=== PATIENT | male | born 1945 | race Caucasian/White ===

== ENCOUNTER → 2019-06-26 | Outpatient (CLI) | payer BC ==
[2019-06-26 10:49] LABS: Basophils # (auto) 0.1 uL; Basophils % (auto) 0.8 % (0.0-2.0); Eosinophils # (auto) 0.1 uL; Eosinophils % (auto) 1.8 % (0.0-7.0); Hematocrit 44.9 % (41.0-53.0); Hemoglobin 15.2 g/dL (13.5-17.5); Lymphocytes # (auto) 1.7 uL; Lymphocytes % (auto) 25.5 % (10.0-50.0); Mean Corpuscular Hemoglobin 30.1 pg (28.0-32.0); Mean Corpuscular Hgb Conc. 33.8 g/dL (32.0-36.0); Mean Corpuscular Volume 89.2 fL (80.0-100.0); Monocytes # (auto) 0.3 uL; Neutrophils # (auto) 4.5 uL; Neutrophils % (auto) 66.9 % (37.0-80.0); Nucleated Red Blood Cells % 0.1 %; Platelet Count (auto) 230 10^3/uL (140-450); Red Blood Cells 5.03 10^6/uL (4.5-5.90); Red Cell Distribution Width 14.4 % (11.8-14.3); White Blood Cell 6.8 10^3/uL (4.4-10.8)
[2019-06-26 11:46] LABS: Potassium 4.2 mmol/L (3.5-5.1)
[2019-06-26 11:54] LABS: Albumin 3.8 g/dL (3.4-5.0); BUN/Creatinine Ratio 15.2; Bilirubin, Total 0.6 mg/dL (0.2-1.0); Total Protein 7.2 g/dL (6.4-8.2)
[2019-06-26 14:42] LABS: Urine Bacteria NONE SEEN /hpf (None Seen); Urine Blood Negative /uL (Negative); Urine Hyaline Cast FEW /lpf (0 - 2); Urine Mucus FEW (None Seen); Urine Specific Gravity 1.027 (1.001-1.035); Urine WBC 2 /hpf (0 - 3)
== END | disposition home or self-care (01) ==
LOC: LAB 10:19
PROVIDERS: ATTEND Nurse Practitioner
DX: Z00.00 Encounter for general adult medical examination without abnormal findings (principal); E78.5 Hyperlipidemia, unspecified
CPT/HCPCS: 36415; 80053; 80061; 81001; 84443; 85025

== ENCOUNTER 2019-07-10 18:00 | Inpatient (IN) | payer BC ==
[~2019-07-10] VITALS: Ht 177.8 cm; Wt 87.0 kg
[2019-07-10 19:05] LABS: Basophils # (auto) 0 uL; Basophils % (auto) 0.4 % (0.0-2.0); Eosinophils # (auto) 0 uL; Eosinophils % (auto) 0.3 % (0.0-7.0); Hematocrit 44.9 % (41.0-53.0); Hemoglobin 15.4 g/dL (13.5-17.5); Lymphocytes # (auto) 1.1 uL; Lymphocytes % (auto) 10.7 % (10.0-50.0); Mean Corpuscular Hemoglobin 30.5 pg (28.0-32.0); Mean Corpuscular Hgb Conc. 34.3 g/dL (32.0-36.0); Monocytes # (auto) 0.4 uL; Monocytes % (auto) 4.4 % (0.0-12.0); Neutrophils # (auto) 8.4 uL; Neutrophils % (auto) 84.2 % (37.0-80.0); Platelet Count (auto) 210 10^3/uL (140-450); Red Blood Cells 5.05 10^6/uL (4.5-5.90); Red Cell Distribution Width 14.3 % (11.8-14.3)
[2019-07-10 19:16] LABS: Albumin 3.9 g/dL (3.4-5.0); Anion Gap 10 (5-15); Blood Urea Nitrogen 25 mg/dL (7-18); Calcium 8.7 mg/dL (8.5-10.1); Carbon Dioxide 23 mmol/L (21-32); Chloride 108 mmol/L (98-107); Glucose 130 mg/dL (74-106); Potassium 3.8 mmol/L (3.5-5.1); Sodium 141 mmol/L (136-145)
[2019-07-10 19:20] LABS: INR 1.06 (0.9-1.15); Partial Thromboplastin Time 25.2 sec (23.64-32.05)
[2019-07-10 19:22] LABS: Alanine Aminotransferase 49 U/L (16-61); Alkaline Phosphatase 61 U/L (45-117); Aspartate Aminotransferase 27 U/L (15-37); BUN/Creatinine Ratio 16.2; Bilirubin, Total 0.5 mg/dL (0.2-1.0); GFR African American 57 mL/min; GFR Non-African American 47 mL/min; Total Protein 7.1 g/dL (6.4-8.2)
[2019-07-10] MEDS ORDERED: NITROGLYCERIN 0.4 MG SL TAB SL PRN (22:30)
[2019-07-10] MEDS ORDERED: FAMOTIDINE (10MG/ML) 2ML VL IV ONE (22:30)
[2019-07-10] MEDS ORDERED: MORPHINE SULF INJ 2 MG/ML SYRINGE 1ML IV PRN (22:30)
[2019-07-10] MEDS: SODIUM CHLORIDE 0.9% 1,000 ML IV SCH (23:52)
[2019-07-10 23:59] VITALS: BP 131/87
--- NOTE | 2019-07-10 23:59 | NUR ---
Telemetry admit from [facility] admitted to Telemetry unit. Patient oriented to Abby Pillai RN primary RN, unit, room, bed, and unit policies regarding patient care and visiting hours. Patient now on continuous telemetry monitoring, tele box #[id number] and telemetry reading on arrival to unit is sinus rhythm. Patient weighed by bedscale and encouraged to call if they need something. All questions and concerns addressed, patient verbalized understanding. Bed is in lowest locked position with bed rails up x2 and call light is within reach of the patient. Bed alarm is armed.
--- NOTE | 2019-07-11 02:00 | NUR ---
Medications reconciliation, family called: Called [place] on patients request, patients brother to bring in patients list of medications for the patient after educating the need for list of medications. Denver stated that he will retrieve the list from [facility] and bring the list of medications in the AM to the hospital.
[2019-07-11] MEDS ORDERED: PNEUMOCOCCAL VACC POLYS 25 MCG/0.5 ML VIAL IM ONE (02:15)
[2019-07-11 02:44] LABS: Urine Amorphous Crystal FEW /hpf (None Seen); Urine Bacteria FEW /hpf (None Seen); Urine Blood Negative /uL (Negative); Urine Hyaline Cast MOD /lpf (0 - 2); Urine Mucus FEW (None Seen); Urine Specific Gravity 1.021 (1.001-1.035); Urine WBC 2 /hpf (0 - 3)
[2019-07-11 05:00] VITALS: BP 146/73
[2019-07-11 06:14] LABS: Basophils # (auto) 0.1 uL; Basophils % (auto) 0.7 % (0.0-2.0); Eosinophils # (auto) 0.1 uL; Eosinophils % (auto) 0.8 % (0.0-7.0); Hematocrit 41.8 % (41.0-53.0); Hemoglobin 14.7 g/dL (13.5-17.5); Lymphocytes # (auto) 1.8 uL; Lymphocytes % (auto) 18.5 % (10.0-50.0); Mean Corpuscular Hemoglobin 30.5 pg (28.0-32.0); Mean Corpuscular Hgb Conc. 35.1 g/dL (32.0-36.0); Monocytes # (auto) 0.6 uL; Monocytes % (auto) 5.8 % (0.0-12.0); Neutrophils # (auto) 7.1 uL; Neutrophils % (auto) 74.2 % (37.0-80.0); Platelet Count (auto) 206 10^3/uL (140-450); Red Cell Distribution Width 14.5 % (11.8-14.3); White Blood Cell 9.5 10^3/uL (4.4-10.8)
[2019-07-11 06:35] LABS: BUN/Creatinine Ratio 21.1; Calcium 8.5 mg/dL (8.5-10.1); Potassium 3.8 mmol/L (3.5-5.1)
--- NOTE | 2019-07-11 06:54 | NUR ---
Closing note: Patient is resting in bed with breaths even and unlabored. Bed alarm armed. No s/s of distress SOB or pain noted. Bed is in lowest locked position with bed rails up x2 and call light is within reach of the patient. Will endorse care to day shift nurse.
--- NOTE | 2019-07-11 07:50 | NUR ---
Opening Shift Note Assumed care of patient, awake and alert. No S/S of distress/SOB or pain. Instructed on POC and to call for assist PRN, will continue to monitor for changes Q1hr and PRN. Call light placed within reach. Bed alarm on for safety.
[2019-07-11 08:19] VITALS: BP 129/81
[2019-07-11] MEDS: FAMOTIDINE (10MG/ML) 2ML VL IV SCH ×2 (09:42→21:51)
--- NOTE | 2019-07-11 11:20 | NUR ---
IV to left hand dislodged. Patient attempted to get out of bed without calling for assistance. IV was dislodged and patient had blood all over his hands and bed linen. Pressure dressing was applied and hygienic needs met. IV insertion IV access obtained, via clean sterile technique by inserting 20 gauge catheter at left wrist after 1 attempt(s). IV secured properly. No trauma to site. Patient tolerated well.
--- NOTE | 2019-07-11 12:45 | NUR ---
Brother at bedside. He brought list of patient's home medications. Will update medication reconciliation.
[2019-07-11 13:00] VITALS: BP 161/84
[2019-07-11] MEDS: SODIUM CHLORIDE 0.9% 1,000 ML IV SCH (13:18)
[2019-07-11] MEDS ORDERED: DONE10TA40 PO (14:33)
[2019-07-11] MEDS ORDERED: MEMA1TAB2 PO (14:33)
[2019-07-11] MEDS ORDERED: ASPI81CH4 PO (14:33)
[2019-07-11] MEDS ORDERED: LISI10TA6 PO (14:33)
[2019-07-11] MEDS ORDERED: ATOR40TA52 PO (14:33)
[2019-07-11] MEDS ORDERED: DIPH25CA6 PO (14:33)
[2019-07-11] MEDS ORDERED: ACET-1156 PO (14:33)
[2019-07-11] MEDS ORDERED: BISA-4 PO (14:33)
[2019-07-11] MEDS ORDERED: AML5T PO (14:33)
[2019-07-11] MEDS ORDERED: DOCU100T15 PO (14:33)
--- NOTE | 2019-07-11 15:37 | NUR ---
Assessment Pt is a 74 yr old alert but somewhat disoriented male. During assessment, Pt had dysarthria, including slow of speech and some slurred words and was extra emotional. Prior to admit, pt lives alone, was ambulatory, and independent with cooking, cleaning and ADLs. Pt admitted with Syncope. Pt stated that he might need some help in the home with taking his medications. SW will discuss pt's needs with his nurse. Pt receives senior care income and is working on Advanced directives. Pt stated that his friend Denver can transport him home upon d/c. Further d/c planning will be done closer to d/c. Addendum: 07/11/19 at 1609 by BJ COSTA Amended: Links added.
[2019-07-11] MEDS ORDERED: LORazepam 2MG/ML-1ML VIAL IV PRN (15:45)
--- NOTE | 2019-07-11 15:46 | NUR ---
Social Service consult regarding Advance Directives. Provided pt with information on Advance Directive and Durable Power of Station Superintendent Form. Pt verbalized understanding and accepted information. Will contact Mathematics Faculty Member for any further concerns or issues.
[2019-07-11] MEDS ORDERED: HALOPERIDOL LACTATE 5 MG/ML INJ VIAL IM PRN (16:00)
[2019-07-11 16:39] VITALS: BP 126/78
[2019-07-11 17:48] LABS: Folate (Folic Acid) 10.95 ng/mL (5.38-24)
--- NOTE | 2019-07-11 20:00 | NUR ---
Opening Shift Note Assumed care of patient, awake and alert. No S/S of distress/SOB or pain. Instructed on POC and to call for assist PRN, will continue to monitor for changes Q1hr and PRN. Sitter at bed side for fall prevention. Bed in low position and call light in reach.
[2019-07-11] MEDS: MEMANTINE HCL 5 MG TAB PO SCH (21:39)
[2019-07-11 22:00] VITALS: BP 139/79
[2019-07-11] MEDS ORDERED: ATORVASTATIN 20 MG TAB PO SCH (22:00)
[2019-07-11] MEDS ORDERED: DONEPEZIL HYDROCHLORIDE 5 MG TAB PO SCH (22:00)
[2019-07-12] MEDS: SODIUM CHLORIDE 0.9% 1,000 ML IV SCH ×2 (01:10→16:32)
[2019-07-12 05:00] VITALS: BP 146/78
--- NOTE | 2019-07-12 06:54 | NUR ---
Closing note: Patient resting comfortably. No acute distress noted. Sitter remains at bedside.
--- NOTE | 2019-07-12 08:00 | NUR ---
PT RESTING IN BED, NO DISTRESS NOTED. PT A AND O X4. PT REPORTS NO PAIN AT THIS TIME. SITTER AT BEDSIDE, PT ENCOURAGED TO USE CALL LIGHT PRN, WILL CONTINUE TO MONITOR.
[2019-07-12 08:37] VITALS: BP 143/81
[2019-07-12] MEDS ORDERED: LISINOPRIL 10 MG TAB PO SCH (10:00)
[2019-07-12] MEDS ORDERED: ASPirin 81 mg TAB PO SCH (10:00)
--- NOTE | 2019-07-12 10:20 | NUR ---
EEG COMPLETED AT BEDSIDE. SUNDAR HOFF.
[2019-07-12] MEDS: MEMANTINE HCL 5 MG TAB PO SCH (11:26)
[2019-07-12] MEDS: FAMOTIDINE (10MG/ML) 2ML VL IV SCH (11:27)
[2019-07-12 11:30] LABS: BUN/Creatinine Ratio 16.5; Calcium 8.3 mg/dL (8.5-10.1)
[2019-07-12 13:00] VITALS: BP 134/72
--- NOTE | 2019-07-12 14:22 | NUR ---
MILLWRIGHT APPRENTICE CALLED AND REPORTS SHE SPOKE WITH DR HDEZ. REPORTED MRI NEG AND PT CAN BE DISCHARGED.
--- NOTE | 2019-07-12 15:04 | NUR ---
MAMI MIMS, PT HAD ANOTHER 5 BEATS OF V TACH. ASSESSED PT. PT RESTING IN BED AND REPORTS NO DISTRESS. NOTIFIED DR CHUA OF PT 5 BEATS OF V TACH. AWARE. Addendum: 07/12/19 at 1528 by CAM LATIF RN WRONG PATIENT
[2019-07-12 15:10] VITALS: BP 134/72
[2019-07-12] MEDS ORDERED: PNEUMOCOCCAL VACC POLYS 25 MCG/0.5 ML VIAL IM ONE (16:00)
--- NOTE | 2019-07-12 16:59 | NUR ---
Discharge instructions given as ordered. Encourage to follow up with PMD and Dr Cutler as instructed. All questions and concerns addressed. Patient verbalized understanding. Medication reconciliation form completed and copy given to patient. Needed vaccine given. IV removed with catheter intact, pressure dressing applied. Telemetry unit returned to ICU. Patient taken to vehicle via wheelchair with all personal belongings, accompanied by staff and family member. No distress noted at time of departure.
--- NOTE | 2019-07-14 16:40 | NUR ---
Received no call or page for SS consult to d/c back to [facility], [place].
== END 2019-07-12 16:00 | DRG 73 ==
LOC: EDBD 18:00 → ER 18:05 → TELE 18:06 → TELE-WESTW 23:33
PROVIDERS: ADMIT Internal Medicine; ATTEND Internal Medicine
DX: G90.8 Other disorders of autonomic nervous system (principal); N17.0 Acute kidney failure with tubular necrosis; K92.0 Hematemesis; E78.5 Hyperlipidemia, unspecified; R26.9 Unspecified abnormalities of gait and mobility; K59.00 Constipation, unspecified; F03.90 Unspecified dementia, unspecified severity, without behavioral disturbance, psychotic disturbance, mood disturbance, and anxiety; I10 Essential (primary) hypertension; E86.0 Dehydration; Z86.73 Personal history of transient ischemic attack (TIA), and cerebral infarction without residual deficits; Z83.3 Family history of diabetes mellitus; Z82.49 Family history of ischemic heart disease and other diseases of the circulatory system; Z79.899 Other long term (current) drug therapy; Z23 Encounter for immunization
CPT/HCPCS: 36415; 70450; 70551; 71045; 80048; 80053; 81001; 82607; 82746; 83880; 84484; 85025; 85610; 85730; 87081; 93005; 93306; 93886; 95819; 97116; 97530; G0378; J3490

== ENCOUNTER → 2020-05-15 | Emergency (ER) | payer BC ==
[~2020-05-15] VITALS: Ht 182.9 cm; Wt 68.0 kg
[~2020-05-15] MED LIST: ACET-1156 PO; AML5T PO; ASPI81CH74 PO; ATOR40TA52 PO; BISA-4 PO; DIPH25CA6 PO; DOCU100T15 PO; DONE10TA40 PO; LISI-648 PO; MEMA1TAB5 PO; SODIUM CHLORIDE 0.9% 500 ML IV ONE
[2020-05-15 10:24] LABS: Albumin 3.8 g/dL (3.4-5.0); Anion Gap 7 (5-15); Carbon Dioxide 23 mmol/L (21-32); Chloride 100 mmol/L (98-107); Glucose 140 mg/dL (74-106); Potassium 4.2 mmol/L (3.5-5.1); Sodium 130 mmol/L (136-145)
[2020-05-15 10:31] LABS: Alanine Aminotransferase 38 U/L (16-61); Alkaline Phosphatase 107 U/L (45-117); Aspartate Aminotransferase 41 U/L (15-37); BUN/Creatinine Ratio 22.2; Bilirubin, Total 1.2 mg/dL (0.2-1.0); Blood Urea Nitrogen 28 mg/dL (7-18); GFR African American 72 mL/min; GFR Non-African American 59 mL/min; Total Protein 7.1 g/dL (6.4-8.2)
[2020-05-15 15:15] LABS: Neutrophils % (auto) 89.8 % (37.0-80.0); White Blood Cell 9.5 10^3/uL (4.4-10.8)
[2020-05-15 15:16] LABS: Basophils # (auto) 0.02 10 ^3/uL (0-0.2); Basophils % (auto) 0.2 % (0.0-2.0); Eosinophils # (auto) 0 10 ^3/uL (0-0.8); Eosinophils % (auto) 0.4 % (0.0-7.0); Hematocrit 46.8 % (41.0-53.0); Hemoglobin 15.8 g/dL (13.5-17.5); Lymphocytes # (auto) 0.43 10 ^3/uL (0.4-5.4); Lymphocytes % (auto) 4.5 % (10.0-50.0); Mean Corpuscular Hemoglobin 29.7 pg (28.0-32.0); Mean Corpuscular Hgb Conc. 33.8 g/dL (32.0-36.0); Monocytes # (auto) 0.46 10 ^3/uL (0-1.3); Monocytes % (auto) 4.8 % (0.0-12.0); Neutrophils # (auto) 8.54 10 ^3/uL (1.6-8.6); Red Blood Cells 5.32 10^6/uL (4.5-5.90); Red Cell Distribution Width 14.1 % (11.8-14.3)
[2020-05-15 15:17] LABS: Platelet Count (auto) 187 10^3/uL (140-450)
[2020-05-15 15:20] LABS: Urine Bacteria NONE SEEN /hpf (None Seen); Urine Blood Negative /uL (Negative); Urine Specific Gravity 1.031 (1.001-1.035); Urine WBC <1 /hpf (0 - 3)
[2020-05-15 17:00] VITALS: BP 122/80
== END | disposition home or self-care (01) ==
LOC: EDUNIT# 08:57 → EDBD 09:10 → ER 09:10
DX: S70.01XA Contusion of right hip, initial encounter (principal); F03.90 Unspecified dementia, unspecified severity, without behavioral disturbance, psychotic disturbance, mood disturbance, and anxiety; I10 Essential (primary) hypertension; W19.XXXA Unspecified fall, initial encounter; Y93.89 Activity, other specified; Y92.89 Other specified places as the place of occurrence of the external cause; Y99.8 Other external cause status
CPT/HCPCS: 36415; 72192; 80053; 81001; 84484; 85025; 96360; 99285; J7030

== ENCOUNTER → 2020-07-21 | Outpatient (CLI) | payer BC ==
[~2020-07-21] MED LIST changes: -SODIUM CHLORIDE 0.9% 500 ML IV ONE
[2020-07-21 10:42] LABS: Urine Bacteria NONE SEEN /hpf (None Seen); Urine Blood Negative /uL (Negative); Urine Hyaline Cast FEW /lpf (0 - 2); Urine Mucus FEW (None Seen); Urine Specific Gravity 1.026 (1.001-1.035); Urine WBC 1 /hpf (0 - 3)
== END | disposition home or self-care (01) ==
LOC: LAB 10:04
PROVIDERS: ATTEND Nurse Practitioner
DX: R82.79 Other abnormal findings on microbiological examination of urine (principal)
CPT/HCPCS: 81001; 87086

== ENCOUNTER 2021-06-02 17:25 | Emergency (ER) | payer BC ==
[~2021-06-02] VITALS: Ht 170.2 cm; Wt 74.8 kg
[~2021-06-02 17:25] MED LIST changes: -BISA-4 PO; +BISA-65 PO; +DIPH25CA29 PO; -DIPH25CA6 PO; -DONE10TA40 PO; +DONE1TAB88 PO; -LISI-648 PO; +LISI-716 PO
[2021-06-02] MEDS ORDERED: cefTRIAXone SOD 1,000 MG VL IM ONE (20:15)
[2021-06-02 20:18] VITALS: BP 115/80
== END 2021-06-02 21:05 | disposition home or self-care (01) ==
LOC: ER 17:26
DX: L03.114 Cellulitis of left upper limb (principal); L03.011 Cellulitis of right finger; I10 Essential (primary) hypertension; Z86.73 Personal history of transient ischemic attack (TIA), and cerebral infarction without residual deficits; Z79.899 Other long term (current) drug therapy
CPT/HCPCS: 96372; 99283; J0696

== ENCOUNTER 2023-06-18 18:04 | Inpatient (IN) | payer BC ==
[~2023-06-18] VITALS: Ht 185.4 cm; Wt 98.6 kg
[~2023-06-18 18:04] MED LIST changes: -ACET-1156 PO; +ACET-1881 PO; +DIPH-753 PO; -DIPH25CA29 PO; -LISI-716 PO; +LISI10TA34 PO
[2023-06-18] MEDS ORDERED: MORPHINE SULFATE 4 MG/ML SYR/VIAL IV ONE (18:45)
[2023-06-18] MEDS ORDERED: SODIUM CHLORIDE 0.9% 1,000 ML IVB ONE (18:45)
[2023-06-18] MEDS ORDERED: ONDANSETRON HCL 4 MG/2 ML VIAL IV ONE (18:45)
[2023-06-18 19:09] LABS: Basophils # (auto) 0 10 ^3/uL (0-0.2); Basophils % (auto) 0.2 % (0.0-2.0); Eosinophils # (auto) 0.1 10 ^3/uL (0-0.8); Eosinophils % (auto) 0.5 % (0.0-7.0); Hematocrit 47.7 % (41.0-53.0); Hemoglobin 15.9 g/dL (13.5-17.5); Lymphocytes # (auto) 1.2 10 ^3/uL (0.4-5.4); Lymphocytes % (auto) 9.1 % (10.0-50.0); Mean Corpuscular Hemoglobin 29.3 pg (28.0-32.0); Mean Corpuscular Hgb Conc. 33.4 g/dL (32.0-36.0); Mean Corpuscular Volume 87.9 fL (80.0-100.0); Monocytes # (auto) 0.5 10 ^3/uL (0-1.3); Monocytes % (auto) 4.2 % (0.0-12.0); Neutrophils # (auto) 11.2 10 ^3/uL (1.6-8.6); Red Blood Cells 5.43 10^6/uL (4.5-5.90); Red Cell Distribution Width 14.8 % (11.8-14.3)
[2023-06-18 19:20] VITALS: PULSE 80; RESP 19; O2SAT 98
[2023-06-18 19:29] LABS: Alanine Aminotransferase 23 U/L (7-40); Albumin 3.8 g/dL (3.2-4.8); Alkaline Phosphatase 87 U/L (46-116); Anion Gap 7 (5-15); Aspartate Aminotransferase 18 U/L (13-40); BUN/Creatinine Ratio 14.8 (10.0-20.0); Bilirubin, Total 0.5 mg/dL (0.2-1.0); Blood Urea Nitrogen 27 mg/dL (9-23); Calcium 8.9 mg/dL (8.7-10.4); Carbon Dioxide 26 mmol/L (20-30); Chloride 104 mmol/L (98-107); Glucose 177 mg/dL (74-106); Lipase 50 U/L (12-53); Magnesium 1.9 mg/dL (1.6-2.6); Potassium 4.5 mmol/L (3.5-5.1); Sodium 137 mmol/L (136-145); Total Protein 5.7 g/dL (5.7-8.2)
[2023-06-18 20:10] LABS: INR 1.1 (0.9-1.15); Partial Thromboplastin Time 27.3 SEC (24.5-34.5); Prothrombin Time 11.5 sec (9.3-11.8)
[2023-06-18] MEDS ORDERED: IOHEXOL 350 MG/ML 100ML IJ ONE (20:19)
[2023-06-18 20:35] LABS: Lactic Acid w/Reflex 2.5 mmol/L (0.4-2.0)
[2023-06-18 23:08] LABS: Urine Bacteria FEW /hpf (None Seen); Urine Blood 2+ /uL (Negative); Urine Clarity Clear (Clear); Urine Color Yellow (Yellow); Urine Hyaline Cast FEW /lpf (0 - 2); Urine Mucus FEW (None Seen); Urine Protein, UAD 1+ (Negative); Urine Urobilinogen Normal (Negative); Urine WBC 6 /hpf (0 - 3); Urine pH 5.5 (5.0-8.0)
[2023-06-18 23:36] LABS: Urine Specific Gravity > 1.050 (1.001-1.035)
[2023-06-19] MEDS ORDERED: cefTRIAXone 1GM/50ML D5W 50 ML IV ONE ×2 (00:15→11:30)
[2023-06-19] MEDS ORDERED: ONDANSETRON HCL 4 MG/2 ML VIAL IV PRN (01:00)
[2023-06-19] MEDS ORDERED: SODIUM CHLORIDE 0.9% 1,000 ML IV SCH (01:00)
[2023-06-19] MEDS ORDERED: ACETAMINOPHEN 325 MG TAB PO PRN (01:00)
[2023-06-19] MEDS: CARBIDOPA W LEVODOPA 10/100mg TABLET PO SCH ×3 (06:00→21:15)
[2023-06-19] MEDS: MEMANTINE HCL 5 MG TAB PO SCH (10:04)
[2023-06-19 10:18] VITALS: PULSE 76; RESP 19; O2SAT 98
[2023-06-19 10:19] VITALS: BP 141/78; PULSE 76; RESP 19; TEMP 97.8; O2SAT 98
[2023-06-19 10:27] VITALS: BP 141/78; PULSE 76; RESP 19; TEMP 97.5; O2SAT 98
[2023-06-19] MEDS ORDERED: LACTATED RINGER'S 1,000 ML IV ONE (11:30)
[2023-06-19] MEDS ORDERED: LOPERAMIDE HCL 2 MG CAP/TAB PO PRN (11:30)
[2023-06-19 13:00] VITALS: BP 115/82; PULSE 67; RESP 19; TEMP 97.3; O2SAT 97
[2023-06-19 17:23] VITALS: BP 147/74; PULSE 74; RESP 19; TEMP 98.3; O2SAT 96
[2023-06-19] MEDS: ATORVASTATIN 20 MG TAB PO SCH (21:14)
[2023-06-19] MEDS: DONEPEZIL HYDROCHLORIDE 5 MG TAB PO SCH (21:15)
[2023-06-19 22:00] VITALS: BP 141/78; PULSE 68; RESP 17; TEMP 97.4; O2SAT 98
[2023-06-20] MEDS: metroNIDAZOLE 500MG/100ML 100 ML IV SCH ×3 (04:59→21:41)
[2023-06-20 05:00] VITALS: BP 164/80; PULSE 77; RESP 20; TEMP 97.6; O2SAT 94
[2023-06-20] MEDS: CARBIDOPA W LEVODOPA 10/100mg TABLET PO SCH ×3 (05:00→21:42)
[2023-06-20] MEDS ORDERED: hydrALAZINE HCL 20 MG/ML VL IV ONE (05:15)
[2023-06-20 09:00] VITALS: BP 150/86; PULSE 80; RESP 22; TEMP 98.3; O2SAT 96
[2023-06-20] MEDS: MEMANTINE HCL 5 MG TAB PO SCH (09:27)
[2023-06-20] MEDS: cefTRIAXone 1GM/50ML D5W 50 ML IV SCH (09:49)
[2023-06-20 09:58] LABS: Basophils # (auto) 0.1 10 ^3/uL (0-0.2); Basophils % (auto) 0.6 % (0.0-2.0); Eosinophils # (auto) 0.3 10 ^3/uL (0-0.8); Hematocrit 42.6 % (41.0-53.0); Hemoglobin 14.3 g/dL (13.5-17.5); Lymphocytes # (auto) 1.5 10 ^3/uL (0.4-5.4); Lymphocytes % (auto) 15.8 % (10.0-50.0); Mean Corpuscular Hemoglobin 29.7 pg (28.0-32.0); Mean Corpuscular Hgb Conc. 33.6 g/dL (32.0-36.0); Mean Corpuscular Volume 88.3 fL (80.0-100.0); Monocytes # (auto) 0.5 10 ^3/uL (0-1.3); Monocytes % (auto) 5.2 % (0.0-12.0); Neutrophils # (auto) 7.2 10 ^3/uL (1.6-8.6); Neutrophils % (auto) 75.4 % (37.0-80.0); Nucleated Red Blood Cells % 0.3 %; Red Blood Cells 4.82 10^6/uL (4.5-5.90); Red Cell Distribution Width 14.7 % (11.8-14.3); White Blood Cell 9.5 10^3/uL (4.4-10.8)
[2023-06-20 10:34] LABS: Alkaline Phosphatase 83 U/L (46-116); Anion Gap 6 (5-15); Aspartate Aminotransferase 15 U/L (13-40); Calcium 8.9 mg/dL (8.5-10.1); Carbon Dioxide 26 mmol/L (20-30); Chloride 106 mmol/L (98-107); Glucose 109 mg/dL (74-106); Potassium 4.2 mmol/L (3.5-5.1); Sodium 138 mmol/L (136-145)
[2023-06-20 10:35] LABS: Bilirubin, Total 0.9 mg/dL (0.2-1.0); Total Protein 6.3 g/dL (5.7-8.2)
[2023-06-20] MEDS ORDERED: PANTOPRAZOLE 40 MG/10 ML VIAL INJ IV ONE (11:00)
[2023-06-20 11:10] LABS: BUN/Creatinine Ratio 6.8 (10.0-20.0); Blood Urea Nitrogen < 5 mg/dL (9-23)
[2023-06-20 11:11] LABS: Alanine Aminotransferase < 9 U/L (7-40)
[2023-06-20 13:00] VITALS: BP 149/93; PULSE 72; RESP 18; TEMP 98.1; O2SAT 98
[2023-06-20 13:25] LABS: Urine Bacteria FEW /hpf (None Seen); Urine Blood 3+ /uL (Negative); Urine Clarity Clear (Clear); Urine Color Yellow (Yellow); Urine Mucus FEW (None Seen); Urine Protein, UAD 1+ (Negative); Urine Specific Gravity 1.017 (1.001-1.035); Urine Urobilinogen Normal (Negative); Urine WBC 9 /hpf (0 - 3)
[2023-06-20 16:44] VITALS: BP 129/72; PULSE 70; RESP 20; TEMP 98.7; O2SAT 99
[2023-06-20 21:30] VITALS: BP 137/87; PULSE 83; RESP 18; TEMP 98.3; O2SAT 97
[2023-06-20] MEDS: DONEPEZIL HYDROCHLORIDE 5 MG TAB PO SCH (21:41)
[2023-06-20] MEDS: ATORVASTATIN 20 MG TAB PO SCH (21:41)
[2023-06-21] MEDS: metroNIDAZOLE 500MG/100ML 100 ML IV SCH ×3 (06:00→21:18)
[2023-06-21] MEDS: CARBIDOPA W LEVODOPA 10/100mg TABLET PO SCH ×3 (06:00→21:18)
[2023-06-21 09:00] VITALS: BP 123/71; PULSE 76; RESP 12; TEMP 97; O2SAT 96
[2023-06-21] MEDS: cefTRIAXone 1GM/50ML D5W 50 ML IV SCH (09:00)
[2023-06-21] MEDS: PANTOPRAZOLE 40 MG/10 ML VIAL INJ IV SCH (10:00)
[2023-06-21] MEDS: MEMANTINE HCL 5 MG TAB PO SCH (10:00)
[2023-06-21 13:00] VITALS: BP 108/68; PULSE 80; RESP 16; TEMP 97.8; O2SAT 96
[2023-06-21 16:31] VITALS: BP 128/74; PULSE 79; RESP 16; TEMP 98.1; O2SAT 97
[2023-06-21] MEDS ORDERED: GOLYTELY 4L KIT PO ONE (20:00)
[2023-06-21] MEDS: ATORVASTATIN 20 MG TAB PO SCH (21:17)
[2023-06-21] MEDS: DONEPEZIL HYDROCHLORIDE 5 MG TAB PO SCH (21:18)
[2023-06-21 22:00] VITALS: BP 111/78; PULSE 88; RESP 18; TEMP 98.3; O2SAT 97
[2023-06-21] MEDS ORDERED: POLYETHYLENE GLYCOL 17 GM PWDR PO ONE (22:00)
[2023-06-22 05:00] VITALS: BP 112/78; PULSE 78; RESP 19; TEMP 97.5; O2SAT 96
[2023-06-22] MEDS: metroNIDAZOLE 500MG/100ML 100 ML IV SCH ×3 (05:09→21:26)
[2023-06-22] MEDS: CARBIDOPA W LEVODOPA 10/100mg TABLET PO SCH ×3 (05:10→21:27)
[2023-06-22] MEDS ORDERED: POLYETHYLENE GLYCOL 17 GM PWDR PO ONE (06:00)
[2023-06-22 09:00] VITALS: BP 110/74; PULSE 74; RESP 18; TEMP 97.7; O2SAT 96
[2023-06-22] MEDS: MEMANTINE HCL 5 MG TAB PO SCH (10:00)
[2023-06-22] MEDS: cefTRIAXone 1GM/50ML D5W 50 ML IV SCH (11:02)
[2023-06-22] MEDS: PANTOPRAZOLE 40 MG/10 ML VIAL INJ IV SCH (11:03)
[2023-06-22 13:00] VITALS: BP 139/85; PULSE 69; RESP 18; TEMP 98.1; O2SAT 96
[2023-06-22] MEDS ORDERED: fentaNYL CITRATE 100 MCG/2 ML VL ONE (13:57)
[2023-06-22] MEDS ORDERED: PROPOFOL 10 MG/ML 20 ML IV ONE (13:58)
[2023-06-22] MEDS ORDERED: PHENYLEPHRINE HCL 10 MG/ML VL ONE (14:36)
[2023-06-22 14:40] VITALS: PULSE 65; RESP 16; O2SAT 93
[2023-06-22] MEDS ORDERED: ONDANSETRON HCL 4 MG/2 ML VIAL IV PRN (15:00)
[2023-06-22 17:00] VITALS: BP 127/81; PULSE 77; RESP 18; TEMP 98.2; O2SAT 95
[2023-06-22] MEDS: ATORVASTATIN 20 MG TAB PO SCH (21:27)
[2023-06-22] MEDS: DONEPEZIL HYDROCHLORIDE 5 MG TAB PO SCH (21:27)
[2023-06-23] MEDS: metroNIDAZOLE 500MG/100ML 100 ML IV SCH ×3 (05:24→22:10)
[2023-06-23] MEDS: CARBIDOPA W LEVODOPA 10/100mg TABLET PO SCH ×3 (05:24→22:13)
[2023-06-23 06:05] VITALS: BP 122/74; PULSE 68; RESP 18; TEMP 98.4; O2SAT 92
[2023-06-23 08:00] VITALS: PULSE 71; RESP 20
[2023-06-23 09:00] VITALS: BP 136/80; PULSE 71; RESP 20; O2SAT 92
[2023-06-23] MEDS: cefTRIAXone 1GM/50ML D5W 50 ML IV SCH (09:38)
[2023-06-23] MEDS: PANTOPRAZOLE 40 MG/10 ML VIAL INJ IV SCH (09:39)
[2023-06-23] MEDS: MEMANTINE HCL 5 MG TAB PO SCH (09:39)
[2023-06-23 13:00] VITALS: BP 129/87; PULSE 68; RESP 20; O2SAT 92
[2023-06-23 19:33] VITALS: PULSE 75; RESP 18
[2023-06-23 22:00] VITALS: BP 134/89; PULSE 70; RESP 19; TEMP 98.6; O2SAT 95
[2023-06-23] MEDS: ATORVASTATIN 20 MG TAB PO SCH (22:12)
[2023-06-23] MEDS: DONEPEZIL HYDROCHLORIDE 5 MG TAB PO SCH (22:13)
[2023-06-23] MEDS: diphenhdrAMINE HCL 50 MG/1 ML VL IV PRN (23:47)
[2023-06-24 05:00] VITALS: BP 124/80; PULSE 77; RESP 19; TEMP 98.1; O2SAT 94
[2023-06-24] MEDS: metroNIDAZOLE 500MG/100ML 100 ML IV SCH ×2 (06:45→15:20)
[2023-06-24] MEDS: CARBIDOPA W LEVODOPA 10/100mg TABLET PO SCH ×2 (06:46→15:20)
[2023-06-24 08:00] VITALS: PULSE 97; RESP 18; O2SAT 100
[2023-06-24 09:00] VITALS: BP 131/63; PULSE 86; RESP 16; TEMP 98.6; O2SAT 95
[2023-06-24] MEDS: MEMANTINE HCL 5 MG TAB PO SCH (09:26)
[2023-06-24] MEDS: cefTRIAXone 1GM/50ML D5W 50 ML IV SCH (09:26)
[2023-06-24] MEDS: PANTOPRAZOLE 40 MG/10 ML VIAL INJ IV SCH (09:26)
[2023-06-24] MEDS: diphenhdrAMINE HCL 50 MG/1 ML VL IV PRN (10:08)
[2023-06-24] MEDS ORDERED: DIPH25CA51 PO (12:01)
[2023-06-24] MEDS ORDERED: MET500T PO (12:01)
[2023-06-24] MEDS ORDERED: PANT40T PO (12:01)
[2023-06-24] MEDS ORDERED: LEVO500T91 PO (12:01)
[2023-06-24 13:08] VITALS: BP 130/78; PULSE 103; RESP 18; TEMP 97.9; O2SAT 95
[2023-06-24 13:27] LABS: COVID19 ANTIGEN SOFIA FIA NEGATIVE (NEGATIVE)
[2023-06-24 14:21] VITALS: BP 130/78; PULSE 103; TEMP 97.9; O2SAT 95
== END 2023-06-24 15:19 | disposition home or self-care (01) | DRG 872 ==
LOC: EDBD 18:04 → ER 18:04 → EDUNIT# 18:04 → OVERFLOW 06-19 01:02 → WEST WING 06-19 09:53
PROVIDERS: ADMIT Nurse Practitioner; ATTEND Family Medicine
PROC: 0DB58ZX Excision of Esophagus, Via Natural or Artificial Opening Endoscopic, Diagnostic (ICD-10-PCS; 2023-06-22)
PROC: 0DBP8ZX Excision of Rectum, Via Natural or Artificial Opening Endoscopic, Diagnostic (ICD-10-PCS; 2023-06-22)
PROC: 0DB98ZX Excision of Duodenum, Via Natural or Artificial Opening Endoscopic, Diagnostic (ICD-10-PCS; principal; 2023-06-22 14:14)
PROC: 0DB68ZX Excision of Stomach, Via Natural or Artificial Opening Endoscopic, Diagnostic (ICD-10-PCS; 2023-06-22 14:14)
DX: A41.9 Sepsis, unspecified organism (principal); N39.0 Urinary tract infection, site not specified; N17.9 Acute kidney failure, unspecified; R18.8 Other ascites; K22.10 Ulcer of esophagus without bleeding; I95.9 Hypotension, unspecified; K52.9 Noninfective gastroenteritis and colitis, unspecified; G20.A1 Parkinson's disease without dyskinesia, without mention of fluctuations; F02.80 Dementia in other diseases classified elsewhere, unspecified severity, without behavioral disturbance, psychotic disturbance, mood disturbance, and anxiety; I10 Essential (primary) hypertension; K21.9 Gastro-esophageal reflux disease without esophagitis; K25.9 Gastric ulcer, unspecified as acute or chronic, without hemorrhage or perforation; K44.9 Diaphragmatic hernia without obstruction or gangrene; Z20.822 Contact with and (suspected) exposure to COVID-19; R13.12 Dysphagia, oropharyngeal phase; K26.9 Duodenal ulcer, unspecified as acute or chronic, without hemorrhage or perforation; K62.1 Rectal polyp; K29.90 Gastroduodenitis, unspecified, without bleeding; K57.30 Diverticulosis of large intestine without perforation or abscess without bleeding; E86.0 Dehydration; Z86.73 Personal history of transient ischemic attack (TIA), and cerebral infarction without residual deficits; Z87.19 Personal history of other diseases of the digestive system; Z82.49 Family history of ischemic heart disease and other diseases of the circulatory system; Z80.0 Family history of malignant neoplasm of digestive organs
CPT/HCPCS: 36415; 71045; 74018; 74177; 80053; 81001; 83605; 83690; 83735; 84484; 84702; 85025; 85048; 85610; 85730; 87040; 87045; 87081; 87086; 87426; 87427; 87493; 92610; 93005; 96361; 96374; 96375; C9113; G0378; J0696; J2405; J2704; J3490

== ENCOUNTER 2023-07-09 14:09 | Inpatient (IN) | payer BC ==
[~2023-07-09] VITALS: Ht 170.2 cm; Wt 79.1 kg
[~2023-07-09 14:09] MED LIST changes: +DIPH25CA51 PO; +LEVO500T91 PO; +MET500T PO; +PANT40T PO
[2023-07-09] MEDS ORDERED: SODIUM CHLORIDE 0.9% 1,000 ML IV ONE (14:30)
[2023-07-09 15:11] LABS: Basophils # (auto) 0 10 ^3/uL (0-0.2); Basophils % (auto) 0.3 % (0.0-2.0); Eosinophils # (auto) 0 10 ^3/uL (0-0.8); Hematocrit 48.1 % (41.0-53.0); Hemoglobin 15.8 g/dL (13.5-17.5); Lymphocytes # (auto) 0.3 10 ^3/uL (0.4-5.4); Lymphocytes % (auto) 1.8 % (10.0-50.0); Mean Corpuscular Hemoglobin 29.1 pg (28.0-32.0); Mean Corpuscular Hgb Conc. 32.9 g/dL (32.0-36.0); Mean Corpuscular Volume 88.4 fL (80.0-100.0); Monocytes # (auto) 0.4 10 ^3/uL (0-1.3); Monocytes % (auto) 2.4 % (0.0-12.0); Neutrophils # (auto) 16.7 10 ^3/uL (1.6-8.6); Neutrophils % (auto) 95.5 % (37.0-80.0); Red Blood Cells 5.44 10^6/uL (4.5-5.90); Red Cell Distribution Width 15.7 % (11.8-14.3); White Blood Cell 17.5 10^3/uL (4.4-10.8)
[2023-07-09 15:29] LABS: Alanine Aminotransferase 23 U/L (7-40); Albumin 4.3 g/dL (3.2-4.8); Alkaline Phosphatase 106 U/L (46-116); Anion Gap 10 (5-15); Aspartate Aminotransferase 28 U/L (13-40); BUN/Creatinine Ratio 13.8 (10.0-20.0); Bilirubin, Total 0.9 mg/dL (0.2-1.0); Blood Urea Nitrogen 15 mg/dL (9-23); Calcium 8.8 mg/dL (8.7-10.4); Carbon Dioxide 23 mmol/L (20-30); Chloride 106 mmol/L (98-107); Glucose 170 mg/dL (74-106); Potassium 4.7 mmol/L (3.5-5.1); Sodium 139 mmol/L (136-145); Total Protein 6.5 g/dL (5.7-8.2)
[2023-07-09] MEDS ORDERED: cefTRIAXone 1GM/50ML D5W 50 ML IV ONE (17:15)
[2023-07-09] MEDS ORDERED: AZITHROMYCIN 500MG/ 250ML 250 ML IV ONE (17:15)
[2023-07-09] MEDS ORDERED: ONDANSETRON HCL 4 MG/2 ML VIAL IV PRN (21:30)
[2023-07-09] MEDS ORDERED: ACETAMINOPHEN 325 MG TAB PO PRN (21:30)
[2023-07-10] MEDS: DONEPEZIL HYDROCHLORIDE 5 MG TAB PO SCH ×2 (03:06→22:06)
[2023-07-10] MEDS: MEMANTINE HCL 5 MG TAB PO SCH ×3 (03:07→22:06)
[2023-07-10] MEDS: ATORVASTATIN 20 MG TAB PO SCH ×2 (03:07→22:05)
[2023-07-10 05:26] LABS: Basophils # (auto) 0 10 ^3/uL (0-0.2); Basophils % (auto) 0.1 % (0.0-2.0); Eosinophils # (auto) 0 10 ^3/uL (0-0.8); Hematocrit 42.1 % (41.0-53.0); Hemoglobin 14.1 g/dL (13.5-17.5); Lymphocytes # (auto) 0.6 10 ^3/uL (0.4-5.4); Lymphocytes % (auto) 4.2 % (10.0-50.0); Mean Corpuscular Hemoglobin 29.5 pg (28.0-32.0); Mean Corpuscular Hgb Conc. 33.6 g/dL (32.0-36.0); Monocytes # (auto) 0.5 10 ^3/uL (0-1.3); Monocytes % (auto) 3.6 % (0.0-12.0); Neutrophils # (auto) 13.4 10 ^3/uL (1.6-8.6); Neutrophils % (auto) 92.1 % (37.0-80.0); Red Blood Cells 4.79 10^6/uL (4.5-5.90); Red Cell Distribution Width 15.6 % (11.8-14.3); White Blood Cell 14.6 10^3/uL (4.4-10.8)
[2023-07-10 05:32] LABS: Anion Gap 9 (5-15); Carbon Dioxide 21 mmol/L (20-30); Chloride 109 mmol/L (98-107); Potassium 3.7 mmol/L (3.5-5.1); Sodium 139 mmol/L (136-145)
[2023-07-10 05:33] LABS: Calcium 8.6 mg/dL (8.7-10.4)
[2023-07-10 05:38] LABS: BUN/Creatinine Ratio 12.3 (10.0-20.0); Blood Urea Nitrogen 15 mg/dL (9-23); Glucose 132 mg/dL (74-106)
[2023-07-10 07:31] LABS: Urine Bacteria NONE SEEN /hpf (None Seen); Urine Blood TRACE /uL (Negative); Urine Clarity Clear (Clear); Urine Color Yellow (Yellow); Urine Protein, UAD TRACE (Negative); Urine Specific Gravity 1.024 (1.001-1.035); Urine Urobilinogen Normal (Negative); Urine WBC 1 /hpf (0 - 3)
[2023-07-10] MEDS ORDERED: cefTRIAXone 1GM/50ML D5W 50 ML IV SCH (09:00)
[2023-07-10] MEDS: amLODIPine BESYLATE 5 MG TAB PO SCH (12:38)
[2023-07-10] MEDS: LISINOPRIL 10 MG TAB PO SCH (12:39)
[2023-07-10] MEDS: SERTRALINE HCL 50 MG TAB PO SCH (12:40)
[2023-07-10] MEDS: ENOXAPARIN SOD 40 MG/0.4 ML SYRINGE SC SCH (12:40)
[2023-07-10] MEDS ORDERED: metroNIDAZOLE 500MG/100ML 100 ML IV SCH (14:00)
[2023-07-10] MEDS: SODIUM CHLORIDE 0.9% 1,000 ML IV SCH (17:36)
[2023-07-10] MEDS: cefTRIAXone 1GM/50ML D5W 50 ML IV SCH (18:34)
[2023-07-10] MEDS: metroNIDAZOLE 500MG/100ML 100 ML IV SCH (20:07)
[2023-07-10 22:31] VITALS: PULSE 72; RESP 20; O2SAT 95
[2023-07-10 23:42] VITALS: PULSE 80; RESP 17; O2SAT 94
[2023-07-11] VITALS (7 sets, daily range): BP systolic 106–116; BP diastolic 66–72; PULSE 70–76; RESP 14–91; TEMP 97.6–98.7; O2SAT 90–94
[2023-07-11] MEDS: metroNIDAZOLE 500MG/100ML 100 ML IV SCH ×3 (03:15→20:04)
[2023-07-11] MEDS: SODIUM CHLORIDE 0.9% 1,000 ML IV SCH (03:20)
[2023-07-11 06:36] LABS: Basophils # (auto) 0 10 ^3/uL (0-0.2); Basophils % (auto) 0.4 % (0.0-2.0); Eosinophils # (auto) 0.2 10 ^3/uL (0-0.8); Hematocrit 40.1 % (41.0-53.0); Hemoglobin 13.4 g/dL (13.5-17.5); Lymphocytes # (auto) 0.9 10 ^3/uL (0.4-5.4); Mean Corpuscular Hemoglobin 29.8 pg (28.0-32.0); Mean Corpuscular Hgb Conc. 33.4 g/dL (32.0-36.0); Mean Corpuscular Volume 89.2 fL (80.0-100.0); Monocytes # (auto) 0.5 10 ^3/uL (0-1.3); Monocytes % (auto) 5.6 % (0.0-12.0); Neutrophils # (auto) 6.9 10 ^3/uL (1.6-8.6); Red Blood Cells 4.49 10^6/uL (4.5-5.90); Red Cell Distribution Width 15.7 % (11.8-14.3); White Blood Cell 8.5 10^3/uL (4.4-10.8)
[2023-07-11 06:40] LABS: Calcium 8.5 mg/dL (8.7-10.4); Chloride 110 mmol/L (98-107); Potassium 3.4 mmol/L (3.5-5.1); Sodium 142 mmol/L (136-145)
[2023-07-11 06:41] LABS: Anion Gap 8 (5-15); Carbon Dioxide 24 mmol/L (20-30)
[2023-07-11 06:46] LABS: BUN/Creatinine Ratio 14.3 (10.0-20.0); Blood Urea Nitrogen 15 mg/dL (9-23); Glucose 104 mg/dL (74-106)
[2023-07-11] MEDS: LISINOPRIL 10 MG TAB PO SCH (09:30)
[2023-07-11] MEDS: MEMANTINE HCL 5 MG TAB PO SCH ×2 (09:30→21:35)
[2023-07-11] MEDS: amLODIPine BESYLATE 5 MG TAB PO SCH (09:30)
[2023-07-11] MEDS: ENOXAPARIN SOD 40 MG/0.4 ML SYRINGE SC SCH (09:31)
[2023-07-11] MEDS: SERTRALINE HCL 50 MG TAB PO SCH (09:31)
[2023-07-11] MEDS: cefTRIAXone 1GM/50ML D5W 50 ML IV SCH (11:41)
[2023-07-11] MEDS ORDERED: SOD CHL 0.9%/ KCL 40MEQ 1,000 ML IV ONE (13:15)
[2023-07-11] MEDS: DONEPEZIL HYDROCHLORIDE 5 MG TAB PO SCH (21:34)
[2023-07-11] MEDS: ATORVASTATIN 20 MG TAB PO SCH (21:35)
[2023-07-12] VITALS (8 sets, daily range): BP systolic 104–142; BP diastolic 62–75; PULSE 66–82; RESP 14–20; TEMP 97.4–98.7; O2SAT 92–95
[2023-07-12] MEDS: metroNIDAZOLE 500MG/100ML 100 ML IV SCH ×3 (02:08→18:32)
[2023-07-12 06:53] LABS: Chloride 113 mmol/L (98-107); Potassium 3.7 mmol/L (3.5-5.1); Sodium 142 mmol/L (136-145)
[2023-07-12 06:55] LABS: Calcium 8.1 mg/dL (8.7-10.4)
[2023-07-12 07:00] LABS: BUN/Creatinine Ratio 11.9 (10.0-20.0); Blood Urea Nitrogen 10 mg/dL (9-23); Glucose 95 mg/dL (74-106)
[2023-07-12 07:04] LABS: Basophils # (auto) 0 10 ^3/uL (0-0.2); Basophils % (auto) 0.3 % (0.0-2.0); Eosinophils # (auto) 0.1 10 ^3/uL (0-0.8); Eosinophils % (auto) 2.5 % (0.0-7.0); Hematocrit 41.5 % (41.0-53.0); Hemoglobin 13.8 g/dL (13.5-17.5); Lymphocytes # (auto) 1.1 10 ^3/uL (0.4-5.4); Lymphocytes % (auto) 20.1 % (10.0-50.0); Mean Corpuscular Hemoglobin 29.6 pg (28.0-32.0); Mean Corpuscular Hgb Conc. 33.4 g/dL (32.0-36.0); Mean Corpuscular Volume 88.7 fL (80.0-100.0); Monocytes # (auto) 0.2 10 ^3/uL (0-1.3); Monocytes % (auto) 3.8 % (0.0-12.0); Neutrophils # (auto) 4.1 10 ^3/uL (1.6-8.6); Neutrophils % (auto) 73.3 % (37.0-80.0); Nucleated Red Blood Cells % 0.2 %; Red Blood Cells 4.67 10^6/uL (4.5-5.90); Red Cell Distribution Width 15.6 % (11.8-14.3); White Blood Cell 5.7 10^3/uL (4.4-10.8)
[2023-07-12 07:39] LABS: Anion Gap 8 (5-15); Carbon Dioxide 21 mmol/L (20-30)
[2023-07-12] MEDS: ENOXAPARIN SOD 40 MG/0.4 ML SYRINGE SC SCH (09:31)
[2023-07-12] MEDS: MEMANTINE HCL 5 MG TAB PO SCH ×2 (09:32→21:50)
[2023-07-12] MEDS: LISINOPRIL 10 MG TAB PO SCH (09:32)
[2023-07-12] MEDS: SERTRALINE HCL 50 MG TAB PO SCH (09:33)
[2023-07-12] MEDS: cefTRIAXone 1GM/50ML D5W 50 ML IV SCH (09:33)
[2023-07-12] MEDS: amLODIPine BESYLATE 5 MG TAB PO SCH (09:33)
[2023-07-12] MEDS: DONEPEZIL HYDROCHLORIDE 5 MG TAB PO SCH (21:50)
[2023-07-12] MEDS: ATORVASTATIN 20 MG TAB PO SCH (21:50)
[2023-07-13] VITALS (7 sets, daily range): BP systolic 135–153; BP diastolic 69–93; PULSE 69–83; RESP 14–20; TEMP 97.5–99.1; O2SAT 92–97
[2023-07-13] MEDS: metroNIDAZOLE 500MG/100ML 100 ML IV SCH ×3 (03:00→18:32)
[2023-07-13 05:08] LABS: Basophils # (auto) 0 10 ^3/uL (0-0.2); Basophils % (auto) 0.4 % (0.0-2.0); Eosinophils # (auto) 0.2 10 ^3/uL (0-0.8); Eosinophils % (auto) 4.3 % (0.0-7.0); Hematocrit 37.9 % (41.0-53.0); Hemoglobin 12.7 g/dL (13.5-17.5); Lymphocytes # (auto) 1.2 10 ^3/uL (0.4-5.4); Lymphocytes % (auto) 21.6 % (10.0-50.0); Mean Corpuscular Hemoglobin 29.1 pg (28.0-32.0); Mean Corpuscular Hgb Conc. 33.7 g/dL (32.0-36.0); Mean Corpuscular Volume 86.5 fL (80.0-100.0); Monocytes # (auto) 0.3 10 ^3/uL (0-1.3); Monocytes % (auto) 5.8 % (0.0-12.0); Neutrophils # (auto) 3.8 10 ^3/uL (1.6-8.6); Neutrophils % (auto) 67.9 % (37.0-80.0); Nucleated Red Blood Cells % 0.1 %; Red Blood Cells 4.38 10^6/uL (4.5-5.90); White Blood Cell 5.7 10^3/uL (4.4-10.8)
[2023-07-13 05:38] LABS: Anion Gap 8 (5-15); Carbon Dioxide 24 mmol/L (20-30); Chloride 110 mmol/L (98-107); Potassium 3.2 mmol/L (3.5-5.1); Sodium 142 mmol/L (136-145)
[2023-07-13 05:39] LABS: Calcium 8.3 mg/dL (8.7-10.4)
[2023-07-13 05:44] LABS: BUN/Creatinine Ratio 10.3 (10.0-20.0); Blood Urea Nitrogen 8 mg/dL (9-23); Glucose 92 mg/dL (74-106)
[2023-07-13] MEDS: cefTRIAXone 1GM/50ML D5W 50 ML IV SCH (08:41)
[2023-07-13] MEDS ORDERED: SOD CHL 0.9%/ KCL 40MEQ 1,000 ML IV ONE (08:45)
[2023-07-13] MEDS: LISINOPRIL 10 MG TAB PO SCH (09:21)
[2023-07-13] MEDS: ENOXAPARIN SOD 40 MG/0.4 ML SYRINGE SC SCH (09:21)
[2023-07-13] MEDS: MEMANTINE HCL 5 MG TAB PO SCH ×2 (09:21→21:59)
[2023-07-13] MEDS: amLODIPine BESYLATE 5 MG TAB PO SCH (09:22)
[2023-07-13] MEDS: SERTRALINE HCL 50 MG TAB PO SCH (09:26)
[2023-07-13] MEDS ORDERED: CHOLESTYRAMINE 4 GM POWDER GT SCH (11:00)
[2023-07-13] MEDS: CHOLESTYRAMINE 4 GM POWDER PO SCH (11:55)
[2023-07-13] MEDS: Ensure HIGH Protein Chocolate 8oz Bottle PO SCH ×2 (12:30→17:49)
[2023-07-13] MEDS: ATORVASTATIN 20 MG TAB PO SCH (21:59)
[2023-07-13] MEDS: DONEPEZIL HYDROCHLORIDE 5 MG TAB PO SCH (21:59)
[2023-07-14] MEDS: metroNIDAZOLE 500MG/100ML 100 ML IV SCH ×2 (02:59→14:46)
[2023-07-14 04:50] VITALS: BP 136/82; PULSE 69; RESP 16; TEMP 97.6; O2SAT 96
[2023-07-14 08:00] VITALS: BP 153/81; PULSE 75; PULSE 89; RESP 18; RESP 20; TEMP 97.4; O2SAT 95
[2023-07-14] MEDS: Ensure HIGH Protein Chocolate 8oz Bottle PO SCH ×2 (08:00→12:00)
[2023-07-14 08:30] VITALS: BP 153/81; PULSE 75; RESP 20; TEMP 97.4; O2SAT 95
[2023-07-14] MEDS: amLODIPine BESYLATE 5 MG TAB PO SCH (10:00)
[2023-07-14] MEDS: cefTRIAXone 1GM/50ML D5W 50 ML IV SCH (11:32)
[2023-07-14] MEDS: LISINOPRIL 10 MG TAB PO SCH (11:33)
[2023-07-14] MEDS: SERTRALINE HCL 50 MG TAB PO SCH (11:33)
[2023-07-14] MEDS: ENOXAPARIN SOD 40 MG/0.4 ML SYRINGE SC SCH (11:33)
[2023-07-14] MEDS: MEMANTINE HCL 5 MG TAB PO SCH (11:34)
[2023-07-14 12:42] VITALS: BP 151/91; PULSE 89; RESP 18; TEMP 98.3; O2SAT 95
[2023-07-14] MEDS: CHOLESTYRAMINE 4 GM POWDER PO SCH (14:46)
[2023-07-14] MEDS ORDERED: PANC3600 OR (16:58)
[2023-07-14] MEDS ORDERED: CEPH250C PO (16:58)
[2023-07-14 17:00] VITALS: BP 147/69; PULSE 83; RESP 18; TEMP 98.1; O2SAT 98
[2023-07-14 17:25] VITALS: BP 153/81; TEMP 36.8
== END 2023-07-14 20:08 | disposition home or self-care (01) | DRG 871 ==
LOC: ER 14:09 → EDBD 14:09 → EDUNIT# 14:09 → OVERFLOW 21:29 → WEST WING 07-10 22:13 → EAST 07-14 15:29
PROVIDERS: ADMIT Nurse Practitioner; ATTEND Nurse Practitioner Acute Care
PROC: 05HB33Z Insertion of Infusion Device into Right Basilic Vein, Percutaneous Approach (ICD-10-PCS; principal; 2023-07-10)
PROC: B54MZZA Ultrasonography of Right Upper Extremity Veins, Guidance (ICD-10-PCS; 2023-07-10)
DX: A41.9 Sepsis, unspecified organism (principal); G93.41 Metabolic encephalopathy; N39.0 Urinary tract infection, site not specified; F03.90 Unspecified dementia, unspecified severity, without behavioral disturbance, psychotic disturbance, mood disturbance, and anxiety; I10 Essential (primary) hypertension; R29.6 Repeated falls; E78.00 Pure hypercholesterolemia, unspecified; K52.9 Noninfective gastroenteritis and colitis, unspecified; Z86.73 Personal history of transient ischemic attack (TIA), and cerebral infarction without residual deficits; Z83.3 Family history of diabetes mellitus; Z82.49 Family history of ischemic heart disease and other diseases of the circulatory system
CPT/HCPCS: 36415; 70450; 71045; 74176; 80048; 80053; 81001; 83735; 83880; 84484; 85025; 87040; 87045; 87081; 87086; 87427; 87493; 92610; 93005; 97110; 97116; 97163; 97530; G0378; J0696; J2405; J3490

== ENCOUNTER 2024-05-04 06:11 | Inpatient (IN) | payer BC ==
[~2024-05-04] VITALS: Ht 180.3 cm; Wt 73.5 kg
[~2024-05-04 06:11] MED LIST changes: +CARB10TA21 PO; +CEPH250C PO; +PANC3600 OR; +PANT40TA2 PO; +TRAZ-227 PO
[2024-05-04] MEDS: SODIUM CHLORIDE 0.9% 1,000 ML IV ONE (06:46)
[2024-05-04 06:52] VITALS: PULSE 77; RESP 18; O2SAT 97
[2024-05-04 07:50] VITALS: PULSE 84; RESP 14; O2SAT 93
[2024-05-04 08:10] LABS: Basophils # (auto) 0 10 ^3/uL (0-0.2); Basophils % (auto) 0.1 % (0.0-2.0); Eosinophils # (auto) 0 10 ^3/uL (0-0.8); Eosinophils % (auto) 0.2 % (0.0-7.0); Hematocrit 43.8 % (41.0-53.0); Hemoglobin 14.8 g/dL (13.5-17.5); Lymphocytes # (auto) 0.6 10 ^3/uL (0.4-5.4); Lymphocytes % (auto) 5.5 % (10.0-50.0); Mean Corpuscular Hemoglobin 29.7 pg (28.0-32.0); Mean Corpuscular Hgb Conc. 33.8 g/dL (32.0-36.0); Monocytes # (auto) 0.3 10 ^3/uL (0-1.3); Monocytes % (auto) 3.1 % (0.0-12.0); Neutrophils # (auto) 9.9 10 ^3/uL (1.6-8.6); Neutrophils % (auto) 91.1 % (37.0-80.0); Nucleated Red Blood Cells % 0.1 %; Platelet Count (auto) 178 10^3/uL (140-450); Red Blood Cells 4.98 10^6/uL (4.5-5.90); White Blood Cell 10.9 10^3/uL (4.4-10.8)
[2024-05-04 08:21] LABS: Chloride 107 mmol/L (98-107); Potassium 3.8 mmol/L (3.5-5.1); Sodium 138 mmol/L (136-145)
[2024-05-04 08:22] LABS: Anion Gap 6 (5-15); Calcium 9.5 mg/dL (8.7-10.4); Carbon Dioxide 25 mmol/L (20-30)
[2024-05-04 08:27] LABS: BUN/Creatinine Ratio 15.8 (10.0-20.0); Blood Urea Nitrogen 15 mg/dL (9-23); Glucose 124 mg/dL (74-106)
[2024-05-04] MEDS ORDERED: DOCUSATE SOD 100 MG CAP PO PRN (13:45)
[2024-05-04] MEDS ORDERED: ONDANSETRON HCL 4 MG/2 ML VIAL IV PRN (13:45)
[2024-05-04] MEDS ORDERED: ACETAMINOPHEN 325 MG TAB PO PRN (13:45)
[2024-05-04] MEDS ORDERED: HYDROcodone-ACET 5/325MG TAB PO PRN (13:45)
[2024-05-04] MEDS: SODIUM CHLOR 0.9% PF (SALINE LOCK) 10ML VIAL/SYR IV SCH (14:00)
[2024-05-04 14:51] LABS: Erythrocyte Sedimentation Rate 2 mm/hr (0-20)
[2024-05-04] MEDS: cefTRIAXone 1GM/50ML D5W 50 ML IV SCH (14:55)
[2024-05-04] MEDS: metroNIDAZOLE 500MG/100ML 100 ML IV SCH (14:55)
[2024-05-04] MEDS: LACTATED RINGER'S 1,000 ML IV ONE (15:01)
[2024-05-04 19:45] VITALS: PULSE 78; RESP 12; O2SAT 95
[2024-05-05 06:37] LABS: Alanine Aminotransferase 24 U/L (7-40); Alkaline Phosphatase 83 U/L (46-116); Anion Gap 10 (5-15); BUN/Creatinine Ratio 10.6 (10.0-20.0); Blood Urea Nitrogen 9 mg/dL (9-23); Calcium 8.8 mg/dL (8.7-10.4); Carbon Dioxide 22 mmol/L (20-30); Chloride 106 mmol/L (98-107); Potassium 3.8 mmol/L (3.5-5.1); Sodium 138 mmol/L (136-145)
[2024-05-05 06:39] LABS: Albumin 4.1 g/dL (3.2-4.8); Aspartate Aminotransferase 28 U/L (13-40); Bilirubin, Total 0.9 mg/dL (0.2-1.0); Total Protein 6.3 g/dL (5.7-8.2)
[2024-05-05 06:42] LABS: Glucose 109 mg/dL (74-106)
[2024-05-05 07:41] VITALS: PULSE 68; RESP 18; O2SAT 96
[2024-05-05 07:46] LABS: Basophils # (auto) 0 10 ^3/uL (0-0.2); Basophils % (auto) 0.5 % (0.0-2.0); Eosinophils # (auto) 0.1 10 ^3/uL (0-0.8); Eosinophils % (auto) 1.6 % (0.0-7.0); Hematocrit 43.8 % (41.0-53.0); Hemoglobin 14.8 g/dL (13.5-17.5); Lymphocytes # (auto) 1.2 10 ^3/uL (0.4-5.4); Lymphocytes % (auto) 13.4 % (10.0-50.0); Mean Corpuscular Hemoglobin 29.6 pg (28.0-32.0); Mean Corpuscular Hgb Conc. 33.7 g/dL (32.0-36.0); Mean Corpuscular Volume 87.8 fL (80.0-100.0); Monocytes # (auto) 0.4 10 ^3/uL (0-1.3); Monocytes % (auto) 4.6 % (0.0-12.0); Neutrophils # (auto) 7.1 10 ^3/uL (1.6-8.6); Neutrophils % (auto) 79.9 % (37.0-80.0); Platelet Count (auto) 178 10^3/uL (140-450); Red Blood Cells 4.99 10^6/uL (4.5-5.90); Red Cell Distribution Width 14.9 % (11.8-14.3); White Blood Cell 8.9 10^3/uL (4.4-10.8)
[2024-05-05] MEDS: PANTOPRAZOLE 40 MG/10 ML VIAL INJ IV SCH (10:16)
[2024-05-05] MEDS: ENOXAPARIN SOD 40 MG/0.4 ML SYRINGE SC SCH (10:16)
[2024-05-05 12:19] LABS: INR 1.09 (0.9-1.15); Partial Thromboplastin Time 32.5 SEC (24.5-34.5); Prothrombin Time 11.5 sec (9.3-11.8)
[2024-05-05 13:41] LABS: Urine Bacteria None Seen /hpf (None Seen)
[2024-05-05] MEDS: hydrALAZINE HCL 20 MG/ML VL IV PRN (13:41)
[2024-05-05 14:10] LABS: Amphetamine Screen, Urine Neg (NEGATIVE); Barbiturate Scree,Urine Neg (NEGATIVE); Benzodiazephine Screen, Urine Neg (NEGATIVE); Cocaine Screen, Urine Neg (NEGATIVE)
[2024-05-05 14:11] LABS: Cannabinoid Screen, Urine Neg (NEGATIVE); Opiate Scree,Urine Neg (NEGATIVE); Phencyclidine Screen, Urine Neg (NEGATIVE)
[2024-05-05 15:44] LABS: Urine Blood 3+ /uL (Negative); Urine Clarity Clear (Clear); Urine Color Colorless (Yellow); Urine Protein, UAD Negative (Negative); Urine Specific Gravity 1.012 (1.001-1.035); Urine Urobilinogen Normal (Negative); Urine WBC 1 /hpf (0 - 3)
[2024-05-05 22:56] LABS: COVID19 ANTIGEN SOFIA FIA NEGATIVE (NEGATIVE)
[2024-05-06 05:24] LABS: Basophils # (auto) 0 10 ^3/uL (0-0.2); Basophils % (auto) 0.1 % (0.0-2.0); Eosinophils # (auto) 0.1 10 ^3/uL (0-0.8); Hematocrit 44.8 % (41.0-53.0); Hemoglobin 15.4 g/dL (13.5-17.5); Lymphocytes # (auto) 1.3 10 ^3/uL (0.4-5.4); Lymphocytes % (auto) 13.8 % (10.0-50.0); Mean Corpuscular Hemoglobin 30.3 pg (28.0-32.0); Mean Corpuscular Hgb Conc. 34.3 g/dL (32.0-36.0); Mean Corpuscular Volume 88.2 fL (80.0-100.0); Monocytes # (auto) 0.5 10 ^3/uL (0-1.3); Monocytes % (auto) 5.1 % (0.0-12.0); Neutrophils # (auto) 7.4 10 ^3/uL (1.6-8.6); Platelet Count (auto) 194 10^3/uL (140-450); Red Blood Cells 5.08 10^6/uL (4.5-5.90); Red Cell Distribution Width 14.5 % (11.8-14.3); White Blood Cell 9.2 10^3/uL (4.4-10.8)
[2024-05-06 06:00] LABS: Alanine Aminotransferase 17 U/L (7-40); Albumin 4.1 g/dL (3.2-4.8); Alkaline Phosphatase 86 U/L (46-116); Anion Gap 9 (5-15); Aspartate Aminotransferase 23 U/L (13-40); BUN/Creatinine Ratio 14.6 (10.0-20.0); Blood Urea Nitrogen 13 mg/dL (9-23); Calcium 9.5 mg/dL (8.7-10.4); Carbon Dioxide 23 mmol/L (20-30); Chloride 106 mmol/L (98-107); Glucose 121 mg/dL (74-106); Potassium 3.5 mmol/L (3.5-5.1); Sodium 138 mmol/L (136-145); Total Protein 6.6 g/dL (5.7-8.2)
[2024-05-06 08:30] VITALS: PULSE 87; RESP 17; O2SAT 93
[2024-05-06] MEDS ORDERED: SERT-206 PO (13:46)
[2024-05-06 17:39] VITALS: BP 112/72; PULSE 83; RESP 18; TEMP 98.2; O2SAT 94
[2024-05-06 18:07] VITALS: BP 135/87; PULSE 86; RESP 16; TEMP 98.2; O2SAT 93
[2024-05-06 21:00] VITALS: BP 136/80; PULSE 84; RESP 17; TEMP 97.7; O2SAT 97
[2024-05-07 01:00] VITALS: BP 128/76; PULSE 80; RESP 18; TEMP 97.7; O2SAT 96
[2024-05-07 05:00] VITALS: BP 144/89; PULSE 91; RESP 18; TEMP 98; O2SAT 96
[2024-05-07 06:26] LABS: Basophils # (auto) 0.1 10 ^3/uL (0-0.2); Basophils % (auto) 1.2 % (0.0-2.0); Eosinophils # (auto) 0.2 10 ^3/uL (0-0.8); Eosinophils % (auto) 2.4 % (0.0-7.0); Hematocrit 45.2 % (41.0-53.0); Hemoglobin 15.2 g/dL (13.5-17.5); Lymphocytes # (auto) 1.6 10 ^3/uL (0.4-5.4); Lymphocytes % (auto) 17.1 % (10.0-50.0); Mean Corpuscular Hemoglobin 29.7 pg (28.0-32.0); Mean Corpuscular Hgb Conc. 33.7 g/dL (32.0-36.0); Monocytes # (auto) 0.5 10 ^3/uL (0-1.3); Monocytes % (auto) 5.4 % (0.0-12.0); Neutrophils # (auto) 6.9 10 ^3/uL (1.6-8.6); Neutrophils % (auto) 73.9 % (37.0-80.0); Nucleated Red Blood Cells % 0.2 %; Platelet Count (auto) 203 10^3/uL (140-450); Red Blood Cells 5.14 10^6/uL (4.5-5.90); Red Cell Distribution Width 14.8 % (11.8-14.3); White Blood Cell 9.3 10^3/uL (4.4-10.8)
[2024-05-07 06:28] LABS: Alanine Aminotransferase 17 U/L (7-40); Albumin 3.9 g/dL (3.2-4.8); Alkaline Phosphatase 78 U/L (46-116); Anion Gap 8 (5-15); Aspartate Aminotransferase 21 U/L (13-40); BUN/Creatinine Ratio 20.9 (10.0-20.0); Blood Urea Nitrogen 19 mg/dL (9-23); Calcium 9.3 mg/dL (8.7-10.4); Carbon Dioxide 23 mmol/L (20-30); Chloride 109 mmol/L (98-107); Glucose 118 mg/dL (74-106); Potassium 3.6 mmol/L (3.5-5.1); Sodium 140 mmol/L (136-145)
[2024-05-07 06:29] LABS: Bilirubin, Total 0.8 mg/dL (0.2-1.0); Total Protein 6.3 g/dL (5.7-8.2)
[2024-05-07 08:44] VITALS: BP 139/87; PULSE 82; RESP 17; TEMP 98.2; O2SAT 91
[2024-05-07 12:36] VITALS: BP 135/86; PULSE 86; RESP 16; TEMP 98.2; O2SAT 93
[2024-05-07 16:23] VITALS: BP 135/86; PULSE 86; RESP 16; TEMP 98.2; O2SAT 93
[2024-05-07 17:09] VITALS: BP 142/84; PULSE 76; RESP 18; TEMP 98.3; O2SAT 92
== END 2024-05-07 17:30 | disposition home or self-care (01) | DRG 391 ==
LOC: EDBD 06:11 → ER 06:11 → EDUNIT# 06:11 → OVERFLOW 13:43 → CENTRAL 05-06 16:42
PROVIDERS: ADMIT Internal Medicine; ATTEND Internal Medicine
DX: K57.30 Diverticulosis of large intestine without perforation or abscess without bleeding (principal); G93.41 Metabolic encephalopathy; F03.90 Unspecified dementia, unspecified severity, without behavioral disturbance, psychotic disturbance, mood disturbance, and anxiety; I10 Essential (primary) hypertension; E78.5 Hyperlipidemia, unspecified; Z82.49 Family history of ischemic heart disease and other diseases of the circulatory system; Z83.3 Family history of diabetes mellitus; Z86.73 Personal history of transient ischemic attack (TIA), and cerebral infarction without residual deficits
CPT/HCPCS: 36415; 71045; 74176; 80048; 80053; 80307; 81001; 84484; 85025; 85610; 85652; 85730; 86141; 87426; 93005; G0378; J2470; J3490

== ENCOUNTER 2024-07-11 11:24 | Inpatient (IN) | payer BC ==
[~2024-07-11] VITALS: Ht 170.2 cm; Wt 88.3 kg
[~2024-07-11 11:24] MED LIST changes: -ACET-1881 PO; -BISA-65 PO; -CEPH250C PO; -DIPH-753 PO; -DOCU100T15 PO; -LEVO500T91 PO; -MET500T PO; +SERT-206 PO
--- NOTE | 2024-07-11 11:47 | ED.PDOC ---
HPI (NEURO) HPI Comments This is a 79-year-old male who presents to the ED via EMS for chief complaint of fall injury. He is from nursing facility with past medical history relevant for dementia, previous CVA. EMS was called after pt had mechanical fall from his chair. Patient denies loss of consciousness but states he is having left upper quadrant rib pain with increased pain during inspiration. Patient currently denies any abdominal pain, nausea, vomiting, dizziness, lightheadedness, midsternal chest pain, shortness of breath. Chief Complaint: Fall Injury Time Seen by MD: 11:31 Primary Care Provider: UNKNOWN Mode of Arrival: EMS Severity: Mild Timing: Hours Duration: Since onset Weakness Location: Generalized Past Medical History PAST MEDICAL HISTORY: CVA, Dementia, High Lipids, HTN Surgical History: Denies all surgeries Family History Family History: Family hx of DM, Family hx of HTN Social History Smoker: Non-Smoker Alcohol: Denies ETOH Use Drugs: Denies Drug Use Lives In: Home Constitutional: denies: chills, diaphoresis, fatigue, fever, malaise, sweats, weakness, others EENTM: denies: blurred vision, double vision, ear bleeding, ear discharge, ear drainage, ear pain, ear ringing, eye pain, eye redness, hearing loss, mouth pain, mouth swelling, nasal discharge, nose bleeding, nose congestion, nose pain, photophobia, tearing, throat pain, throat swelling, voice changes, others Respiratory: denies: cough, hemoptysis, orthopnea, SOB at rest, shortness of breath, SOB with excertion, stridor, wheezing, others Cardiovascular: reports: chest pain, lightheadedness, syncope; denies: dizzy spells, diaphoresis, Dyspnea on exertion, edema, irregular heart beat, left arm pain, palpitations, PND, others Gastrointestinal: denies: abdomen distended, abdominal pain, blood streaked bowels, constipated, diarrhea, dysphagia, difficulty swallowing, hematemesis, melena, nausea, poor appetite, poor fluid intake, rectal bleeding, rectal pain, vomiting, others Genitourinary: denies: burning, dysuria, flank pain, frequency, hematuria, incontinence, penile discharge, penile sore, pain, testicle pain, testicle swelling, urgency, others Neurological: reports: dizziness, fainting, weakness; denies: headache, left sided numbness, left sided weakness, numbness, paresthesia, pre-existing deficit, right sided numbness, right sided weakness, seizure, speech problems, tingling, tremors, others Musculoskeletal: denies: back pain, gout, joint pain, joint swelling, muscle pain, muscle stiffness, neck pain, others Integumetry: denies: bruises, change in color, change in hair/nails, dryness, laceration, lesions, lumps, rash, wounds, others Allergic/Immunocompromised: denies: Difficulty Healing, Frequent Infections, Hives, Itching, others Hematologic/Lymphatic: denies: anemia, blood clots, easy bleeding, easy bruising, swollen glands, others Endocrine: denies: excessive hunger, excessive sweating, excessive thirst, excessive urination, flushing, intolerance to cold, intolerance to heat, unexplained weight gain, unexplained weight loss, others Psychiatric: denies: anxiety, bipolar disorder, depression, hopeless, panic disorder, schizophrenia, sleepless, suicidal, others Physical Exam General Appearance: Mild Distress, Normal HEENT: Normal ENT Inspection, Pharynx Normal, TMs Normal Neck: Full Range of Motion, Non-Tender, Normal, Normal Inspection Respiratory: Lungs Clear, No Accessory Muscle Use, No Respiratory Distress, Normal Breath Sounds Cardiovascular: No Edema, No JVD, No Murmur, No Gallop, Normal Peripheral Pul ses, Regular Rate/Rhythm Breast Exam: Deferred Gastrointestinal: No Organomegaly, Non Tender, No Pulsatile Mass, Normal Bowel Sounds, Soft Genitalia: Deferred Pelvic: Deferred Rectal: Deferred Extremities: No calf tenderness, Normal capillary refill, Normal inspection, Normal range of motion, Non-tender, No pedal edema Neurologic: Abnormal Gait, Disoriented, Motor Weakness Cerebellar Function: NOT DONE Reflexes: NOT DONE Skin: Dry, Normal Color, Warm Lymphatic: No Adenopathy Was a procedure done? Was a procedure done?: No Differential Diagnosis (SZ) Seizure: Closed Head Injury, CVA/TIA, Syncope, Encephalopathy General Weakness: Dehydration, Electrolyte imbalance, Vertigo: central, V ertigo: peripheral X-Ray, Labs, Meds, VS Vital Signs Date Time Temp Pulse Resp B/P (MAP) Pulse Ox O2 Delivery O2 Flow Rate FiO2 07/11/24 13:22 83 17 92 Room Air* 0 21 07/11/24 13:00 78 18 147/80 (102) 92 07/11/24 12:00 81 18 129/75 (93) 92 07/11/24 11:49 98.8 85 18 122/81 (95) 92 98.8 07/11/24 11:28 97.5 87 16 124/84 (97) 96 Lab Test 07/11/24 11:40 Range/Units White Blood Count 6.5 4.4-10.8 10^3/uL Red Blood Count 4.99 4.5-5.90 10^6/uL Hemoglobin 14.9 13.5-17.5 g/dL Hematocrit 44.0 41.0-53.0 % Mean Corpuscular Volume 88.1 80.0-100.0 fL Mean Corpuscular Hemoglobin 29.7 28.0-32.0 pg Mean Corpuscular Hemoglobin Concent 33.7 32.0-36.0 g/dL Red Cell Distribution Width 14.9 H 11.8-14.3 % Platelet Count 200 140-450 10^3/uL Mean Platelet Volume 8.7 6.9-10.8 fL Neutrophils (%) (Auto) 71.4 37.0-80.0 % Lymphocytes (%) (Auto) 21.3 10.0-50.0 % Monocytes (%) (Auto) 5.4 0.0-12.0 % Eosinophils (%) (Auto) 1.6 0.0-7.0 % Basophils (%) (Auto) 0.3 0.0-2.0 % Neutrophils # (Auto) 4.6 1.6-8.6 10 ^3/uL Lymphocytes # (Auto) 1.4 0.4-5.4 10 ^3/uL Monocytes # (Auto) 0.3 0-1.3 10 ^3/uL Eosinophils # (Auto) 0.1 0-0.8 10 ^3/uL Basophils # (Auto) 0 0-0.2 10 ^3/uL Nucleated Red Blood Cells 0.1 % Sodium Level 140 136-145 mmol/L Potassium Level 3.8 3.5-5.1 mmol/L Chloride Level 107 98-107 mmol/L Carbon Dioxide Level 24 20-31 mmol/L Anion Gap 9 5-15 Blood Urea Nitrogen 23 9-23 mg/dL Creatinine 1.32 H 0.700-1.30 mg/dL Glomerular Filtration Rate Calc 55 >90 mL/min BUN/Creatinine Ratio 17.4 10.0-20.0 Serum Glucose 120 H 74-106 mg/dL Calcium Level 9.9 8.7-10.4 mg/dL On my initial examination, patient appeared in mild distress due to left upper rib pain, he has fluctuations in mentation , has history of dementia, on examination of the thorax no bruises were noted, however he did have lacerations and bruises in upper extremities and lower extremities. He denied any significant pain and was able to move these extremities. We will order a CBC, BMP, UA, chest x-ray, head CT. We will continue to reassess. CBC was unremarkable, BMP demonstrated JILL, UA still pending, chest x-ray demonstrated low lung volumes, head CT was unremarkable. We started the patient on IV fluids, he will be admitted due to JILL, metabolic encephalopathy possibly due to UTI. Images Reviewed?: Images reviewed and evaluated by me Time of 1ST Reevaluation: 11:36 Reevaluation 1ST: Unchanged Time of 2ND Reevaluation: 14:00 Reevaluation 2ND: Unchanged Patient Education/Counseling: Diagnosis, Treatment Family Education/Counseling: No Family Present Departure 1 Departure Time of Disposition: 14:19 Impression: Primary Impression: JILL (acute kidney injury) Additional Impressions: Hypovolemia UTI (urinary tract infection) Metabolic encephalopathy Disposition: ADMITTED INPATIENT Condition: Guarded Critical Care Note Critical Care Time?: No Stability Stability form required: No Heart Score Heart Score: Heart Score Response (Comments) Value History Slightly Suspicious 0 EKG N/A 0 Age >65 2 Risk Factors 1 or 2 risk factors 1 Troponin N/A 0 Total 3 ONEAL LUA RESIDENT Jul 11, 2024 11:47
--- NOTE | 2024-07-11 12:15 | DVH ---
CHEST RADIOGRAPH Indication:left hemithorax pain, s/p fall Technique: Single frontal view of the chest was obtained COMPARISON: XY CHEST PORTABLE on DOS: 05/04/24, XY CHEST PORTABLE on DOS: 07/09/23, XY CHEST PORTABLE on DOS: 06/18/23 FINDINGS: Lines and Tubes: None Lungs: Low lung volumes. Pleura: No effusion. No pneumothorax. Cardiomediastinal contours: Unremarkable Bones: Unremarkable IMPRESSION: Low lung volumes.
--- NOTE | 2024-07-11 12:23 | DVH ---
EXAM: CT HEAD WITHOUT CONTRAST HISTORY: s/p fall, ams COMPARISON: HEAD WITHOUT CONTRAST on DOS: 07/10/19 TECHNIQUE: Axial images were obtained and reformatted in coronal and sagittal planes. All CT scans at this medical facility are performed using dose modulation techniques as appropriate t o a performed exam including the following: Automated exposure control was utilized; adjustment of th e MA and/or KV according to patient size; and use of iterative reconstruction technique. CT Dose: CTDI volume is 65.03 mGy. Dose-length product is 1281.22 mGy*cm FINDINGS: There is no evidence of acute intracranial hemorrhage, mass, mass effect midline shift. There is no h ydrocephalus or extra-axial fluid collection. There is age concordant generalized parenchymal atrophy . There are hypodense changes in the supratentorial white matter compatible with chronic microvascula r ischemic changes. The meyer-white matter differentiation appears maintained. The visualized paranasal sinuses and mastoid air cells are clear. The calvarium is intact. IMPRESSION: 1. No acute intracranial process. HS:Y
[2024-07-11 12:27] LABS: Chloride 107 mmol/L (98-107); Potassium 3.8 mmol/L (3.5-5.1); Sodium 140 mmol/L (136-145)
[2024-07-11 12:28] LABS: Anion Gap 9 (5-15); Calcium 9.9 mg/dL (8.7-10.4); Carbon Dioxide 24 mmol/L (20-31)
[2024-07-11 12:30] LABS: Basophils # (auto) 0 10 ^3/uL (0-0.2); Basophils % (auto) 0.3 % (0.0-2.0); Eosinophils # (auto) 0.1 10 ^3/uL (0-0.8); Eosinophils % (auto) 1.6 % (0.0-7.0); Hemoglobin 14.9 g/dL (13.5-17.5); Lymphocytes # (auto) 1.4 10 ^3/uL (0.4-5.4); Lymphocytes % (auto) 21.3 % (10.0-50.0); Mean Corpuscular Hemoglobin 29.7 pg (28.0-32.0); Mean Corpuscular Hgb Conc. 33.7 g/dL (32.0-36.0); Mean Corpuscular Volume 88.1 fL (80.0-100.0); Monocytes # (auto) 0.3 10 ^3/uL (0-1.3); Monocytes % (auto) 5.4 % (0.0-12.0); Neutrophils # (auto) 4.6 10 ^3/uL (1.6-8.6); Neutrophils % (auto) 71.4 % (37.0-80.0); Nucleated Red Blood Cells % 0.1 %; Platelet Count (auto) 200 10^3/uL (140-450); Red Blood Cells 4.99 10^6/uL (4.5-5.90); Red Cell Distribution Width 14.9 % (11.8-14.3); White Blood Cell 6.5 10^3/uL (4.4-10.8)
[2024-07-11 12:33] LABS: BUN/Creatinine Ratio 17.4 (10.0-20.0); Blood Urea Nitrogen 23 mg/dL (9-23); Glucose 120 mg/dL (74-106)
[2024-07-11 13:22] VITALS: PULSE 83; RESP 17; O2SAT 92
--- NOTE | 2024-07-11 14:44 | DVH ---
CHEST RADIOGRAPH Indication:left rib pain s/p fall Technique: Single frontal view of the chest with 5 views of the left ribs Comparison: Chest radiograph 07/11/2024 FINDINGS: Lines and Tubes: None Lungs: No focal consolidation. Bronchovascular crowding due to low lung volumes. Pleura: No effusion. No pneumothorax. Cardiomediastinal contours: Mild cardiomegaly. Bones: Acute mildly displaced fractures of left posterior ribs 7 and 8 with acute minimally displaced fractures of left posterior ribs 4-6. Questionable acute fracture of left posterior lateral rib 9. IMPRESSION: Bronchovascular crowding due to low lung volumes. Acute mildly displaced fractures of left posterior ribs 7 and 8 with acute minimally displaced fractu res of left posterior ribs 4-6. Questionable acute fracture of left posterior lateral rib 9.
[2024-07-11] MEDS: SODIUM CHLORIDE 0.9% 1,000 ML IV ONE (14:50)
[2024-07-11] MEDS: MORPHINE SULFATE INJ 2 MG/ml SYRG IV ONE ×2 (17:01)
[2024-07-11 17:10] LABS: Urine Bacteria None Seen /hpf (None Seen)
[2024-07-11 18:00] LABS: Urine Blood Negative /uL (Negative); Urine Clarity Clear (Clear); Urine Color Yellow (Yellow); Urine Mucus FEW (None Seen); Urine Protein, UAD TRACE (Negative); Urine Specific Gravity 1.025 (1.001-1.035); Urine Urobilinogen Normal (Negative); Urine WBC 1 /hpf (0 - 3); Urine pH 5.5 (5.0-9.0)
[2024-07-11] MEDS ORDERED: ONDANSETRON HCL 4 MG/2 ML VIAL IV PRN (18:00)
[2024-07-11] MEDS ORDERED: MORPHINE SULFATE INJ 2 MG/ml SYRG IV PRN (18:00)
--- NOTE | 2024-07-11 18:43 | DVHHP2 ---
History of Present Illness Reason for Visit: Status post fall History of Present Illness 79-year-old male who presented to the ED via EMS with chief complaint of fall injury. Patient is coming from nursing home facility with past history of dementia, CVA. Patient fell from his chair in facility. Facility staff state patient did not lose consciousness but patient was having left upper quadrant rib pain with increased pain during inspiration. Patient is oriented x1 only, possibly sundowning. His baseline is oriented times 1-2. On rib x-ray multiple rib fractures. Patient denies chest pain, headache, dizziness, diaphoresis, shortness of breath, abdominal pain, no nausea, vomiting, fever, or chills endorsed by the patient. Patient was admitted for further evaluation medical management. Past Medical History CVA, Dementia, High Lipids, HTN Past Surgical History Unable to obtain Family History Reviewed noncontributory to the management of this case Smoke: No ALCOHOL: none Drugs: None Lives: [facility] Review of Systems Constitutional: No: Fever, Chills, Sweats, Weakness, Malaise, Other Eyes: No: Pain, Vision change, Conjunctivae inflammation, Eyelid inflammation, Other, Redness ENT: No: Ear pain, Ear discharge, Nose pain, Nose discharge, Nose congestion, Mouth pain, Mouth swelling, Throat pain, Throat swelling, Other Respiratory: Other (Difficulty taking deep breaths due to rib pain); No: Cough, Dry, Shortness of breath, SOB with excertion, Wheezing, Hemoptysis, Pleuritic Pain, Sputum, Wheezing Cardiovascular: No: Chest Pain, Palpitations, Orthopnea, Paroxysmal Noc. Dyspnea, Edema, Lt Headedness, Other Gastrointestinal: No: Nausea, Vomiting, Abdominal Pain, Diarrhea, Constipation, Melena, Hematochezia, Other Genitourinary: No Dysuria, No Frequency, No Incontinence, No Hematuria, No Retention, No Other Musculoskeletal: other (Pain to left ribs); No: neck pain, shoulder pain, arm pain, back pain, hand pain, leg pain, foot pain Skin: No: Rash, Lesions, Jaundice, Bruising, Other Neurological: No: Weakness, Numbness, Incoordination, Change in speech, Confusion, Seizures, Other Allergies: Coded Allergies: NO KNOWN ALLERGIES (Unverified , 07/09/23) Medications Current Medications Medications Dose Ordered Sig/Nilesh Route Start Time Stop Time Status Last Admin Dose Admin Acetaminophen/ Hydrocodone Bitart 1 tab Q4HP PRN PO 07/11/24 18:00 UNV Ondansetron HCl 4 mg Q4HP PRN IV 07/11/24 18:00 UNV Morphine Sulfate 2 mg Q4HPRN PRN IV 07/11/24 18:00 UNV Amlodipine Besylate 5 mg BID PO 07/11/24 22:00 UNV Pantoprazole Sodium 40 mg DAILY PO 07/12/24 10:00 UNV Sertraline HCl 100 mg DAILY PO 07/12/24 10:00 UNV Trazodone HCl 25 mg HSPRN PO 07/11/24 22:00 UNV Aspirin 81 mg DAILY PO 07/12/24 10:00 UNV Atorvastatin Calcium 40 mg HS PO 07/11/24 22:00 UNV Carbidopa/Levodopa 1 tab TID PO 07/11/24 22:00 UNV Donepezil HCl 10 mg HS PO 07/11/24 22:00 UNV Lisinopril 10 mg DAILY PO 07/12/24 10:00 UNV Memantine 10 mg Q12HR PO 07/11/24 22:00 UNV Exam Vital Signs Vital Signs Date Time Temp Pulse Resp B/P (MAP) Pulse Ox O2 Delivery O2 Flow Rate FiO2 07/11/24 18:00 83 18 127/94 (105) 99 07/11/24 13:22 Room Air* 0 21 07/11/24 11:49 98.8 98.8 General Appearance: Alert, Cooperative, No acute distress HEENT: Atraumatic, PERRLA, EOMI, Mucous membr. moist/pink Respiratory: Clear to auscultation, Normal air movement Cardiovascular: Regular rate, Normal S1, Normal S2, No murmurs Abdominal: Normal bowel sounds, Soft, No tenderness, No hepatospenomegaly, No masses Extremities: No clubbing, No cyanosis, No edema, Normal pulses, No tenderness/swelling Skin: No rashes, No breakdown, No significant lesion Neuro: Normal gait, Normal speech, Strength at 5/5 X4 ext, Normal tone, Sensation intact, Cranial nerves 3-12 NL, Reflexes 2+ Psych/Mental Status: Mental status NL, Mood NL, Other (Patient's mental status baseline oriented x1) Labs/Xrays Labs, imaging and ED notes reviewed Labs Test 07/11/24 17:00 07/11/24 11:40 Range/Units Urine Color Yellow Yellow Urine Clarity Clear Clear Urine pH 5.5 5.0-9.0 Urine Specific [place] 1.025 1.001-1.035 Urine Protein Trace H Negative Urine Ketones Negative Negative Urine Blood Negative Negative /uL Urine Nitrite Negative Negative Urine Bilirubin Negative Negative Urine Urobilinogen Normal Negative mg/dL Urine Leukocyte Esterase Negative Negative /uL Urine RBC 2 0 - 3 /hpf Urine WBC 1 0 - 3 /hpf Urine Squamous Epithelial Cells None seen <5 /hpf Urine Bacteria None seen None Seen /hpf Urine Mucus Few None Seen Urine Glucose Normal Normal mg/dL White Blood Count 6.5 4.4-10.8 10^3/uL Red Blood Count 4.99 4.5-5.90 10^6/uL Hemoglobin 14.9 13.5-17.5 g/dL Hematocrit 44.0 41.0-53.0 % Mean Corpuscular Volume 88.1 80.0-100.0 fL Mean Corpuscular Hemoglobin 29.7 28.0-32.0 pg Mean Corpuscular Hemoglobin Concent 33.7 32.0-36.0 g/dL Red Cell Distribution Width 14.9 H 11.8-14.3 % Platelet Count 200 140-450 10^3/uL Mean Platelet Volume 8.7 6.9-10.8 fL Neutrophils (%) (Auto) 71.4 37.0-80.0 % Lymphocytes (%) (Auto) 21.3 10.0-50.0 % Monocytes (%) (Auto) 5.4 0.0-12.0 % Eosinophils (%) (Auto) 1.6 0.0-7.0 % Basophils (%) (Auto) 0.3 0.0-2.0 % Neutrophils # (Auto) 4.6 1.6-8.6 10 ^3/uL Lymphocytes # (Auto) 1.4 0.4-5.4 10 ^3/uL Monocytes # (Auto) 0.3 0-1.3 10 ^3/uL Eosinophils # (Auto) 0.1 0-0.8 10 ^3/uL Basophils # (Auto) 0 0-0.2 10 ^3/uL Nucleated Red Blood Cells 0.1 % Sodium Level 140 136-145 mmol/L Potassium Level 3.8 3.5-5.1 mmol/L Chloride Level 107 98-107 mmol/L Carbon Dioxide Level 24 20-31 mmol/L Anion Gap 9 5-15 Blood Urea Nitrogen 23 9-23 mg/dL Creatinine 1.32 H 0.700-1.30 mg/dL Glomerular Filtration Rate Calc 55 >90 mL/min BUN/Creatinine Ratio 17.4 10.0-20.0 Serum Glucose 120 H 74-106 mg/dL Calcium Level 9.9 8.7-10.4 mg/dL Assessment/Plan Assessment/Plan Status post mechanical fall, with rib fractures Admit to medical/surgical Pain medications p.r.n. pain Zofran p.r.n. nausea UA pending Multiple rib fractures on rib x-ray History dementia Continue home medications Frequent reorientation History hypertension Continue home meds Chronic hyperlipidemia Continue home meds FEN/PPX GI and VTE prophylaxis not indicated Cardiac diet Advanced care plan discussed at the bedside with the patient for at least 30 minutes, patient is a DNR, patient also came with paperwork from nursing home facility Plan discussed with: Patient My Orders Orders - RAMY BLEDSOE Procedure Category Date Status Time Admit ADMIT 07/11/24 Transmitted 17:59 Vital Signs [facility] 07/11/24 In Process 17:59 Review Orders With [facility] 07/11/24 In Process Adm. 17:59 Bedside Commode [facility] 07/11/24 In Process 17:59 Regular Diet DIET 07/11/24 Transmitted Dinner Notify Of Changes [facility] 07/11/24 In Process From Base 17:59 Advance Directive [facility] 07/11/24 In Process 17:59 Basic Metabolic Panel LAB 07/12/24 Verified 04:00 Complete Blood Count LAB 07/12/24 Verified 04:00 Patient Condition ORDERS 07/11/24 Transmitted 17:59 Allergies [facility] 07/11/24 In Process 17:59 Hydrocodone-Acet PHA 07/11/24 Logged 5/325mg Tab ([place] 18:00 Ondansetron Hcl PHA 07/11/24 Logged (Zofran) 18:00 Morphine Sulfate PHA 07/11/24 Logged Injection 18:00 Amlodipine Tablet PHA 07/11/24 Logged (Norvasc Tablet) 22:00 Pantoprazole Tablet PHA 07/12/24 Logged (Protonix Tablet) 10:00 Sertraline Hcl PHA 07/12/24 Logged (Zoloft) 10:00 Trazodone Hcl PHA 07/11/24 Logged (Desyrel) 22:00 Aspirin Enteric PHA 07/12/24 Logged Coated Tablet 10:00 Atorvastatin (Lipitor) PHA 07/11/24 Logged 22:00 Carbidopa W Levodopa PHA 07/11/24 Logged 10/100mg (Sinemet 1 22:00 Donepezil Tablet PHA 07/11/24 Logged (Aricept Tablet) 22:00 Lisinopril Tablet PHA 07/12/24 Logged (Zestril Tablet) 10:00 Memantine Tablet PHA 07/11/24 Logged (Namenda Tablet) 22:00 Code Status CODE 07/11/24 Transmitted 18:34 Date of Service: Jul 11, 2024 Billing Provider: RAMY BLEDSOE Common Visit Codes: [id number]-[id number] INP/OBS CARE (HIGH) Secondary Visit Codes: [id number] CARE PLAN 30 MINUTES RAMY BLEDSOE Jul 11, 2024 18:43
[2024-07-11 20:02] VITALS: BP 111/55; PULSE 69; PULSE 79; RESP 18; RESP 21; TEMP 98.3; O2SAT 95; O2SAT 98
[2024-07-11 21:00] VITALS: BP 142/75; PULSE 69; RESP 21; TEMP 98; O2SAT 95
[2024-07-11] MEDS: traZODone HCL 50 MG TAB PO SCH (22:20)
[2024-07-11] MEDS: amLODIPine BESYLATE 5 MG TAB PO SCH (22:22)
[2024-07-11] MEDS: MEMANTINE HCL 5 MG TAB PO SCH (22:23)
[2024-07-11] MEDS: ATORVASTATIN 20 MG TAB PO SCH (22:23)
[2024-07-11] MEDS: DONEPEZIL HYDROCHLORIDE 5 MG TAB PO SCH (22:24)
[2024-07-12] MEDS: CARBIDOPA W LEVODOPA 10/100mg TABLET PO SCH (00:43)
[2024-07-12 01:02] VITALS: BP 165/78; PULSE 72; RESP 20; TEMP 98.2; O2SAT 95
[2024-07-12 05:00] VITALS: BP 159/83; PULSE 60; RESP 20; TEMP 98; O2SAT 94
[2024-07-12 06:00] LABS: Basophils # (auto) 0 10 ^3/uL (0-0.2); Basophils % (auto) 0.3 % (0.0-2.0); Eosinophils # (auto) 0.1 10 ^3/uL (0-0.8); Eosinophils % (auto) 2.4 % (0.0-7.0); Hematocrit 40.5 % (41.0-53.0); Hemoglobin 13.8 g/dL (13.5-17.5); Lymphocytes # (auto) 1.4 10 ^3/uL (0.4-5.4); Lymphocytes % (auto) 21.9 % (10.0-50.0); Mean Corpuscular Hemoglobin 30.2 pg (28.0-32.0); Mean Corpuscular Hgb Conc. 34.2 g/dL (32.0-36.0); Mean Corpuscular Volume 88.3 fL (80.0-100.0); Monocytes # (auto) 0.3 10 ^3/uL (0-1.3); Neutrophils # (auto) 4.4 10 ^3/uL (1.6-8.6); Neutrophils % (auto) 71.4 % (37.0-80.0); Nucleated Red Blood Cells % 0.1 %; Platelet Count (auto) 166 10^3/uL (140-450); Red Blood Cells 4.58 10^6/uL (4.5-5.90); Red Cell Distribution Width 15.1 % (11.8-14.3); White Blood Cell 6.2 10^3/uL (4.4-10.8)
[2024-07-12 06:15] LABS: Chloride 109 mmol/L (98-107); Potassium 3.6 mmol/L (3.5-5.1); Sodium 142 mmol/L (136-145)
[2024-07-12 06:16] LABS: Anion Gap 10 (5-15); Calcium 9.2 mg/dL (8.7-10.4); Carbon Dioxide 23 mmol/L (20-31)
[2024-07-12 06:21] LABS: BUN/Creatinine Ratio 16.1 (10.0-20.0); Blood Urea Nitrogen 14 mg/dL (9-23); Glucose 102 mg/dL (74-106)
[2024-07-12 09:00] VITALS: BP 139/95; PULSE 67; RESP 17; TEMP 97.8; O2SAT 96
[2024-07-12] MEDS: SERTRALINE HCL 50 MG TAB PO SCH (10:00)
[2024-07-12] MEDS: ASPirin-EC 81 mg tab PO SCH (10:26)
[2024-07-12] MEDS: PANTOPRAZOLE 40 MG TAB PO SCH (10:32)
[2024-07-12] MEDS: LISINOPRIL 5 MG TAB PO SCH (10:33)
[2024-07-12 13:00] VITALS: BP 152/83; PULSE 72; RESP 17; TEMP 98.4; O2SAT 94
--- NOTE | 2024-07-12 16:11 | DVHPN2 ---
Subjective Patient pleasantly confused from his dementia. Sitter at bedside. Patient's chart is reviewed and took over his care from today for hospitalist request. Patient came here post sniff mechanical fall with a drip fractures. Changes from previous H/P or p: No Changes Eyes: No Pain, No Vision change, No Conjunctivae inflammation, No Eyelid inflammation, No Other, No Redness ENT: No Ear pain, No Ear discharge, No Nose pain, No Nose discharge, No Nose congestion, No Mouth pain, No Mouth swelling, No Throat pain, No Throat swelling, No Other Cardiovascular: No Chest Pain, No Palpitations, No Orthopnea, No Paroxysmal Noc. Dyspnea, No Edema, No Lt Headedness, No Other Respiratory: No Cough, No Dry, No Shortness of breath, No SOB with excertion, No Wheezing, No Hemoptysis, No Pleuritic Pain, No Sputum; Other (Difficulty taking deep breaths due to rib pain) Gastrointestinal: No Nausea, No Vomiting, No Abdominal Pain, No Diarrhea, No Constipation, No Melena, No Hematochezia, No Other Genitourinary: No Dysuria, No Frequency, No Incontinence, No Hematuria, No Retention, No Other Musculoskeletal: other (Pain to left ribs); No neck pain, No shoulder pain, No arm pain, No back pain, No hand pain, No leg pain, No foot pain Skin: No Rash, No Lesions, No Jaundice, No Bruising, No Other Objective Vitals Vital Signs Date Time Temp Pulse Resp B/P (MAP) Pulse Ox O2 Delivery O2 Flow Rate FiO2 07/12/24 13:00 98.4 72 17 152/83 (106) 94 98.4 07/12/24 08:00 Room Air* 0 21 Intake/Output Intake and Output 07/12/24 07:00 Intake Total 700 ml Output Total 110 ml Balance 590 ml Intake Oral 300 ml IV Total 400 ml Output Urine Total 110 ml Exam Pleasantly confused but not agitated comfortable in bed. Sitter at bedside. HEENT neck supple no JVD. Heart regular rate and rhythm. Lungs without rales wheezes poor inspiratory effort. Abdomen soft positive bowel sounds. Extremities no edema. Medications Current Medications Medications Dose Ordered Sig/Nilesh Route Start Time Stop Time Status Last Admin Dose Admin Acetaminophen/ Hydrocodone Bitart 1 tab Q4HP PRN PO 07/11/24 18:00 Ondansetron HCl 4 mg Q4HP PRN IV 07/11/24 18:00 Morphine Sulfate 2 mg Q4HPRN PRN IV 07/11/24 18:00 Amlodipine Besylate 5 mg BID PO 07/11/24 22:00 07/12/24 10:32 5 MG Pantoprazole Sodium 40 mg DAILY PO 07/12/24 10:00 07/12/24 10:32 40 MG Sertraline HCl 100 mg DAILY PO 07/12/24 10:00 07/12/24 10:00 100 MG Trazodone HCl 25 mg HSPRN PO 07/11/24 22:00 07/11/24 22:20 25 MG Aspirin 81 mg DAILY PO 07/12/24 10:00 07/12/24 10:26 81 MG Atorvastatin Calcium 40 mg HS PO 07/11/24 22:00 07/11/24 22:23 40 MG Carbidopa/Levodopa 1 tab TID PO 07/11/24 22:00 07/12/24 14:51 1 TAB Donepezil HCl 10 mg HS PO 07/11/24 22:00 07/11/24 22:24 10 MG Lisinopril 10 mg DAILY PO 07/12/24 10:00 07/12/24 10:33 10 MG Memantine 10 mg Q12HR PO 07/11/24 22:00 07/12/24 10:26 10 MG Laboratory Results Laboratory Tests 07/12/24 05:02 Chemistry Test 07/12/24 05:02 Calcium Level 9.2 mg/dL (8.7-10.4) Urinalysis Test 07/11/24 17:00 Urine Color Yellow (Yellow) Urine Clarity Clear (Clear) Urine pH 5.5 (5.0-9.0) Urine Specific [place] 1.025 (1.001-1.035) Urine Protein Trace (Negative) H Urine Ketones Negative (Negative) Urine Blood Negative /uL (Negative) Urine Nitrite Negative (Negative) Urine Bilirubin Negative (Negative) Urine Urobilinogen Normal mg/dL (Negative) Urine Leukocyte Esterase Negative /uL (Negative) Urine RBC 2 /hpf (0 - 3) Urine WBC 1 /hpf (0 - 3) Urine Squamous Epithelial Cells None seen /hpf (<5) Urine Bacteria None seen /hpf (None Seen) Urine Mucus Few (None Seen) Urine Glucose Normal mg/dL (Normal) Microbiology Microbiology Date/Time Source Procedure Growth Status 07/12/24 00:40 Nose MRSA Screen - Final Complete Labs and/or images reviewed: Labs reviewed by me Assessment/Plan Assessment/Plan Status post mechanical fall, with rib fractures Head CT is normal. Urinalysis no infection. CBC BMP is normal. Continue his dementia medications and other home meds. Given patient is taking poor inspirations from pain I will add scheduled ibuprofen 3 times a day and continue proton pump inhibitor. Also give him IV Solu-Medrol for acute inflammation and rib pain. Otherwise physical therapy evaluation. Continue rest of supportive care and treatment. Further clinical management per clinical course. Discussed with the nurse at bedside regarding care plan. Plan discussed with: Other Problem List: (1) Dementia (2) History of CVA (cerebrovascular accident) (3) [facility] Date of Service: Jul 12, 2024 Billing Provider: DOMONIQUE KHALIL MD Common Visit Codes: [id number] INP/OBS CARE(MOD) DOMONIQUE KHALIL MD Jul 12, 2024 16:10
[2024-07-12 16:57] VITALS: BP 148/97; PULSE 75; RESP 19; TEMP 98.3; O2SAT 94
[2024-07-12] MEDS: IBUPROFEN 600 MG TAB PO SCH (20:27)
[2024-07-12] MEDS: methylPREDNISolone SOD SUCC 40 MG/ML VL IV SCH (20:51)
[2024-07-12 21:00] VITALS: BP 143/86; PULSE 73; RESP 18; TEMP 98.4; O2SAT 94
[2024-07-13 01:00] VITALS: BP 140/87; PULSE 68; RESP 16; TEMP 98.6; O2SAT 95
[2024-07-13 05:00] VITALS: BP 139/77; PULSE 67; RESP 16; TEMP 98.8; O2SAT 94
[2024-07-13 08:00] VITALS: PULSE 77; RESP 18; O2SAT 96
[2024-07-13 09:00] VITALS: BP 149/90; PULSE 77; RESP 18; TEMP 98.5; O2SAT 96
[2024-07-13] MEDS: OLANZapine 5 MG TAB PO SCH (10:00)
[2024-07-13 13:00] VITALS: BP 118/68; PULSE 72; RESP 16; TEMP 98.4; O2SAT 98
--- NOTE | 2024-07-13 15:57 | DVHPN2 ---
Subjective Patient pleasantly confused from his dementia. Sitter at bedside. Per nurse patient is pocketing his medications/pills and some food. Changes from previous H/P or p: No Changes Eyes: No Pain, No Vision change, No Conjunctivae inflammation, No Eyelid inflammation, No Other, No Redness ENT: No Ear pain, No Ear discharge, No Nose pain, No Nose discharge, No Nose congestion, No Mouth pain, No Mouth swelling, No Throat pain, No Throat swelling, No Other Cardiovascular: No Chest Pain, No Palpitations, No Orthopnea, No Paroxysmal Noc. Dyspnea, No Edema, No Lt Headedness, No Other Respiratory: No Cough, No Dry, No Shortness of breath, No SOB with excertion, No Wheezing, No Hemoptysis, No Pleuritic Pain, No Sputum; Other (Difficulty taking deep breaths due to rib pain) Gastrointestinal: No Nausea, No Vomiting, No Abdominal Pain, No Diarrhea, No Constipation, No Melena, No Hematochezia, No Other Genitourinary: No Dysuria, No Frequency, No Incontinence, No Hematuria, No Retention, No Other Musculoskeletal: other (Pain to left ribs); No neck pain, No shoulder pain, No arm pain, No back pain, No hand pain, No leg pain, No foot pain Skin: No Rash, No Lesions, No Jaundice, No Bruising, No Other Objective Vitals Vital Signs Date Time Temp Pulse Resp B/P (MAP) Pulse Ox O2 Delivery O2 Flow Rate FiO2 07/13/24 13:00 98.4 72 16 118/68 (85) 98 98.4 07/12/24 20:00 Room Air* 0 21 Intake/Output Intake and Output 07/13/24 07:00 Intake Total 1004 ml Output Total 1630 ml Balance -626 ml Intake Oral 1004 ml Output Urine Total 1630 ml Exam Pleasantly confused but not agitated comfortable in bed. Sitter at bedside. HEENT neck supple no JVD. Heart regular rate and rhythm. Lungs without rales wheezes poor inspiratory effort. Abdomen soft positive bowel sounds. Extremities no edema. Medications Current Medications Medications Dose Ordered Sig/Nilesh Route Start Time Stop Time Status Last Admin Dose Admin Acetaminophen/ Hydrocodone Bitart 1 tab Q4HP PRN PO 07/11/24 18:00 Ondansetron HCl 4 mg Q4HP PRN IV 07/11/24 18:00 Morphine Sulfate 2 mg Q4HPRN PRN IV 07/11/24 18:00 Amlodipine Besylate 5 mg BID PO 07/11/24 22:00 07/12/24 20:29 5 MG Pantoprazole Sodium 40 mg DAILY PO 07/12/24 10:00 07/12/24 10:32 40 MG Sertraline HCl 100 mg DAILY PO 07/12/24 10:00 07/12/24 10:00 100 MG Trazodone HCl 25 mg HSPRN PO 07/11/24 22:00 07/12/24 20:27 25 MG Aspirin 81 mg DAILY PO 07/12/24 10:00 07/12/24 10:26 81 MG Atorvastatin Calcium 40 mg HS PO 07/11/24 22:00 07/12/24 20:34 40 MG Carbidopa/Levodopa 1 tab TID PO 07/11/24 22:00 07/13/24 05:08 1 TAB Donepezil HCl 10 mg HS PO 07/11/24 22:00 07/12/24 20:28 10 MG Lisinopril 10 mg DAILY PO 07/12/24 10:00 07/12/24 10:33 10 MG Memantine 10 mg Q12HR PO 07/11/24 22:00 07/12/24 20:28 10 MG Methylprednisolone Sodium Succinate 40 mg Q8HR IV 07/12/24 22:00 07/13/24 14:45 40 MG Olanzapine 5 mg DAILY PO 07/13/24 10:00 Famotidine 20 mg Q12HR IV 07/13/24 22:00 UNV Laboratory Results Laboratory Tests 07/12/24 05:02 Urinalysis Test 07/11/24 17:00 Urine Color Yellow (Yellow) Urine Clarity Clear (Clear) Urine pH 5.5 (5.0-9.0) Urine Specific [place] 1.025 (1.001-1.035) Urine Protein Trace (Negative) H Urine Ketones Negative (Negative) Urine Blood Negative /uL (Negative) Urine Nitrite Negative (Negative) Urine Bilirubin Negative (Negative) Urine Urobilinogen Normal mg/dL (Negative) Urine Leukocyte Esterase Negative /uL (Negative) Urine RBC 2 /hpf (0 - 3) Urine WBC 1 /hpf (0 - 3) Urine Squamous Epithelial Cells None seen /hpf (<5) Urine Bacteria None seen /hpf (None Seen) Urine Mucus Few (None Seen) Urine Glucose Normal mg/dL (Normal) Microbiology Microbiology Date/Time Source Procedure Growth Status 07/12/24 00:40 Nose MRSA Screen - Final Complete Labs and/or images reviewed: Labs reviewed by me Assessment/Plan Assessment/Plan Status post mechanical fall, with rib fractures Continue present management as he is on. Given his significant dementia he may not qualify to go to a snf facility for aggressive physical therapy. Patient apparently lives at [facility] therefore we will try to arrange home health and home physical therapy and safety eval when he goes back to [facility]. Otherwise continue with physical therapy evaluation. Continue rest of supportive care and treatment. Further clinical management per clinical course. Discussed with the nurse at bedside regarding care plan. Plan discussed with: Other My Orders Orders - DOMONIQUE KHALIL MD Procedure Category Date Status Time Methylprednisolone PHA 07/12/24 In Process Sod Succ (Solu Medrol 22:00 Olanzapine Tablet PHA 07/13/24 In Process (Zyprexa Tablet) 10:00 Pt Request For Service PT 07/12/24 Logged 16:06 Incentive Spirometry ORDERS 07/12/24 Transmitted Q 1hr 16:06 * Swallow Request ST 07/13/24 Transmitted 12:08 * Front Office Director CONS 07/13/24 Transmitted Consult Famotidine Injection PHA 07/13/24 Logged (Pepcid Injection) 22:00 Problem List: (1) Dementia (2) History of CVA (cerebrovascular accident) (3) Fall at custodial Date of Service: Jul 13, 2024 Billing Provider: DOMONIQUE KHALIL MD Common Visit Codes: [id number] INP/OBS CARE(MOD) DOMONIQUE KHALIL MD Jul 13, 2024 15:56
[2024-07-13 21:00] VITALS: BP 145/93; PULSE 95; RESP 18; TEMP 98; O2SAT 92
[2024-07-13] MEDS: FAMOTIDINE (10MG/ML) 2ML VL IV SCH (21:21)
[2024-07-14] VITALS (7 sets, daily range): BP systolic 133–153; BP diastolic 71–90; PULSE 61–95; RESP 16–20; TEMP 97.9–98.3; O2SAT 93–98
[2024-07-14] MEDS: HYDROcodone-ACET 5/325MG TAB PO PRN (09:44)
--- NOTE | 2024-07-14 17:57 | DVHPN2 ---
Progress Note - Dictate Date Seen: Jul 14, 2024 vital signs Vital Sign Date Time Temp Pulse Resp B/P (MAP) Pulse Ox O2 Delivery O2 Flow Rate FiO2 07/14/24 17:00 98.0 68 16 153/85 (107) 98 98.0 07/14/24 08:00 Room Air* 0 21 Total Intake and Output 07/13/24 07/13/24 07/14/24 15:00 23:00 07:00 Intake Total 160 ml 150 ml Output Total 350 ml 400 ml Balance -190 ml -250 ml medications Current Medications Medications Dose Ordered Sig/Nilesh Route Start Time Stop Time Status Last Admin Dose Admin Acetaminophen/ Hydrocodone Bitart 1 tab Q4HP PRN PO 07/11/24 18:00 07/14/24 09:44 1 TAB Ondansetron HCl 4 mg Q4HP PRN IV 07/11/24 18:00 Morphine Sulfate 2 mg Q4HPRN PRN IV 07/11/24 18:00 Amlodipine Besylate 5 mg BID PO 07/11/24 22:00 07/14/24 09:26 5 MG Pantoprazole Sodium 40 mg DAILY PO 07/12/24 10:00 07/14/24 09:22 40 MG Sertraline HCl 100 mg DAILY PO 07/12/24 10:00 07/14/24 09:22 100 MG Trazodone HCl 25 mg HSPRN PO 07/11/24 22:00 07/13/24 21:22 25 MG Aspirin 81 mg DAILY PO 07/12/24 10:00 07/14/24 09:23 81 MG Atorvastatin Calcium 40 mg HS PO 07/11/24 22:00 07/13/24 21:22 40 MG Carbidopa/Levodopa 1 tab TID PO 07/11/24 22:00 07/14/24 14:35 1 TAB Donepezil HCl 10 mg HS PO 07/11/24 22:00 07/13/24 21:22 10 MG Lisinopril 10 mg DAILY PO 07/12/24 10:00 07/14/24 09:27 10 MG Memantine 10 mg Q12HR PO 07/11/24 22:00 07/14/24 09:23 10 MG Olanzapine 5 mg DAILY PO 07/13/24 10:00 07/14/24 09:22 5 MG Famotidine 20 mg DAILY PO 07/15/24 10:00 Prednisone 40 mg DAILY PO 07/15/24 10:00 07/18/24 09:59 laboratory and microbiology Laboratory Tests 07/12/24 05:02 Test 07/12/24 05:02 Range/Units Serum Glucose 102 74-106 mg/dL DOMONIQUE KHALIL MD Jul 14, 2024 17:57
[2024-07-15 03:45] VITALS: BP 106/63; PULSE 52; RESP 16; TEMP 97.9; O2SAT 92
[2024-07-15] MEDS: predniSONE 20 MG TAB PO SCH (09:07)
[2024-07-15] MEDS: FAMOTIDINE 20 MG TAB PO SCH (09:07)
--- NOTE | 2024-07-15 10:23 | DVHDS2 ---
Discharge Summary Date of Admission Jul 11, 2024 at 17:59 Date of Discharge: Jul 15, 2024 Labs/Diagnostic Data: Laboratory Results Test 07/12/24 05:02 07/11/24 17:00 White Blood Count 6.2 10^3/uL (4.4-10.8) Red Blood Count 4.58 10^6/uL (4.5-5.90) Hemoglobin 13.8 g/dL (13.5-17.5) Hematocrit 40.5 % (41.0-53.0) Mean Corpuscular Volume 88.3 fL (80.0-100.0) Mean Corpuscular Hemoglobin 30.2 pg (28.0-32.0) Mean Corpuscular Hemoglobin Concent 34.2 g/dL (32.0-36.0) Red Cell Distribution Width 15.1 % (11.8-14.3) Platelet Count 166 10^3/uL (140-450) Mean Platelet Volume 8.5 fL (6.9-10.8) Neutrophils (%) (Auto) 71.4 % (37.0-80.0) Lymphocytes (%) (Auto) 21.9 % (10.0-50.0) Monocytes (%) (Auto) 4.0 % (0.0-12.0) Eosinophils (%) (Auto) 2.4 % (0.0-7.0) Basophils (%) (Auto) 0.3 % (0.0-2.0) Neutrophils # (Auto) 4.4 10 ^3/uL (1.6-8.6) Lymphocytes # (Auto) 1.4 10 ^3/uL (0.4-5.4) Monocytes # (Auto) 0.3 10 ^3/uL (0-1.3) Eosinophils # (Auto) 0.1 10 ^3/uL (0-0.8) Basophils # (Auto) 0 10 ^3/uL (0-0.2) Nucleated Red Blood Cells 0.1 % Sodium Level 142 mmol/L (136-145) Potassium Level 3.6 mmol/L (3.5-5.1) Chloride Level 109 mmol/L (98-107) Carbon Dioxide Level 23 mmol/L (20-31) Anion Gap 10 (5-15) Blood Urea Nitrogen 14 mg/dL (9-23) Creatinine 0.87 mg/dL (0.700-1.30) Glomerular Filtration Rate Calc 88 mL/min (>90) BUN/Creatinine Ratio 16.1 (10.0-20.0) Serum Glucose 102 mg/dL (74-106) Calcium Level 9.2 mg/dL (8.7-10.4) Urine Color Yellow (Yellow) Urine Clarity Clear (Clear) Urine pH 5.5 (5.0-9.0) Urine Specific [place] 1.025 (1.001-1.035) Urine Protein Trace (Negative) Urine Ketones Negative (Negative) Urine Blood Negative /uL (Negative) Urine Nitrite Negative (Negative) Urine Bilirubin Negative (Negative) Urine Urobilinogen Normal mg/dL (Negative) Urine Leukocyte Esterase Negative /uL (Negative) Urine RBC 2 /hpf (0 - 3) Urine WBC 1 /hpf (0 - 3) Urine Squamous Epithelial Cells None seen /hpf (<5) Urine Bacteria None seen /hpf (None Seen) Urine Mucus Few (None Seen) Urine Glucose Normal mg/dL (Normal) Other Laboratory Tests 07/12/24 05:02 Final Diagnosis/Problems List dementia, gen.weakness Discharge Disposition: Home Discharge Instruct/Medications Diet: Consistent carbohydrate, Cardiac 2g Na,low cholest Diet comment: pureed diet Activity: No Restrictions, As Tolerated Activity comment: with assistance Follow Up/Referral: Primary doctor next week follow up dementia Medications: as per discharge med list Discharge Statement: "Patient was advised to return to the ER or call 911 if any headaches, dizziness, shortness of breath, chest pain, abdominal pain, bleeding, fevers, or worsening of medical condition. Patient was counseled about treatment plan, medications, possible side effects, patientverbalized understanding. All questions were answered to the best of my ability. This discharge took greater then 30 minutes in planning, reviewing documentation, counseling the patient, and discussing with other team members." ASSESSMENT ASSESSMENT Assessment dementia, gen.weakness DOMONIQUE KHALIL MD Jul 15, 2024 10:23
[2024-07-15 21:00] VITALS: BP 126/81; PULSE 83; RESP 20; TEMP 98.3; O2SAT 95
== END 2024-07-15 23:30 | disposition home health service (06) | DRG 183 ==
LOC: EDBD 11:24 → ER 11:24 → OVERFLOW 17:59 → CENTRAL 19:04 → WEST WING 07-13 19:00
PROVIDERS: ADMIT Hospitalist; ATTEND Hospitalist
DX: S22.42XA Multiple fractures of ribs, left side, initial encounter for closed fracture (principal); G93.41 Metabolic encephalopathy; N17.9 Acute kidney failure, unspecified; N39.0 Urinary tract infection, site not specified; Z66 Do not resuscitate; E86.1 Hypovolemia; I10 Essential (primary) hypertension; F03.90 Unspecified dementia, unspecified severity, without behavioral disturbance, psychotic disturbance, mood disturbance, and anxiety; E78.5 Hyperlipidemia, unspecified; Z86.73 Personal history of transient ischemic attack (TIA), and cerebral infarction without residual deficits; Z83.3 Family history of diabetes mellitus; Z79.899 Other long term (current) drug therapy; Z82.49 Family history of ischemic heart disease and other diseases of the circulatory system; W07.XXXA Fall from chair, initial encounter; Y93.89 Activity, other specified; Y92.128 Other place in nursing home as the place of occurrence of the external cause; Y99.8 Other external cause status
CPT/HCPCS: 36415; 70450; 71045; 71101; 80048; 81001; 85025; 87081; 92610; 97110; 97116; 97163; 97530; G0378; J3490

== ENCOUNTER 2024-12-27 06:13 | Inpatient (IN) | payer BC ==
[~2024-12-27] VITALS: Ht 180.3 cm; Wt 80.9 kg
[~2024-12-27 06:13] MED LIST changes: -DIPH25CA51 PO; -PANC3600 OR; -PANT40TA2 PO
[2024-12-27] MEDS: SODIUM CHLORIDE 0.9% 1,000 ML IV ONE (06:30)
[2024-12-27 06:31] VITALS: PULSE 95; RESP 20; O2SAT 94
--- NOTE | 2024-12-27 06:48 | ED.PDOC ---
Leah. trauma (HPI) HPI Comments 79 y/o M, BIBA, with PMHx of dementia, CVA, HLD, and HTN presents to the ED for CC of s/p fall. EMS reports, patient is coming from [facility] where he was found by a nurse, to be face down in restroom defecated and urinated following a fall. Upon arrival to ED, patient has visible abrasion to his right voodoo with right eye swelling. Patient currently takes Aspirin; no other medications are reported. Nursing facility denies LOC or open head wounds. No other associated symptoms, modifiers, recent injuries or sick contacts present at this time. Chief Complaint: Fall Injury Time Seen by MD: 06:35 Primary Care Provider: UNKNOWN Reviewed notes: Nurses Notes, Landscape Drafter Notes, Medications, Allergies Allergies: Coded Allergies: NO KNOWN ALLERGIES (Unverified , 07/09/23) Home Meds Active Scripts Pantoprazole Sodium Sesquihydr (Pantoprazole Sodium) 40 Mg Tab, 40 MG PO DAILY, #30 TAB Prov:NAUN RODRIGUEZ MD 06/24/23 Reported Medications Trazodone Hcl (Trazodone Hcl) 50 Mg Tab, 0.5 TAB PO HSPRN for 30 Days, #15 05/06/24 Carbidopa-Levodopa (Carbidopa/Levodopa Odt 10-100 mg) 1 Tab Tab, 1 TAB PO TID for 30 Days, #90 05/06/24 Sertraline Hcl (Sertraline Hcl) 50 Mg Tab, 100 MG PO DAILY for 30 Days, #30 05/06/24 Atorvastatin Calcium (ATORVASTATIN CALCIUM) 40 Mg Tab, 1 TAB PO QPM for 30 Days 07/11/19 Memantine Hydrochloride (Memantine HCl) 10 Mg Tab, 1 TAB PO BID for 30 Days, #30 07/11/19 Lisinopril (Lisinopril) 10 Mg Tab, 1 TAB PO DAILY for 30 Days, #30 07/11/19 Donepezil Hydrochloride (DONEPEZIL HCL) 10 Mg Tab, 1 TAB PO DAILY for 30 Days, #30 07/11/19 Aspirin (Aspirin 81 Low Dose) 81 Mg Chw, 162 MG PO, TAB.CHEW 07/11/19 Amlodipine Besylate (NORVASC TABLET) 5 Mg Tb, 1 TAB PO BID for 30 Days, #60 07/11/19 Information Source: Emergency Med Personnel Mode of Arrival: EMS Severity: Moderate Timing: Minutes Duration: Since onset Prehospital treatment: None Location: Head Location of laceration: None Mechanism: Fall Associated signs and symtoms: None Past Medical History PAST MEDICAL HISTORY: CVA, Dementia, High Lipids, HTN Surgical History: Denies all surgeries Family History Family History: Family hx of DM, Family hx of HTN Social History Smoker: Non-Smoker Alcohol: Denies ETOH Use Drugs: Denies Drug Use Lives In: [facility] Unable to Obtain due to: Dementia Physical Exam General Appearance: Moderate Distress HEENT: Normal ENT Inspection, Pharynx Normal, TMs Normal Neck: Full Range of Motion, Non-Tender, Normal, Normal Inspection Respiratory: Chest Non-Tender, Lungs Clear, No Accessory Muscle Use, No Respiratory Distress, Normal Breath Sounds Cardiovascular: No Edema, No JVD, No Murmur, No Gallop, Normal Peripheral Pulses, Regular Rate/Rhythm Breast Exam: Deferred Gastrointestinal: No Organomegaly, Non Tender, No Pulsatile Mass, Normal Bowel Sounds, Soft Genitalia: Deferred Pelvic: Deferred Rectal: Deferred Extremities: No calf tenderness, No pedal edema Musculoskeletal : Apperance: Normal Neurologic: Disoriented, No Motor Deficits, No Sensory Deficits Cerebellar Function: NOT DONE Reflexes: NOT DONE Skin: Wounds (Right-sided forehead) Peripheral Pulses: 3+ Radial (R), 3+ Radial (L) Lymphatic: No Adenopathy Was a procedure done? Was a procedure done?: No EKG EKG : Pulse Rate (adult): 95 [place]: Normal Cardiac Rhythm: NSR Block: RBBB Hypertrophy: None ST: Normal Differential Diagnosis Multiple Trauma: Fractures, Abrasions, Contusion, Hematoma X-Ray, Labs, Meds, VS Vital Signs Date Time Temp Pulse Resp B/P (MAP) Pulse Ox O2 Delivery O2 Flow Rate FiO2 12/27/24 06:49 95 12/27/24 06:36 98.1 96 19 97/71 (80) 96 98.1 12/27/24 06:31 95 20 94 Room Air* 0 21 12/27/24 06:25 95 12/27/24 06:23 97.9 76 18 130/80 (97) 98 97.9 Lab Test 12/27/24 06:59 12/27/24 06:45 Range/Units White Blood Count Pending Red Blood Count Pending Hemoglobin Pending Hematocrit Pending Mean Corpuscular Volume Pending Mean Corpuscular Hemoglobin Pending Mean Corpuscular Hemoglobin Concent Pending Red Cell Distribution Width Pending Platelet Count Pending Mean Platelet Volume Pending Neutrophils (%) (Auto) Pending Lymphocytes (%) (Auto) Pending Monocytes (%) (Auto) Pending Basophils (%) (Auto) Pending Neutrophils # (Auto) Pending Lymphocytes # (Auto) Pending Monocytes # (Auto) Pending Sodium Level Pending Potassium Level Pending Chloride Level Pending Carbon Dioxide Level Pending Anion Gap Pending Blood Urea Nitrogen Pending Creatinine Pending Glomerular Filtration Rate Calc Pending BUN/Creatinine Ratio Pending Serum Glucose Pending Calcium Level Pending Troponin I High Sensitivity Pending POC Glucose 145 H 70-106 mg/dl [place] [id number] Ph: [phone] DIAGNOSTIC IMAGING Diagnostic Imaging Report : [id number] Signed PATIENT: JUDE MACIEL ACCT: [id number] UNIT: [id number] : 1945 LOC: ER ROOM / BED: / AGE / SEX: 79 / M ADM STATUS: REG ER SERVICE 4 ORDERING PHYSICIAN: JASMYNE ALFARO MD PROCEDURE(s): CXRP - CHEST PORTABLE REASON: sob ORDER NUMBER(s): [id number], ACCESSION NUMBER(s): [id number] CHEST RADIOGRAPH Indication: sob Technique: Single frontal view of the chest was obtained COMPARISON: XY CHEST PORTABLE on DOS: 07/11/24, XY CHEST PORTABLE on DOS: 05/04/24 , XY CHEST PORTABLE on DOS: 07/09/23, XY CHEST PORTABLE on DOS: 06/18/23, CHEST PORTABLE on DOS: 07/10/19 FINDINGS: Lines and Tubes: None Lungs: Clear Pleura: No effusion. No pneumothorax. Cardiomediastinal contours: Unremarkable Bones: Unchanged left rib fractures IMPRESSION: No acute disease. ATED BY: JEFF QUEVEDO MD DICTATED DATE/TIME: 12/27/24704 SIGNED BY: JEFF QUEVEDO MD SIGNED DATE/TIME: 12/27/24704 CC: [facility] [id number] [place] [address] Ph: [phone] DIAGNOSTIC IMAGING Diagnostic Imaging Report : [id number] Signed PATIENT: JUDE MACIEL ACCT: [id number] UNIT: [id number] : 1945 LOC: ER ROOM / BED: / AGE / SEX: 79 / M ADM STATUS: REG ER SERVICE 4 ORDERING PHYSICIAN: JASMYNE ALFARO MD PROCEDURE(s): HWOCT - HEAD WITHOUT CONTRAST REASON: fall ORDER NUMBER(s): [id number], ACCESSION NUMBER(s): [id number] CT HEAD WITHOUT CONTRAST Indication: fall EXAM DATE: 12/27/2024 06:31 AM COMPARISON: 07/09/2023 TECHNIQUE: CT of the head without intravenous contrast. RADIATION DOSE: CTDIvol: 48.92 mGy, DLP: 958.54 mGy*cm FINDINGS: There is no intracranial hemorrhage. There is no extra-axial fluid, mass, mass effect or midline shift. The ventricles are midline and normal in size. Basilar cisterns are patent. There are moderate to advanced periventricular and subcortical white matter chronic microvascular ischemic changes. Old bilateral basal ganglia lacunar infarcts. Moderate global cerebral volume loss. The paranasal sinuses and mastoids are well-pneumatized. Right orbital /right facial region preseptal edema. IMPRESSION: 1. No intracranial hemorrhage or mass effect. 2. Moderate to advanced chronic microvascular ischemic changes. 3. Right orbital preseptal / right facial region edema/hematoma. ATED BY: BUSTER LENZ MD DICTATED DATE/TIME: 12/27/24707 SIGNED BY: BUSTER LENZ MD SIGNED DATE/TIME: 12/27/24707 CC: Patient is slightly disoriented. Possibly from dementia. Blood pressure fluctuating. Saturation within normal limits. Establish intravenous access. Was given fluids. Reviewed his history. Waiting for family. Continue to monitor. EKG shows right bundle-branch block. Time of 1ST Reevaluation: 07:05 Reevaluation 1ST: Unchanged Patient Education/Counseling: Diagnosis, Treatment Family Education/Counseling: No Family Present Departure 1 Departure Time of Disposition: 06:55 Impression: Primary Impression: Metabolic encephalopathy Disposition: 09 ADMITTED INPATIENT Admit to: Med Surg Condition: Guarded Critical Care Note Critical Care Time?: No Stability Stability form required: No Heart Score Heart Score: Heart Score Response (Comments) Value History Slightly Suspicious 0 EKG Normal 0 Age >65 2 Risk Factors >3 or Hx ASHD 2 Troponin Normal limit 0 Total 4 I personally scribed for JASMYNE ALFARO MD ([email or web address]) on 12/27/24 at 06:48. Electronically submitted by Shahida Avila ([employer]). I personally scribed for JASMYNE ALFARO MD ([email or web address]) on 12/27/24 at 06:49. Electronically submitted by Shahida Avila ([employer]). I personally scribed for JASMYNE ALFARO MD ([email or web address]) on 12/27/24 at 07:28. Electronically submitted by Shahida Avila ([employer]). I personally scribed for JASMYNE ALFARO MD ([email or web address]) on 12/27/24 at 07:29. Electronically submitted by Shahida Avila ([employer]). JASMYNE ALFARO MD Dec 27, 2024 06:48
--- NOTE | 2024-12-27 06:50 | ECG ---
[facility] Test Date: 2024-12-27 Test Time: 06:25:37 Pat Name: JUDE MACIEL Department: ER Room: Gender: M Escrow Agent: LORRAINE : 1945 Requested By: JASMYNE ALFARO Order Number: [id number] MD: Measurements Intervals [place] Rate: 95 P: 50 UT: 164 QRS: 57 QRSD: 153 T: 6 QT: 408 QTc: 513 Interpretive Statements Sinus rhythm Right bundle branch block Baseline wander in lead(s) V1 Please click the below link to view image of tracing.
--- NOTE | 2024-12-27 07:08 | DVH ---
CHEST RADIOGRAPH Indication: sob Technique: Single frontal view of the chest was obtained COMPARISON: XY CHEST PORTABLE on DOS: 07/11/24, XY CHEST PORTABLE on DOS: 05/04/24, XY CHEST PORTABLE o n DOS: 07/09/23, XY CHEST PORTABLE on DOS: 06/18/23, CHEST PORTABLE on DOS: 07/10/19 FINDINGS: Lines and Tubes: None Lungs: Clear Pleura: No effusion. No pneumothorax. Cardiomediastinal contours: Unremarkable Bones: Unchanged left rib fractures IMPRESSION: No acute disease.
--- NOTE | 2024-12-27 07:11 | DVH ---
CT HEAD WITHOUT CONTRAST Indication: fall EXAM DATE: 12/27/2024 06:31 AM COMPARISON: 07/09/2023 TECHNIQUE: CT of the head without intravenous contrast. RADIATION DOSE: CTDIvol: 48.92 mGy, DLP: 958.54 mGy*cm FINDINGS: There is no intracranial hemorrhage. There is no extra-axial fluid, mass, mass effect or midline shif t. The ventricles are midline and normal in size. Basilar cisterns are patent. There are moderate to advanced periventricular and subcortical white matter chronic microvascular ischemic changes. Old bi lateral basal ganglia lacunar infarcts. Moderate global cerebral volume loss. The paranasal sinuses and mastoids are well-pneumatized. Right orbital /right facial region preseptal edema. IMPRESSION: 1. No intracranial hemorrhage or mass effect. 2. Moderate to advanced chronic microvascular ischemic changes. 3. Right orbital preseptal / right facial region edema/hematoma.
[2024-12-27 07:30] VITALS: PULSE 94; RESP 16; O2SAT 94
[2024-12-27 07:30] LABS: Chloride 104 mmol/L (98-107); Potassium 4.5 mmol/L (3.5-5.1); Sodium 140 mmol/L (136-145)
[2024-12-27 07:31] LABS: Anion Gap 14 (5-15); Carbon Dioxide 22 mmol/L (20-31)
[2024-12-27 07:32] LABS: Calcium 9.8 mg/dL (8.7-10.4)
[2024-12-27 07:34] LABS: Basophils # (auto) 0 10 ^3/uL (0-0.2); Basophils % (auto) 0.2 % (0.0-2.0); Eosinophils # (auto) 0 10 ^3/uL (0-0.8); Eosinophils % (auto) 0.1 % (0.0-7.0); Hemoglobin 16.8 g/dL (13.5-17.5); Lymphocytes # (auto) 0.9 10 ^3/uL (0.4-5.4); Mean Corpuscular Hemoglobin 30.1 pg (28.0-32.0); Mean Corpuscular Hgb Conc. 34.2 g/dL (32.0-36.0); Mean Corpuscular Volume 88.1 fL (80.0-100.0); Monocytes # (auto) 0.4 10 ^3/uL (0-1.3); Monocytes % (auto) 3.7 % (0.0-12.0); Neutrophils # (auto) 8.6 10 ^3/uL (1.6-8.6); Nucleated Red Blood Cells % 0.1 %; Platelet Count (auto) 203 10^3/uL (140-450); Red Blood Cells 5.57 10^6/uL (4.5-5.90); Red Cell Distribution Width 14.6 % (11.8-14.3); White Blood Cell 9.9 10^3/uL (4.4-10.8)
[2024-12-27 07:37] LABS: BUN/Creatinine Ratio 14.5 (10.0-20.0)
[2024-12-27 07:40] LABS: Blood Urea Nitrogen 25 mg/dL (9-23); Glucose 150 mg/dL (74-106)
[2024-12-27] MEDS ORDERED: DEXTROSE (50%) 50ML SYRG IV PRN (14:00)
[2024-12-27] MEDS ORDERED: ACETAMINOPHEN 325 MG TAB PO PRN (14:00)
[2024-12-27] MEDS ORDERED: ONDANSETRON HCL 4 MG/2 ML VIAL IV PRN (14:00)
[2024-12-27] MEDS: SODIUM CHLORIDE 0.9% 1,000 ML IV SCH (14:00)
--- NOTE | 2024-12-27 14:14 | DVHHP2 ---
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 Patient's brother Denver at bedside and reports that this year alone in 2024 has more than 12+ falls. Per reports patient was found down prone on the ground at [facility]. Patient states that he does not recall how he fell or how he got onto the floor. Patient denies any chest pain, shortness of breath, fever, chills, lightheadedness, weakness, dizziness, recent sick contacts, recent travels, abdominal pain, nausea, vomiting, or diarrhea. Upon examination patient also has a left hand bruise/discoloration. Denver the brother at bedside states that he has been getting frequent left hand infections. Patient also uses a front wheel walker to ambulate. Cardiovascular: HTN, hyperipidemia BRAID CUTTER: Other (CVA with no deficits and dementia) Past Medical History Frequent falls Past Surgical History: Other (EGD and colonoscopy) Family History: Hypertension, Other (Mom with hypertension) Smoke: No ALCOHOL: none Drugs: None Lives: [facility] Domestic Violence: Neg Review of Systems Skin: Bruising, Other (Right forehead abrasion) Allergies: Coded Allergies: NO KNOWN ALLERGIES (Unverified , 07/09/23) Medications Current Medications Medications Dose Ordered Sig/Nilesh Route Start Time Stop Time Status Last Admin Dose Admin Diagnostic Test (Pha) 1 strip ACHS 12/27/24 17:00 UNV Insulin Human Regular ACHS SC 12/27/24 17:00 UNV Dextrose 50 ml UD PRN IV 12/27/24 14:00 UNV Sodium Chloride 1,000 ml @ 100 mls/hr Q10H IV 12/27/24 14:00 UNV Clindamycin Phosphate 50 ml @ 50 mls/hr Q8HR IV 12/27/24 14:00 UNV Ondansetron HCl 4 mg Q4HP PRN IV 12/27/24 14:00 UNV Enoxaparin Sodium 30 mg DAILY SC 12/28/24 10:00 UNV Acetaminophen 650 mg Q6HP PRN PO 12/27/24 14:00 UNV Exam Vital Signs Vital Signs Date Time Temp Pulse Resp B/P (MAP) Pulse Ox O2 Delivery O2 Flow Rate FiO2 12/27/24 12:00 77 16 142/78 (99) 94 12/27/24 07:30 Room Air* 0 21 12/27/24 07:30 97.1 97.1 General Appearance: Alert, Oriented X3, Cooperative, No acute distress HEENT: PERRLA, EOMI, Mucous membr. moist/pink Respiratory: Clear to auscultation, Normal air movement Cardiovascular: Normal S1, Normal S2, No murmurs Abdominal: Normal bowel sounds, Soft, No tenderness, No hepatospenomegaly, No masses Extremities: No clubbing, No cyanosis Neuro: Normal speech, Strength at 5/5 X4 ext, Normal tone, Sensation intact Psych/Mental Status: Mental status NL, Mood NL Labs/Xrays Labs Test 12/27/24 06:59 12/27/24 06:45 Range/Units White Blood Count 9.9 4.4-10.8 10^3/uL Red Blood Count 5.57 4.5-5.90 10^6/uL Hemoglobin 16.8 13.5-17.5 g/dL Hematocrit 49.0 41.0-53.0 % Mean Corpuscular Volume 88.1 80.0-100.0 fL Mean Corpuscular Hemoglobin 30.1 28.0-32.0 pg Mean Corpuscular Hemoglobin Concent 34.2 32.0-36.0 g/dL Red Cell Distribution Width 14.6 H 11.8-14.3 % Platelet Count 203 140-450 10^3/uL Mean Platelet Volume 8.4 6.9-10.8 fL Neutrophils (%) (Auto) 87.0 H 37.0-80.0 % Lymphocytes (%) (Auto) 9.0 L 10.0-50.0 % Monocytes (%) (Auto) 3.7 0.0-12.0 % Eosinophils (%) (Auto) 0.1 0.0-7.0 % Basophils (%) (Auto) 0.2 0.0-2.0 % Neutrophils # (Auto) 8.6 1.6-8.6 10 ^3/uL Lymphocytes # (Auto) 0.9 0.4-5.4 10 ^3/uL Monocytes # (Auto) 0.4 0-1.3 10 ^3/uL Eosinophils # (Auto) 0 0-0.8 10 ^3/uL Basophils # (Auto) 0 0-0.2 10 ^3/uL Nucleated Red Blood Cells 0.1 % Sodium Level 140 136-145 mmol/L Potassium Level 4.5 3.5-5.1 mmol/L Chloride Level 104 98-107 mmol/L Carbon Dioxide Level 22 20-31 mmol/L Anion Gap 14 5-15 Blood Urea Nitrogen 25 H 9-23 mg/dL Creatinine 1.72 H 0.700-1.30 mg/dL Glomerular Filtration Rate Calc 40 >90 mL/min BUN/Creatinine Ratio 14.5 10.0-20.0 Serum Glucose 150 H 74-106 mg/dL Calcium Level 9.8 8.7-10.4 mg/dL Troponin I High Sensitivity 3 L </=54 ng/L POC Glucose 145 H 70-106 mg/dl CT HEAD WITHOUT CONTRAST Indication: fall EXAM DATE: 12/27/2024 06:31 AM COMPARISON: 07/09/2023 TECHNIQUE: CT of the head without intravenous contrast. RADIATION DOSE: CTDIvol: 48.92 mGy, DLP: 958.54 mGy*cm FINDINGS: There is no intracranial hemorrhage. There is no extra-axial fluid, mass, mass effect or midline shift. The ventricles are midline and normal in size. Basilar cisterns are patent. There are moderate to advanced periventricular and subcortical white matter chronic microvascular ischemic changes. Old bilateral basal ganglia lacunar infarcts. Moderate global cerebral volume loss. The paranasal sinuses and mastoids are well-pneumatized. Right orbital /right facial region preseptal edema. IMPRESSION: 1. No intracranial hemorrhage or mass effect. 2. Moderate to advanced chronic microvascular ischemic changes. 3. Right orbital preseptal / right facial region edema/hematoma. CHEST RADIOGRAPH Indication: sob Technique: Single frontal view of the chest was obtained COMPARISON: XY CHEST PORTABLE on DOS: 07/11/24, XY CHEST PORTABLE on DOS: 05/04/24, XY CHEST PORTABLE on DOS: 07/09/23, XY CHEST PORTABLE on DOS: 06/18/23, CHEST PORTABLE on DOS: 07/10/19 FINDINGS: Lines and Tubes: None Lungs: Clear Pleura: No effusion. No pneumothorax. Cardiomediastinal contours: Unremarkable Bones: Unchanged left rib fractures IMPRESSION: No acute disease. Assessment/Plan Assessment/Plan Assessment Right forehead abrasion status post mechanical fall Right orbital swelling JILL Hyperglycemia Rule out DVT ? Left hand cellulitis History of left rib fractures History of hypertension History of hyperlipidemia History of CVA with no deficits History of dementia History of frequent falls History of EGD History of colonoscopy Plan Admit to [facility] EKG NS 1 L given ED UA Chest x-ray noted Hemoglobin A1c ISS and Accu-Cheks CT head noted Troponin negative Bilateral lower extremity ultrasound venous IV fluids IV antibiotics-clindamycin Wound culture with Gram stain Wound consult Antiemetics Pain management Fall precautions Diet Home medications reconciled DVT prophylaxis-Lovenox PUD prophylaxis-Protonix, continue home medication Discussed plan of care with patient, patient's brother, and nurse Plan discussed with: Patient, Other (Brother) My Orders Orders - SARA BELLE [employer] OPERATOR Procedure Category Date Status Time Bilat Lower Dvt US 12/27/24 Logged 13:58 Hemoglobin A1c LAB 12/27/24 Transmitted 13:58 Glucose Blood PHA 12/27/24 Logged (Accu-Chek Comfort 17:00 Insulin R (Human) PHA 12/27/24 Logged (Insulin R) 17:00 Dextrose 50% Syringe PHA 12/27/24 Logged 14:00 Sodium Chloride 0.9% PHA 12/27/24 Logged 14:00 Clindamycin 600mg Iv PHA 12/27/24 Logged (Cleocin Iv) 14:00 * Wound Consult CONS 12/27/24 Transmitted Wound Culture W/ Gs MATHEUS 12/27/24 Transmitted 13:58 Admit ADMIT 12/27/24 Transmitted 13:58 Allergies MAHI 12/27/24 In Process 13:58 Code Status CODE 12/27/24 Transmitted 13:58 Ondansetron Hcl PHA 12/27/24 Logged (Zofran) 14:00 Complete Blood Count LAB 12/28/24 Verified 04:00 Comprehensive LAB 12/28/24 Verified Metabolic Panel 04:00 Cardiac DIET 12/27/24 Transmitted Diet-2gna,Lofat,Lochol Dinner Enoxaparin Sodium PHA 12/28/24 Logged (Lovenox) 10:00 Acetaminophen Tablet PHA 12/27/24 Logged (Tylenol Tablet) 14:00 Amlodipine Tablet PHA 12/27/24 Verified (Norvasc Tablet) 22:00 Pantoprazole Tablet PHA 12/28/24 Verified (Protonix Tablet) 10:00 Sertraline Hcl PHA 12/28/24 Verified (Zoloft) 10:00 (Nf) Atorvastatin PHA 12/27/24 Verified Calcium 18:00 (NF) PHA 12/27/24 Verified Carbidopa-Levodopa 22:00 (Nf) Donepezil PHA 12/28/24 Verified Hydrochloride 10:00 (Nf) Lisinopril PHA 12/28/24 Verified 10:00 (Nf) Memantine PHA 12/27/24 Verified Hydrochloride 22:00 Aspirin Tablet PHA 12/28/24 Verified 10:00 Date of Service: Dec 27, 2024 Billing Provider: SARA BELLE Common Visit Codes: 69789-PCSRPKM INP/OBS CARE (HIGH) SARA BELLE Dec 27, 2024 14:14
--- NOTE | 2024-12-27 15:01 | DVH ---
Bilateral lower extremity venous duplex Clinical History: ro dvt Comparison: None Technique: Duplex Doppler evaluation of the deep venous systems of both lower extremities from the common femora l veins to the popliteal veins including color Doppler and spectral/pulsed waveform analysis was perf ormed. Findings: RIGHT SIDE: The common femoral vein demonstrates appropriate compressibility and waveform variability. There is compressibility/patency of the great saphenous vein at the proximal thigh. The femoral vein demonstrates appropriate compressibility and waveform variability. The deep femoral vein demonstrates appropriate compressibility and waveform variability. The popliteal vein demonstrates appropriate compressibility and waveform variability. There is normal compressibility at the tibioperoneal trunk. LEFT SIDE: The common femoral vein demonstrates appropriate compressibility and waveform variability. There is compressibility/patency of the great saphenous vein at the proximal thigh. The femoral vein demonstrates appropriate compressibility and waveform variability. The deep femoral vein demonstrates appropriate compressibility and waveform variability. The popliteal vein demonstrates appropriate compressibility and waveform variability. There is normal compressibility at the tibioperoneal trunk. Impression: 1. No right or left femoropopliteal venous thrombosis.
[2024-12-27] MEDS: CLINDAMYCIN 600MG IV 50 ML IV SCH (15:05)
[2024-12-27] MEDS: amLODIPine BESYLATE 5 MG TAB PO SCH (15:06)
[2024-12-27] MEDS: ASPirin 81 mg TAB PO SCH (15:06)
[2024-12-27] MEDS: CARBIDOPA W LEVODOPA 10/100mg TABLET PO SCH (15:20)
[2024-12-27] MEDS: MEMANTINE HCL 5 MG TAB PO SCH (15:24)
[2024-12-27] MEDS: InsuLIN REG 1unit/0.01ml Soln (100units/ml) SC SCH (17:00)
[2024-12-27] MEDS: ACCU-CHEK COMFORT CURVE STRIP VI SCH (17:19)
[2024-12-27 18:12] LABS: Urine Bacteria None Seen /hpf (None Seen)
[2024-12-27 18:27] LABS: Urine Blood Negative /uL (Negative); Urine Clarity Clear (Clear); Urine Color Yellow (Yellow); Urine Hyaline Cast FEW /lpf (0 - 2); Urine Mucus FEW (None Seen); Urine Protein, UAD TRACE (Negative); Urine Specific Gravity 1.026 (1.001-1.035); Urine Squamous Epithelial Cell FEW /hpf (<5); Urine Urobilinogen Normal (Negative); Urine WBC 2 /HPF (0-3)
[2024-12-27 19:33] VITALS: PULSE 75; RESP 18; O2SAT 95
[2024-12-27] MEDS: ATORVASTATIN 20 MG TAB PO SCH (22:15)
[2024-12-27] MEDS: DONEPEZIL HYDROCHLORIDE 5 MG TAB PO SCH (22:15)
[2024-12-28 06:03] LABS: Basophils # (auto) 0 10 ^3/uL (0-0.2); Basophils % (auto) 0.5 % (0.0-2.0); Eosinophils # (auto) 0.1 10 ^3/uL (0-0.8); Eosinophils % (auto) 1.3 % (0.0-7.0); Lymphocytes # (auto) 2.1 10 ^3/uL (0.4-5.4); Lymphocytes % (auto) 21.6 % (10.0-50.0); Mean Corpuscular Hemoglobin 30.2 pg (28.0-32.0); Mean Corpuscular Hgb Conc. 34.2 g/dL (32.0-36.0); Mean Corpuscular Volume 88.3 fL (80.0-100.0); Monocytes # (auto) 0.5 10 ^3/uL (0-1.3); Monocytes % (auto) 5.1 % (0.0-12.0); Neutrophils # (auto) 6.8 10 ^3/uL (1.6-8.6); Neutrophils % (auto) 71.5 % (37.0-80.0); Platelet Count (auto) 172 10^3/uL (140-450); Red Blood Cells 4.98 10^6/uL (4.5-5.90); Red Cell Distribution Width 14.6 % (11.8-14.3); White Blood Cell 9.5 10^3/uL (4.4-10.8)
[2024-12-28 06:23] LABS: Alanine Aminotransferase 18 U/L (7-40); Alkaline Phosphatase 86 U/L (46-116); Anion Gap 11 (5-15); Aspartate Aminotransferase 33 U/L (13-40); BUN/Creatinine Ratio 18.9 (10.0-20.0); Blood Urea Nitrogen 17 mg/dL (9-23); Calcium 9.4 mg/dL (8.7-10.4); Carbon Dioxide 21 mmol/L (20-31); Chloride 106 mmol/L (98-107); Glucose 101 mg/dL (74-106); Potassium 3.7 mmol/L (3.5-5.1); Sodium 138 mmol/L (136-145); Total Protein 6.6 g/dL (5.7-8.2)
[2024-12-28 06:24] LABS: Albumin 4.5 g/dL (3.2-4.8); Bilirubin, Total 1.1 mg/dL (0.2-1.0)
[2024-12-28 07:40] VITALS: PULSE 65; RESP 20; O2SAT 93
[2024-12-28] MEDS: LISINOPRIL 5 MG TAB PO SCH (10:26)
[2024-12-28] MEDS: PANTOPRAZOLE 40 MG TAB PO SCH (10:27)
[2024-12-28] MEDS: ENOXAPARIN SOD 30 MG/0.3 ML SYRINGE SC SCH (10:27)
[2024-12-28] MEDS: SERTRALINE HCL 50 MG TAB PO SCH (15:18)
[2024-12-28 16:00] VITALS: TEMP 98.1
--- NOTE | 2024-12-28 17:10 | DVHDSRES ---
Discharge Summary Date of Admission Resident Creating Document: CITLALI THOMPSON Dec 27, 2024 at 13:58 Date of Discharge: Dec 28, 2024 Labs/Diagnostic Data: Laboratory Results Test 12/28/24 13:03 12/28/24 05:41 12/27/24 18:00 12/27/24 06:59 POC Glucose 105 mg/dl (70-106) White Blood Count 9.5 10^3/uL (4.4-10.8) Red Blood Count 4.98 10^6/uL (4.5-5.90) Hemoglobin 15.0 g/dL (13.5-17.5) Hematocrit 44.0 % (41.0-53.0) Mean Corpuscular Volume 88.3 fL (80.0-100.0) Mean Corpuscular Hemoglobin 30.2 pg (28.0-32.0) Mean Corpuscular Hemoglobin Concent 34.2 g/dL (32.0-36.0) Red Cell Distribution Width 14.6 % (11.8-14.3) Platelet Count 172 10^3/uL (140-450) Mean Platelet Volume 8.0 fL (6.9-10.8) Neutrophils (%) (Auto) 71.5 % (37.0-80.0) Lymphocytes (%) (Auto) 21.6 % (10.0-50.0) Monocytes (%) (Auto) 5.1 % (0.0-12.0) Eosinophils (%) (Auto) 1.3 % (0.0-7.0) Basophils (%) (Auto) 0.5 % (0.0-2.0) Neutrophils # (Auto) 6.8 10 ^3/uL (1.6-8.6) Lymphocytes # (Auto) 2.1 10 ^3/uL (0.4-5.4) Monocytes # (Auto) 0.5 10 ^3/uL (0-1.3) Eosinophils # (Auto) 0.1 10 ^3/uL (0-0.8) Basophils # (Auto) 0 10 ^3/uL (0-0.2) Nucleated Red Blood Cells 0.0 % Sodium Level 138 mmol/L (136-145) Potassium Level 3.7 mmol/L (3.5-5.1) Chloride Level 106 mmol/L (98-107) Carbon Dioxide Level 21 mmol/L (20-31) Anion Gap 11 (5-15) Blood Urea Nitrogen 17 mg/dL (9-23) Creatinine 0.90 mg/dL (0.700-1.30) Glomerular Filtration Rate Calc 87 mL/min (>90) BUN/Creatinine Ratio 18.9 (10.0-20.0) Serum Glucose 101 mg/dL (74-106) Calcium Level 9.4 mg/dL (8.7-10.4) Total Bilirubin 1.1 mg/dL (0.2-1.0) Aspartate Amino Transferase (AST) 33 U/L (13-40) Alanine Aminotransferase (ALT) 18 U/L (7-40) Alkaline Phosphatase 86 U/L (46-116) Total Protein 6.6 g/dL (5.7-8.2) Albumin 4.5 g/dL (3.2-4.8) Urine Color Yellow (Yellow) Urine Clarity Clear (Clear) Urine pH 5.0 (5.0-9.0) Urine Specific [place] 1.026 (1.001-1.035) Urine Protein Trace (Negative) Urine Ketones Trace (Negative) Urine Blood Negative /uL (Negative) Urine Nitrite Negative (Negative) Urine Bilirubin Negative (Negative) Urine Urobilinogen Normal mg/dL (Negative) Urine Leukocyte Esterase Negative /uL (Negative) Urine RBC 3 /hpf (0 - 3) Urine Microscopic WBC 2 /HPF (0-3) Urine Squamous Epithelial Cells Few /hpf (<5) Urine Bacteria None seen /hpf (None Seen) Urine Hyaline Casts Few /lpf (0 - 2) Urine Mucus Few (None Seen) Urine Glucose Normal mg/dL (Normal) Hemoglobin A1c 5.3 % A1C (<5.7) Troponin I High Sensitivity 3 ng/L (</=54) Other Laboratory Tests 12/28/24 05:41 Brief Hx & Hospital Course: Mohamud Arriaza is a 71-year-old male with past medical history of hypertension, hyperlipidemia, CVA with no deficits, dementia, frequent falls, left rib fractures, EGD, and colonoscopy presents to the ED from a SNF status post mechanical fall. Patient's brother Denver at bedside and reports that this year alone in 2024 has more than 12+ falls. Per reports patient was found down prone on the ground at [facility]. Patient states that he does not recall how he fell or how he got onto the floor. Patient denies any chest pain, shortness of breath, fever, chills, lightheadedness, weakness, dizziness, recent sick contacts, recent travels, abdominal pain, nausea, vomiting, or diarrhea. Upon examination patient also has a left hand bruise/discoloration. Denver the brother at bedside states that he has been getting frequent left hand infections. Patient also uses a front wheel walker to ambulate Assessment Acute mechanical fall, rule out acute intracranial hemorrhage or fracture Bruise on the right frontal area status post mechanical fall Right forehead abrasion status post mechanical fall Right orbital swelling JILL Hyperglycemia History of left rib fractures History of hypertension History of hyperlipidemia History of CVA with no deficits History of dementia History of frequent falls History of EGD History of colonoscopy Discharge plan Resume home medications Please follow up with the MD at [facility] Fall precaution as per facility protocol Condition at Discharge: Stable Discharge Disposition: Detention Facility Discharge Instruct/Medications Follow Up/Referral: Follow up with the MD at [facility] Medications: Resume home medications Discharge Statement: "Patient was advised to return to the ER or call 911 if any headaches, dizziness, shortness of breath, chest pain, abdominal pain, bleeding, fevers, or worsening of medical condition. Patient was counseled about treatment plan, medications, possible side effects, patientverbalized understanding. All questions were answered to the best of my ability. This discharge took greater then 30 minutes in planning, reviewing documentation, counseling the patient, and discussing with other team members." ASSESSMENT ASSESSMENT Assessment CITLALI THOMPSON RESIDENT Dec 28, 2024 17:10
[2024-12-28 17:41] VITALS: BP 161/76; PULSE 85; RESP 24; O2SAT 93
[2024-12-29] MEDS ORDERED: ENOXAPARIN SOD 40 MG/0.4 ML SYRINGE SC SCH (10:00)
== END 2024-12-28 18:40 | disposition home or self-care (01) | DRG 85 ==
LOC: EDBD 06:13 → ER 06:13 → OVERFLOW 13:58
DX: S06.300A Unspecified focal traumatic brain injury without loss of consciousness, initial encounter (principal); G93.41 Metabolic encephalopathy; N17.9 Acute kidney failure, unspecified; R73.9 Hyperglycemia, unspecified; I10 Essential (primary) hypertension; S60.222A Contusion of left hand, initial encounter; F03.90 Unspecified dementia, unspecified severity, without behavioral disturbance, psychotic disturbance, mood disturbance, and anxiety; W18.39XA Other fall on same level, initial encounter; E78.5 Hyperlipidemia, unspecified; Z91.81 History of falling; Z86.73 Personal history of transient ischemic attack (TIA), and cerebral infarction without residual deficits; Z82.49 Family history of ischemic heart disease and other diseases of the circulatory system; Z83.3 Family history of diabetes mellitus; Y93.89 Activity, other specified; Y92.89 Other specified places as the place of occurrence of the external cause; Y99.8 Other external cause status
CPT/HCPCS: 36415; 70450; 71045; 80048; 80053; 81001; 82962; 83036; 84484; 85025; 87205; 93005; 93970; 96360; G0378; J3490

== ENCOUNTER 2025-02-20 20:50 | Inpatient (IN) | payer BC ==
[~2025-02-20] VITALS: Ht 170.2 cm; Wt 80.6 kg
--- NOTE | 2025-02-20 21:19 | ED.PDOC ---
Leah. trauma (HPI) HPI Comments 79 y/o M, BIBA, with PMHx of HTN, HLD, CVA, and dementia presents to the ED for CC of s/p fall injury. EMS reports, patient is coming from [facility] where he suffered a slip and fall at 1950 Today (02/20/25) while attempting to use the restroom. EMS relays, following trauma patient complains of current 7/10 left hip pain that radiates down his leg and into his left ankle. EMS endorses, patient is currently taking Aspirin no other Rx reported. Patient denies head injury, cervical injury, lacerations, headache, nausea, or vomiting. No other symptoms or modifying factors present at this time. Chief Complaint: Fall Injury Time Seen by MD: 21:12 Primary Care Provider: UNKNOWN Reviewed notes: Nurses Notes, Home Theatre Technician Notes, Medications, Allergies Allergies: Coded Allergies: NO KNOWN ALLERGIES (Unverified , 07/09/23) Home Meds Active Scripts Pantoprazole Sodium Sesquihydr (Pantoprazole Sodium) 40 Mg Tab, 40 MG PO DAILY, #30 TAB Prov:NAUN RODRIGUEZ MD 06/24/23 Reported Medications Trazodone Hcl (Trazodone Hcl) 50 Mg Tab, 0.5 TAB PO HSPRN for 30 Days, #15 05/06/24 Carbidopa-Levodopa (Carbidopa/Levodopa Odt 10-100 mg) 1 Tab Tab, 1 TAB PO TID for 30 Days, #90 05/06/24 Sertraline Hcl (Sertraline Hcl) 50 Mg Tab, 100 MG PO DAILY for 30 Days, #30 05/06/24 Atorvastatin Calcium (ATORVASTATIN CALCIUM) 40 Mg Tab, 1 TAB PO QPM for 30 Days 07/11/19 Memantine Hydrochloride (Memantine HCl) 10 Mg Tab, 1 TAB PO BID for 30 Days, #30 07/11/19 Lisinopril (Lisinopril) 10 Mg Tab, 1 TAB PO DAILY for 30 Days, #30 07/11/19 Donepezil Hydrochloride (DONEPEZIL HCL) 10 Mg Tab, 1 TAB PO DAILY for 30 Days, #30 07/11/19 Aspirin (Aspirin 81 Low Dose) 81 Mg Chw, 162 MG PO, TAB.CHEW 07/11/19 Amlodipine Besylate (NORVASC TABLET) 5 Mg Tb, 1 TAB PO BID for 30 Days, #60 07/11/19 Information Source: Patient, Emergency Med Personnel Mode of Arrival: EMS Severity: Moderate Timing: Minutes Duration: Since onset Prehospital treatment: None Location: (L) Ankle, (L) Hip, (L) Leg Location of laceration: None Mechanism: Fall Associated signs and symtoms: None Past Medical History PAST MEDICAL HISTORY: CVA, Dementia, High Lipids, HTN Surgical History: Denies all surgeries Family History Family History: Family hx of DM, Family hx of HTN Social History Smoker: Non-Smoker Alcohol: Denies ETOH Use Drugs: Denies Drug Use Lives In: Care Home Constitutional: denies: chills, diaphoresis, fatigue, fever, malaise, sweats, weakness, others EENTM: denies: blurred vision, double vision, ear bleeding, ear discharge, ear drainage, ear pain, ear ringing, eye pain, eye redness, hearing loss, mouth pain, mouth swelling, nasal discharge, nose bleeding, nose congestion, nose pain, photophobia, tearing, throat pain, throat swelling, voice changes, others Respiratory: denies: cough, hemoptysis, orthopnea, SOB at rest, shortness of breath, SOB with excertion, stridor, wheezing, others Cardiovascular: denies: chest pain, dizzy spells, diaphoresis, Dyspnea on exertion, edema, irregular heart beat, left arm pain, lightheadedness, palpitations, PND, syncope, others Gastrointestinal: denies: abdomen distended, abdominal pain, blood streaked bowels, constipated, diarrhea, dysphagia, difficulty swallowing, hematemesis, melena, nausea, poor appetite, poor fluid intake, rectal bleeding, rectal pain, vomiting, others Genitourinary: denies: burning, dysuria, flank pain, frequency, hematuria, incontinence, penile discharge, penile sore, pain, testicle pain, testicle swelling, urgency, others Neurological: denies: dizziness, fainting, headache, left sided numbness, left sided weakness, numbness, paresthesia, pre-existing deficit, right sided numbness, right sided weakness, seizure, speech problems, tingling, tremors, weakness, others Musculoskeletal: reports: others (left hip pain, left leg pain); denies: back pain, gout, joint pain, joint swelling, muscle pain, muscle stiffness, neck pain Integumetry: denies: bruises, change in color, change in hair/nails, dryness, laceration, lesions, lumps, rash, wounds, others Allergic/Immunocompromised: denies: Difficulty Healing, Frequent Infections, Hives, Itching, others Hematologic/Lymphatic: denies: anemia, blood clots, easy bleeding, easy bruising, swollen glands, others Endocrine: denies: excessive hunger, excessive sweating, excessive thirst, excessive urination, flushing, intolerance to cold, intolerance to heat, unexplained weight gain, unexplained weight loss, others Psychiatric: denies: anxiety, bipolar disorder, depression, hopeless, panic disorder, schizophrenia, sleepless, suicidal, others All Other Systems: Reviewed and Negative Physical Exam General Appearance: Mild Distress (Patient has a moderate distress due to pain concerns, but displays advanced dementia. Slow in response with tangential thinking.), Normal HEENT: Normal ENT Inspection, Pharynx Normal, TMs Normal Neck: Full Range of Motion, Non-Tender, Normal, Normal Inspection Respiratory: Chest Non-Tender, Lungs Clear, No Accessory Muscle Use, No Respiratory Distress, Normal Breath Sounds Cardiovascular: No Edema, No JVD, No Murmur, No Gallop, Normal Peripheral Pulses, Regular Rate/Rhythm Breast Exam: Deferred Gastrointestinal: No Organomegaly, Non Tender, No Pulsatile Mass, Normal Bowel Sounds, Soft Genitalia: Deferred Pelvic: Deferred Rectal: Deferred Extremities: Other (Diffuse left hip tenderness to palpation extending towards the left femur. Mild edema with possible developing ecchymosis. Significant reduced range of motion.) Neurologic: Alert, No Sensory Deficits Cerebellar Function: NOT DONE Reflexes: NOT DONE Skin: Dry, Normal Color, Warm Lymphatic: No Adenopathy Was a procedure done? Was a procedure done?: No Differential Diagnosis Multiple Trauma: Fractures, Contusion, Hematoma X-Ray, Labs, Meds, VS Vital Signs Date Time Temp Pulse Resp B/P (MAP) Pulse Ox O2 Delivery O2 Flow Rate FiO2 02/20/25 22:46 80 20 149/75 02/20/25 22:23 72 18 96 Room Air* 0 21 02/20/25 22:23 98.1 72 20 140/82 (101) 98 98.1 02/20/25 20:58 98.8 94 17 132/76 (94) 95 98.8 Lab Test 02/20/25 21:18 Range/Units White Blood Count 16.1 H 4.4-10.8 10^3/uL Red Blood Count 4.68 4.5-5.90 10^6/uL Hemoglobin 14.1 13.5-17.5 g/dL Hematocrit 40.9 L 41.0-53.0 % Mean Corpuscular Volume 87.3 80.0-100.0 fL Mean Corpuscular Hemoglobin 30.0 28.0-32.0 pg Mean Corpuscular Hemoglobin Concent 34.4 32.0-36.0 g/dL Red Cell Distribution Width 14.8 H 11.8-14.3 % Platelet Count 190 140-450 10^3/uL Mean Platelet Volume 7.9 6.9-10.8 fL Neutrophils (%) (Auto) 81.8 H 37.0-80.0 % Lymphocytes (%) (Auto) 12.6 10.0-50.0 % Monocytes (%) (Auto) 3.4 0.0-12.0 % Eosinophils (%) (Auto) 1.8 0.0-7.0 % Basophils (%) (Auto) 0.4 0.0-2.0 % Neutrophils # (Auto) 13.2 H 1.6-8.6 10 ^3/uL Lymphocytes # (Auto) 2.0 0.4-5.4 10 ^3/uL Monocytes # (Auto) 0.5 0-1.3 10 ^3/uL Eosinophils # (Auto) 0.3 0-0.8 10 ^3/uL Basophils # (Auto) 0.1 0-0.2 10 ^3/uL Nucleated Red Blood Cells 0.1 % Sodium Level 142 136-145 mmol/L Potassium Level 4.0 3.5-5.1 mmol/L Chloride Level 106 98-107 mmol/L Carbon Dioxide Level 28 20-31 mmol/L Anion Gap 8 5-15 Blood Urea Nitrogen 16 9-23 mg/dL Creatinine 1.02 0.700-1.30 mg/dL Glomerular Filtration Rate Calc 75 >90 mL/min BUN/Creatinine Ratio 15.7 10.0-20.0 Serum Glucose 120 H 74-106 mg/dL Lactic Acid Level 1.5 0.4-2.0 mmol/L Calcium Level 9.6 8.7-10.4 mg/dL Current Medications Medications (Trade) Dose Ordered Sig/Nilesh Route Start Time Stop Time Status Last Admin Hydromorphone HCl (Dilaudid Injection) 0.5 mg ONCE ONCE IM 02/20/25 21:15 02/20/25 21:16 DC 02/20/25 22:46 X-Ray, Labs, Meds, VS Comment All studies performed the ED were evaluated by me personally. Urine was pending at time of this note. Serum laboratories revealed a non source leukocytosis. Hip CT revealed a trochanter fracture of the left proximal femur. Patient will be admitted for pain control, possible orthopedic evaluation as well as evaluation of urine results when returned. Time of 1ST Reevaluation: 22:50 Reevaluation 1ST: Improved Consultation: PCP, Other (Orthopedist) Patient Education/Counseling: Diagnosis, Treatment Family Education/Counseling: Diagnosis, Treatment, No Family Present Departure 1 Departure Time of Disposition: 22:51 Impression: Primary Impression: Femoral fracture Additional Impression: Leukocytosis Disposition: ADMITTED INPATIENT Condition: Fair Discharged With: Self Critical Care Note Critical Care Time?: No Stability Stability form required: No Heart Score Heart Score: Heart Score Response (Comments) Value History N/A 0 EKG N/A 0 Age N/A 0 Risk Factors N/A 0 Troponin N/A 0 Total 0 I personally scribed for PETRA HERNANDEZ PAC ([email or web address]) on 02/20/25 at 21:19. Electronically submitted by Shahida Avila ([email or web address]). PETRA HERNANDEZ PAC Feb 20, 2025 21:19
[2025-02-20 21:27] LABS: Basophils # (auto) 0.1 10 ^3/uL (0-0.2); Basophils % (auto) 0.4 % (0.0-2.0); Eosinophils # (auto) 0.3 10 ^3/uL (0-0.8); Eosinophils % (auto) 1.8 % (0.0-7.0); Hematocrit 40.9 % (41.0-53.0); Hemoglobin 14.1 g/dL (13.5-17.5); Lymphocytes % (auto) 12.6 % (10.0-50.0); Mean Corpuscular Hgb Conc. 34.4 g/dL (32.0-36.0); Mean Corpuscular Volume 87.3 fL (80.0-100.0); Monocytes # (auto) 0.5 10 ^3/uL (0-1.3); Monocytes % (auto) 3.4 % (0.0-12.0); Neutrophils # (auto) 13.2 10 ^3/uL (1.6-8.6); Neutrophils % (auto) 81.8 % (37.0-80.0); Nucleated Red Blood Cells % 0.1 %; Platelet Count (auto) 190 10^3/uL (140-450); Red Blood Cells 4.68 10^6/uL (4.5-5.90); Red Cell Distribution Width 14.8 % (11.8-14.3); White Blood Cell 16.1 10^3/uL (4.4-10.8)
[2025-02-20 21:45] LABS: Chloride 106 mmol/L (98-107); Sodium 142 mmol/L (136-145)
[2025-02-20 21:46] LABS: Anion Gap 8 (5-15); Carbon Dioxide 28 mmol/L (20-31)
[2025-02-20 21:47] LABS: Calcium 9.6 mg/dL (8.7-10.4)
[2025-02-20 21:52] LABS: BUN/Creatinine Ratio 15.7 (10.0-20.0); Blood Urea Nitrogen 16 mg/dL (9-23); Glucose 120 mg/dL (74-106)
[2025-02-20 22:23] VITALS: PULSE 72; RESP 18; O2SAT 96
--- NOTE | 2025-02-20 22:26 | DVH ---
INDICATION: Trauma/fall COMPARISON: None TECHNIQUE: CT of the right was performed without contrast. Volume transverse images were obtained and reconstructed in multiple planes using bone and soft tissue algorithms. CONTRAST: None Radiation Dose Information: CT Dose: CTDI volume is 19.69 mGy. Dose-length product is 538.82 mGy*cm FINDINGS: The alignment is normal. The joint spaces are normal. Minimally displaced intertrochanteric fracture proximal left femur. Minimally displaced fractures of the greater and lesser trochanter. 11.2 x 7 cm soft tissue mass posterior to the femur less likely a soft tissue hematoma. IMPRESSION: 1. Mildly displaced intertrochanteric fracture proximal left femur. There is also a fracture 2. Displaced of the lesser trochanter and minimally displaced fracture through the greater trochanter . 3. Soft tissue hematoma appears to be posterior and inferior to the proximal femur measuring 11.2 by [address] scans at this medical facility are performed using dose modulation techniques as appropriate t o a performed exam including the following: Automated exposure control was utilized; adjustment of th e MA and/or KV according to patient size; and use of iterative reconstruction technique.
[2025-02-20] MEDS: HYDROmorphone HCL 2 MG/ML VL/or syr IM ONE (22:46)
--- NOTE | 2025-02-20 23:20 | DVH ---
EXAM: CT CT L FEMUR WO CONTRAST HISTORY: Trauma/fall COMPARISON: CT CT L HIP WITH OUT CONTRAST on DOS: 02/20/25 TECHNIQUE: Noncontrast axial CT images of the left femur were performed. Sagittal and coronal reforma tted images were obtained. This CT exam was performed using one or more of the following dose reducti on techniques: Automated exposure control, adjustment of the mA and/or kV according to patient size, or use of iterative reconstruction technique. Radiation Dose Information: CT Dose: CTDI volume is 12.41+ 0.14 mGy. Dose-length product is 691.41 mG y*cm. FINDINGS: There is bony demineralization. There is a comminuted and displaced intertrochanteric left femur frac ture. There is coxa vera angulation of the proximal left femur. Mild osteoarthritis of the left hip a nd the left knee. There is calcified atherosclerosis in the left lower extremity femoral arteries. T here is soft tissue edema adjacent to the proximal left femur fracture. There is mild prostatomegaly. There is moderate sigmoid diverticulosis partially imaged. The Muscle bundles about the left femur a re intact. IMPRESSION: 1. Comminuted and mildly displaced intertrochanteric left femur fracture. Coxa vera angulation of th e proximal left femur. 2. Bony demineralization. 3. Mild soft tissue swelling about the proximal left femur related to the fracture. 4. Mild prostatomegaly. 5. Moderate sigmoid diverticulosis, partially imaged.
[2025-02-20] MEDS: cefTRIAXone 1GM/50ML D5W 50 ML IV ONE (23:32)
--- NOTE | 2025-02-20 23:59 | DVHHP2 ---
History of Present Illness Reason for Visit: Left femur fracture History of Present Illness The patient is a 79-year-old male with past medical history of CVA, dementia, hyperlipidemia, and hypertension who presented to [facility] ED for evaluation of fall injury. As reported, patient was patient is residing at [facility] where she slipped and fall while attempting to use the bathroom with sustained hip injury. Patient complaining of left hip pain rating 7/10 numeric scale, radiate down to his left leg, left ankle, unable to bear weight on left leg, getting worse that prompted this visit. Patient was seen and evaluated in the ED, laboratory data shows WBC 16.1, platelets 190, sodium 142, potassium 4.0, BUN 16, creatinine 1.02, GFR 75, glucose 120, calcium 9.6, blood pressure 106/72, heart rate 77, temperature 98.1 F, O2 saturation 98% on room air. Left hip CT revealing comminuted and mildly displaced intratrochanteric left femur fracture, coxa vera angulation of the proximal left femur, mild soft tissue swelling about the proximal left femur related to the fracture. Patient was given Dilaudid 0.5 mg IV x1 please see medication orders section in the computer. On my assessment, patient denied chest pain, no headache, no dizziness, no diaphoresis, no shortness of breath, no nausea, no vomiting, no fever, no chills. Patient was admitted for further evaluation and medical management. Past Medical History CVA, Depression, Dementia, High Lipids, HTN Past Surgical History Denies all surgeries Family History Reviewed, noncontributory to the management of this case. Past Social History The patient lives at home, denies smoking, alcohol or illicit drugs abuse. Review of Systems Constitutional: Yes: Weakness; No: Fever, Chills, Sweats, Malaise, Other Eyes: No: Pain, Vision change, Conjunctivae inflammation, Eyelid inflammation, Other, Redness ENT: No: Ear pain, Ear discharge, Nose pain, Nose discharge, Nose congestion, Mouth pain, Mouth swelling, Throat pain, Throat swelling, Other Respiratory: No: Cough, Dry, Shortness of breath, SOB with excertion, Wheezing, Hemoptysis, Pleuritic Pain, Sputum, Wheezing, Other Cardiovascular: No: Chest Pain, Palpitations, Orthopnea, Paroxysmal Noc. Dyspnea, Edema, Lt Headedness, Other Gastrointestinal: No: Nausea, Vomiting, Abdominal Pain, Diarrhea, Constipation, Melena, Hematochezia, Other Genitourinary: No Dysuria, No Frequency, No Incontinence, No Hematuria, No Retention, No Other Musculoskeletal: other (Left hip pain), leg pain (Left); No: neck pain, shoulder pain, arm pain, back pain, hand pain, foot pain Skin: No: Rash, Lesions, Jaundice, Bruising, Other Neurological: No: Weakness, Numbness, Incoordination, Change in speech, Confusion, Seizures, Other Allergies: Coded Allergies: NO KNOWN ALLERGIES (Unverified , 07/09/23) Exam Vital Signs Vital Signs Date Time Temp Pulse Resp B/P (MAP) Pulse Ox O2 Delivery O2 Flow Rate FiO2 02/20/25 23:16 77 18 106/72 02/20/25 22:23 96 Room Air* 0 21 02/20/25 22:23 98.1 98.1 General Appearance: Alert, Oriented X3, Cooperative, No acute distress HEENT: Atraumatic, PERRLA, EOMI, Mucous membr. moist/pink Respiratory: Normal air movement Cardiovascular: Regular rate, Normal S1, Normal S2, No murmurs Abdominal: Normal bowel sounds, Soft, No tenderness, No hepatospenomegaly, No masses Extremities: No clubbing, No cyanosis, No edema, Normal pulses, Other (Left hip tenderness) Skin: No rashes, No breakdown, No significant lesion Neuro: Normal speech, Normal tone, Sensation intact, Cranial nerves 3-12 NL, Reflexes 2+, Other (Generalized weakness) Psych/Mental Status: Mental status NL, Mood NL Labs/Xrays Labs Test 02/20/25 21:18 Range/Units White Blood Count 16.1 H 4.4-10.8 10^3/uL Red Blood Count 4.68 4.5-5.90 10^6/uL Hemoglobin 14.1 13.5-17.5 g/dL Hematocrit 40.9 L 41.0-53.0 % Mean Corpuscular Volume 87.3 80.0-100.0 fL Mean Corpuscular Hemoglobin 30.0 28.0-32.0 pg Mean Corpuscular Hemoglobin Concent 34.4 32.0-36.0 g/dL Red Cell Distribution Width 14.8 H 11.8-14.3 % Platelet Count 190 140-450 10^3/uL Mean Platelet Volume 7.9 6.9-10.8 fL Neutrophils (%) (Auto) 81.8 H 37.0-80.0 % Lymphocytes (%) (Auto) 12.6 10.0-50.0 % Monocytes (%) (Auto) 3.4 0.0-12.0 % Eosinophils (%) (Auto) 1.8 0.0-7.0 % Basophils (%) (Auto) 0.4 0.0-2.0 % Neutrophils # (Auto) 13.2 H 1.6-8.6 10 ^3/uL Lymphocytes # (Auto) 2.0 0.4-5.4 10 ^3/uL Monocytes # (Auto) 0.5 0-1.3 10 ^3/uL Eosinophils # (Auto) 0.3 0-0.8 10 ^3/uL Basophils # (Auto) 0.1 0-0.2 10 ^3/uL Nucleated Red Blood Cells 0.1 % Sodium Level 142 136-145 mmol/L Potassium Level 4.0 3.5-5.1 mmol/L Chloride Level 106 98-107 mmol/L Carbon Dioxide Level 28 20-31 mmol/L Anion Gap 8 5-15 Blood Urea Nitrogen 16 9-23 mg/dL Creatinine 1.02 0.700-1.30 mg/dL Glomerular Filtration Rate Calc 75 >90 mL/min BUN/Creatinine Ratio 15.7 10.0-20.0 Serum Glucose 120 H 74-106 mg/dL Lactic Acid Level 1.5 0.4-2.0 mmol/L Calcium Level 9.6 8.7-10.4 mg/dL PATIENT: JUDE MACIEL ACCT: [id number] UNIT: [id number] : 1945 LOC: ER ROOM / BED: / AGE / SEX: 79 / M ADM STATUS: REG ER SERVICE 07 ORDERING PHYSICIAN: PETRA HERNANDEZ PAC PROCEDURE(s): [facility] - CT L HIP WITH OUT CONTRAST REASON: Trauma/fall ORDER NUMBER(s): [id number], ACCESSION NUMBER(s): [id number] INDICATION: Trauma/fall COMPARISON: None TECHNIQUE: CT of the right was performed without contrast. Volume transverse images were obtained and reconstructed in multiple planes using bone and soft tissue algorithms. CONTRAST: None Radiation Dose Information: CT Dose: CTDI volume is 19.69 mGy. Dose-length product is 538.82 mGy*cm FINDINGS: The alignment is normal. The joint spaces are normal. Minimally displaced intertrochanteric fracture proximal left femur. Minimally displaced fractures of the greater and lesser trochanter. 11.2 x 7 cm soft tissue mass posterior to the femur less likely a soft tissue hematoma. IMPRESSION: 1. Mildly displaced intertrochanteric fracture proximal left femur. There is also a fracture 2. Displaced of the lesser trochanter and minimally displaced fracture through the greater trochanter. 3. Soft tissue hematoma appears to be posterior and inferior to the proximal femur measuring 11.2 by 7 cm. ORDERING PHYSICIAN: PETRA HERNANDEZ PAC PROCEDURE(s): [facility] - CT L FEMUR WO CONTRAST REASON: Trauma/fall ORDER NUMBER(s): [id number], ACCESSION NUMBER(s): [id number] EXAM: CT CT L FEMUR WO CONTRAST HISTORY: Trauma/fall COMPARISON: CT CT L HIP WITH OUT CONTRAST on DOS: 02/20/25 TECHNIQUE: Noncontrast axial CT images of the left femur were performed. Sagittal and coronal reformatted images were obtained. This CT exam was performed using one or more of the following dose reduction techniques: Automat ed exposure control, adjustment of the mA and/or kV according to patient size, or use of iterative reconstruction technique. Radiation Dose Information: CT Dose: CTDI volume is 12.41+ 0.14 mGy. Dose-length product is 691.41 mGy*cm. FINDINGS: There is bony demineralization. There is a comminuted and displaced intertrochanteric left femur fracture. There is coxa vera angulation of the proximal left femur. Mild osteoarthritis of the left hip and the left knee. There is calcified atherosclerosis in the left lower extremity femoral arteries. There is soft tissue edema adjacent to the proximal left femur fracture. There is mild prostatomegaly. There is moderate sigmoid diverticulosis partially imaged. The Muscle bundles about the left femur are intact. IMPRESSION: 1. Comminuted and mildly displaced intertrochanteric left femur fracture. Coxa vera angulation of the proximal left femur. 2. Bony demineralization. 3. Mild soft tissue swelling about the proximal left femur related to the fracture. 4. Mild prostatomegaly. 5. Moderate sigmoid diverticulosis, partially imaged. Assessment/Plan Assessment/Plan Fall with injury Closed left femoral fracture Leukocytosis, unspecified Generalized weakness Plan 1. Admit to telemetry unit 2. Breathing treatment 3. Pain control management 4. IV antibiotic management 5. Management of fluids and electrolytes 6. Consultation for orthopedic/hospitalist 7. Diagnostic test left hip CT 8. DVT prophylaxis-on Lovenox 9. Repeat labs CBC, CMP in a.m. 10. Home medication reviewed and reconciled 11. Continue with current medical management 12. Treatment plan discussed with patient and RN. Patient verbalized understanding. Plan discussed with: Patient, Other (RN) Problem List: (1) Fall with injury (2) Closed left femoral fracture (3) Leukocytosis, unspecified (4) Generalized weakness Date of Service: Feb 20, 2025 Billing Provider: BARRON MCDANIEL DNP Common Visit Codes: [id number] INP/OBS CARE (HIGH) BARRON MCDANIEL DNP Feb 20, 2025 23:59
[2025-02-21] MEDS ORDERED: NITROGLYCERIN 0.4 MG SL TAB SL PRN
[2025-02-21] MEDS ORDERED: MORPHINE SULFATE INJ 2 MG/ml SYRG IV PRN
[2025-02-21] MEDS ORDERED: ONDANSETRON HCL 4 MG/2 ML VIAL IV PRN (00:15)
[2025-02-21] MEDS ORDERED: DOCUSATE SOD 100 MG CAP PO PRN (00:15)
[2025-02-21] MEDS ORDERED: ACETAMINOPHEN 325 MG TAB PO PRN (00:15)
[2025-02-21] MEDS: HYDROcodone-ACET 5/325MG TAB PO PRN (03:53)
[2025-02-21 04:26] LABS: Urine Bacteria None Seen /hpf (None Seen)
[2025-02-21 04:36] LABS: Urine Blood 2+ /uL (Negative); Urine Clarity Clear (Clear); Urine Color Colorless (Yellow); Urine Protein, UAD Negative (Negative); Urine Specific Gravity 1.007 (1.001-1.035); Urine Squamous Epithelial Cell None Seen /hpf (<5); Urine Urobilinogen Normal (Negative); Urine WBC 3 /HPF (0-3); Urine pH 5.5 (5.0-9.0)
[2025-02-21] MEDS: SODIUM CHLOR 0.9% PF (SALINE LOCK) 10ML VIAL/SYR IV SCH (05:36)
[2025-02-21 08:00] VITALS: PULSE 88; RESP 14; O2SAT 93
[2025-02-21] MEDS: cefTRIAXone 1GM/50ML D5W 50 ML IV SCH (09:04)
[2025-02-21] MEDS: SERTRALINE HCL 50 MG TAB PO SCH (10:34)
[2025-02-21] MEDS: MEMANTINE HCL 5 MG TAB PO SCH (10:35)
[2025-02-21] MEDS: ENOXAPARIN SOD 40 MG/0.4 ML SYRINGE SC SCH (10:36)
[2025-02-21] MEDS: LISINOPRIL 5 MG TAB PO SCH (10:38)
[2025-02-21 11:27] VITALS: O2SAT 98
[2025-02-21 11:30] VITALS: BP 128/84; PULSE 86; RESP 18; TEMP 98.5; O2SAT 98
--- NOTE | 2025-02-21 13:55 | DVHINCON2 ---
LUIS ANGEL JOHN 02/21/25 1355: Date of service: Feb 21, 2025 Reason for Consultation Left hip fracture History of Present Illness Mr. Arriaza is a 79-year-old male who was brought to the hospital after a slip and fall accident when he was trying to use the bathroom at [place] in nursing facility any slipped and fell landing on his left leg and has been experiencing severe left hip pain in the inability to bear weight on that side since the fall. Patient denied any head trauma, loss of consciousness, chest pain, shortness of breath, nausea, vomiting, fever, or chills. Patient was otherwise feeling well denying any other complaints or concerns during my evaluation. Past Medical History CVA, Depression, Dementia, High Lipids, HTN Past Surgical History Denies Family History: FH: smoking G8 MOTHER, Onset:Unknown Hypertension G8 MOTHER, Onset:Unknown Family History Noncontributory Social History Patient denies smoking, EtOH, or illicit substance abuse Allergies: Coded Allergies: NO KNOWN ALLERGIES (Unverified , 07/09/23) Home Meds Active Scripts Pantoprazole Sodium Sesquihydr (Pantoprazole Sodium) 40 Mg Tab, 40 MG PO DAILY, #30 TAB Prov:NAUN RODRIGUEZ MD 06/24/23 Reported Medications Trazodone Hcl (Trazodone Hcl) 50 Mg Tab, 0.5 TAB PO HSPRN for 30 Days, #15 05/06/24 Carbidopa-Levodopa (Carbidopa/Levodopa Odt 10-100 mg) 1 Tab Tab, 1 TAB PO TID for 30 Days, #90 05/06/24 Sertraline Hcl (Sertraline Hcl) 50 Mg Tab, 100 MG PO DAILY for 30 Days, #30 05/06/24 Atorvastatin Calcium (ATORVASTATIN CALCIUM) 40 Mg Tab, 1 TAB PO QPM for 30 Days 07/11/19 Memantine Hydrochloride (Memantine HCl) 10 Mg Tab, 1 TAB PO BID for 30 Days, #30 07/11/19 Lisinopril (Lisinopril) 10 Mg Tab, 1 TAB PO DAILY for 30 Days, #30 07/11/19 Donepezil Hydrochloride (DONEPEZIL HCL) 10 Mg Tab, 1 TAB PO DAILY for 30 Days, #30 07/11/19 Aspirin (Aspirin 81 Low Dose) 81 Mg Chw, 162 MG PO, TAB.CHEW 07/11/19 Amlodipine Besylate (NORVASC TABLET) 5 Mg Tb, 1 TAB PO BID for 30 Days, #60 07/11/19 Current Medications Current Medications Medications (Trade) Dose Ordered Sig/Nilesh Route PRN Reason Start Time Stop Time Status Last Admin Nitroglycerin (Ntrostat Sublingual) 0.4 mg Q5MINP PRN SL FOR CHEST PAIN 02/21/25 00:00 Morphine Sulfate 2 mg Q30M PRN IV FOR CHEST PAIN 02/21/25 00:00 Atorvastatin Calcium (Lipitor) 40 mg HS PO 02/21/25 22:00 Donepezil HCl (Aricept Tablet) 10 mg HS PO 02/21/25 22:00 Memantine (Namenda Tablet) 10 mg Q12HR PO 02/21/25 10:00 02/21/25 10:35 Sertraline HCl (Zoloft) 50 mg DAILY PO 02/21/25 10:00 02/21/25 10:34 Lisinopril (Zestril Tablet) 5 mg DAILY PO 02/21/25 10:00 02/21/25 10:38 Hydralazine HCl (Apresoline Injection) 10 mg Q6HP PRN IV SBP>150 02/21/25 00:00 Ceftriaxone Sodium 50 ml @ 100 mls/hr DAILY@09 IV 02/21/25 09:00 02/21/25 09:04 Sodium Chloride (Saline Lock Ns) 10 ml Q8HR IV 02/21/25 06:00 02/21/25 05:36 Acetaminophen/ Hydrocodone Bitart ([place] 5/325MG Tab) 1 tab Q4HP PRN PO MODERATE PAIN (4-6 PAIN SCALE) 02/21/25 00:15 02/21/25 03:53 Ondansetron HCl (Zofran) 4 mg Q4HP PRN IV NAUSEA / VOMITING 02/21/25 00:15 Docusate Sodium (Colace Capsule) 100 mg BIDPRN PRN PO FOR CONSTIPATION 02/21/25 00:15 Enoxaparin Sodium (Lovenox) 40 mg DAILY SC 02/21/25 10:00 02/21/25 10:36 Acetaminophen (Tylenol Tablet) 650 mg Q6HP PRN PO PAIN SCALE 1-3 OR TEMP>100.4 02/21/25 00:15 Morphine Sulfate 2 mg Q4HPRN PRN IV SEVERE PAIN (7-10 PAIN SCALE) 02/21/25 00:15 Review of Systems 10 point review of systems negative except as per HPI Vital Signs Vital Signs Date Time Temp Pulse Resp B/P (MAP) Pulse Ox O2 Delivery O2 Flow Rate FiO2 02/21/25 11:30 98.5 86 18 128/84 (99) 98 98.5 02/21/25 08:00 Nasal Cannula* 2 28 Physical Exam General appearance: A&O x4 in no acute distress HEENT: Normal ENT inspection, pharynx normal, TMs normal Neck: Full range of motion, nontender, normal inspection Respiratory: Chest nontender, without accessory muscle use, no respiratory distress Cardiovascular: No edema, no JVD, normal peripheral pulses Gastrointestinal: Soft, nontender, no organomegaly. Musculoskeletal: Left hip range of motion grossly limited with pain on slight movement, no calf tenderness, normal capillary refill, no pedal edema, neurovascularly intact. Skin: Dry, normal color, warm Lymphatic: No adenopathy Labs/Diagnostic Data Labs Test 02/21/25 04:00 02/20/25 21:18 Range/Units Urine Color Colorless Yellow Urine Clarity Clear Clear Urine pH 5.5 5.0-9.0 Urine Specific [place] 1.007 1.001-1.035 Urine Protein Negative Negative Urine Ketones Negative Negative Urine Blood 2+ H Negative /uL Urine Nitrite Negative Negative Urine Bilirubin Negative Negative Urine Urobilinogen Normal Negative mg/dL Urine Leukocyte Esterase Negative Negative /uL Urine RBC 14 0 - 3 /hpf Urine Microscopic WBC 3 0-3 /HPF Urine Squamous Epithelial Cells None seen <5 /hpf Urine Bacteria None seen None Seen /hpf Urine Glucose Normal Normal mg/dL White Blood Count 16.1 H 4.4-10.8 10^3/uL Red Blood Count 4.68 4.5-5.90 10^6/uL Hemoglobin 14.1 13.5-17.5 g/dL Hematocrit 40.9 L 41.0-53.0 % Mean Corpuscular Volume 87.3 80.0-100.0 fL Mean Corpuscular Hemoglobin 30.0 28.0-32.0 pg Mean Corpuscular Hemoglobin Concent 34.4 32.0-36.0 g/dL Red Cell Distribution Width 14.8 H 11.8-14.3 % Platelet Count 190 140-450 10^3/uL Mean Platelet Volume 7.9 6.9-10.8 fL Neutrophils (%) (Auto) 81.8 H 37.0-80.0 % Lymphocytes (%) (Auto) 12.6 10.0-50.0 % Monocytes (%) (Auto) 3.4 0.0-12.0 % Eosinophils (%) (Auto) 1.8 0.0-7.0 % Basophils (%) (Auto) 0.4 0.0-2.0 % Neutrophils # (Auto) 13.2 H 1.6-8.6 10 ^3/uL Lymphocytes # (Auto) 2.0 0.4-5.4 10 ^3/uL Monocytes # (Auto) 0.5 0-1.3 10 ^3/uL Eosinophils # (Auto) 0.3 0-0.8 10 ^3/uL Basophils # (Auto) 0.1 0-0.2 10 ^3/uL Nucleated Red Blood Cells 0.1 % Sodium Level 142 136-145 mmol/L Potassium Level 4.0 3.5-5.1 mmol/L Chloride Level 106 98-107 mmol/L Carbon Dioxide Level 28 20-31 mmol/L Anion Gap 8 5-15 Blood Urea Nitrogen 16 9-23 mg/dL Creatinine 1.02 0.700-1.30 mg/dL Glomerular Filtration Rate Calc 75 >90 mL/min BUN/Creatinine Ratio 15.7 10.0-20.0 Serum Glucose 120 H 74-106 mg/dL Lactic Acid Level 1.5 0.4-2.0 mmol/L Calcium Level 9.6 8.7-10.4 mg/dL Left hip CT scan reviewed and demonstrated: 1. Mildly displaced intertrochanteric fracture proximal left femur. There is also a fracture 2. Displaced of the lesser trochanter and minimally displaced fracture through the greater trochanter. 3. Soft tissue hematoma appears to be posterior and inferior to the proximal femur measuring 11.2 by 7 cm. Assessment Left intertrochanteric fracture Plan/Recommendation I had a lengthy discussion with the patient regarding nonoperative versus operative management and after discussing his case with Dr. Monique we have recommended an open versus closed IM nail fixation of his left intertrochanteric hip fracture. I discussed all of the risks and complications involved with surgery including but not limited to bleeding, infection, nerve injury, chronic pain, nonunion, malunion, need for further surgery, blood clots, DVT, PE, cardiac and pulmonary complications, and even . He understood and agreed to proceed with the surgery. We will plan to undergo surgery Sunday morning with Dr. Monique if patient is cleared from a cardiology standpoint and if schedule allows and patient remains medically stable. Thank you for allowing us to participate in the care of your patient. Plan discussed with: Patient MERNA MONIQUE MD 02/21/25 1536: Date of service: Feb 21, 2025 Family History: FH: smoking G8 MOTHER, Onset:Unknown Hypertension G8 MOTHER, Onset:Unknown Allergies: Coded Allergies: NO KNOWN ALLERGIES (Unverified , 07/09/23) Home Meds Active Scripts Pantoprazole Sodium Sesquihydr (Pantoprazole Sodium) 40 Mg Tab, 40 MG PO DAILY, #30 TAB Prov:NAUN RODRIGUEZ MD 06/24/23 Reported Medications Trazodone Hcl (Trazodone Hcl) 50 Mg Tab, 0.5 TAB PO HSPRN for 30 Days, #15 05/06/24 Carbidopa-Levodopa (Carbidopa/Levodopa Odt 10-100 mg) 1 Tab Tab, 1 TAB PO TID for 30 Days, #90 05/06/24 Sertraline Hcl (Sertraline Hcl) 50 Mg Tab, 100 MG PO DAILY for 30 Days, #30 05/06/24 Atorvastatin Calcium (ATORVASTATIN CALCIUM) 40 Mg Tab, 1 TAB PO QPM for 30 Days 07/11/19 Memantine Hydrochloride (Memantine HCl) 10 Mg Tab, 1 TAB PO BID for 30 Days, #30 07/11/19 Lisinopril (Lisinopril) 10 Mg Tab, 1 TAB PO DAILY for 30 Days, #30 07/11/19 Donepezil Hydrochloride (DONEPEZIL HCL) 10 Mg Tab, 1 TAB PO DAILY for 30 Days, #30 07/11/19 Aspirin (Aspirin 81 Low Dose) 81 Mg Chw, 162 MG PO, TAB.CHEW 07/11/19 Amlodipine Besylate (NORVASC TABLET) 5 Mg Tb, 1 TAB PO BID for 30 Days, #60 07/11/19 Plan/Recommendation Plan for surgery Plan discussed with: Other LUIS ANGEL JOHN Feb 21, 2025 13:55 MERNA MONIQUE MD Feb 21, 2025 15:36
--- NOTE | 2025-02-21 16:29 | DVH ---
CHEST RADIOGRAPH Indication: PRE OP Technique: Single frontal view of the chest was obtained Comparison: 12/27/2024 FINDINGS: The cardiac silhouette is borderline enlarged. Aortic atherosclerotic disease. The lungs demonstrate perihilar airspace opacities. Left basilar / retrocardiac airspace opacities.. The pulmonary vascul ature is mildly prominent. There is no pleural effusion.. There is no pneumothorax. IMPRESSION: As above
[2025-02-21 16:32] LABS: INR 1.08 (0.9-1.15); Partial Thromboplastin Time 36.5 SEC (24.5-34.5); Prothrombin Time 11.4 sec (9.3-11.8)
--- NOTE | 2025-02-21 16:50 | DVHSR ---
APPROVED REPORT EXAM: LIMITED Two-dimensional and M-mode echocardiogram with Doppler and color Doppler. Blood Pressure: 128/84 mmHg INDICATION Pre-Op RISK FACTORS Height: 5'7, Weight: 158 DIMENSIONS LVDd3.6 (3.8-5.7cm)LA (2D) (1.9-4.0cm)Aortic Root (2.0-3.7cm) LVDs2.3 (2.5-4.0cm)LA (MM) (1.9-4.0cm)Aortic Cusp Exc (1.5-2.0cm) EF (%) 60.0 (55-70%)Rt. Atrium (1.9-4.0cm)Asc. Aorta cm IVSd1.3 (0.7-1.1cm)RV (D) (1.8-2.4cm) PWd0.9 (0.7-1.1cm) Mitral Valve MitralMitral Stenosis E/A ratio0.02D MVAcm2 Aortic Valve Aortic ValveAortic Stenosis LVOT Diameter2.3 (1.8-2.4cm)Doppler AVAcm2 Other Information Technically limited study due to broken hip, pt leaning on right side c/o pain Conclusion Technically good study. Difficult acoustic windows. Limited study. Limited acoustic windows. RV enlargement. Aortic root enlargement. Left atrial enlargement. Concentric LVH. Moderate mitral annular calcification. Sclerosis of the aortic valve. Left ventricular function is preserved at 65% with normal RV function. Dopplers unremarkable. No pericardial effusion masses or vegetations discernible.
--- NOTE | 2025-02-21 16:57 | DVHINCON2 ---
Date Seen: Feb 21, 2025 Referring Physician Nichole Reason for Consultation Preop cardiac assessment History of Present Illness 79-year-old male with PMH for CVA, dementia, HLD, HTN, multiple falls, presents to the hospital s/p mechanical fall with left hip pain. Due to patient's dementia, poor historian, information gathering mainly from chart review. Patient resides at [facility] and apparently slipped and fall while attempting to use the bathroom with sustained hip injury. Patient complaining of left hip pain rating 7/10 numeric scale, radiate down to his left leg, left ankle, unable to bear weight on left leg, getting worse that prompted this visit. Patient was seen and evaluated in the ED, laboratory data shows WBC 16.1, platelets 190, sodium 142, potassium 4.0, BUN 16, creatinine 1.02, GFR 75, glucose 120, calcium 9.6, blood pressure 106/72, heart rate 77, temperature 98.1 F, O2 saturation 98% on room air. Left hip CT revealing comminuted and mildly displaced intratrochanteric left femur fracture, coxa vera angulation of the proximal left femur, mild soft tissue swelling about the proximal left femur related to the fracture. Cardiology consulted for preop cardiac assessment. Past Medical History As stated above Past Surgical History No previous cardiac surgeries on review Family History: FH: smoking G8 MOTHER, Onset:Unknown Hypertension G8 MOTHER, Onset:Unknown Social History Denies alcohol, tobacco, or illicit drug use. Allergies: Coded Allergies: NO KNOWN ALLERGIES (Unverified , 07/09/23) Home Meds Active Scripts Pantoprazole Sodium Sesquihydr (Pantoprazole Sodium) 40 Mg Tab, 40 MG PO DAILY, #30 TAB Prov:NAUN RODRIGUEZ MD 06/24/23 Reported Medications Trazodone Hcl (Trazodone Hcl) 50 Mg Tab, 0.5 TAB PO HSPRN for 30 Days, #15 05/06/24 Carbidopa-Levodopa (Carbidopa/Levodopa Odt 10-100 mg) 1 Tab Tab, 1 TAB PO TID for 30 Days, #90 05/06/24 Sertraline Hcl (Sertraline Hcl) 50 Mg Tab, 100 MG PO DAILY for 30 Days, #30 05/06/24 Atorvastatin Calcium (ATORVASTATIN CALCIUM) 40 Mg Tab, 1 TAB PO QPM for 30 Days 07/11/19 Memantine Hydrochloride (Memantine HCl) 10 Mg Tab, 1 TAB PO BID for 30 Days, #30 07/11/19 Lisinopril (Lisinopril) 10 Mg Tab, 1 TAB PO DAILY for 30 Days, #30 07/11/19 Donepezil Hydrochloride (DONEPEZIL HCL) 10 Mg Tab, 1 TAB PO DAILY for 30 Days, #30 07/11/19 Aspirin (Aspirin 81 Low Dose) 81 Mg Chw, 162 MG PO, TAB.CHEW 07/11/19 Amlodipine Besylate (NORVASC TABLET) 5 Mg Tb, 1 TAB PO BID for 30 Days, #60 07/11/19 Current Medications Current Medications Medications (Trade) Dose Ordered Sig/Nilesh Route PRN Reason Start Time Stop Time Status Last Admin Nitroglycerin (Ntrostat Sublingual) 0.4 mg Q5MINP PRN SL FOR CHEST PAIN 02/21/25 00:00 Morphine Sulfate 2 mg Q30M PRN IV FOR CHEST PAIN 02/21/25 00:00 Atorvastatin Calcium (Lipitor) 40 mg HS PO 02/21/25 22:00 Donepezil HCl (Aricept Tablet) 10 mg HS PO 02/21/25 22:00 Memantine (Namenda Tablet) 10 mg Q12HR PO 02/21/25 10:00 02/21/25 10:35 Sertraline HCl (Zoloft) 50 mg DAILY PO 02/21/25 10:00 02/21/25 10:34 Lisinopril (Zestril Tablet) 5 mg DAILY PO 02/21/25 10:00 02/21/25 10:38 Hydralazine HCl (Apresoline Injection) 10 mg Q6HP PRN IV SBP>150 02/21/25 00:00 Ceftriaxone Sodium 50 ml @ 100 mls/hr DAILY@09 IV 02/21/25 09:00 02/21/25 09:04 Sodium Chloride (Saline Lock Ns) 10 ml Q8HR IV 02/21/25 06:00 02/21/25 13:46 Acetaminophen/ Hydrocodone Bitart ([place] 5/325MG Tab) 1 tab Q4HP PRN PO MODERATE PAIN (4-6 PAIN SCALE) 02/21/25 00:15 02/21/25 03:53 Ondansetron HCl (Zofran) 4 mg Q4HP PRN IV NAUSEA / VOMITING 02/21/25 00:15 Docusate Sodium (Colace Capsule) 100 mg BIDPRN PRN PO FOR CONSTIPATION 02/21/25 00:15 Enoxaparin Sodium (Lovenox) 40 mg DAILY SC 02/21/25 10:00 02/21/25 10:36 Acetaminophen (Tylenol Tablet) 650 mg Q6HP PRN PO PAIN SCALE 1-3 OR TEMP>100.4 02/21/25 00:15 Morphine Sulfate 2 mg Q4HPRN PRN IV SEVERE PAIN (7-10 PAIN SCALE) 02/21/25 00:15 Review of Systems Constitutional: No: Fever, Chills, Sweats, Weakness, Malaise, Other Eyes: No: Pain, Vision change, Conjunctivae inflammation, Eyelid inflammation, Other, Redness ENT: No: Ear pain, Ear discharge, Nose pain, Nose discharge, Nose congestion, Mouth pain, Mouth swelling, Throat pain, Throat swelling, Other Respiratory: No: Cough, Dry, Shortness of breath, SOB with exertion, Wheezing, Hemoptysis, Pleuritic Pain, Sputum, Wheezing, Other Cardiovascular: ; No: Chest Pain Palpitations, Orthopnea, Paroxysmal Noc. Dyspnea, Edema, Lt Headedness, Other Gastrointestinal: No: Nausea, Vomiting, Abdominal Pain, Diarrhea, Constipation, Melena, Hematochezia, Other Genitourinary: No Dysuria, No Frequency, No Incontinence, No Hematuria, No Retention, No Other Musculoskeletal: neck pain; No: other, shoulder pain, arm pain, back pain, hand pain, , foot pain positive: Left leg /hip pain Skin: No: Rash, Lesions, Jaundice, Bruising, Other Neurological: Other (Dizziness, headache.); No: Weakness, Numbness, Incoordination, Change in speech, Confusion, Seizures Vital Signs Vital Signs Date Time Temp Pulse Resp B/P (MAP) Pulse Ox O2 Delivery O2 Flow Rate FiO2 02/21/25 11:30 98.5 86 18 128/84 (99) 98 98.5 02/21/25 11:27 Room Air* 0 21 Physical Exam General appearance: Patient is well-developed, well-nourished, in no acute distress. HEENT: Exam shows: Normocephalic, atraumatic, PERRLA, EOMI Neck: Supple, no bruits Chest: Equal chest excursion bilaterally. Breath sounds normal-no rales or wheezes. Heart: Rhythm: Regular rate; no murmur or gallop Abdomen: Exam shows: Soft, nontender, nondistended Musculoskeletal: No clubbing, no cyanosis, no lower extremity edema Dermatology: Skin warm, moist. Neurological: Exam shows: Alert and oriented x2, normal speech Available prior records, labs, EKG, rhythm strips reviewed and interpreted Labs/Diagnostic Data Labs Test 02/21/25 16:00 02/21/25 04:00 02/20/25 21:18 Range/Units Prothrombin Time 11.4 9.3-11.8 sec Prothrombin Time INR 1.08 0.9-1.15 Activated Partial Thromboplast Time 36.5 H 24.5-34.5 SEC Troponin I High Sensitivity 5 </=54 ng/L Urine Color Colorless Yellow Urine Clarity Clear Clear Urine pH 5.5 5.0-9.0 Urine Specific [place] 1.007 1.001-1.035 Urine Protein Negative Negative Urine Ketones Negative Negative Urine Blood 2+ H Negative /uL Urine Nitrite Negative Negative Urine Bilirubin Negative Negative Urine Urobilinogen Normal Negative mg/dL Urine Leukocyte Esterase Negative Negative /uL Urine RBC 14 0 - 3 /hpf Urine Microscopic WBC 3 0-3 /HPF Urine Squamous Epithelial Cells None seen <5 /hpf Urine Bacteria None seen None Seen /hpf Urine Glucose Normal Normal mg/dL White Blood Count 16.1 H 4.4-10.8 10^3/uL Red Blood Count 4.68 4.5-5.90 10^6/uL Hemoglobin 14.1 13.5-17.5 g/dL Hematocrit 40.9 L 41.0-53.0 % Mean Corpuscular Volume 87.3 80.0-100.0 fL Mean Corpuscular Hemoglobin 30.0 28.0-32.0 pg Mean Corpuscular Hemoglobin Concent 34.4 32.0-36.0 g/dL Red Cell Distribution Width 14.8 H 11.8-14.3 % Platelet Count 190 140-450 10^3/uL Mean Platelet Volume 7.9 6.9-10.8 fL Neutrophils (%) (Auto) 81.8 H 37.0-80.0 % Lymphocytes (%) (Auto) 12.6 10.0-50.0 % Monocytes (%) (Auto) 3.4 0.0-12.0 % Eosinophils (%) (Auto) 1.8 0.0-7.0 % Basophils (%) (Auto) 0.4 0.0-2.0 % Neutrophils # (Auto) 13.2 H 1.6-8.6 10 ^3/uL Lymphocytes # (Auto) 2.0 0.4-5.4 10 ^3/uL Monocytes # (Auto) 0.5 0-1.3 10 ^3/uL Eosinophils # (Auto) 0.3 0-0.8 10 ^3/uL Basophils # (Auto) 0.1 0-0.2 10 ^3/uL Nucleated Red Blood Cells 0.1 % Sodium Level 142 136-145 mmol/L Potassium Level 4.0 3.5-5.1 mmol/L Chloride Level 106 98-107 mmol/L Carbon Dioxide Level 28 20-31 mmol/L Anion Gap 8 5-15 Blood Urea Nitrogen 16 9-23 mg/dL Creatinine 1.02 0.700-1.30 mg/dL Glomerular Filtration Rate Calc 75 >90 mL/min BUN/Creatinine Ratio 15.7 10.0-20.0 Serum Glucose 120 H 74-106 mg/dL Lactic Acid Level 1.5 0.4-2.0 mmol/L Calcium Level 9.6 8.7-10.4 mg/dL Assessment * Pre-op Cardiac Assessment - Patient is requiring Left Hip surgery due to mechanical fall. Sinus rhythm with RBBB on tele. Denies active cardiac symptoms. Echo recently showed normal LV EF. Patient is intermediate risk for intermediate risk surgery. May proceed with surgery with close monitoring of cardiorespiratory status, avoid fluid overload. * Close left femoral fracture - ortho following, plan surgery. * HTN-stable on current regimen, continue trending. * HLD - statin * CAD, significant heavily calcified coronary arteries - continue statin. Resume aspirin once cleared by ortho. Case Discussed with Dr Otoole. Plan of care as above. Critical care, time spent: 40 minutes This medical document was created using an electronic medical record system with voice recognition software and computerized dictation system. Although this document has been carefully reviewed, there might still be some phonetic and typographical errors. Occasional wrong-word or ``sound-alike substitutions may have occurred due to the inherent limitations of voice recognition software. These areas are purely typographical due to imperfections of the software programs and do not reflect any compromise in the patient's medical care. Please read the chart carefully and recognize, using context, where these substitutions have occurred. Thank you for allowing me to participate in the management of this patient. The treatment plan was discussed with and agreed upon by patient/family including requesting consultants and ordering of imaging/procedures. Plan discussed with: Patient, Other (RN) NYHA Physical activity limitations: Class2(Slight)fatigue,sob Date of Service: Feb 21, 2025 Billing Provider: NIKUNJ RIGGS Cardiology Common Codes: [id number] INP/OBS CARE (High), [id number] CARE 30-74 MIN NIKUNJ RIGGS Feb 21, 2025 16:57
--- NOTE | 2025-02-21 16:58 | DVHPN2 ---
Subjective Fell at home ([place]), sustained left hip fx Changes from previous H/P or p: Changes Eyes: No Pain, No Vision change, No Conjunctivae inflammation, No Eyelid inflammation, No Other, No Redness ENT: No Ear pain, No Ear discharge, No Nose pain, No Nose discharge, No Nose congestion, No Mouth pain, No Mouth swelling, No Throat pain, No Throat swelling, No Other Cardiovascular: No Chest Pain, No Palpitations, No Orthopnea, No Paroxysmal Noc. Dyspnea, No Edema, No Lt Headedness, No Other Respiratory: No Cough, No Dry, No Shortness of breath, No SOB with excertion, No Wheezing, No Hemoptysis, No Pleuritic Pain, No Sputum, No Other Gastrointestinal: No Nausea, No Vomiting, No Abdominal Pain, No Diarrhea, No Constipation, No Melena, No Hematochezia, No Other Genitourinary: No Dysuria, No Frequency, No Incontinence, No Hematuria, No Retention, No Other Musculoskeletal: other (Left hip pain); No neck pain, No shoulder pain, No arm pain, No back pain, No hand pain; leg pain (Left); No foot pain Skin: No Rash, No Lesions, No Jaundice, No Bruising, No Other Objective Vitals Vital Signs Date Time Temp Pulse Resp B/P (MAP) Pulse Ox O2 Delivery O2 Flow Rate FiO2 02/21/25 11:30 98.5 86 18 128/84 (99) 98 98.5 02/21/25 11:27 Room Air* 0 21 General Appearance: Alert, Oriented X3 Lungs: Clear to auscultation, Normal air movement Cardiovascular: Regular rate, Normal S1, Normal S2 Abdomen: Normal bowel sounds, Soft, No tenderness Extremities: No edema Medications Current Medications Medications Dose Ordered Sig/Nilesh Route Start Time Stop Time Status Last Admin Dose Admin Nitroglycerin 0.4 mg Q5MINP PRN SL 02/21/25 00:00 Morphine Sulfate 2 mg Q30M PRN IV 02/21/25 00:00 Atorvastatin Calcium 40 mg HS PO 02/21/25 22:00 Donepezil HCl 10 mg HS PO 02/21/25 22:00 Memantine 10 mg Q12HR PO 02/21/25 10:00 02/21/25 10:35 10 MG Sertraline HCl 50 mg DAILY PO 02/21/25 10:00 02/21/25 10:34 50 MG Lisinopril 5 mg DAILY PO 02/21/25 10:00 02/21/25 10:38 5 MG Hydralazine HCl 10 mg Q6HP PRN IV 02/21/25 00:00 Ceftriaxone Sodium 50 ml @ 100 mls/hr DAILY@09 IV 02/21/25 09:00 02/21/25 09:04 100 MLS/HR Sodium Chloride 10 ml Q8HR IV 02/21/25 06:00 02/21/25 13:46 10 ML Acetaminophen/ Hydrocodone Bitart 1 tab Q4HP PRN PO 02/21/25 00:15 02/21/25 03:53 1 TAB Ondansetron HCl 4 mg Q4HP PRN IV 02/21/25 00:15 Docusate Sodium 100 mg BIDPRN PRN PO 02/21/25 00:15 Enoxaparin Sodium 40 mg DAILY SC 02/21/25 10:00 02/21/25 10:36 40 MG Acetaminophen 650 mg Q6HP PRN PO 02/21/25 00:15 Morphine Sulfate 2 mg Q4HPRN PRN IV 02/21/25 00:15 Laboratory Results Laboratory Tests 02/20/25 21:18 Chemistry Test 02/20/25 21:18 Calcium Level 9.6 mg/dL (8.7-10.4) Coagulation Test 02/21/25 16:00 Prothrombin Time 11.4 sec (9.3-11.8) Prothrombin Time INR 1.08 (0.9-1.15) Activated Partial Thromboplast Time 36.5 SEC (24.5-34.5) H Urinalysis Test 02/21/25 04:00 Urine Color Colorless (Yellow) Urine Clarity Clear (Clear) Urine pH 5.5 (5.0-9.0) Urine Specific [place] 1.007 (1.001-1.035) Urine Protein Negative (Negative) Urine Ketones Negative (Negative) Urine Blood 2+ /uL (Negative) H Urine Nitrite Negative (Negative) Urine Bilirubin Negative (Negative) Urine Urobilinogen Normal mg/dL (Negative) Urine Leukocyte Esterase Negative /uL (Negative) Urine RBC 14 /hpf (0 - 3) Urine Microscopic WBC 3 /HPF (0-3) Urine Squamous Epithelial Cells None seen /hpf (<5) Urine Bacteria None seen /hpf (None Seen) Urine Glucose Normal mg/dL (Normal) Assessment/Plan Assessment/Plan Closed left femoral fracture due to a fall Leukocytosis, unspecified Generalized weakness Diverticulosis Prostatomegaly PLAN: Ortho consult LEYDA Dunlap No infection Pain control Dementia Full code Plan discussed with: Patient Date of Service: Feb 21, 2025 Billing Provider: JANEL BATRES MD Common Visit Codes: [id number] INP/OBS CARE(HIGH) JANEL BATRES MD Feb 21, 2025 16:58
[2025-02-21 17:03] VITALS: BP 129/76; PULSE 91; RESP 18; TEMP 99.6; O2SAT 96
[2025-02-21 20:00] VITALS: PULSE 120; PULSE 91; RESP 18
[2025-02-21 21:00] VITALS: BP 119/74; PULSE 118; RESP 20; TEMP 98.9; O2SAT 96
[2025-02-21] MEDS: DONEPEZIL HYDROCHLORIDE 5 MG TAB PO SCH (21:41)
[2025-02-21] MEDS: ATORVASTATIN 20 MG TAB PO SCH (21:41)
--- NOTE | 2025-02-21 23:37 | ECG ---
[facility] Test Date: 2025-02-21 Test Time: 23:29:37 Pat Name: JUDE MACIEL Department: Room: [facility] Gender: M Linderman Machine Operator: PHIL : 1945 Requested By: MERNA MONIQUE Order Number: [id number] Reading MD: Javier Otoole Measurements Intervals [place] Rate: 92 P: 48 [place]: 175 QRS: 54 QRSD: 145 T: 18 QT: 388 QTc: 481 Interpretive Statements Sinus rhythm Right bundle branch block Electronically Signed On 02-22-2025 17:35:50 PDT by Javier Otoole Please click the below link to view image of tracing.
[2025-02-22] VITALS (8 sets, daily range): BP systolic 107–133; BP diastolic 69–79; PULSE 64–94; RESP 15–18; TEMP 97.5–99.4; O2SAT 95–96
[2025-02-22 04:02] LABS: Basophils # (auto) 0 10 ^3/uL (0-0.2); Basophils % (auto) 0.3 % (0.0-2.0); Eosinophils # (auto) 0 10 ^3/uL (0-0.8); Eosinophils % (auto) 0.3 % (0.0-7.0); Hematocrit 30.6 % (41.0-53.0); Hemoglobin 10.6 g/dL (13.5-17.5); Lymphocytes # (auto) 1.2 10 ^3/uL (0.4-5.4); Lymphocytes % (auto) 19.6 % (10.0-50.0); Mean Corpuscular Hemoglobin 30.2 pg (28.0-32.0); Mean Corpuscular Hgb Conc. 34.6 g/dL (32.0-36.0); Mean Corpuscular Volume 87.4 fL (80.0-100.0); Monocytes # (auto) 0.4 10 ^3/uL (0-1.3); Monocytes % (auto) 7.2 % (0.0-12.0); Neutrophils # (auto) 4.4 10 ^3/uL (1.6-8.6); Neutrophils % (auto) 72.6 % (37.0-80.0); Nucleated Red Blood Cells % 0.1 %; Platelet Count (auto) 155 10^3/uL (140-450); Red Cell Distribution Width 14.7 % (11.8-14.3)
[2025-02-22 04:17] LABS: Alanine Aminotransferase 32 U/L (7-40); Albumin 3.8 g/dL (3.2-4.8); Alkaline Phosphatase 66 U/L (46-116); Anion Gap 10 (5-15); Aspartate Aminotransferase 20 U/L (<34); Bilirubin, Total 0.8 mg/dL (0.2-1.0); Carbon Dioxide 25 mmol/L (20-31); Chloride 105 mmol/L (98-107); Potassium 4.4 mmol/L (3.5-5.1); Sodium 140 mmol/L (136-145)
[2025-02-22 04:18] LABS: Blood Urea Nitrogen 24 mg/dL (9-23); Calcium 8.6 mg/dL (8.7-10.4); Glucose 135 mg/dL (74-106); Total Protein 5.5 g/dL (5.7-8.2)
[2025-02-22] MEDS: MORPHINE SULFATE INJ 2 MG/ml SYRG IV PRN (11:04)
--- NOTE | 2025-02-22 12:56 | DVHPN2 ---
Subjective No new complaints He will need surgery Changes from previous H/P or p: Changes Eyes: No Pain, No Vision change, No Conjunctivae inflammation, No Eyelid inflammation, No Other, No Redness ENT: No Ear pain, No Ear discharge, No Nose pain, No Nose discharge, No Nose congestion, No Mouth pain, No Mouth swelling, No Throat pain, No Throat swelling, No Other Cardiovascular: No Chest Pain, No Palpitations, No Orthopnea, No Paroxysmal Noc. Dyspnea, No Edema, No Lt Headedness, No Other Respiratory: No Cough, No Dry, No Shortness of breath, No SOB with excertion, No Wheezing, No Hemoptysis, No Pleuritic Pain, No Sputum, No Other Gastrointestinal: No Nausea, No Vomiting, No Abdominal Pain, No Diarrhea, No Constipation, No Melena, No Hematochezia, No Other Genitourinary: No Dysuria, No Frequency, No Incontinence, No Hematuria, No Retention, No Other Musculoskeletal: other (Left hip pain); No neck pain, No shoulder pain, No arm pain, No back pain, No hand pain; leg pain (Left); No foot pain Skin: No Rash, No Lesions, No Jaundice, No Bruising, No Other Objective Vitals Vital Signs Date Time Temp Pulse Resp B/P (MAP) Pulse Ox O2 Delivery O2 Flow Rate FiO2 02/22/25 11:04 86 18 118/75 02/22/25 09:00 98.5 96 98.5 02/22/25 07:45 Nasal Cannula* 2 28 Intake/Output Intake and Output 02/22/25 07:00 Intake Total 350 ml Output Total 450 ml Balance -100 ml Intake Oral 350 ml Output Urine Total 450 ml General Appearance: Alert, Oriented X3 Lungs: Clear to auscultation, Normal air movement Cardiovascular: Regular rate, Normal S1, Normal S2 Abdomen: Normal bowel sounds, Soft, No tenderness Extremities: No edema Medications Current Medications Medications Dose Ordered Sig/Nilesh Route Start Time Stop Time Status Last Admin Dose Admin Nitroglycerin 0.4 mg Q5MINP PRN SL 02/21/25 00:00 Morphine Sulfate 2 mg Q30M PRN IV 02/21/25 00:00 Atorvastatin Calcium 40 mg HS PO 02/21/25 22:00 02/21/25 21:41 40 MG Donepezil HCl 10 mg HS PO 02/21/25 22:00 02/21/25 21:41 10 MG Memantine 10 mg Q12HR PO 02/21/25 10:00 02/22/25 09:56 10 MG Sertraline HCl 50 mg DAILY PO 02/21/25 10:00 02/22/25 09:57 50 MG Lisinopril 5 mg DAILY PO 02/21/25 10:00 02/22/25 09:56 5 MG Hydralazine HCl 10 mg Q6HP PRN IV 02/21/25 00:00 Sodium Chloride 10 ml Q8HR IV 02/21/25 06:00 02/22/25 05:18 10 ML Acetaminophen/ Hydrocodone Bitart 1 tab Q4HP PRN PO 02/21/25 00:15 02/21/25 03:53 1 TAB Ondansetron HCl 4 mg Q4HP PRN IV 02/21/25 00:15 Docusate Sodium 100 mg BIDPRN PRN PO 02/21/25 00:15 Enoxaparin Sodium 40 mg DAILY SC 02/21/25 10:00 02/22/25 09:57 40 MG Acetaminophen 650 mg Q6HP PRN PO 02/21/25 00:15 Morphine Sulfate 2 mg Q4HPRN PRN IV 02/21/25 00:15 02/22/25 11:04 2 MG Laboratory Results Laboratory Tests 02/22/25 03:50 Chemistry Test 02/22/25 03:50 Albumin 3.8 g/dL (3.2-4.8) Calcium Level 8.6 mg/dL (8.7-10.4) L Total Protein 5.5 g/dL (5.7-8.2) L Coagulation Test 02/21/25 16:00 Prothrombin Time 11.4 sec (9.3-11.8) Prothrombin Time INR 1.08 (0.9-1.15) Activated Partial Thromboplast Time 36.5 SEC (24.5-34.5) H LFT Test 02/22/25 03:50 Alanine Aminotransferase (ALT) 32 U/L (7-40) Alkaline Phosphatase 66 U/L (46-116) Aspartate Amino Transferase (AST) 20 U/L (<34) Total Bilirubin 0.8 mg/dL (0.2-1.0) Urinalysis Test 02/21/25 04:00 Urine Color Colorless (Yellow) Urine Clarity Clear (Clear) Urine pH 5.5 (5.0-9.0) Urine Specific [place] 1.007 (1.001-1.035) Urine Protein Negative (Negative) Urine Ketones Negative (Negative) Urine Blood 2+ /uL (Negative) H Urine Nitrite Negative (Negative) Urine Bilirubin Negative (Negative) Urine Urobilinogen Normal mg/dL (Negative) Urine Leukocyte Esterase Negative /uL (Negative) Urine RBC 14 /hpf (0 - 3) Urine Microscopic WBC 3 /HPF (0-3) Urine Squamous Epithelial Cells None seen /hpf (<5) Urine Bacteria None seen /hpf (None Seen) Urine Glucose Normal mg/dL (Normal) Assessment/Plan Assessment/Plan Closed left femoral fracture due to a fall Leukocytosis, unspecified Generalized weakness Diverticulosis Prostatomegaly PLAN: Ortho consult LEYDA Dunlap No infection Pain control Dementia Full code 02/22/2025: The plan is to have surgery by Orthopedic surgery Vital signs are stable Labs are stable Echocardiogram was negative Cardiology recommended surgery with intermediate risk Lovenox Monitor closely Plan discussed with: Patient My Orders Orders - JANEL BATRES MD Procedure Category Date Status Time * Wound Consult CONS 02/22/25 Transmitted Date of Service: Feb 22, 2025 Billing Provider: JANEL BATRES MD Common Visit Codes: [id number] INP/OBS CARE(HIGH) JANEL BATRES MD Feb 22, 2025 12:56
[2025-02-23] VITALS (18 sets, daily range): BP systolic 98–138; BP diastolic 67–79; PULSE 82–94; RESP 15–20; TEMP 97.9–99.3; O2SAT 90–96
[2025-02-23] MEDS: ceFAZolin 2 GM/D5W50ml 50 ML IV ONE (07:54)
[2025-02-23] MEDS: BUPIVACAINE HCL 0.25% P/F 10 ML VIAL ONE (08:53)
[2025-02-23] MEDS: TETRACAINE 1% INJ 2 ML VIAL IJ ONE (09:32)
--- NOTE | 2025-02-23 11:43 | DVHOP2 ---
Discharge Orders Discharge Orders DISCHARGE WHEN CRITERIA MET DISCHARGE WHEN CRITERIA MET. Operative Rep- Outpatient Operative Report PRE-OP DIAGNOSIS: Left intertrochanteric hip fracture PRE-OP PAIN LEVEL (0-10): 7 POST-OP DIAGNOSIS: Same POST-OP PAIN LEVEL (0-10): Same [place] protocol followed: Yes ESTIMATED BLOOD LOSS: Minimal PROCEDURE: Left intramedullary nail fixation for hip fracture Radiographic interpretation of the left hip fluoroscopic SURGEON/SCREEN WRITER: John Paul LARA ANESTHESIA: General ANESTHESIOLOGIST: INFORMED CONSENT: Informed Consent: Discussed all inherent risks, complications, and alternatives treatments with the patient. Patient has agreed to proceed with the procedure. I have reviewed all pre-operative assessments including Labs, EKGs, and radiographic images that has been performed. Patient is an appropriate candidate for the outpatient surgical center procedure. The patient was then noted to have a left hip fracture after mechanical fall the patient was educated on the risks and benefits of surgical and nonsurgical treatment of the left lower extremity the patient understands the risks and benefits of surgical and nonsurgical treatment of the left lower extremity the patient understands the risks associated with an intertrochanteric hip fracture of the patient was seen in the preoperative holding the left lower extremity was marked the patient was brought to operative suite general anesthesia was then induced and also to hospital protocol the left lower extremity was prepped and draped in the standard fashion Ancef was given for infection prophylaxis TXA was given for bleeding prophylaxis fluoroscopic imaging was used on an AP and lateral x-ray did noted the starting guidewire once I was then noted once the time-out was performed with the hospital protocol an incision 3 cm incision was made through skin surface tissue muscle on checking AP and lateral x-ray of the tip of the greater trochanteric region of the appropriate manner on AP and lateral x-ray of the guidewire was then admitted of the opening Reamer was then placed a 10 mm intramedullary nail with ITS was then opened on the back table the 10 mm Reamer was then passed once I was then done the 10 x 125 ITS intramedullary nail was then placed in the appropriate position once I was then placed into the appropriate position attention was fair the nail was then placed in the appropriate position once I was then completed on the hip screw was then placed on an AP and lateral x-ray to ensure center center position with tip apex in the appropriate manner once it is known to be appropriate manner was measured to be 110 mm superior inferior screw of the superior screw was drilled and then placed and then follow up by 1:10 a.m. inferior screw with a dynamic once it was then done on the inferior screw was then placed under the jig for 35 mm inferior screw once it was placed in the appropriate position of the pins were then irrigated copiously with saline and closed with 0 Vicryl 2-0 Monocryl and elías. A stress radiographs were then done of the left hip to ensure adequate positioning of the hip fracture in the appropriate manner was rib fracture fixation stress radiographs show the hardware to be in appropriate position of the jigs were then confirmed with the patient will be weight-bearing as tolerated on the left lower extremity PT OT out of bed daily follow up in 2 weeks' time JOHN PAUL LENZ MD Feb 23, 2025 11:42
[2025-02-23] MEDS ORDERED: NALOXONE HCL 0.4 MG/ML VIAL IV PRN (12:00)
[2025-02-23] MEDS ORDERED: HYDROmorphone HCL 2 MG/ML VL/or syr IV PRN (12:00)
[2025-02-23] MEDS ORDERED: DexAMETHasone SOD PHOS 10MG/1ML VIAL INJ IV PRN (12:00)
[2025-02-23] MEDS ORDERED: hydrALAZINE HCL 20 MG/ML VL IV PRN (12:00)
[2025-02-23] MEDS ORDERED: ePHEDrine SULFATE 50 MG/ML AMP IV PRN (12:00)
[2025-02-23] MEDS ORDERED: MIDAZOLAM HCL 2MG/2ML 2ml VIAL (1mg/ml) IV PRN (12:00)
[2025-02-23] MEDS ORDERED: ONDANSETRON HCL 4 MG/2 ML VIAL IV PRN (12:00)
--- NOTE | 2025-02-23 12:32 | DVH ---
Indication: LT HIP ORIF Technique: Intraoperative radiographs of the left hip Comparison: None FINDINGS/IMPRESSION: Intraoperative radiographs of the left hip 4 intramedullary betty, intertrochanteric screw placement. L eft femur intertrochanteric fracture
--- NOTE | 2025-02-23 13:02 | DVH ---
C-ARM FLUOROSCOPY: PROCEDURE: left hip ORIF FLUOROSCOPY TIME: 23.1 sec DAP: 3.47 mgy FINDINGS: Spot intraoperative C arm radiographs demonstrating left hip orif . IMPRESSION: Please refer to surgical report for detailed findings.
[2025-02-23] MEDS: ceFAZolin 2 GM/D5W50ml 50 ML IV SCH (13:33)
--- NOTE | 2025-02-23 17:29 | DVHPN2 ---
Subjective s/p Sx Doing well Changes from previous H/P or p: Changes Eyes: No Pain, No Vision change, No Conjunctivae inflammation, No Eyelid inflammation, No Other, No Redness ENT: No Ear pain, No Ear discharge, No Nose pain, No Nose discharge, No Nose congestion, No Mouth pain, No Mouth swelling, No Throat pain, No Throat swelling, No Other Cardiovascular: No Chest Pain, No Palpitations, No Orthopnea, No Paroxysmal Noc. Dyspnea, No Edema, No Lt Headedness, No Other Respiratory: No Cough, No Dry, No Shortness of breath, No SOB with excertion, No Wheezing, No Hemoptysis, No Pleuritic Pain, No Sputum, No Other Gastrointestinal: No Nausea, No Vomiting, No Abdominal Pain, No Diarrhea, No Constipation, No Melena, No Hematochezia, No Other Genitourinary: No Dysuria, No Frequency, No Incontinence, No Hematuria, No Retention, No Other Musculoskeletal: other (Left hip pain); No neck pain, No shoulder pain, No arm pain, No back pain, No hand pain; leg pain (Left); No foot pain Skin: No Rash, No Lesions, No Jaundice, No Bruising, No Other Objective Vitals Vital Signs Date Time Temp Pulse Resp B/P (MAP) Pulse Ox O2 Delivery O2 Flow Rate FiO2 02/23/25 16:23 90 16 96 02/23/25 12:55 111/76 (88) 02/23/25 12:04 Nasal Cannula 2.0 02/23/25 11:55 99.9 99.9 02/23/25 08:00 21 Intake/Output Intake and Output 02/23/25 07:00 Intake Total 550 ml Output Total 520 ml Balance 30 ml Intake Oral 550 ml Output Urine Total 520 ml # Bowel Movements 1 General Appearance: Alert, Oriented X3 Lungs: Clear to auscultation, Normal air movement Cardiovascular: Regular rate, Normal S1, Normal S2 Abdomen: Normal bowel sounds, Soft, No tenderness Extremities: No edema Medications Current Medications Medications Dose Ordered Sig/Nilesh Route Start Time Stop Time Status Last Admin Dose Admin Nitroglycerin 0.4 mg Q5MINP PRN SL 02/21/25 00:00 Morphine Sulfate 2 mg Q30M PRN IV 02/21/25 00:00 Atorvastatin Calcium 40 mg HS PO 02/21/25 22:00 02/22/25 21:12 40 MG Donepezil HCl 10 mg HS PO 02/21/25 22:00 02/22/25 21:13 10 MG Memantine 10 mg Q12HR PO 02/21/25 10:00 02/22/25 21:12 10 MG Sertraline HCl 50 mg DAILY PO 02/21/25 10:00 02/22/25 09:57 50 MG Lisinopril 5 mg DAILY PO 02/21/25 10:00 02/22/25 09:56 5 MG Hydralazine HCl 10 mg Q6HP PRN IV 02/21/25 00:00 Sodium Chloride 10 ml Q8HR IV 02/21/25 06:00 02/23/25 05:06 10 ML Acetaminophen/ Hydrocodone Bitart 1 tab Q4HP PRN PO 02/21/25 00:15 02/22/25 20:16 1 TAB Ondansetron HCl 4 mg Q4HP PRN IV 02/21/25 00:15 Docusate Sodium 100 mg BIDPRN PRN PO 02/21/25 00:15 Enoxaparin Sodium 40 mg DAILY SC 02/21/25 10:00 02/22/25 09:57 40 MG Acetaminophen 650 mg Q6HP PRN PO 02/21/25 00:15 Morphine Sulfate 2 mg Q4HPRN PRN IV 02/21/25 00:15 02/22/25 11:04 2 MG Cefazolin Sodium/ Dextrose 50 ml @ 50 mls/hr Q8HR IV 02/23/25 14:00 02/23/25 13:33 50 MLS/HR Ondansetron HCl 4 mg Q4HP PRN IV 02/23/25 12:00 Laboratory Results Laboratory Tests 02/22/25 03:50 Urinalysis Test 02/21/25 04:00 Urine Color Colorless (Yellow) Urine Clarity Clear (Clear) Urine pH 5.5 (5.0-9.0) Urine Specific [place] 1.007 (1.001-1.035) Urine Protein Negative (Negative) Urine Ketones Negative (Negative) Urine Blood 2+ /uL (Negative) H Urine Nitrite Negative (Negative) Urine Bilirubin Negative (Negative) Urine Urobilinogen Normal mg/dL (Negative) Urine Leukocyte Esterase Negative /uL (Negative) Urine RBC 14 /hpf (0 - 3) Urine Microscopic WBC 3 /HPF (0-3) Urine Squamous Epithelial Cells None seen /hpf (<5) Urine Bacteria None seen /hpf (None Seen) Urine Glucose Normal mg/dL (Normal) Assessment/Plan Assessment/Plan Closed left femoral fracture due to a fall Leukocytosis, unspecified Generalized weakness Diverticulosis Prostatomegaly PLAN: Ortho consult DC Rocephin No infection Pain control Dementia Full code 02/22/2025: The plan is to have surgery by Orthopedic surgery Vital signs are stable Labs are stable Echocardiogram was negative Cardiology recommended surgery with intermediate risk Lovenox Monitor closely 02/23/25: Pain control Start physical therapy Resume diet Lovenox Plan discussed with: Patient, Other Date of Service: Feb 23, 2025 Billing Provider: JANEL BATRES MD Common Visit Codes: [id number] INP/OBS CARE(HIGH) JANEL BATRES MD Feb 23, 2025 17:29
[2025-02-24] VITALS (21 sets, daily range): BP systolic 97–165; BP diastolic 63–100; PULSE 17–102; RESP 16–20; TEMP 97.8–99.4; O2SAT 90–99
[2025-02-24 06:16] LABS: Basophils # (auto) 0 10 ^3/uL (0-0.2); Eosinophils # (auto) 0 10 ^3/uL (0-0.8); Hematocrit 28.4 % (41.0-53.0); Hemoglobin 9.7 g/dL (13.5-17.5); Lymphocytes # (auto) 0.9 10 ^3/uL (0.4-5.4); Lymphocytes % (auto) 9.3 % (10.0-50.0); Mean Corpuscular Volume 88.2 fL (80.0-100.0); Monocytes # (auto) 0.6 10 ^3/uL (0-1.3); Monocytes % (auto) 6.2 % (0.0-12.0); Neutrophils # (auto) 8.2 10 ^3/uL (1.6-8.6); Neutrophils % (auto) 84.5 % (37.0-80.0); Nucleated Red Blood Cells % 0.1 %; Platelet Count (auto) 176 10^3/uL (140-450); Red Blood Cells 3.22 10^6/uL (4.5-5.90); Red Cell Distribution Width 14.5 % (11.8-14.3); White Blood Cell 9.7 10^3/uL (4.4-10.8)
[2025-02-24 06:30] LABS: Anion Gap 10 (5-15); Carbon Dioxide 27 mmol/L (20-31); Chloride 103 mmol/L (98-107); Potassium 3.9 mmol/L (3.5-5.1); Sodium 140 mmol/L (136-145)
[2025-02-24 06:36] LABS: BUN/Creatinine Ratio 31.5 (10.0-20.0)
[2025-02-24 06:37] LABS: Blood Urea Nitrogen 28 mg/dL (9-23); Glucose 126 mg/dL (74-106); Magnesium 2.2 mg/dL (1.6-2.6)
--- NOTE | 2025-02-24 09:58 | DVHPN2 ---
Subjective s/p Sx Doing well Rash is resolved Left eye congestion Changes from previous H/P or p: Changes Eyes: No Pain, No Vision change, No Conjunctivae inflammation, No Eyelid inflammation, No Other, No Redness ENT: No Ear pain, No Ear discharge, No Nose pain, No Nose discharge, No Nose congestion, No Mouth pain, No Mouth swelling, No Throat pain, No Throat swelling, No Other Cardiovascular: No Chest Pain, No Palpitations, No Orthopnea, No Paroxysmal Noc. Dyspnea, No Edema, No Lt Headedness, No Other Respiratory: No Cough, No Dry, No Shortness of breath, No SOB with excertion, No Wheezing, No Hemoptysis, No Pleuritic Pain, No Sputum, No Other Gastrointestinal: No Nausea, No Vomiting, No Abdominal Pain, No Diarrhea, No Constipation, No Melena, No Hematochezia, No Other Genitourinary: No Dysuria, No Frequency, No Incontinence, No Hematuria, No Retention, No Other Musculoskeletal: other (Left hip pain); No neck pain, No shoulder pain, No arm pain, No back pain, No hand pain; leg pain (Left); No foot pain Skin: No Rash, No Lesions, No Jaundice, No Bruising, No Other Objective Vitals Vital Signs Date Time Temp Pulse Resp B/P (MAP) Pulse Ox O2 Delivery O2 Flow Rate FiO2 02/24/25 09:14 98.6 89 16 161/80 (107) 90 98.6 02/24/25 07:40 Room Air* 0 21 Intake/Output Intake and Output 02/24/25 07:00 Intake Total 1300 ml Output Total 650 ml Balance 650 ml Intake Oral 500 ml IV Total 800 ml Output Urine Total 650 ml General Appearance: Alert, Oriented X3 Lungs: Clear to auscultation, Normal air movement Cardiovascular: Regular rate, Normal S1, Normal S2 Abdomen: Normal bowel sounds, Soft, No tenderness Extremities: No edema Medications Current Medications Medications Dose Ordered Sig/Nilesh Route Start Time Stop Time Status Last Admin Dose Admin Nitroglycerin 0.4 mg Q5MINP PRN SL 02/21/25 00:00 Morphine Sulfate 2 mg Q30M PRN IV 02/21/25 00:00 Atorvastatin Calcium 40 mg HS PO 02/21/25 22:00 02/23/25 22:07 40 MG Donepezil HCl 10 mg HS PO 02/21/25 22:00 02/23/25 22:07 10 MG Memantine 10 mg Q12HR PO 02/21/25 10:00 02/24/25 08:43 10 MG Sertraline HCl 50 mg DAILY PO 02/21/25 10:00 02/24/25 08:43 50 MG Lisinopril 5 mg DAILY PO 02/21/25 10:00 02/24/25 08:43 5 MG Hydralazine HCl 10 mg Q6HP PRN IV 02/21/25 00:00 Sodium Chloride 10 ml Q8HR IV 02/21/25 06:00 02/24/25 05:46 10 ML Acetaminophen/ Hydrocodone Bitart 1 tab Q4HP PRN PO 02/21/25 00:15 02/22/25 20:16 1 TAB Ondansetron HCl 4 mg Q4HP PRN IV 02/21/25 00:15 Docusate Sodium 100 mg BIDPRN PRN PO 02/21/25 00:15 Enoxaparin Sodium 40 mg DAILY SC 02/21/25 10:00 02/24/25 08:43 40 MG Acetaminophen 650 mg Q6HP PRN PO 02/21/25 00:15 Morphine Sulfate 2 mg Q4HPRN PRN IV 02/21/25 00:15 02/22/25 11:04 2 MG Cefazolin Sodium/ Dextrose 50 ml @ 50 mls/hr Q8HR IV 02/23/25 14:00 02/24/25 05:46 50 MLS/HR Ondansetron HCl 4 mg Q4HP PRN IV 02/23/25 12:00 Laboratory Results Laboratory Tests 02/24/25 05:14 Chemistry Test 02/24/25 05:14 Calcium Level 9.0 mg/dL (8.7-10.4) Magnesium Level 2.2 mg/dL (1.6-2.6) Urinalysis Test 02/21/25 04:00 Urine Color Colorless (Yellow) Urine Clarity Clear (Clear) Urine pH 5.5 (5.0-9.0) Urine Specific [place] 1.007 (1.001-1.035) Urine Protein Negative (Negative) Urine Ketones Negative (Negative) Urine Blood 2+ /uL (Negative) H Urine Nitrite Negative (Negative) Urine Bilirubin Negative (Negative) Urine Urobilinogen Normal mg/dL (Negative) Urine Leukocyte Esterase Negative /uL (Negative) Urine RBC 14 /hpf (0 - 3) Urine Microscopic WBC 3 /HPF (0-3) Urine Squamous Epithelial Cells None seen /hpf (<5) Urine Bacteria None seen /hpf (None Seen) Urine Glucose Normal mg/dL (Normal) Assessment/Plan Assessment/Plan Closed left femoral fracture due to a fall Leukocytosis, unspecified Generalized weakness Diverticulosis Prostatomegaly PLAN: Ortho consult DC Rocepyonis No infection Pain control Dementia Full code 02/22/2025: The plan is to have surgery by Orthopedic surgery Vital signs are stable Labs are stable Echocardiogram was negative Cardiology recommended surgery with intermediate risk Lovenox Monitor closely 02/23/25: Pain control Start physical therapy Resume diet Lovenox 02/24/25: Gentamicin eye drops Physical therapy Out of bed as tolerated Pain control Arrange SNF for rehab Plan discussed with: Patient My Orders Orders - JANEL BATRES MD Procedure Category Date Status Time Pt Request For Service PT 02/23/25 Logged 17:23 Cardiac DIET 02/23/25 Transmitted Diet-2gna,Lofat,Lochol Dinner Date of Service: Feb 24, 2025 Billing Provider: JANEL BATRES MD Common Visit Codes: [id number] INP/OBS CARE(HIGH) JANEL BATRES MD Feb 24, 2025 09:58
[2025-02-24] MEDS: GENTAMICIN OPTH sol 0.3% 5ml EACHEYE SCH (12:31)
[2025-02-24] MEDS: hydrALAZINE HCL 20 MG/ML VL IV PRN (22:14)
[2025-02-25] VITALS (8 sets, daily range): BP systolic 133–162; BP diastolic 77–91; PULSE 83–101; RESP 16–21; TEMP 97.9–99.9; O2SAT 94–96
--- NOTE | 2025-02-25 08:15 | DVHPN2 ---
Progress Note Progress Note Progress Note Patient Name: Mr. Collins Status post cephalomedullary nail fixation Procedure: Cephalomedullary nail fixation of Left femur Subjective: Mr. Collins reports doing well today. He denies any new complaints. Pain is well controlled with current medications. No respiratory complains , no numbness/tingling or pain out of proportion reported. Objective: General: Alert, oriented to person, place, and time. In no acute distress. Vitals: Stable Mental Status: A&O x3 Surgical Site: Clean, dry, intact Pain: Well controlled Antibiotics: Completed postoperative antibiotic course. Mobility: Has not yet initiated physical therapy. DVT Prophylaxis: Ongoing per hospitalist team. Assessment: Status post cephalomedullary nail placement, left Pain controlled No signs of infection Physical therapy initiation pending, MUST START TODAY, DISCUSSED WITH BEDSIDE NURSE ON IMPORTANCE OF WBAT AND PT as long as cleared by hospitalist of any other medical condition that may be stopping from PT. Stable overall condition Plan: Reinforce initiation of physical therapy; discussed with bedside nursing staff to coordinate PT evaluation and start. Continue DVT prophylaxis as per hospitalist protocol. Hospitalist to Monitor pain control and mobility progress. Patient may be cleared for discharge to SNF once Pain remains controlled Physical therapy is initiated and patient evaluated Follow-up with orthopedic team in 2 weeks post op for routine followup otherwise contact Ortho as needed Plan discussed with: Patient, Other (bedside nurse) Visit Coding Surgery Date of Service if different f: Feb 25, 2025 Billing Provider: DANAY PATEL Surgery Visit Codes: [id number] - INP CONSULT <55 MIN DANAY PATEL Feb 25, 2025 08:15
--- NOTE | 2025-02-25 10:28 | DVHPN2 ---
Subjective Doing well Awaiting PT eval The patient needs to go to SNF Changes from previous H/P or p: Changes Eyes: No Pain, No Vision change, No Conjunctivae inflammation, No Eyelid inflammation, No Other, No Redness ENT: No Ear pain, No Ear discharge, No Nose pain, No Nose discharge, No Nose congestion, No Mouth pain, No Mouth swelling, No Throat pain, No Throat swelling, No Other Cardiovascular: No Chest Pain, No Palpitations, No Orthopnea, No Paroxysmal Noc. Dyspnea, No Edema, No Lt Headedness, No Other Respiratory: No Cough, No Dry, No Shortness of breath, No SOB with excertion, No Wheezing, No Hemoptysis, No Pleuritic Pain, No Sputum, No Other Gastrointestinal: No Nausea, No Vomiting, No Abdominal Pain, No Diarrhea, No Constipation, No Melena, No Hematochezia, No Other Genitourinary: No Dysuria, No Frequency, No Incontinence, No Hematuria, No Retention, No Other Musculoskeletal: other (Left hip pain); No neck pain, No shoulder pain, No arm pain, No back pain, No hand pain; leg pain (Left); No foot pain Skin: No Rash, No Lesions, No Jaundice, No Bruising, No Other Objective Vitals Vital Signs Date Time Temp Pulse Resp B/P (MAP) Pulse Ox O2 Delivery O2 Flow Rate FiO2 02/25/25 09:20 146/91 02/25/25 09:00 98.6 89 18 94 98.6 02/24/25 20:00 Room Air* 0 21 Intake/Output Intake and Output 02/25/25 07:00 Intake Total 315 ml Output Total 1050 ml Balance -735 ml Intake Oral 215 ml IV Total 100 ml Output Urine Total 1050 ml # Bowel Movements 1 General Appearance: Alert, Oriented X3 Lungs: Clear to auscultation, Normal air movement Cardiovascular: Regular rate, Normal S1, Normal S2 Abdomen: Normal bowel sounds, Soft, No tenderness Extremities: No edema Medications Current Medications Medications Dose Ordered Sig/Nilesh Route Start Time Stop Time Status Last Admin Dose Admin Nitroglycerin 0.4 mg Q5MINP PRN SL 02/21/25 00:00 Morphine Sulfate 2 mg Q30M PRN IV 02/21/25 00:00 Atorvastatin Calcium 40 mg HS PO 02/21/25 22:00 02/24/25 21:24 40 MG Donepezil HCl 10 mg HS PO 02/21/25 22:00 02/24/25 21:23 10 MG Memantine 10 mg Q12HR PO 02/21/25 10:00 02/25/25 09:21 10 MG Sertraline HCl 50 mg DAILY PO 02/21/25 10:00 02/25/25 09:19 50 MG Lisinopril 5 mg DAILY PO 02/21/25 10:00 02/25/25 09:20 5 MG Hydralazine HCl 10 mg Q6HP PRN IV 02/21/25 00:00 02/24/25 22:14 10 MG Sodium Chloride 10 ml Q8HR IV 02/21/25 06:00 02/25/25 05:24 10 ML Acetaminophen/ Hydrocodone Bitart 1 tab Q4HP PRN PO 02/21/25 00:15 02/22/25 20:16 1 TAB Ondansetron HCl 4 mg Q4HP PRN IV 02/21/25 00:15 Docusate Sodium 100 mg BIDPRN PRN PO 02/21/25 00:15 Enoxaparin Sodium 40 mg DAILY SC 02/21/25 10:00 02/25/25 09:19 40 MG Acetaminophen 650 mg Q6HP PRN PO 02/21/25 00:15 Morphine Sulfate 2 mg Q4HPRN PRN IV 02/21/25 00:15 02/22/25 11:04 2 MG Cefazolin Sodium/ Dextrose 50 ml @ 50 mls/hr Q8HR IV 02/23/25 14:00 02/25/25 05:24 50 MLS/HR Ondansetron HCl 4 mg Q4HP PRN IV 02/23/25 12:00 Gentamicin Sulfate 1 drop Q4HR EACHEYE 02/24/25 10:00 02/25/25 05:24 1 DROP Laboratory Results Laboratory Tests 02/24/25 05:14 Urinalysis Test 02/21/25 04:00 Urine Color Colorless (Yellow) Urine Clarity Clear (Clear) Urine pH 5.5 (5.0-9.0) Urine Specific [place] 1.007 (1.001-1.035) Urine Protein Negative (Negative) Urine Ketones Negative (Negative) Urine Blood 2+ /uL (Negative) H Urine Nitrite Negative (Negative) Urine Bilirubin Negative (Negative) Urine Urobilinogen Normal mg/dL (Negative) Urine Leukocyte Esterase Negative /uL (Negative) Urine RBC 14 /hpf (0 - 3) Urine Microscopic WBC 3 /HPF (0-3) Urine Squamous Epithelial Cells None seen /hpf (<5) Urine Bacteria None seen /hpf (None Seen) Urine Glucose Normal mg/dL (Normal) Assessment/Plan Assessment/Plan Closed left femoral fracture due to a fall Leukocytosis, unspecified Generalized weakness Diverticulosis Prostatomegaly PLAN: Ortho consult LEYDA Dunlap No infection Pain control Dementia Full code 02/22/2025: The plan is to have surgery by Orthopedic surgery Vital signs are stable Labs are stable Echocardiogram was negative Cardiology recommended surgery with intermediate risk Lovenox Monitor closely 02/23/25: Pain control Start physical therapy Resume diet Lovenox 02/24/25: Gentamicin eye drops Physical therapy Out of bed as tolerated Pain control Arrange SNF for rehab 02/25/2025: Physical therapy Arrange SNF for rehab Pain control as needed Monitor closely Plan discussed with: Patient Date of Service: Feb 25, 2025 Billing Provider: JANEL BATRES MD Common Visit Codes: [id number] INP/OBS CARE(HIGH) JANEL BATRES MD Feb 25, 2025 10:28
[2025-02-26] VITALS (9 sets, daily range): BP systolic 125–151; BP diastolic 69–92; PULSE 86–101; RESP 16–20; TEMP 37.4; O2SAT 95–100
--- NOTE | 2025-02-26 11:42 | DVHPN2 ---
Subjective The patient is seen and examined at bedside. No complaint today. Reviewed: Care Plan, H&P, Labs, Medications, Previous Orders, Radiology Changes from previous H/P or p: No Changes Eyes: No Pain, No Vision change, No Conjunctivae inflammation, No Eyelid inflammation, No Other, No Redness ENT: No Ear pain, No Ear discharge, No Nose pain, No Nose discharge, No Nose congestion, No Mouth pain, No Mouth swelling, No Throat pain, No Throat swelling, No Other Cardiovascular: No Chest Pain, No Palpitations, No Orthopnea, No Paroxysmal Noc. Dyspnea, No Edema, No Lt Headedness, No Other Respiratory: No Cough, No Dry, No Shortness of breath, No SOB with excertion, No Wheezing, No Hemoptysis, No Pleuritic Pain, No Sputum, No Other Gastrointestinal: No Nausea, No Vomiting, No Abdominal Pain, No Diarrhea, No Constipation, No Melena, No Hematochezia, No Other Genitourinary: No Dysuria, No Frequency, No Incontinence, No Hematuria, No Retention, No Other Musculoskeletal: other (Left hip pain); No neck pain, No shoulder pain, No arm pain, No back pain, No hand pain; leg pain (Left); No foot pain Skin: No Rash, No Lesions, No Jaundice, No Bruising, No Other Objective Vitals Vital Signs Date Time Temp Pulse Resp B/P (MAP) Pulse Ox O2 Delivery O2 Flow Rate FiO2 02/26/25 09:18 151/92 02/26/25 08:42 99.2 86 18 98 99.2 02/26/25 08:00 Room Air* 0 21 Intake/Output Intake and Output 02/26/25 07:00 Intake Total 780 ml Output Total 1152 ml Balance -372 ml Intake Oral 680 ml IV Total 100 ml Output Urine Total 1150 ml Stool Total 2 ml General Appearance: Alert, Oriented X3, Cooperative, No acute distress HEENT: Atraumatic, PERRLA, EOMI, Mucous membr. moist/pink Neck: Supple Lungs: Clear to auscultation, Normal air movement Cardiovascular: Regular rate, Normal S1, Normal S2, No murmurs, Gallops, Rubs Abdomen: Normal bowel sounds, Soft, No tenderness Extremities: No edema Neuro: Cranial nerves 3-12 NL Psych/Mental Status: Mental status NL Medications Current Medications Medications Dose Ordered Sig/Nilesh Route Start Time Stop Time Status Last Admin Dose Admin Nitroglycerin 0.4 mg Q5MINP PRN SL 02/21/25 00:00 Morphine Sulfate 2 mg Q30M PRN IV 02/21/25 00:00 Atorvastatin Calcium 40 mg HS PO 02/21/25 22:00 02/25/25 21:35 40 MG Donepezil HCl 10 mg HS PO 02/21/25 22:00 02/25/25 21:35 10 MG Memantine 10 mg Q12HR PO 02/21/25 10:00 02/26/25 09:18 10 MG Sertraline HCl 50 mg DAILY PO 02/21/25 10:00 02/26/25 09:18 50 MG Lisinopril 5 mg DAILY PO 02/21/25 10:00 02/26/25 09:18 5 MG Hydralazine HCl 10 mg Q6HP PRN IV 02/21/25 00:00 02/24/25 22:14 10 MG Sodium Chloride 10 ml Q8HR IV 02/21/25 06:00 02/26/25 05:05 10 ML Acetaminophen/ Hydrocodone Bitart 1 tab Q4HP PRN PO 02/21/25 00:15 02/22/25 20:16 1 TAB Ondansetron HCl 4 mg Q4HP PRN IV 02/21/25 00:15 Docusate Sodium 100 mg BIDPRN PRN PO 02/21/25 00:15 Enoxaparin Sodium 40 mg DAILY SC 02/21/25 10:00 02/26/25 09:19 40 MG Acetaminophen 650 mg Q6HP PRN PO 02/21/25 00:15 Morphine Sulfate 2 mg Q4HPRN PRN IV 02/21/25 00:15 02/22/25 11:04 2 MG Cefazolin Sodium/ Dextrose 50 ml @ 50 mls/hr Q8HR IV 02/23/25 14:00 02/26/25 05:05 50 MLS/HR Ondansetron HCl 4 mg Q4HP PRN IV 02/23/25 12:00 Gentamicin Sulfate 1 drop Q4HR EACHEYE 02/24/25 10:00 02/26/25 09:18 1 DROP Laboratory Results Laboratory Tests 02/24/25 05:14 Urinalysis Test 02/21/25 04:00 Urine Color Colorless (Yellow) Urine Clarity Clear (Clear) Urine pH 5.5 (5.0-9.0) Urine Specific [place] 1.007 (1.001-1.035) Urine Protein Negative (Negative) Urine Ketones Negative (Negative) Urine Blood 2+ /uL (Negative) H Urine Nitrite Negative (Negative) Urine Bilirubin Negative (Negative) Urine Urobilinogen Normal mg/dL (Negative) Urine Leukocyte Esterase Negative /uL (Negative) Urine RBC 14 /hpf (0 - 3) Urine Microscopic WBC 3 /HPF (0-3) Urine Squamous Epithelial Cells None seen /hpf (<5) Urine Bacteria None seen /hpf (None Seen) Urine Glucose Normal mg/dL (Normal) Labs and/or images reviewed: Labs reviewed by me Assessment/Plan Assessment/Plan Closed left femoral fracture due to a fall Leukocytosis, unspecified Generalized weakness Diverticulosis Prostatomegaly PLAN: Continuing current management. Waiting for detention home facility bed available. shelter facility placement was arranged by perinatal social worker and continuous pillowcase cutter. Continuing with physical therapy. Continuing with Lovenox. Continuing with IV pain medication and [place] for pain control. This medical document was created using an electronic medical record system with [employer] direct computerized dictation system. Although this document has been carefully reviewed, there may still be some phonetic and typographical errors. These areas are purely typographical due to imperfections of the software programs, and do not reflect any compromise in the patient's medical care. Plan discussed with: Patient Date of Service: Feb 26, 2025 Billing Provider: SIMEON KENNY MD Common Visit Codes: [id number] INP/OBS CARE(HIGH) SIMEON KENNY MD Feb 26, 2025 11:42
[2025-02-27 01:00] VITALS: BP 154/88; PULSE 89; RESP 19; TEMP 97.6; O2SAT 96
[2025-02-27 05:00] VITALS: BP 133/86; PULSE 91; RESP 19; TEMP 97.9; O2SAT 96
[2025-02-27 08:00] VITALS: PULSE 85
[2025-02-27 08:31] VITALS: BP 139/81; PULSE 85; RESP 20; TEMP 98.7; O2SAT 97
--- NOTE | 2025-02-27 12:00 | DVHPN2 ---
Consult Progress Note Objective vital signs Vital Sign Date Time Temp Pulse Resp B/P (MAP) Pulse Ox O2 Delivery O2 Flow Rate FiO2 02/27/25 10:22 139/81 02/27/25 08:31 98.7 85 20 97 98.7 02/27/25 08:00 Room Air* 0 21 Total Intake and Output 02/26/25 02/26/25 02/27/25 15:00 23:00 07:00 Intake Total 240 ml 400 ml Output Total 450 ml 350 ml Balance -210 ml 50 ml medications Current Medications Medications Dose Ordered Sig/Nilesh Route Start Time Stop Time Status Last Admin Dose Admin Nitroglycerin 0.4 mg Q5MINP PRN SL 02/21/25 00:00 Morphine Sulfate 2 mg Q30M PRN IV 02/21/25 00:00 Atorvastatin Calcium 40 mg HS PO 02/21/25 22:00 02/26/25 21:22 40 MG Donepezil HCl 10 mg HS PO 02/21/25 22:00 02/26/25 21:22 10 MG Memantine 10 mg Q12HR PO 02/21/25 10:00 02/27/25 10:21 10 MG Sertraline HCl 50 mg DAILY PO 02/21/25 10:00 02/27/25 10:22 50 MG Lisinopril 5 mg DAILY PO 02/21/25 10:00 02/27/25 10:22 5 MG Hydralazine HCl 10 mg Q6HP PRN IV 02/21/25 00:00 02/24/25 22:14 10 MG Sodium Chloride 10 ml Q8HR IV 02/21/25 06:00 02/27/25 05:48 10 ML Acetaminophen/ Hydrocodone Bitart 1 tab Q4HP PRN PO 02/21/25 00:15 02/22/25 20:16 1 TAB Docusate Sodium 100 mg BIDPRN PRN PO 02/21/25 00:15 Enoxaparin Sodium 40 mg DAILY SC 02/21/25 10:00 02/27/25 10:23 40 MG Acetaminophen 650 mg Q6HP PRN PO 02/21/25 00:15 Morphine Sulfate 2 mg Q4HPRN PRN IV 02/21/25 00:15 02/22/25 11:04 2 MG Ondansetron HCl 4 mg Q4HP PRN IV 02/23/25 12:00 Gentamicin Sulfate 1 drop Q4HR EACHEYE 02/24/25 10:00 02/27/25 10:22 1 DROP laboratory and microbiology Laboratory Tests 02/24/25 05:14 Test 02/24/25 05:14 Range/Units Serum Glucose 126 H 74-106 mg/dL Dietary Evaluation Review Comments: 1) Advance to regular diet as medically feasible 2) Ensure Enlive 240ml TID 3) Moniotr PO intake, wt trend, and lab values Expected Outcomes/Goals: To meet at least 75% estimated needs Fu 2-3 days SIMEON KENNY MD Feb 27, 2025 12:00
--- NOTE | 2025-02-27 12:01 | DVHPN2 ---
Subjective The patient is seen and examined at bedside. No complaint today. Reviewed: Care Plan, H&P, Labs, Medications, Previous Orders, Radiology Eyes: No Pain, No Vision change, No Conjunctivae inflammation, No Eyelid inflammation, No Other, No Redness ENT: No Ear pain, No Ear discharge, No Nose pain, No Nose discharge, No Nose congestion, No Mouth pain, No Mouth swelling, No Throat pain, No Throat swelling, No Other Cardiovascular: No Chest Pain, No Palpitations, No Orthopnea, No Paroxysmal Noc. Dyspnea, No Edema, No Lt Headedness, No Other Respiratory: No Cough, No Dry, No Shortness of breath, No SOB with excertion, No Wheezing, No Hemoptysis, No Pleuritic Pain, No Sputum, No Other Gastrointestinal: No Nausea, No Vomiting, No Abdominal Pain, No Diarrhea, No Constipation, No Melena, No Hematochezia, No Other Genitourinary: No Dysuria, No Frequency, No Incontinence, No Hematuria, No Retention, No Other Musculoskeletal: other (Left hip pain); No neck pain, No shoulder pain, No arm pain, No back pain, No hand pain; leg pain (Left); No foot pain Skin: No Rash, No Lesions, No Jaundice, No Bruising, No Other Objective Vitals Vital Signs Date Time Temp Pulse Resp B/P (MAP) Pulse Ox O2 Delivery O2 Flow Rate FiO2 02/27/25 10:22 139/81 02/27/25 08:31 98.7 85 20 97 98.7 02/27/25 08:00 Room Air* 0 21 Intake/Output Intake and Output 02/27/25 07:00 Intake Total 640 ml Output Total 800 ml Balance -160 ml Intake Oral 640 ml Output Urine Total 800 ml General Appearance: Alert, Oriented X3, Cooperative, No acute distress HEENT: Atraumatic, PERRLA, EOMI, Mucous membr. moist/pink Neck: Supple Lungs: Clear to auscultation, Normal air movement Cardiovascular: Regular rate, Normal S1, Normal S2, No murmurs, Gallops, Rubs Abdomen: Normal bowel sounds, Soft, No tenderness Extremities: No edema Neuro: Cranial nerves 3-12 NL Psych/Mental Status: Mental status NL Medications Current Medications Medications Dose Ordered Sig/Nilesh Route Start Time Stop Time Status Last Admin Dose Admin Nitroglycerin 0.4 mg Q5MINP PRN SL 02/21/25 00:00 Morphine Sulfate 2 mg Q30M PRN IV 02/21/25 00:00 Atorvastatin Calcium 40 mg HS PO 02/21/25 22:00 02/26/25 21:22 40 MG Donepezil HCl 10 mg HS PO 02/21/25 22:00 02/26/25 21:22 10 MG Memantine 10 mg Q12HR PO 02/21/25 10:00 02/27/25 10:21 10 MG Sertraline HCl 50 mg DAILY PO 02/21/25 10:00 02/27/25 10:22 50 MG Lisinopril 5 mg DAILY PO 02/21/25 10:00 02/27/25 10:22 5 MG Hydralazine HCl 10 mg Q6HP PRN IV 02/21/25 00:00 02/24/25 22:14 10 MG Sodium Chloride 10 ml Q8HR IV 02/21/25 06:00 02/27/25 05:48 10 ML Acetaminophen/ Hydrocodone Bitart 1 tab Q4HP PRN PO 02/21/25 00:15 02/22/25 20:16 1 TAB Docusate Sodium 100 mg BIDPRN PRN PO 02/21/25 00:15 Enoxaparin Sodium 40 mg DAILY SC 02/21/25 10:00 02/27/25 10:23 40 MG Acetaminophen 650 mg Q6HP PRN PO 02/21/25 00:15 Morphine Sulfate 2 mg Q4HPRN PRN IV 02/21/25 00:15 02/22/25 11:04 2 MG Ondansetron HCl 4 mg Q4HP PRN IV 02/23/25 12:00 Gentamicin Sulfate 1 drop Q4HR EACHEYE 02/24/25 10:00 02/27/25 10:22 1 DROP Laboratory Results Laboratory Tests 02/24/25 05:14 Urinalysis Test 02/21/25 04:00 Urine Color Colorless (Yellow) Urine Clarity Clear (Clear) Urine pH 5.5 (5.0-9.0) Urine Specific [place] 1.007 (1.001-1.035) Urine Protein Negative (Negative) Urine Ketones Negative (Negative) Urine Blood 2+ /uL (Negative) H Urine Nitrite Negative (Negative) Urine Bilirubin Negative (Negative) Urine Urobilinogen Normal mg/dL (Negative) Urine Leukocyte Esterase Negative /uL (Negative) Urine RBC 14 /hpf (0 - 3) Urine Microscopic WBC 3 /HPF (0-3) Urine Squamous Epithelial Cells None seen /hpf (<5) Urine Bacteria None seen /hpf (None Seen) Urine Glucose Normal mg/dL (Normal) Assessment/Plan Assessment/Plan Closed left femoral fracture due to a fall Leukocytosis, unspecified Generalized weakness Diverticulosis Prostatomegaly PLAN: Continuing current management. Waiting for residential home facility bed available. residential facility placement was arranged by social services manager and counter caser. Continuing with physical therapy. Continuing with Lovenox. Continuing with IV pain medication and [place] for pain control. This medical document was created using an electronic medical record system with [email or web address] direct computerized dictation system. Although this document has been carefully reviewed, there may still be some phonetic and typographical errors. These areas are purely typographical due to imperfections of the software programs, and do not reflect any compromise in the patient's medical care. My Orders Orders - SIMEON KENNY MD Procedure Category Date Status Time Discharge DISCHARGE 02/26/25 Transmitted 12:02 Discontinue [place] MAHI 02/27/25 In Process Catheter 11:42 SIMEON KENNY MD Feb 27, 2025 12:00
[2025-02-27 12:33] VITALS: BP 131/75; PULSE 92; RESP 20; TEMP 98.2; O2SAT 97
[2025-02-27 17:14] VITALS: BP 132/73; PULSE 92; RESP 20; TEMP 97.5; O2SAT 95
--- NOTE | 2025-03-04 08:12 | DVHDS2 ---
Discharge Summary Date of Admission Feb 20, 2025 at 23:55 Date of Discharge: Feb 27, 2025 Admitting Diagnosis Closed left femoral fracture due to a fall Leukocytosis, unspecified Generalized weakness Diverticulosis Prostatomegaly Labs/Diagnostic Data: Laboratory Results Test 02/26/25 05:30 02/24/25 05:14 02/22/25 03:50 02/21/25 16:00 POC Glucose 129 mg/dl (70-106) White Blood Count 9.7 10^3/uL (4.4-10.8) Red Blood Count 3.22 10^6/uL (4.5-5.90) Hemoglobin 9.7 g/dL (13.5-17.5) Hematocrit 28.4 % (41.0-53.0) Mean Corpuscular Volume 88.2 fL (80.0-100.0) Mean Corpuscular Hemoglobin 30.0 pg (28.0-32.0) Mean Corpuscular Hemoglobin Concent 34.0 g/dL (32.0-36.0) Red Cell Distribution Width 14.5 % (11.8-14.3) Platelet Count 176 10^3/uL (140-450) Mean Platelet Volume 8.6 fL (6.9-10.8) Neutrophils (%) (Auto) 84.5 % (37.0-80.0) Lymphocytes (%) (Auto) 9.3 % (10.0-50.0) Monocytes (%) (Auto) 6.2 % (0.0-12.0) Eosinophils (%) (Auto) 0.0 % (0.0-7.0) Basophils (%) (Auto) 0.0 % (0.0-2.0) Neutrophils # (Auto) 8.2 10 ^3/uL (1.6-8.6) Lymphocytes # (Auto) 0.9 10 ^3/uL (0.4-5.4) Monocytes # (Auto) 0.6 10 ^3/uL (0-1.3) Eosinophils # (Auto) 0 10 ^3/uL (0-0.8) Basophils # (Auto) 0 10 ^3/uL (0-0.2) Nucleated Red Blood Cells 0.1 % Sodium Level 140 mmol/L (136-145) Potassium Level 3.9 mmol/L (3.5-5.1) Chloride Level 103 mmol/L (98-107) Carbon Dioxide Level 27 mmol/L (20-31) Anion Gap 10 (5-15) Blood Urea Nitrogen 28 mg/dL (9-23) Creatinine 0.89 mg/dL (0.700-1.30) Glomerular Filtration Rate Calc 88 mL/min (>90) BUN/Creatinine Ratio 31.5 (10.0-20.0) Serum Glucose 126 mg/dL (74-106) Calcium Level 9.0 mg/dL (8.7-10.4) Magnesium Level 2.2 mg/dL (1.6-2.6) Total Bilirubin 0.8 mg/dL (0.2-1.0) Aspartate Amino Transferase (AST) 20 U/L (<34) Alanine Aminotransferase (ALT) 32 U/L (7-40) Alkaline Phosphatase 66 U/L (46-116) Total Protein 5.5 g/dL (5.7-8.2) Albumin 3.8 g/dL (3.2-4.8) Prothrombin Time 11.4 sec (9.3-11.8) Prothrombin Time INR 1.08 (0.9-1.15) Activated Partial Thromboplast Time 36.5 SEC (24.5-34.5) Troponin I High Sensitivity 5 ng/L (</=54) Test 02/21/25 04:00 02/20/25 21:18 Urine Color Colorless (Yellow) Urine Clarity Clear (Clear) Urine pH 5.5 (5.0-9.0) Urine Specific [place] 1.007 (1.001-1.035) Urine Protein Negative (Negative) Urine Ketones Negative (Negative) Urine Blood 2+ /uL (Negative) Urine Nitrite Negative (Negative) Urine Bilirubin Negative (Negative) Urine Urobilinogen Normal mg/dL (Negative) Urine Leukocyte Esterase Negative /uL (Negative) Urine RBC 14 /hpf (0 - 3) Urine Microscopic WBC 3 /HPF (0-3) Urine Squamous Epithelial Cells None seen /hpf (<5) Urine Bacteria None seen /hpf (None Seen) Urine Glucose Normal mg/dL (Normal) Lactic Acid Level 1.5 mmol/L (0.4-2.0) Other Laboratory Tests 02/24/25 05:14 Brief Hx & Hospital Course: This is a 79 years old male with past medical history of CVA, dementia, hyperlipidemia, hypertension came to [facility] Emergency Department due to four with injury. The patient live in [facility] facility where he slipped and fall while attempting to use bathroom. He sustained hip injury on the left side. He could not bear weight on his left leg. The patient was found to have comminuted and mildly displaced intratrochanteric left femur fracture, coxa vera angulation of the proximal left femur, mild soft tissue swelling about the proximal left femur related to the fracture per CT scan. Subsequently he had surgery done with Left intramedullary nail fixation for hip fracture. He is recovering well after surgery. He still weak and requiring more further rehab. So he will be discharged senior care home facility for further rehab with PT/OT. Activity as tolerated. Diet per home diet. Recommend low-salt low-cholesterol diet. Follow up with orthopedic surgeon per schedule. Follow up with primary care physician 1-2 weeks. Physical exam: HEENT: Normocephalic atraumatic pupils equal react to light and accommodation. Extraocular muscles intact, conjunctiva pink, oropharynx moist, no thrush, no exudate. Lymphatic: No lymphadenopathy Cardiovascular exam: S1, S2 was heard. No murmurs, rubs, gallops Lung: Clear on auscultation bilaterally, no wheeze, rale, rhonchi. GI: Abdominal soft, nondistended, nontenderness, positive bowel sounds. Extremity: No crepitus, cyanosis, edema. Pedal pulses present bilateral. Limited range of motion on left lower extremity. Skin: Normal turgor, no rash. Psych: Alert, oriented x3. Neurology: No focal deficits, cranial nerve II to XII grossly intact. This medical document was created using an electronic medical record system with [employer] direct computerized dictation system. Although this document has been carefully reviewed, there may still be some phonetic and typographical errors. These areas are purely typographical due to imperfections of the software programs, and do not reflect any compromise in the patient's medical care. Condition at Discharge: Stable Final Diagnosis/Problems List Left intertrochanteric hip fracture secondary to fall Leukocytosis, unspecified Generalized weakness Diverticulosis Prostatomegaly Discharge Disposition: Long Term Facility Discharge Instruct/Medications Diet: Cardiac 2g Na,low cholest Activity: No Restrictions, As Tolerated Discharge Statement: "Patient was advised to return to the ER or call 911 if any headaches, dizziness, shortness of breath, chest pain, abdominal pain, bleeding, fevers, or worsening of medical condition. Patient was counseled about treatment plan, medications, possible side effects, patientverbalized understanding. All questions were answered to the best of my ability. This discharge took greater then 30 minutes in planning, reviewing documentation, counseling the patient, and discussing with other team members." ASSESSMENT ASSESSMENT Assessment Left intertrochanteric hip fracture Date of Service: Feb 27, 2025 Billing Provider: SIMEON KENNY MD Common Visit Codes: [id number] DISCH DAY >30min SIMEON KENNY MD Mar 04, 2025 08:12
== END 2025-02-27 17:20 | DRG 482 ==
LOC: EDBD 20:50 → EDUNIT# 20:50 → ER 20:50 → OVERFLOW 23:55 → TELE-WESTW 02-21 11:25
PROVIDERS: ADMIT Internal Medicine; ATTEND Internal Medicine
PROC: 0QH906Z Insertion of Intramedullary Internal Fixation Device into Left Femoral Shaft, Open Approach (ICD-10-PCS; principal; 2025-02-23 10:33)
DX: S72.142A Displaced intertrochanteric fracture of left femur, initial encounter for closed fracture (principal); D72.829 Elevated white blood cell count, unspecified; E78.5 Hyperlipidemia, unspecified; I10 Essential (primary) hypertension; I25.10 Atherosclerotic heart disease of native coronary artery without angina pectoris; K57.30 Diverticulosis of large intestine without perforation or abscess without bleeding; N40.0 Benign prostatic hyperplasia without lower urinary tract symptoms; W18.39XA Other fall on same level, initial encounter; Y93.89 Activity, other specified; Y92.89 Other specified places as the place of occurrence of the external cause; Y99.8 Other external cause status; Z86.73 Personal history of transient ischemic attack (TIA), and cerebral infarction without residual deficits
CPT/HCPCS: 36415; 71045; 73502; 73700; 76000; 80048; 80053; 81001; 82962; 83605; 83735; 84484; 85025; 85610; 85730; 86850; 86900; 86901; 92610; 93005; 93306; 96365; 96372; 97110; 97116; 97163; 97530; G0378; J3490

== ENCOUNTER 2025-04-11 22:42 | Inpatient (IN) | payer BC ==
[~2025-04-11] VITALS: Ht 177.8 cm; Wt 80.0 kg
--- NOTE | 2025-04-12 02:34 | DVH ---
EXAM: CT CERVICAL WITHOUT CONTRAST HISTORY: Fall/trauma COMPARISON: CT HEAD WITHOUT CONTRAST on DOS: 12/27/24, CT HEAD WITHOUT CONTRAST on DOS: 07/11/24, CT HE AD WITHOUT CONTRAST on DOS: 07/09/23, BRAIN HEAD WO CONTRAST on DOS: 07/12/19, HEAD WITHOUT CONTRAST o n DOS: 07/10/19 CTDIvol 20 mGy, DLP 558 mGy*cm. TECHNIQUE: Multiple axial CT images of the spine were obtained using bone algorithm. Axial and cancino l reformatting was done. Bone and soft tissue windows were reviewed. FINDINGS: No evidence of acute cervical fracture or compression deformity. No traumatic listhesis. Straighteni ng of normal lordotic curvature with minimal degenerative listhesis of C7-T1. Moderate multilevel spo ndylosis. Normal craniocervical junction alignment with degenerative changes. No acute finding of the imaged intracranial contents, neck soft tissues, or upper chest. Carotid ath erosclerosis. IMPRESSION: 1. No acute finding of the cervical spine.
--- NOTE | 2025-04-12 02:37 | DVH ---
History: Ground level fall, right hip/femoral head pain Comparison Study: CT CT AB PEL WO CON-NO ORAL OR IV on DOS: 05/04/24, CT CT AB PEL WO CON-NO ORAL OR I V on DOS: 07/10/23, PELVIS WO CONTRAST on DOS: 05/15/20 Technique: Multidetector spiral CT of the pelvis was performed from iliac crests to pubic symphysis. 100 cc of intravenous contrast was administered during this examination. Portal venous imaging was obtained. Axial, coronal and sagittal multiplanar reformats were performed by the technologist on a separate workstation. Radiation Dose : CT Dose: CTDI volume is 10 mGy. Dose-length product is 515 mGy*cm Findings: Comminuted, mildly displaced and foreshortened intertrochanteric fracture of the right femur. Associa michelle hematoma within the proximal thigh. No additional acute fracture. Left femoral intramedullary betty and femoral neck screw spanning a previ ous intertrochanteric fracture with callus formation along the fracture lines mild generalized osteop enia. Degenerative changes of the lumbosacral spine, sacroiliac joints and hips. No acute traumatic finding of the pelvic contents. Colonic diverticulosis. Mild rectal wall thickeni ng. Chronic right rectus femoris tear. Atherosclerosis. IMPRESSION: 1. Acute intertrochanteric right femur fracture. 2. Previously fixated intertrochanteric left femur fracture with early healing changes and no evidenc e of hardware complication. 3. Rectal wall thickening, correlate for symptoms of proctitis. Additional chronic and incidental fi ndings above. END IMPRESSION:
--- NOTE | 2025-04-12 02:41 | ED.PDOC ---
Musculoskeletal HPI Comments This patient is a 79-year-old dementia patient who was brought in by EMS status post ground level fall at an assisted living facility. The fall was not witnessed, but the patient was found on the floor. Patient could not ambulate on his own and complained of right-sided hip pain. Patient arrived with a hard cervical collar on. No definitive head trauma noted. Difficult to elicit any history from the patient as he is A&O x2 at best. Vital signs were stable. 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 Allergies: Coded Allergies: NO KNOWN ALLERGIES (Unverified , 07/09/23) Home Meds Active Scripts Pantoprazole Sodium Sesquihydr (Pantoprazole Sodium) 40 Mg Tab, 40 MG PO DAILY, #30 TAB Prov:NAUN RODRIGUEZ MD 06/24/23 Reported Medications Trazodone Hcl (Trazodone Hcl) 50 Mg Tab, 0.5 TAB PO HSPRN for 30 Days, #15 05/06/24 Carbidopa-Levodopa (Carbidopa/Levodopa Odt 10-100 mg) 1 Tab Tab, 1 TAB PO TID for 30 Days, #90 05/06/24 Sertraline Hcl (Sertraline Hcl) 50 Mg Tab, 100 MG PO DAILY for 30 Days, #30 05/06/24 Atorvastatin Calcium (ATORVASTATIN CALCIUM) 40 Mg Tab, 1 TAB PO QPM for 30 Days 07/11/19 Memantine Hydrochloride (Memantine HCl) 10 Mg Tab, 1 TAB PO BID for 30 Days, #30 07/11/19 Lisinopril (Lisinopril) 10 Mg Tab, 1 TAB PO DAILY for 30 Days, #30 07/11/19 Donepezil Hydrochloride (DONEPEZIL HCL) 10 Mg Tab, 1 TAB PO DAILY for 30 Days, #30 07/11/19 Aspirin (Aspirin 81 Low Dose) 81 Mg Chw, 162 MG PO, TAB.CHEW 07/11/19 Amlodipine Besylate (NORVASC TABLET) 5 Mg Tb, 1 TAB PO BID for 30 Days, #60 07/11/19 Information Source: Patient, Emergency Med Personnel Mode of Arrival: EMS Location: Right Extremity Location: Hip Timing: Minutes Prehospital treatment: C-Collar Severity: Moderate Able to Move Extremity: No Bear Weight: No Pain: Moderate Hand Dominance: Right Mechanism: Blunt Trauma Circumstances: Fall Onset of Symptoms: After Trauma Symptoms: Pain DVT Risk Factors: NONE Past Medical History PAST MEDICAL HISTORY: CVA, Dementia, High Lipids, HTN Surgical History: Denies all surgeries Family History Family History: Family hx of DM, Family hx of HTN Social History Smoker: Non-Smoker Alcohol: Denies ETOH Use Drugs: Denies Drug Use Lives In: Assisted Constitutional: denies: chills, diaphoresis, fatigue, fever, malaise, sweats, weakness, others EENTM: denies: blurred vision, double vision, ear bleeding, ear discharge, ear drainage, ear pain, ear ringing, eye pain, eye redness, hearing loss, mouth pain, mouth swelling, nasal discharge, nose bleeding, nose congestion, nose pain, photophobia, tearing, throat pain, throat swelling, voice changes, others Respiratory: denies: cough, hemoptysis, orthopnea, SOB at rest, shortness of breath, SOB with excertion, stridor, wheezing, others Cardiovascular: denies: chest pain, dizzy spells, diaphoresis, Dyspnea on exertion, edema, irregular heart beat, left arm pain, lightheadedness, palpitations, PND, syncope, others Gastrointestinal: denies: abdomen distended, abdominal pain, blood streaked bowels, constipated, diarrhea, dysphagia, difficulty swallowing, hematemesis, melena, nausea, poor appetite, poor fluid intake, rectal bleeding, rectal pain, vomiting, others Genitourinary: denies: burning, dysuria, flank pain, frequency, hematuria, incontinence, penile discharge, penile sore, pain, testicle pain, testicle swelling, urgency, others Neurological: denies: dizziness, fainting, headache, left sided numbness, left sided weakness, numbness, paresthesia, pre-existing deficit, right sided numbness, right sided weakness, seizure, speech problems, tingling, tremors, weakness, others Musculoskeletal: reports: neck pain, others (Significant right hip pain); denies: back pain, gout, joint pain, joint swelling, muscle pain, muscle stiffness Integumetry: denies: bruises, change in color, change in hair/nails, dryness, laceration, lesions, lumps, rash, wounds, others Allergic/Immunocompromised: denies: Difficulty Healing, Frequent Infections, Hives, Itching, others Hematologic/Lymphatic: denies: anemia, blood clots, easy bleeding, easy bruising, swollen glands, others Endocrine: denies: excessive hunger, excessive sweating, excessive thirst, excessive urination, flushing, intolerance to cold, intolerance to heat, unexplained weight gain, unexplained weight loss, others Psychiatric: denies: anxiety, bipolar disorder, depression, hopeless, panic disorder, schizophrenia, sleepless, suicidal, others Physical Exam General Appearance: Moderate Distress (Due to right hip pain concerns.), Normal HEENT: Normal ENT Inspection, Pharynx Normal, TMs Normal Neck: Other (Patient was in a C-collar time of evaluation.) Respiratory: Chest Non-Tender, Lungs Clear, No Accessory Muscle Use, No Respiratory Distress, Normal Breath Sounds Cardiovascular: No Edema, No JVD, No Murmur, No Gallop, Normal Peripheral Pulses, Regular Rate/Rhythm Breast Exam: Deferred Gastrointestinal: No Organomegaly, Non Tender, No Pulsatile Mass, Normal Bowel Sounds, Soft Genitalia: Deferred Pelvic: Deferred Rectal: Deferred Extremities: Other (Significant right-sided proximal lateral femoral pain extending into the hip. No definitive ecchymosis noted. No internal rotation, but significant reduced range of motion.) Neurologic: Other (Patient has advanced dementia.) Cerebellar Function: NOT DONE Reflexes: NOT DONE Skin: Bruises (Some old bruising noted to bilateral forearms), Dry, Warm Lymphatic: No Adenopathy Was a procedure done? Was a procedure done?: No Differential Diagnosis EXT Differential Diagnosis: Fracture, Sprain, Contusion, Strain X-Ray, Labs, Meds, VS Vital Signs Date Time Temp Pulse Resp B/P (MAP) Pulse Ox O2 Delivery O2 Flow Rate FiO2 04/11/25 22:59 98.2 72 16 146/78 98 98.2 X-Ray, Labs, Meds, VS Comment Imaging studies confirmed a right femoral intertrochanteric fracture. CT of neck was unremarkable for any cervical vertebrae fractures. Patient will be admitted for pain management and orthopedic consultation. Time of 1ST Reevaluation: 02:40 Reevaluation 1ST: Improved Consultation: PCP Patient Education/Counseling: Diagnosis, Treatment Family Education/Counseling: Diagnosis, Treatment Sepsis Recent Procedure: No On Antibiotic Therapy: No Respiratory Rate >20: No Heart Rate >90: No Temp<36 C (96.8 F) or >38.3 C: No SBP <90 or MAP <65 mmHG: No New Acute Mental Status Change: No Is the patient on CPAP, BIPAP,: No IV fluid given: No Departure 1 Departure Time of Disposition: 02:41 Impression: Primary Impression: Fall Additional Impression: Hip fracture, right Disposition: ADMITTED INPATIENT Condition: Stable Discharged With: Self Critical Care Note Critical Care Time?: No Stability Stability form required: No Heart Score Heart Score: Heart Score Response (Comments) Value History N/A 0 EKG N/A 0 Age N/A 0 Risk Factors N/A 0 Troponin N/A 0 Total 0 PETRA HERNANDEZ PAC Apr 12, 2025 02:41
[2025-04-12] MEDS: HYDROcodone-ACET 10/325MG TAB PO ONE (02:56)
[2025-04-12] MEDS ORDERED: MORPHINE SULFATE INJ 2 MG/ml SYRG IV PRN (04:00)
[2025-04-12] MEDS: SODIUM CHLORIDE 0.9% 1,000 ML IV SCH (04:00)
[2025-04-12] MEDS ORDERED: NITROGLYCERIN 0.4 MG SL TAB SL PRN (04:00)
--- NOTE | 2025-04-12 04:05 | DVHHP2 ---
History of Present Illness History of Present Illness This is a 79-year-old male with a history of Dementia, HTN, CVA, HLD, Parkinson disease GERD, depression, insomnia, hearing difficulty who was brought to the Emergency Department by EMS following an unwitnessed ground-level fall at his assisted living facility. The patient was found on the floor and unable to ambulate, complaining of right-sided hip pain. He arrived wearing a hard cervical collar. No definitive signs of head trauma were noted. Due to cognitive impairment, history is limited; the patient is alert and oriented to person and place at best. Vital signs on arrival were stable. Pain is localized to the right hip, described as moderate, and the patient is unable to move the extremity or bear weight. No prehospital treatment other than cervical spine precautions was administered. Patient examined on bedside and no fever, abdominal pain, cough noted. CT pelvis:Acute intertrochanteric right femur fracture. Previously fixated intertrochanteric left femur fracture with early healing changes and no evidence of hardware complication. CT cervical spine: No acute finding of the cervical spine. Past Medical History: Dementia, HTN, CVA, HLD, Parkinson disease GERD, dep ression, insomnia, hearing difficulty Surgical History: NONE Family History: Nothing contributory Social History Smoker: Non-Smoker Alcohol: Denies ETOH Use Drugs: Denies Drug Use Lives In: Group Home Allergy: No known allergy Review of Systems Constitutional: Yes: Malaise; No: Fever, Chills, Sweats, Weakness, Other Eyes: No: Pain, Vision change, Conjunctivae inflammation, Eyelid inflammation, Other, Redness ENT: Other (Hearing difficulty); No: Ear pain, Ear discharge, Nose pain, Nose discharge, Nose congestion, Mouth pain, Mouth swelling, Throat pain, Throat swelling Cardiovascular: No: Chest Pain, Palpitations, Orthopnea, Paroxysmal Noc. Dyspnea, Edema, Lt Headedness, Other Gastrointestinal: No: Nausea, Vomiting, Abdominal Pain, Diarrhea, Constipation, Melena, Hematochezia, Other Genitourinary: No Dysuria, No Frequency, No Incontinence, No Hematuria, No Retention, No Other Musculoskeletal: other (Right hip tender on palpation, restricted movement ), back pain; No: neck pain, shoulder pain, arm pain, hand pain, leg pain, foot pain Skin: Other (Chronic skin changes); No: Rash, Lesions, Jaundice, Bruising Allergies: Coded Allergies: NO KNOWN ALLERGIES (Unverified , 07/09/23) Exam Vital Signs Vital Signs Date Time Temp Pulse Resp B/P (MAP) Pulse Ox O2 Delivery O2 Flow Rate FiO2 04/12/25 02:57 97.7 88 16 141/88 (105) 95 97.7 04/12/25 02:57 Room Air General Appearance: Alert, moderate distress HEENT: Atraumatic, PERRLA Respiratory: Clear to auscultation, Normal air movement Cardiovascular: Regular rate, Normal S1, Normal S2 Abdominal: Normal bowel sounds, Soft, No masses Extremities: No clubbing, No cyanosis, No edema, Other (Tender palpation on right hip) Skin: No rashes, No breakdown Neuro: Sensation intact, Other SEPSIS Sepsis Screen Date sepsis recognized/suspect: Apr 11, 2025 Time Sepsis recognized/suspect: 2255 Recent Procedure: No On Antibiotic Therapy: No Respiratory Rate >20: No Heart Rate >90: No Temp<36 C (96.8 F) or >38.3 C: No SBP <90 or MAP <65 mmHG: No New Acute Mental Status Change: No Is the patient on CPAP, BIPAP,: No IV fluid challenge completed?: No Physician Orders Pelvis Wo Contrast (04/12/25 01:35) Cervical Without Contrast (04/12/25 01:35) Admit (04/12/25 04:00) Code Status (04/12/25 04:00) 0.9% Ns 1000 Ml (04/12/25 04:00) Npo (Nothing By Mouth) Diet (04/12/25 Breakfast) Condition: Fair (04/12/25 04:00) Nitroglycerin Sublingual (Ntrostat Subli (04/12/25 04:00) Morphine Sulfate Injection (04/12/25 04:00) Pantoprazole (Protonix) (04/12/25 10:00) Vital Signs Date Time Temp Pulse Resp B/P (MAP) Pulse Ox O2 Delivery O2 Flow Rate FiO2 04/12/25 02:57 97.7 88 16 141/88 (105) 95 97.7 04/12/25 02:57 88 17 95 Room Air 04/11/25 22:59 98.2 72 16 146/78 98 98.2 Assessment/Plan Assessment/Plan #Acute intertrochanteric right femur fracture Patient BIBEMS from correction due to fall s/p right hip pain Vital sign: Blood pressure 146/ 78 and repeat blood pressure 141/88 In ER patient received [place] 10/[address] pelvis: Acute intertrochanteric right femur fracture. Previously fixated i ntertrochanteric left femur fracture with early healing changes and no evidence of hardware complication. CT cervical spine: No acute finding of the cervical spine. MORPHINE 1 MG IV Q.4H PRN FOR PAIN Orthopedic consult #Dementia Memantine 10 mg p.o. daily Donepezil 10 mg p.o. daily # Essential hypertension During admission,Vital sign: Blood pressure 146/ 78 and repeat blood pressure 141/88 Amlodipine 5 mg p.o. daily Lisinopril 10 mg p.o. daily Monitor blood pressure # CVA Aspirin 81 mg p.o. daily Lipid profile # Hyperlipidemia Atorvastatin 40 mg p.o. daily Lipid profile #Parkinson disease Levodopa/carbidopa 10-100 mg p.o. t.i.d. #GERD Pantoprazole 40 mg p.o. daily #Depression Sertraline 50 mg p.o. daily #Insomnia Trazodone 25 mg p.o. q.h.s. p.r.n. # Normocytic normochromic anemia Lab work on 02/24/2025: Hemoglobin 9.7, HCT 28.4, MCV 88.2, MCH 30.0, RDW 14.5 No signs symptoms of active bleeding Ferritin, iron profile, occult blood test will follow #Hearing difficulty DIET: NPO, NSS 75 CC/HOURS RESUME ALL HOME MEDICATION PER AM TEAM. GI prophylaxis: Pantoprazole 40 mg IV daily DVT prophylaxis: Sequential compression device Called NOK (Denver Arriaza) but unable to reach. More than 29 minute spent with patient. Full code status. Case discussed with Dr. Jesus Plan discussed with: Patient, Other (Nurse) My Orders Orders - ABBEY RIVERA RESIDENT Procedure Category Date Status Time Admit ADMIT 04/12/25 Verified 04:00 Code Status CODE 04/12/25 Verified 04:00 0.9% Ns 1000 Ml PHA 04/12/25 Verified 04:00 Npo (Nothing By DIET 04/12/25 Verified Mouth) Diet Breakfast Condition: Fair MAHI 04/12/25 Verified 04:00 Nitroglycerin PHA 04/12/25 Verified Sublingual (Ntrostat 04:00 Morphine Sulfate PHA 04/12/25 Verified Injection 04:00 Pantoprazole PHA 04/12/25 Verified (Protonix) 10:00 Date of Service: Apr 12, 2025 Billing Provider: DAMIEN JESUS MD Common Visit Codes: [id number] INP/OBS CARE (HIGH) Secondary Visit Codes: [id number] CARE PLAN 30 MINUTES ABBEY RIVERA RESIDENT Apr 12, 2025 04:05
--- NOTE | 2025-04-12 05:56 | DVH ---
CHEST RADIOGRAPH Indication: RULE OUT CARDIOPULMONARY DISEASE Technique: 1 view Comparison: XY CHEST PORTABLE on DOS: 02/21/25, XY CHEST PORTABLE on DOS: 12/27/24, XY L RIB X RAY on D OS: 07/11/24, XY CHEST PORTABLE on DOS: 07/11/24, XY CHEST PORTABLE on DOS: 05/04/24 FINDINGS: Lines and Tubes: None Lungs: Persistent low lung volumes. Mild perihilar interstitial prominence. No evidence of focal con solidation. Pleura: No effusion or pneumothorax. Cardiomediastinal contours: Unremarkable. Bones: No acute osseous abnormality. IMPRESSION: 1. No acute cardiopulmonary abnormality.
[2025-04-12 06:05] LABS: Hematocrit 36.4 % (41.0-53.0); Hemoglobin 12.2 g/dL (13.5-17.5); Mean Corpuscular Hemoglobin 29.6 pg (28.0-32.0); Mean Corpuscular Volume 88.1 fL (80.0-100.0); Nucleated Red Blood Cells % 0.0 %
[2025-04-12 06:14] LABS: Alanine Aminotransferase 26 U/L (7-40); Albumin 4.0 g/dL (3.2-4.8); Anion Gap 12 (5-15); BUN/Creatinine Ratio 17.0 (10.0-20.0); Bilirubin, Total 0.5 mg/dL (0.2-1.0); Blood Urea Nitrogen 15 mg/dL (9-23); Calcium 8.7 mg/dL (8.7-10.4); Carbon Dioxide 23 mmol/L (20-31); Chloride 104 mmol/L (98-107); Potassium 4.1 mmol/L (3.5-5.1); Sodium 139 mmol/L (136-145); Total Protein 5.8 g/dL (5.7-8.2)
[2025-04-12 06:27] LABS: Alkaline Phosphatase 121 U/L (46-116); Glucose 169 mg/dL (74-106)
[2025-04-12 06:33] VITALS: PULSE 78; RESP 20; O2SAT 97
[2025-04-12 07:04] LABS: Iron 20.0 ug/dL (65-175)
[2025-04-12 07:18] LABS: Total Iron Binding Capacity 245.0 ug/dL (250-425)
[2025-04-12 07:21] LABS: INR 1.08 (0.9-1.15); Partial Thromboplastin Time 30.5 SEC (24.5-34.5); Prothrombin Time 11.4 sec (9.3-11.8)
[2025-04-12] MEDS: PANTOPRAZOLE 40 MG/10 ML VIAL INJ IV SCH (10:17)
--- NOTE | 2025-04-12 14:57 | DVHPNRES ---
Progress Note Date Seen: Apr 12, 2025 Resident Creating Document: BHARTI HENRANDEZ RESIDENT Medical Necessity Reason Pt with a Central, PICC or Fol: No (RN) Subjective Review of Systems This is a 79-year-old male with a history of Left femur fracture, Dementia, HTN, CVA, HLD, Parkinson disease GERD, depression, insomnia, hearing difficulty who was brought to the ED by EMS following an unwitnessed ground-level fall at his assisted living facility. The patient live in [facility] facility where he slipped and fall while attempting to use bathroom. The patient was found on the floor and unable to ambulate, complaining of right-sided hip pain. He arrived wearing a hard cervical collar. No definitive signs of head trauma were noted. Due to cognitive impairment, history is limited; the patient is alert and oriented to person and place at best. Vital signs on arrival were stable. Pain is localized to the right hip, described as moderate, and the patient is unable to move the extremity or bear weight. CT pelvis: Acute intertrochanteric right femur fracture. Previously fixated intertrochanteric left femur fracture with early healing changes and no evidence of hardware complication. Rectal wall thickening, correlate for symptoms of proctitis. CT cervical spine: No acute finding of the cervical spine. Chest X-Ray: No acute cardiopulmonary abnormality. Past Medical History: Dementia, HTN, CVA, HLD, Parkinson disease GERD, depression, insomnia, hearing difficulty, Left femur fracture Surgical History: Left intramedullary nail fixation for hip fracture (02/23/25) Family History: Nothing contributory Social History Smoker: Non-Smoker Alcohol: Denies ETOH Use Drugs: Denies Drug Use Lives In: [facility] Allergy: No known allergy Review of Systems Constitutional: Yes: Malaise; No: Fever, Chills, Sweats, Weakness, Other Eyes: No: Pain, Vision change, Conjunctivae inflammation, Eyelid inflammation, Other, Redness ENT: Other (Hearing difficulty); No: Ear pain, Ear discharge, Nose pain, Nose discharge, Nose congestion, Mouth pain, Mouth swelling, Throat pain, Throat swelling Cardiovascular: No: Chest Pain, Palpitations, Orthopnea, Paroxysmal Noc. Dyspnea, Edema, Lt Headedness, Other Gastrointestinal: No: Nausea, Vomiting, Abdominal Pain, Diarrhea, Constipation, Melena, Hematochezia, Other Genitourinary: No Dysuria, No Frequency, No Incontinence, No Hematuria, No Retention, No Other Musculoskeletal: other (Right hip tender on palpation, restricted movement , b ack pain; No: neck pain, shoulder pain, arm pain, hand pain, leg pain, foot pain Skin: Other (Chronic skin changes); No: Rash, Lesions, Jaundice, Bruising Allergies: Coded Allergies: NO KNOWN ALLERGIES (Unverified , 07/09/23) Objective vital signs Vital Sign Date Time Temp Pulse Resp B/P (MAP) Pulse Ox O2 Delivery O2 Flow Rate FiO2 04/12/25 14:00 71 18 170/85 (113) 100 04/12/25 10:00 98.2 98.2 04/12/25 07:30 Room Air* 0 21 medications Current Medications Medications Dose Ordered Sig/Nilesh Route Start Time Stop Time Status Last Admin Dose Admin Sodium Chloride 1,000 ml @ 75 mls/hr [id number] IV 04/12/25 04:00 04/12/25 06:13 75 MLS/HR Nitroglycerin 0.4 mg Q5MINP PRN SL 04/12/25 04:00 Pantoprazole Sodium 40 mg DAILY IV 04/12/25 10:00 04/12/25 10:17 40 MG Morphine Sulfate 1 mg Q4HP PRN IV 04/12/25 06:45 Enoxaparin Sodium 40 mg DAILY SC 04/13/25 10:00 UNV Examination General Appearance: Alert, moderate distress HEENT: Atraumatic, PERRLA Respiratory: Clear to auscultation, Normal air movement Cardiovascular: Regular rate, Normal S1, Normal S2 Abdominal: Normal bowel sounds, Soft, No masses Extremities: No clubbing, No cyanosis, No edema, Other (Tender palpation on right hip) Skin: No rashes, No breakdown Neuro: Sensation intact, Other laboratory and microbiology Laboratory Tests 04/12/25 05:29 Test 04/12/25 05:29 Range/Units Serum Glucose 169 H 74-106 mg/dL Labs and/or images reviewed: Labs reviewed by me, Image(s) reviewed by me Problem List/Assessment/Plan Problem List/Assessment/Plan # Acute intertrochanteric right femur fracture -Patient BIBEMS from retirement due to fall s/p right hip pain -Vital sign: Blood pressure 146/ 78 and repeat blood pressure 141/88 -In ER patient received [place] 10/325 mg -CT pelvis: Acute intertrochanteric right femur fracture. Previously fixated intertrochanteric left femur fracture with early healing changes and no evidence of hardware complication. Rectal wall thickening, correlate for symptoms of proctitis. -CT cervical spine: No acute finding of the cervical spine. -MORPHINE 1 MG IV Q.4H PRN FOR PAIN -Orthopedic consult # Acute intertrochanteric left femur fracture -live in [facility] facility where he slipped and fall while attempting to use bathroom -CT pelvis: comminuted and mildly displaced Left intertrochanteric left femur fracture, coxa vera angulation of the proximal left femur, mild soft tissue swelling about the proximal left femur related to the fracture -Left intramedullary nail fixation for hip fracture (02/23/25) -Follow up with orthopedic surgeon #Dementia -Memantine 10 mg p.o. daily -Donepezil 10 mg p.o. daily # Essential hypertension -During admission,Vital sign: Blood pressure 146/ 78 and repeat blood pressure 141/88 -Amlodipine 5 mg p.o. daily -Lisinopril 10 mg p.o. daily -Monitor blood pressure # CVA -Aspirin 81 mg p.o. daily -Lipid profile # Hyperlipidemia -Atorvastatin 40 mg p.o. daily -Lipid profile #Parkinson disease -Levodopa/carbidopa 10-100 mg p.o. t.i.d. #GERD -Pantoprazole 40 mg p.o. daily #Depression -Sertraline 50 mg p.o. daily #Insomnia -Trazodone 25 mg p.o. q.h.s. p.r.n. # Normocytic normochromic anemia -Lab work on 02/24/2025: Hemoglobin 9.7, HCT 28.4, -MCV 88.2, MCH 30.0, RDW 14.5 -No signs symptoms of active bleeding -Ferritin, iron profile, occult blood test will follow #Hearing difficulty DIET: NPO, NSS 75 CC/HOURS RESUME ALL HOME MEDICATION PER AM TEAM. PUD prophylaxis: protonix 40mg DVT prophylaxis: Levonox 40mg Goals of care: Full code, discussed for >16 minutes on 04/12/25 Plan discussed with patient Plan discussed with Dr. Jefferson Plan discussed with: Patient, Other (RN) My Orders My Orders Orders - YOU,YOUNGSANG RESIDENT Procedure Category Date Status Time Enoxaparin Sodium PHA 04/12/25 Logged (Lovenox) 14:45 Enoxaparin Sodium PHA 04/13/25 Logged (Lovenox) 10:00 Complete Blood Count LAB 04/13/25 Verified 04:00 Basic Metabolic Panel LAB 04/13/25 Verified 04:00 Date of Service: Apr 12, 2025 Billing Provider: JANEL JEFFERSON MD Common Visit Codes: [id number] INP/OBS CARE(HIGH) Secondary Visit Codes: [id number] CARE PLAN 30 MINUTES BHARTI HERNANDEZ Apr 12, 2025 14:57 JANEL JEFFERSON MD Apr 12, 2025 21:49
[2025-04-12] MEDS: MORPHINE SULFATE INJ 2 MG/ml SYRG IV PRN (15:41)
[2025-04-12] MEDS: ENOXAPARIN SOD 40 MG/0.4 ML SYRINGE SC ONE (17:22)
[2025-04-12 20:00] VITALS: PULSE 83; RESP 17; O2SAT 96
[2025-04-12 21:00] VITALS: BP 166/83; PULSE 83; RESP 17; TEMP 98.8; O2SAT 96
[2025-04-13] VITALS (11 sets, daily range): BP systolic 124–163; BP diastolic 77–90; PULSE 65–97; RESP 14–18; TEMP 97.9–98.8; O2SAT 95–100
[2025-04-13 07:23] LABS: Hematocrit 29.7 % (41.0-53.0); Hemoglobin 10.0 g/dL (13.5-17.5); Mean Corpuscular Hemoglobin 30.3 pg (28.0-32.0); Mean Corpuscular Volume 89.5 fL (80.0-100.0); Nucleated Red Blood Cells % 0.0 %
[2025-04-13 07:37] LABS: Anion Gap 12 (5-15); Carbon Dioxide 22 mmol/L (20-31); Chloride 104 mmol/L (98-107); Potassium 3.9 mmol/L (3.5-5.1); Sodium 138 mmol/L (136-145)
[2025-04-13 07:40] LABS: Calcium 8.4 mg/dL (8.7-10.4)
[2025-04-13 07:43] LABS: BUN/Creatinine Ratio 14.1 (10.0-20.0); Blood Urea Nitrogen 10 mg/dL (9-23)
[2025-04-13 07:44] LABS: Glucose 128 mg/dL (74-106)
--- NOTE | 2025-04-13 08:02 | DVHINCON2 ---
Date of service: Apr 12, 2025 Reason for Consultation Right hip fracture History of Present Illness Patient is a 79-year-old male with dementia/coronary artery/ Dementia, HTN, CVA, HLD, Parkinson disease GERD, depression status post mechanical fall and landed on his right side. Patient had immediate pain/swelling/deformity/inability to bear weight on her right lower extremity. Patient has a history of recent left hip fracture with ORIF. Denies any current chest pain shortness was then abdominal pain nausea vomiting or diarrhea. Past Medical History As per HPI Past Surgical History As per HPI Family History: FH: smoking G8 MOTHER, Onset:Unknown Hypertension G8 MOTHER, Onset:Unknown Allergies: Coded Allergies: NO KNOWN ALLERGIES (Unverified , 07/09/23) Home Meds Active Scripts Pantoprazole Sodium Sesquihydr (Pantoprazole Sodium) 40 Mg Tab, 40 MG PO DAILY, #30 TAB Prov:NAUN RODRIGUEZ MD 06/24/23 Reported Medications Trazodone Hcl (Trazodone Hcl) 50 Mg Tab, 0.5 TAB PO HSPRN for 30 Days, #15 05/06/24 Carbidopa-Levodopa (Carbidopa/Levodopa Odt 10-100 mg) 1 Tab Tab, 1 TAB PO TID for 30 Days, #90 05/06/24 Sertraline Hcl (Sertraline Hcl) 50 Mg Tab, 100 MG PO DAILY for 30 Days, #30 05/06/24 Atorvastatin Calcium (ATORVASTATIN CALCIUM) 40 Mg Tab, 1 TAB PO QPM for 30 Days 07/11/19 Memantine Hydrochloride (Memantine HCl) 10 Mg Tab, 1 TAB PO BID for 30 Days, #30 07/11/19 Lisinopril (Lisinopril) 10 Mg Tab, 1 TAB PO DAILY for 30 Days, #30 07/11/19 Donepezil Hydrochloride (DONEPEZIL HCL) 10 Mg Tab, 1 TAB PO DAILY for 30 Days, #30 07/11/19 Aspirin (Aspirin 81 Low Dose) 81 Mg Chw, 162 MG PO, TAB.CHEW 07/11/19 Amlodipine Besylate (NORVASC TABLET) 5 Mg Tb, 1 TAB PO BID for 30 Days, #60 07/11/19 Current Medications Current Medications Medications (Trade) Dose Ordered Sig/Nilesh Route PRN Reason Start Time Stop Time Status Last Admin Pantoprazole Sodium (Protonix) 40 mg DAILY IV 04/12/25 10:00 04/12/25 10:17 Enoxaparin Sodium (Lovenox) 40 mg HS SC 04/13/25 22:00 Review of Systems As per HPI Vital Signs Vital Signs Date Time Temp Pulse Resp B/P (MAP) Pulse Ox O2 Delivery O2 Flow Rate FiO2 04/13/25 05:00 98.8 87 18 150/83 (105) 95 98.8 04/12/25 20:00 Room Air* 0 21 Physical Exam No apparent distress Right lower extremity: Short/internally rotated Positive TA/EHL/FHL For warm well-perfused Labs/Diagnostic Data Labs Test 04/13/25 06:20 04/12/25 05:29 Range/Units White Blood Count 5.6 # 4.4-10.8 10^3/uL Red Blood Count 3.32 L 4.5-5.90 10^6/uL Hemoglobin 10.0 #L 13.5-17.5 g/dL Hematocrit 29.7 #L 41.0-53.0 % Mean Corpuscular Volume 89.5 80.0-100.0 fL Mean Corpuscular Hemoglobin 30.3 28.0-32.0 pg Mean Corpuscular Hemoglobin Concent 33.8 32.0-36.0 g/dL Red Cell Distribution Width 15.6 H 11.8-14.3 % Platelet Count 166 140-450 10^3/uL Mean Platelet Volume 7.6 6.9-10.8 fL Neutrophils (%) (Auto) 71.4 37.0-80.0 % Lymphocytes (%) (Auto) 20.1 10.0-50.0 % Monocytes (%) (Auto) 6.6 0.0-12.0 % Eosinophils (%) (Auto) 1.6 0.0-7.0 % Basophils (%) (Auto) 0.3 0.0-2.0 % Neutrophils # (Auto) 4.0 1.6-8.6 10 ^3/uL Lymphocytes # (Auto) 1.1 0.4-5.4 10 ^3/uL Monocytes # (Auto) 0.4 0-1.3 10 ^3/uL Eosinophils # (Auto) 0.1 0-0.8 10 ^3/uL Basophils # (Auto) 0 0-0.2 10 ^3/uL Nucleated Red Blood Cells 0.0 % Sodium Level 138 136-145 mmol/L Potassium Level 3.9 3.5-5.1 mmol/L Chloride Level 104 98-107 mmol/L Carbon Dioxide Level 22 20-31 mmol/L Anion Gap 12 5-15 Blood Urea Nitrogen 10 9-23 mg/dL Creatinine 0.71 0.700-1.30 mg/dL Glomerular Filtration Rate Calc 94 >90 mL/min BUN/Creatinine Ratio 14.1 10.0-20.0 Serum Glucose 128 H 74-106 mg/dL Calcium Level 8.4 L 8.7-10.4 mg/dL Prothrombin Time 11.4 9.3-11.8 sec Prothrombin Time INR 1.08 0.9-1.15 Activated Partial Thromboplast Time 30.5 24.5-34.5 SEC Iron Level 20 L 65-175 ug/dL Total Iron Binding Capacity 245 L 250-425 ug/dL Percent Iron Saturation 8.2 L 20-55 % Ferritin 157.7 22-322 ng/mL Total Bilirubin 0.5 0.2-1.0 mg/dL Aspartate Amino Transferase (AST) 24 13-40 U/L Alanine Aminotransferase (ALT) 26 7-40 U/L Alkaline Phosphatase 121 H 46-116 U/L Total Protein 5.8 5.7-8.2 g/dL Albumin 4.0 3.2-4.8 g/dL Plan/Recommendation 79-year-old male with comminuted right hip intertrochanteric fracture 1. I had a long and thorough discussion with patient's was the sister regarding his condition. Nonoperative and operative management discussed in depth. Risks benefits options alternatives were reviewed. Risks include Bumex was rebleeding infection nerve injury chronic pain nonunion malunion for further surgery blood clots cardiac and pulmonary complications amputation . Patient and family understand the morbidity and mortality of hip fracture in the elderly. There was proceed with surgical intervention Plan for open reduction internal fixation of right hip fracture Pain control NPO/IV fluids Plan discussed with: Patient, Other (Sister) MERNA MONIQUE MD Apr 13, 2025 08:02
[2025-04-13] MEDS: BUPIVACAINE 0.25% INJ 50ML VIAL ONE ×2 (08:16→09:53)
[2025-04-13] MEDS: BUPIVACAINE 0.5% P/F INJ 10 ML VIAL ONE (08:57)
[2025-04-13] MEDS ORDERED: fentaNYL CITRATE 100 MCG/2 ML VL ONE (09:02)
[2025-04-13] MEDS ORDERED: MIDAZOLAM HCL 2MG/2ML 2ml VIAL (1mg/ml) ONE ×2 (09:02→09:21)
[2025-04-13] MEDS ORDERED: PROPOFOL 10 MG/ML 20 ML IV ONE (09:04)
[2025-04-13] MEDS ORDERED: KETAMINE 50mg/ML 1ml syringe ONE (09:04)
[2025-04-13] MEDS: ceFAZolin 2 GM/D5W50ml 50 ML IV ONE (09:05)
[2025-04-13] MEDS ORDERED: HYDROmorphone HCL 2 MG/ML VL/or syr IV PRN (10:30)
[2025-04-13] MEDS ORDERED: MORPHINE SULFATE 4 MG/ML SYR/VIAL IV PRN (10:30)
[2025-04-13] MEDS: ONDANSETRON HCL 4 MG/2 ML VIAL IV ONE (10:30)
[2025-04-13] MEDS ORDERED: hydrALAZINE HCL 20 MG/ML VL IV PRN (10:30)
[2025-04-13] MEDS ORDERED: MIDAZOLAM HCL 2MG/2ML 2ml VIAL (1mg/ml) IV PRN (10:30)
--- NOTE | 2025-04-13 12:50 | DVH ---
FLUOROSCOPY TIME: 48 seconds TECHNIQUE: Intraoperative radiographs of the right hip were obtained. COMPARISON: CT PELVIS WO CONTRAST on DOS: 04/12/25, XY L HIP COMPLETE XRAY on DOS: 02/23/25, CT CT L HIP WITH OUT CONTRAST on DOS: 02/20/25 FINDINGS: Refer to intraoperative report for further evaluation. IMPRESSION: Refer to intraoperative report for further evaluation.
[2025-04-13] MEDS: ceFAZolin 1GM/50ML 50 ML IV SCH (13:21)
--- NOTE | 2025-04-13 16:01 | DVHPNRES ---
Progress Note Date Seen: Apr 13, 2025 Resident Creating Document: BHARTI HERNANDEZ Medical Necessity Reason Pt with a Central, PICC or Fol: No (RN) Subjective Review of Systems This is a 79-year-old male with a history of Left femur fracture, Dementia, HTN, CVA, HLD, Parkinson disease GERD, depression, insomnia, hearing difficulty who was brought to the ED by EMS following an unwitnessed ground-level fall at his assisted living facility. Patient is extremely hard of hearing and a poor historian. The patient live in [facility] facility where he slipped and fall while attempting to use the bathroom. The patient was found on the floor and unable to ambulate, complaining of right-sided hip pain. He arrived wearing a hard cervical collar. No definitive signs of head trauma were noted. Due to cognitive impairment, history is limited; the patient is alert and oriented to person and place at best. Vital signs on arrival were stable. Pain is localized to the right hip, described as moderate, and the patient is unable to move the extremity or bear weight. CT pelvis: Acute intertrochanteric right femur fracture. Previously fixated intertrochanteric left femur fracture with early healing changes and no evidence of hardware complication. Rectal wall thickening, correlate for symptoms of proctitis. CT cervical spine: No acute finding of the cervical spine. Chest X-Ray: No acute cardiopulmonary abnormality. 04/13/2025: Patient seen at bedside. Patient shows have shortening and internal rotation of the right lower extremity prior to the procedure. Patient is s/p open reduction and internal fixation (ORIF) of a right hip fracture performed today morning. Patient denies any pain at rest and appears in no apparent distress. Objective vital signs Vital Sign Date Time Temp Pulse Resp B/P (MAP) Pulse Ox O2 Delivery O2 Flow Rate FiO2 04/13/25 12:46 98.1 75 16 125/77 (93) 98 98.1 04/13/25 10:38 Nasal Cannula 2.0 99 Total Intake and Output 04/12/25 04/12/25 04/13/25 15:00 23:00 07:00 Intake Total 1150 ml Balance 1150 ml medications Current Medications Medications Dose Ordered Sig/Nilesh Route Start Time Stop Time Status Last Admin Dose Admin Sodium Chloride 1,000 ml @ 75 mls/hr [id number] IV 04/12/25 04:00 04/13/25 06:49 75 MLS/HR Nitroglycerin 0.4 mg Q5MINP PRN SL 04/12/25 04:00 Pantoprazole Sodium 40 mg DAILY IV 04/12/25 10:00 04/12/25 10:17 40 MG Morphine Sulfate 1 mg Q4HP PRN IV 04/12/25 06:45 04/12/25 15:41 1 MG Enoxaparin Sodium 40 mg HS SC 04/13/25 22:00 Cefazolin Sodium 50 ml @ 100 mls/hr Q8HR IV 04/13/25 14:00 04/14/25 06:29 04/13/25 13:21 100 MLS/HR Examination General Appearance: Alert, moderate distress HEENT: Atraumatic, PERRLA Respiratory: Clear to auscultation, Normal air movement Cardiovascular: Regular rate, Normal S1, Normal S2 Abdominal: Normal bowel sounds, Soft, No masses Extremities: No clubbing, No cyanosis, No edema, Other (Tender palpation on right hip) Skin: No rashes, No breakdown Neuro: Sensation intact, Other laboratory and microbiology Laboratory Tests 04/13/25 06:20 Test 04/13/25 06:20 Range/Units Serum Glucose 128 H 74-106 mg/dL Labs and/or images reviewed: Labs reviewed by me, Image(s) reviewed by me Problem List/Assessment/Plan Problem List/Assessment/Plan # Acute intertrochanteric right femur fracture -Patient BIBEMS from [facility] due to fall s/p right hip pain -Vital sign: Blood pressure 146/ 78 and repeat blood pressure 141/88 -In ER patient received [place] 10/325 mg -CT pelvis: Acute intertrochanteric right femur fracture. Previously fixated intertrochanteric left femur fracture with early healing changes and no evidence of hardware complication. Rectal wall thickening, correlate for symptoms of proctitis. -CT cervical spine: No acute finding of the cervical spine. -MORPHINE 1 MG IV Q.4H PRN FOR PAIN -Orthopedic consult -Right hip open reduction internal fixation (04/13/25) -live in [facility] facility where he slipped and fall while attempting to use bathroom -CT pelvis: comminuted and mildly displaced Left intertrochanteric left femur fracture, coxa vera angulation of the proximal left femur, mild soft tissue swelling about the proximal left femur related to the fracture -Left intramedullary nail fixation for hip fracture (02/23/25) -Follow up with orthopedic surgeon #Dementia -Memantine 10 mg p.o. daily -Donepezil 10 mg p.o. daily # Essential hypertension -During admission,Vital sign: Blood pressure 146/ 78 and repeat blood pressure 141/88 -Amlodipine 5 mg p.o. daily -Lisinopril 10 mg p.o. daily -Monitor blood pressure # CVA -Aspirin 81 mg p.o. daily -Lipid profile # Hyperlipidemia -Atorvastatin 40 mg p.o. daily -Lipid profile #Parkinson disease -Levodopa/carbidopa 10-100 mg p.o. t.i.d. #GERD -Pantoprazole 40 mg p.o. daily #Depression -Sertraline 50 mg p.o. daily #Insomnia -Trazodone 25 mg p.o. q.h.s. p.r.n. # Normocytic normochromic anemia -Lab work on 02/24/2025: Hemoglobin 9.7, HCT 28.4, -MCV 88.2, MCH 30.0, RDW 14.5 -No signs symptoms of active bleeding -Ferritin, iron profile, occult blood test will follow - monitor #Hearing difficulty DIET: NPO, NSS 75 CC/HOURS RESUMED HOME MEDICATIONS PUD prophylaxis: protonix 40mg DVT prophylaxis: Levonox 40mg Goals of care: Full code, discussed for >16 minutes on 04/13/25 Plan discussed with patient Plan discussed with Dr. Jefferson Plan discussed with: Patient (RN), Other My Orders My Orders Orders - BHARTI HERNANDEZ RESIDENT Procedure Category Date Status Time Propofol (Diprivan) PHA 04/13/25 In Process 09:04 Complete Blood Count LAB 04/14/25 Verified 04:00 Basic Metabolic Panel LAB 04/14/25 Verified 04:00 Date of Service: Apr 13, 2025 Billing Provider: JANEL JEFFERSON MD Common Visit Codes: [id number] INP/OBS CARE(HIGH) BHARTI HERNANDEZ RESIDENT Apr 13, 2025 16:01 ALVAREZ BUCKLEY RESIDENT Apr 13, 2025 18:43 JANEL JEFFERSON MD Apr 19, 2025 12:13
[2025-04-13] MEDS: ENOXAPARIN SOD 40 MG/0.4 ML SYRINGE SC SCH (21:37)
[2025-04-14] VITALS (8 sets, daily range): BP systolic 106–155; BP diastolic 60–98; PULSE 87–99; RESP 15–18; TEMP 97.6–98.9; O2SAT 94–99
--- NOTE | 2025-04-14 07:33 | ECG ---
[facility] Test Date: 2025-04-13 Test Time: 05:39:16 Pat Name: JUDE MACIEL Department: Respiratoy Room: 0284T Gender: M Developmental Therapist: GAETANO : 1945 Requested By: BHARTI YOU Order Number: [id number] Reading MD: Javier Otoole Measurements Intervals [place] Rate: 86 P: 67 RI: 165 QRS: -15 QRSD: 155 T: -7 QT: 420 QTc: 503 Interpretive Statements Sinus rhythm Right bundle branch block Electronically Signed On 04-20-2025 18:30:59 PDT by Javier Otoole Please click the below link to view image of tracing.
--- NOTE | 2025-04-14 07:53 | DVHOP2 ---
Operative Report - 2 Report Details Date: 04/13/25 Preop Diagnosis: Right hip intertrochanteric fracture Postop Diagnosis: as above Surgeon: Hernan Huertas MD Cloth Tearer: Juan DRISCOLL Anesthesiologist: José FLETCHER Anesthesia: Regional Implant: ITS hip nail with lag screw/ set screw/ distal locking screw Consent: The patient was informed of the risks and benefits of the procedure. These include but are not limited to complications of anesthesia, postoperative infection, incomplete relief of symptoms, recurrence of symptoms, damage to blood vessels, nerves and tendons, deep venous thrombosis, pulmonary embolism and possible need for repeat surgery in the future. Estimated Blood Loss: 50 cc Name of Procedure Performed Open reduction internal fixation of right hip intertrochanter fracture; intra-op fluoroscopy Procedure Details Procedure Details: FINDINGS: IT fracture, reduced on the fracture table. DESCRIPTION OF PROCEDURE: In the preoperative holding area, the consent was reviewed and the appropriate extremity was verified by the patient and marked with my initials. The patient was then transferred to the operating theatre. Patient was placed on a fracture table. Appropriate anesthetia was induced. All bony prominences were well padded. A time out was performed verifying the side and site of surgery according to standard protocol. Preoperative antibiotics were given. The extremity was then prepped and draped in the usual sterile fashion. Using c-arm, the fracture was reduced using the fracture table and a combination of maneuvers including traction, internal rotation, and flexion. An incision was made over the greater trochanter confirming correct position with c-arm. A guide wire was drilled into the tip of the greater trochanter, centered A to P. We used the starting reamer to gain entry to the femoral canal. A short nail was then placed. A guide pin was then drilled in the center of the femoral head confirmed using fluoroscopy. We measured the screw lengths. Using a cannulated drill, we drilled the lateral cortex. The screws were then introduced. Once positioned, we once again confirmed that the screws were with the femoral head. We placed cerament into comminution. Attention was turned distally. We used the targeting device to drill through the nail and the femur. This was measured using the device, and the screw was placed with good purchase. Final xrays were taken showing the hardware in perfect position. The wound was copiously irrigated. No fractures were seen on the rest of the femur. The fascia was closed with #1 Vicryl, the skin closed #2-0 Vicryl, and elías. A dry sterile dressing was placed on the patient. The patient was transferred to the recovery room in stable condition. Condition Fair Disposition Still a Patient HERNAN HUERTAS MD Apr 14, 2025 07:53
[2025-04-14 08:21] LABS: Urine Protein, UAD TRACE (Negative)
[2025-04-14 10:35] LABS: Chloride 103 mmol/L (98-107); Potassium 3.7 mmol/L (3.5-5.1); Sodium 138 mmol/L (136-145)
[2025-04-14 10:36] LABS: Anion Gap 9 (5-15); Carbon Dioxide 26 mmol/L (20-31); Hematocrit 25.7 % (41.0-53.0); Mean Corpuscular Hemoglobin 29.7 pg (28.0-32.0); Mean Corpuscular Volume 87.5 fL (80.0-100.0); Nucleated Red Blood Cells % 0.0 %
[2025-04-14 10:37] LABS: Calcium 8.7 mg/dL (8.7-10.4)
[2025-04-14 10:42] LABS: BUN/Creatinine Ratio 19.2 (10.0-20.0); Blood Urea Nitrogen 15 mg/dL (9-23)
[2025-04-14 10:54] LABS: Glucose 109 mg/dL (74-106)
[2025-04-14 11:01] LABS: Hemoglobin 8.7 g/dL (13.5-17.5)
--- NOTE | 2025-04-14 14:20 | DVHPNRES ---
Progress Note Date Seen: Apr 14, 2025 Resident Creating Document: BHARTI HERNANDEZ Medical Necessity Reason Pt with a Central, PICC or Fol: No (RN) Subjective Review of Systems This is a 79-year-old male with a history of Left femur fracture, Dementia, HTN, CVA, HLD, Parkinson disease GERD, depression, insomnia, hearing difficulty who was brought to the ED by EMS following an unwitnessed ground-level fall at his assisted living facility. Patient is extremely hard of hearing and a poor historian. The patient live in [facility] facility where he slipped and fall while attempting to use the bathroom. The patient was found on the floor and unable to ambulate, complaining of right-sided hip pain. He arrived wearing a hard cervical collar. No definitive signs of head trauma were noted. Due to cognitive impairment, history is limited; the patient is alert and oriented to person and place at best. Vital signs on arrival were stable. Pain is localized to the right hip, described as moderate, and the patient is unable to move the extremity or bear weight. CT pelvis: Acute intertrochanteric right femur fracture. Previously fixated intertrochanteric left femur fracture with early healing changes and no evidence of hardware complication. Rectal wall thickening, correlate for symptoms of proctitis. CT cervical spine: No acute finding of the cervical spine. Chest X-Ray: No acute cardiopulmonary abnormality. 04/13/2025: Patient seen at bedside. Patient shows have shortening and internal rotation of the right lower extremity prior to the procedure. Patient is s/p open reduction and internal fixation (ORIF) of a right hip fracture performed today morning. Patient denies any pain at rest and appears in no apparent distress. 04/13/2025: Patient seen and examined at bedside. Patient reports right leg pain. Patient denied any chest pain, shortness of breaths, fever, dysuria, diarrhea. 04/14/2025: Patient seen and examined at bedside. Patient complains mild right leg pain but pain is manageable. EKG shows Sinus rhythm, Right bundle branch block. Progressing with physical therapy Objective vital signs Vital Sign Date Time Temp Pulse Resp B/P (MAP) Pulse Ox O2 Delivery O2 Flow Rate FiO2 04/14/25 10:45 89 18 127/89 04/14/25 08:00 98 Room Air* 0 21 04/14/25 05:00 98.6 98.6 Total Intake and Output 04/13/25 04/13/25 04/14/25 15:00 23:00 07:00 Intake Total 200 ml 250 ml 800 ml Output Total 550 ml 351 ml Balance 200 ml -300 ml 449 ml medications Current Medications Medications Dose Ordered Sig/Nilesh Route Start Time Stop Time Status Last Admin Dose Admin Sodium Chloride 1,000 ml @ 75 mls/hr [id number] IV 04/12/25 04:00 04/14/25 06:27 75 MLS/HR Nitroglycerin 0.4 mg Q5MINP PRN SL 04/12/25 04:00 Pantoprazole Sodium 40 mg DAILY IV 04/12/25 10:00 04/14/25 10:44 40 MG Morphine Sulfate 1 mg Q4HP PRN IV 04/12/25 06:45 04/14/25 10:45 1 MG Enoxaparin Sodium 40 mg HS SC 04/13/25 22:00 04/13/25 21:37 40 MG Examination General Appearance: Alert, moderate distress HEENT: Atraumatic, PERRLA Respiratory: Clear to auscultation, Normal air movement Cardiovascular: Regular rate, Normal S1, Normal S2 Abdominal: Normal bowel sounds, Soft, No masses Extremities: No clubbing, No cyanosis, No edema, Other (Tender palpation on right hip and right leg) Skin: No rashes, No breakdown Neuro: Sensation intact, Other laboratory and microbiology Laboratory Tests 04/14/25 09:55 Test 04/14/25 09:55 Range/Units Serum Glucose 109 H 74-106 mg/dL Labs and/or images reviewed: Labs reviewed by me, Image(s) reviewed by me Problem List/Assessment/Plan Problem List/Assessment/Plan # Acute intertrochanteric right femur fracture -Patient BIBEMS from [facility] due to fall s/p right hip pain -Vital sign: Blood pressure 146/ 78 and repeat blood pressure 141/88 -In ER patient received [place] 10/325 mg -CT pelvis: Acute intertrochanteric right femur fracture. Previously fixated intertrochanteric left femur fracture with early healing changes and no evidence of hardware complication. Rectal wall thickening, correlate for symptoms of proctitis. -CT cervical spine: No acute finding of the cervical spine. -MORPHINE 1 MG IV Q.4H PRN FOR PAIN -Orthopedic consult -Right hip open reduction internal fixation (04/13/25) -SNF for physical therapy for 2 weeks -[employer]eleserv[employer] representative consult -EKG- Sinus rhythm, Right bundle branch block # Acute intertrochanteric left femur fracture -live in [facility] facility where he slipped and fall while attempting to use bathroom -CT pelvis: comminuted and mildly displaced Left intertrochanteric left femur fracture, coxa vera angulation of the proximal left femur, mild soft tissue swelling about the proximal left femur related to the fracture -Left intramedullary nail fixation for hip fracture (02/23/25) -Follow up with orthopedic surgeon #Dementia -Memantine 10 mg p.o. daily -Donepezil 10 mg p.o. daily # Essential hypertension -During admission,Vital sign: Blood pressure 146/ 78 and repeat blood pressure 141/88 -Amlodipine 5 mg p.o. daily -Lisinopril 10 mg p.o. daily -Monitor blood pressure # CVA -Aspirin 81 mg p.o. daily -Lipid profile # Hyperlipidemia -Atorvastatin 40 mg p.o. daily -Lipid profile #Parkinson disease -Levodopa/carbidopa 10-100 mg p.o. t.i.d. #GERD -Pantoprazole 40 mg p.o. daily #Depression -Sertraline 50 mg p.o. daily #Insomnia -Trazodone 25 mg p.o. q.h.s. p.r.n. # Normocytic normochromic anemia -Lab work on 02/24/2025: Hemoglobin 9.7, HCT 28.4, -MCV 88.2, MCH 30.0, RDW 14.5 -No signs symptoms of active bleeding -Ferritin, iron profile, occult blood test will follow #Hearing difficulty DIET: NPO, NSS 75 CC/HOURS RESUME ALL HOME MEDICATION PER AM TEAM. PUD prophylaxis: protonix 40mg DVT prophylaxis: Levonox 40mg Goals of care: Full code, discussed for >16 minutes on 04/14/25 Plan discussed with patient Plan discussed with Dr. Jefferson Plan discussed with: Patient, Other (RN) My Orders My Orders Orders - BHARTI HERNANDEZ RESIDENT Procedure Category Date Status Time * Physical Plant Manager CONS 04/14/25 Transmitted Consult Date of Service: Apr 14, 2025 Billing Provider: JANEL JEFFERSON MD Common Visit Codes: [id number] INP/OBS CARE(HIGH) BHARTI HERNANDEZ RESIDENT Apr 14, 2025 14:20 ALVAREZ BUCKLEY Apr 14, 2025 16:00 JANEL JEFFERSON MD Apr 19, 2025 12:14
[2025-04-14] MEDS: ACETAMINOPHEN 325 MG TAB PO PRN (16:47)
[2025-04-15] VITALS (8 sets, daily range): BP systolic 129–139; BP diastolic 66–86; PULSE 89–101; RESP 14–20; TEMP 97.9–99.3; O2SAT 91–96
[2025-04-15 06:59] LABS: Nucleated Red Blood Cells % 0.1 %
[2025-04-15 07:01] LABS: Hematocrit 23.0 % (41.0-53.0); Mean Corpuscular Hemoglobin 30.1 pg (28.0-32.0); Mean Corpuscular Volume 87.5 fL (80.0-100.0)
[2025-04-15 07:16] LABS: Hemoglobin 7.9 g/dL (13.5-17.5)
--- NOTE | 2025-04-15 07:28 | DVHPN2 ---
Progress Note Date Seen: Apr 15, 2025 Medical Necessity Reason Pt with a Central, PICC or Fol: Yes The following are medically ne: Mcgrath Catheter Subjective Patient reports: No new complaints Objective vital signs Vital Sign Date Time Temp Pulse Resp B/P (MAP) Pulse Ox O2 Delivery O2 Flow Rate FiO2 04/15/25 05:00 98.0 94 14 130/75 (93) 96 98.0 04/14/25 08:00 Room Air* 0 21 Total Intake and Output 04/14/25 04/14/25 04/15/25 15:00 23:00 07:00 Intake Total 454 ml 634 ml 100 ml Output Total 475 ml 850 ml Balance 454 ml 159 ml -750 ml medications Current Medications Medications Dose Ordered Sig/Nilesh Route Start Time Stop Time Status Last Admin Dose Admin Sodium Chloride 1,000 ml @ 75 mls/hr [id number] IV 04/12/25 04:00 04/15/25 05:40 75 MLS/HR Nitroglycerin 0.4 mg Q5MINP PRN SL 04/12/25 04:00 Pantoprazole Sodium 40 mg DAILY IV 04/12/25 10:00 04/14/25 10:44 40 MG Morphine Sulfate 1 mg Q4HP PRN IV 04/12/25 06:45 04/14/25 10:45 1 MG Enoxaparin Sodium 40 mg HS SC 04/13/25 22:00 04/14/25 23:37 40 MG Acetaminophen 650 mg Q6HP PRN PO 04/14/25 16:00 04/14/25 16:47 650 MG Examination: GENERAL:Normal, MSK:Abnormal laboratory and microbiology Laboratory Tests 04/15/25 06:16 Test 04/15/25 06:16 Range/Units Serum Glucose Pending Problem List/Assessment/Plan Problem List/Assessment/Plan 79 year old male who is s/p ORIF right Hip POD 2 1. pain control 2. WBAT RLE 3. DVT ppx 4. physical therapy 5. follow up in 2 weeks at [facility] ortho clinic 6. clear for discharge from ortho standpoint Plan discussed with: Patient Date of Service: Apr 15, 2025 Billing Provider: MERNA MONIQUE MD Common Visit Codes: NOT BILLABLE MEHDI GUSMAN NP Apr 15, 2025 07:28
[2025-04-15 07:29] LABS: Chloride 106 mmol/L (98-107); Potassium 3.9 mmol/L (3.5-5.1); Sodium 138 mmol/L (136-145)
[2025-04-15 07:30] LABS: Anion Gap 7 (5-15); Carbon Dioxide 25 mmol/L (20-31)
[2025-04-15 07:35] LABS: BUN/Creatinine Ratio 22.9 (10.0-20.0); Blood Urea Nitrogen 16 mg/dL (9-23)
[2025-04-15 07:36] LABS: Calcium 8.1 mg/dL (8.7-10.4); Glucose 118 mg/dL (74-106)
[2025-04-15] MEDS: diphenhdrAMINE HCL 50 MG/1 ML VL IV ONE ×2 (12:53→15:30)
--- NOTE | 2025-04-15 13:40 | DVHPNRES ---
Progress Note Date Seen: Apr 15, 2025 Resident Creating Document: BHARTI HERNANDEZ Medical Necessity Reason Pt with a Central, PICC or Fol: Yes The following are medically ne: Mcgrath Catheter Subjective Review of Systems This is a 79-year-old male with a history of Left femur fracture, Dementia, HTN, CVA, HLD, Parkinson disease GERD, depression, insomnia, hearing difficulty who was brought to the ED by EMS following an unwitnessed ground-level fall at his assisted living facility. Patient is extremely hard of hearing and a poor historian. The patient live in [facility] facility where he slipped and fall while attempting to use the bathroom. The patient was found on the floor and unable to ambulate, complaining of right-sided hip pain. He arrived wearing a hard cervical collar. No definitive signs of head trauma were noted. Due to cognitive impairment, history is limited; the patient is alert and oriented to person and place at best. Vital signs on arrival were stable. Pain is localized to the right hip, described as moderate, and the patient is unable to move the extremity or bear weight. CT pelvis: Acute intertrochanteric right femur fracture. Previously fixated intertrochanteric left femur fracture with early healing changes and no evidence of hardware complication. Rectal wall thickening, correlate for symptoms of proctitis. CT cervical spine: No acute finding of the cervical spine. Chest X-Ray: No acute cardiopulmonary abnormality. 04/13/2025: Patient seen at bedside. Patient shows have shortening and internal rotation of the right lower extremity prior to the procedure. Patient is s/p open reduction and internal fixation (ORIF) of a right hip fracture performed today morning. Patient denies any pain at rest and appears in no apparent distress. 04/13/2025: Patient seen and examined at bedside. Patient reports right leg pain. Patient denied any chest pain, shortness of breaths, fever, dysuria, diarrhea. 04/14/2025: Patient seen and examined at bedside. Patient complains mild right leg pain but pain is manageable. EKG shows Sinus rhythm, Right bundle branch block. Progressing with physical therapy 04/15/2025: Patient seen and examined at bedside. Patient complains with lip swelling with left eye swelling. Patient and patient family refuse to go to SNF due to previous bad experience. Patient's family didn't answer the phone. Objective vital signs Vital Sign Date Time Temp Pulse Resp B/P (MAP) Pulse Ox O2 Delivery O2 Flow Rate FiO2 04/15/25 08:50 97.9 94 17 130/75 (93) 94 97.9 04/14/25 20:00 Room Air* 0 21 Total Intake and Output 04/14/25 04/14/25 04/15/25 15:00 23:00 07:00 Intake Total 454 ml 634 ml 175 ml Output Total 475 ml 850 ml Balance 454 ml 159 ml -675 ml medications Current Medications Medications Dose Ordered Sig/Nilesh Route Start Time Stop Time Status Last Admin Dose Admin Sodium Chloride 1,000 ml @ 75 mls/hr [id number] IV 04/12/25 04:00 04/15/25 12:00 75 MLS/HR Nitroglycerin 0.4 mg Q5MINP PRN SL 04/12/25 04:00 Pantoprazole Sodium 40 mg DAILY IV 04/12/25 10:00 04/15/25 09:14 40 MG Morphine Sulfate 1 mg Q4HP PRN IV 04/12/25 06:45 04/14/25 10:45 1 MG Enoxaparin Sodium 40 mg HS SC 04/13/25 22:00 04/14/25 23:37 40 MG Acetaminophen 650 mg Q6HP PRN PO 04/14/25 16:00 04/14/25 16:47 650 MG Examination General Appearance: Alert, moderate distress HEENT: Lip swelling, Left eye swelling, Atraumatic, PERRLA Respiratory: Clear to auscultation, Normal air movement Cardiovascular: Regular rate, Normal S1, Normal S2 Abdominal: Normal bowel sounds, Soft, No masses Extremities: No clubbing, No cyanosis, No edema, Other (Tender palpation on right hip and right leg) Skin: No rashes, No breakdown Neuro: Sensation intact, Other laboratory and microbiology Laboratory Tests 04/15/25 06:16 Test 04/15/25 06:16 Range/Units Serum Glucose 118 H 74-106 mg/dL Labs and/or images reviewed: Labs reviewed by me, Image(s) reviewed by me Problem List/Assessment/Plan Problem List/Assessment/Plan # Acute intertrochanteric right femur fracture -Patient BIB[facility] from [facility] due to fall s/p right hip pain -Vital sign: Blood pressure 146/ 78 and repeat blood pressure 141/88 -In ER patient received Norvell 10/325 mg -CT pelvis: Acute intertrochanteric right femur fracture. Previously fixated intertrochanteric left femur fracture with early healing changes and no evidence of hardware complication. Rectal wall thickening, correlate for symptoms of proctitis. -CT cervical spine: No acute finding of the cervical spine. -MORPHINE 1 MG IV Q.4H PRN FOR PAIN -Orthopedic consult -Right hip open reduction internal fixation (04/13/25) -SNF for physical therapy for 2 weeks -social services manager consult -EKG- Sinus rhythm, Right bundle branch block # Acute intertrochanteric left femur fracture -live in [facility] facility where he slipped and fall while attempting to use bathroom -CT pelvis: comminuted and mildly displaced Left intertrochanteric left femur fracture, coxa vera angulation of the proximal left femur, mild soft tissue swelling about the proximal left femur related to the fracture -Left intramedullary nail fixation for hip fracture (02/23/25) -Follow up with orthopedic surgeon #Dementia -Memantine 10 mg p.o. daily -Donepezil 10 mg p.o. daily # Essential hypertension -During admission,Vital sign: Blood pressure 146/ 78 and repeat blood pressure 141/88 -Amlodipine 5 mg p.o. daily -Lisinopril 10 mg p.o. daily -Monitor blood pressure # CVA -Aspirin 81 mg p.o. daily -Lipid profile # Hyperlipidemia -Atorvastatin 40 mg p.o. daily -Lipid profile #Parkinson disease -Levodopa/carbidopa 10-100 mg p.o. t.i.d. #GERD -Pantoprazole 40 mg p.o. daily #Depression -Sertraline 50 mg p.o. daily #Insomnia -Trazodone 25 mg p.o. q.h.s. p.r.n. # Normocytic normochromic anemia -Lab work on 02/24/2025: Hemoglobin 9.7, HCT 28.4, -MCV 88.2, MCH 30.0, RDW 14.5 -No signs symptoms of active bleeding -Ferritin, iron profile, occult blood test will follow #Hearing difficulty DIET: NPO, NSS 75 CC/HOURS RESUME ALL HOME MEDICATION PER AM TEAM. PUD prophylaxis: protonix 40mg DVT prophylaxis: Levonox 40mg Goals of care: Full code, discussed for >16 minutes on 04/15/25 Plan discussed with patient Plan discussed with Dr. Jefferson Plan discussed with: Patient (RN), Other My Orders My Orders Orders - BHARTI HERNANDEZ Procedure Category Date Status Time Acetaminophen Tablet PHA 04/14/25 In Process (Tylenol Tablet) 16:00 Diphenhdramine PHA 04/15/25 Transmitted Capsule (Benadryl 13:45 Date of Service: Apr 15, 2025 Billing Provider: JANEL JEFFERSON MD Common Visit Codes: 35053-[id number] INP/OBS CARE(HIGH) BHARTI HERNANDEZ Apr 15, 2025 13:40 JANEL JEFFERSON MD Apr 19, 2025 12:14
[2025-04-15] MEDS: diphenhdrAMINE HCL 50 MG/1 ML VL ONE (16:02)
[2025-04-15] MEDS ORDERED: DEXTROSE (50%) 50ML SYRG IV PRN (18:00)
[2025-04-15] MEDS: ACCU-CHEK COMFORT CURVE STRIP VI SCH (20:00)
[2025-04-15] MEDS: methylPREDNISolone SOD SUCC 40 MG/ML VL IV ONE (23:00)
[2025-04-16] VITALS (8 sets, daily range): BP systolic 109–148; BP diastolic 70–95; PULSE 74–96; RESP 16–87; TEMP 97.7–98.2; O2SAT 19–96
[2025-04-16] MEDS: InsuLIN REG 1unit/0.01ml Soln (100units/ml) SC SCH
[2025-04-16] MEDS: FAMOTIDINE (10MG/ML) 2ML VL IV ONE (01:06)
[2025-04-16 08:34] LABS: Anion Gap 10 (5-15); Carbon Dioxide 23 mmol/L (20-31); Chloride 106 mmol/L (98-107); Potassium 4.2 mmol/L (3.5-5.1); Sodium 139 mmol/L (136-145)
[2025-04-16 08:40] LABS: BUN/Creatinine Ratio 20.9 (10.0-20.0); Blood Urea Nitrogen 14 mg/dL (9-23)
[2025-04-16 08:42] LABS: Calcium 8.5 mg/dL (8.7-10.4); Glucose 157 mg/dL (74-106)
[2025-04-16 08:44] LABS: Hematocrit 26.0 % (41.0-53.0); Hemoglobin 8.7 g/dL (13.5-17.5); Mean Corpuscular Hemoglobin 30.0 pg (28.0-32.0); Mean Corpuscular Volume 89.1 fL (80.0-100.0); Nucleated Red Blood Cells % 0.2 %
--- NOTE | 2025-04-16 15:19 | DVHDSRES ---
Discharge Summary Date of Admission Resident Creating Document: BHARTI HERNANDEZ RESIDENT Apr 12, 2025 at 04:00 Date of Discharge: Apr 15, 2025 Admitting Diagnosis mechanical fall Labs/Diagnostic Data: Laboratory Results Test 04/16/25 12:26 04/16/25 07:51 04/14/25 07:30 04/12/25 05:29 POC Glucose 136 mg/dl (70-106) White Blood Count 4.1 10^3/uL (4.4-10.8) Red Blood Count 2.92 10^6/uL (4.5-5.90) Hemoglobin 8.7 g/dL (13.5-17.5) Hematocrit 26.0 % (41.0-53.0) Mean Corpuscular Volume 89.1 fL (80.0-100.0) Mean Corpuscular Hemoglobin 30.0 pg (28.0-32.0) Mean Corpuscular Hemoglobin Concent 33.6 g/dL (32.0-36.0) Red Cell Distribution Width 15.2 % (11.8-14.3) Platelet Count 206 10^3/uL (140-450) Mean Platelet Volume 8.2 fL (6.9-10.8) Neutrophils (%) (Auto) 87.2 % (37.0-80.0) Lymphocytes (%) (Auto) 10.8 % (10.0-50.0) Monocytes (%) (Auto) 1.6 % (0.0-12.0) Eosinophils (%) (Auto) 0.1 % (0.0-7.0) Basophils (%) (Auto) 0.3 % (0.0-2.0) Neutrophils # (Auto) 3.6 10 ^3/uL (1.6-8.6) Lymphocytes # (Auto) 0.4 10 ^3/uL (0.4-5.4) Monocytes # (Auto) 0.1 10 ^3/uL (0-1.3) Eosinophils # (Auto) 0 10 ^3/uL (0-0.8) Basophils # (Auto) 0 10 ^3/uL (0-0.2) Nucleated Red Blood Cells 0.2 % Sodium Level 139 mmol/L (136-145) Potassium Level 4.2 mmol/L (3.5-5.1) Chloride Level 106 mmol/L (98-107) Carbon Dioxide Level 23 mmol/L (20-31) Anion Gap 10 (5-15) Blood Urea Nitrogen 14 mg/dL (9-23) Creatinine 0.67 mg/dL (0.700-1.30) Glomerular Filtration Rate Calc 96 mL/min (>90) BUN/Creatinine Ratio 20.9 (10.0-20.0) Serum Glucose 157 mg/dL (74-106) Calcium Level 8.5 mg/dL (8.7-10.4) Urine Color Yellow (Yellow) Urine Clarity Clear (Clear) Urine pH 5.0 (5.0-9.0) Urine Specific [place] 1.028 (1.001-1.035) Urine Protein Trace (Negative) Urine Ketones Trace (Negative) Urine Blood 3+ /uL (Negative) Urine Nitrite Negative (Negative) Urine Bilirubin Negative (Negative) Urine Urobilinogen Normal mg/dL (Negative) Urine Leukocyte Esterase Negative /uL (Negative) Urine RBC 30 /hpf (0 - 3) Urine Microscopic WBC 3 /HPF (0-3) Urine Squamous Epithelial Cells None seen /hpf (<5) Urine Bacteria None seen /hpf (None Seen) Urine Mucus Few (None Seen) Urine Glucose Normal mg/dL (Normal) Prothrombin Time 11.4 sec (9.3-11.8) Prothrombin Time INR 1.08 (0.9-1.15) Activated Partial Thromboplast Time 30.5 SEC (24.5-34.5) Iron Level 20 ug/dL (65-175) Total Iron Binding Capacity 245 ug/dL (250-425) Percent Iron Saturation 8.2 % (20-55) Ferritin 157.7 ng/mL (22-322) Total Bilirubin 0.5 mg/dL (0.2-1.0) Aspartate Amino Transferase (AST) 24 U/L (13-40) Alanine Aminotransferase (ALT) 26 U/L (7-40) Alkaline Phosphatase 121 U/L (46-116) Total Protein 5.8 g/dL (5.7-8.2) Albumin 4.0 g/dL (3.2-4.8) Vitamin B12 Level 344 pg/mL (211-911) Vitamin D 25-Hydroxy 17.3 ng/mL (30.0-100) Other Laboratory Tests 04/16/25 07:51 Brief Hx & Hospital Course: This is a 79-year-old male with a history of Left femur fracture, Dementia, HTN, CVA, HLD, Parkinson disease GERD, depression, insomnia, hearing difficulty who was brought to the ED by EMS following an unwitnessed ground-level fall at his assisted living facility. Patient is extremely hard of hearing and a poor historian. The patient live in [facility] facility where he slipped and fall while attempting to use the bathroom. The patient was found on the floor and unable to ambulate, complaining of right-sided hip pain. He arrived wearing a hard cervical collar. No definitive signs of head trauma were noted. Due to cognitive impairment, history is limited; the patient is alert and oriented to person and place at best. Vital signs on arrival were stable. Pain is localized to the right hip, described as moderate, and the patient is unable to move the extremity or bear weight. CT pelvis: Acute intertrochanteric right femur fracture. Previously fixated intertrochanteric left femur fracture with early healing changes and no evidence of hardware complication. Rectal wall thickening, correlate for symptoms of proctitis. CT cervical spine: No acute finding of the cervical spine. Chest X-Ray: No acute cardiopulmonary abnormality. Patient underwent ORIF of a right hip fracture. S/P Prophylactic anticoagulation was continued along with pain management. Patient progressed with PT, also had a brief episode of allergy like symptoms with lip swelling and appearance of 3-4 hives like lesion, which was managed effectively with benadryl 15mg x 2 and IV methylprednisolone 40mg once. Initially family had shown some resistance on going to [facility] however, On the day of discharge, pt's POA was agreeable to placement at [facility] for PT. His hospital course was uncomplicated Operations or Procedures PROCEDURE(s): RHIP - R HIP COMPLETE XRAY REASON: ORIF ORDER NUMBER(s): [id number], ACCESSION NUMBER(s): [id number] FLUOROSCOPY TIME: 48 seconds TECHNIQUE: Intraoperative radiographs of the right hip were obtained. COMPARISON: CT PELVIS WO CONTRAST on DOS: 04/12/25, XY L HIP COMPLETE XRAY on DOS: 02/23/25, CT CT L HIP WITH OUT CONTRAST on DOS: 02/20/25 FINDINGS: Refer to intraoperative report for further evaluation. IMPRESSION: Refer to intraoperative report for further evaluation. PROCEDURE(s): CARM1 - C ARM FLUOROSCOPY UP TO 60MIN REASON: [facility] ORDER NUMBER(s): [id number], ACCESSION NUMBER(s): [id number] FLUOROSCOPY TIME: 48 seconds TECHNIQUE: Intraoperative radiographs of the right hip were obtained. COMPARISON: CT PELVIS WO CONTRAST on DOS: 04/12/25, XY L HIP COMPLETE XRAY on DOS: 02/23/25, CT CT L HIP WITH OUT CONTRAST on DOS: 02/20/25 FINDINGS: Refer to intraoperative report for further evaluation. IMPRESSION: Refer to intraoperative report for further evaluation. PROCEDURE(s): CXR1 - CHEST XRAY 1 VIEW REASON: RULE OUT CARDIOPULMONARY DISEASE ORDER NUMBER(s): [id number], ACCESSION NUMBER(s): [id number] CHEST RADIOGRAPH Indication: RULE OUT CARDIOPULMONARY DISEASE Technique: 1 view Comparison: XY CHEST PORTABLE on DOS: 02/21/25, XY CHEST PORTABLE on DOS: 12/27/24, XY L RIB X RAY on DOS: 07/11/24, XY CHEST PORTABLE on DOS: 07/11/24, XY CHEST PORTABLE on DOS: 05/04/24 FINDINGS: Lines and Tubes: None Lungs: Persistent low lung volumes. Mild perihilar interstitial prominence. No evidence of focal consolidation. Pleura: No effusion or pneumothorax. Cardiomediastinal contours: Unremarkable. Bones: No acute osseous abnormality. IMPRESSION: 1. No acute cardiopulmonary abnormality. - --------- PROCEDURE(s): PL2CT - PELVIS WO CONTRAST REASON: Ground level fall, right hip/femoral head pain ORDER NUMBER(s): [id number], ACCESSION NUMBER(s): [id number] History: Ground level fall, right hip/femoral head pain Comparison Study: CT CT AB PEL WO CON-NO ORAL OR IV on DOS: 05/04/24, CT CT AB PEL WO CON-NO ORAL OR IV on DOS: 07/10/23, PELVIS WO CONTRAST on DOS: 05/15/20 Technique: Multidetector spiral CT of the pelvis was performed from iliac crests to pubic symphysis. 100 cc of intravenous contrast was administered during this examination. Portal venous imaging was obtained. Axial, coronal and sagittal multiplanar reformats were performed by the technologist on a separate workstation. Radiation Dose : CT Dose: CTDI volume is 10 mGy. Dose-length product is 515 mGy*cm Findings: Comminuted, mildly displaced and foreshortened intertrochanteric fracture of the right femur. Associated hematoma within the proximal thigh. No additional acute fracture. Left femoral intramedullary betty and femoral neck screw spanning a previous intertrochanteric fracture with callus formation along the fracture lines mild generalized osteopenia. Degenerative changes of the lumbosacral spine, sacroiliac joints and hips. No acute traumatic finding of the pelvic contents. Colonic diverticulosis. Mild rectal wall thickening. Chronic right rectus femoris tear. Atherosclerosis. IMPRESSION: 1. Acute intertrochanteric right femur fracture. 2. Previously fixated intertrochanteric left femur fracture with early healing changes and no evidence of hardware complication. 3. Rectal wall thickening, correlate for symptoms of proctitis. Additional chronic and incidental findings above. END IMPRESSION: - --------- PROCEDURE(s): CS2 - CERVICAL WITHOUT CONTRAST REASON: Fall/trauma ORDER NUMBER(s): [id number], ACCESSION NUMBER(s): [id number] EXAM: CT CERVICAL WITHOUT CONTRAST HISTORY: Fall/trauma COMPARISON: CT HEAD WITHOUT CONTRAST on DOS: 12/27/24, CT HEAD WITHOUT CONTRAST on DOS: 07/11/24, CT HEAD WITHOUT CONTRAST on DOS: 07/09/23, BRAIN HEAD WO CONTRAST on DOS: 07/12/19, HEAD WITHOUT CONTRAST on DOS: 07/10/19 CTDIvol 20 mGy, DLP 558 mGy*cm. TECHNIQUE: Multiple axial CT images of the spine were obtained using bone algorithm. Axial and coronal reformatting was done. Bone and soft tissue windows were reviewed. FINDINGS: No evidence of acute cervical fracture or compression deformity. No traumatic listhesis. Straightening of normal lordotic curvature with minimal degenerative listhesis of C7-T1. Moderate multilevel spondylosis. Normal craniocervical junction alignment with degenerative changes. No acute finding of the imaged intracranial contents, neck soft tissues, or upper chest. Carotid atherosclerosis. IMPRESSION: 1. No acute finding of the cervical spine. Operative Record DESCRIPTION OF PROCEDURE: In the preoperative holding area, the consent was reviewed and the appropriate extremity was verified by the patient and marked with my initials. The patient was then transferred to the operating theatre. Patient was placed on a fracture table. Appropriate anesthetia was induced. All bony prominences were well padded. A time out was performed verifying the side and site of surgery according to standard protocol. Preoperative antibiotics were given. The extremity was then prepped and draped in the usual sterile fashion. Using c-arm, the fracture was reduced using the fracture table and a combination of maneuvers including traction, internal rotation, and flexion. An incision was made over the greater trochanter confirming correct position with c-arm. A guide wire was drilled into the tip of the greater trochanter, centered A to P. We used the starting reamer to gain entry to the femoral canal. A short nail was then placed. A guide pin was then drilled in the center of the femoral head confirmed using fluoroscopy. We measured the screw lengths. Using a cannulated drill, we drilled the lateral cortex. The screws were then introduced. Once positioned, we once again confirmed that the screws were with the femoral head. We placed cerament into comminution. Attention was turned distally. We used the targeting device to drill through the nail and the femur. This was measured using the device, and the screw was placed with good purchase. Final xrays were taken showing the hardware in perfect position. The wound was copiously irrigated. No fractures were seen on the rest of the femur. The fascia was closed with #1 Vicryl, the skin closed #2-0 Vicryl, and elías. A dry sterile dressing was placed on the patient. The patient was transferred to the recovery room in stable condition. PROCEDURE(s): EKG - ELECTROCARDIGRAM ORDER NUMBER(s): [id number], ACCESSION NUMBER(s): [id number] [facility] Test Date: 2025-04-13 Test Time: 05:39:16 Pat Name: JUDE MACIEL Department: Respiratoy Room: 0219T A Gender: M [employer]: GAETANO : 1945 Requested By: BHARTI YOU Order Number: [id number] Reading MD: Measurements Intervals [place] Rate: 86 P: 67 OK: 165 QRS: -15 QRSD: 155 T: -7 QT: 420 QTc: 503 Interpretive Statements Sinus rhythm Right bundle branch block Please click the below link to view image of tracing. DICTATED BY: DICTATED DATE/TIME:04/13/25 0539 Condition at Discharge: Fair Final Diagnosis/Problems List # Acute intertrochanteric right femur fracture # Acute intertrochanteric left femur fracture # Vitamin D deficiency #Dementia # Essential hypertension # Hx of CVA # Hyperlipidemia #Parkinson disease #GERD #Depression #Insomnia # Normocytic normochromic anemia #Hearing difficulty Discharge Disposition: Snf Facility Discharge Instruct/Medications Diet: Cardiac 2g Na,low cholest Activity: Bed rest Follow Up/Referral: As per higher level of care Medications: As per higher level of care Scheduled Amlodipine Besylate (Norvasc Tablet), 1 TAB PO BID, (Reported) Atorvastatin Calcium (Atorvastatin Calcium), 1 TAB PO QPM, (Reported) Carbidopa-Levodopa (Carbidopa/Levodopa Odt 10-100 mg), 1 TAB PO TID, (Reported) Donepezil Hydrochloride (Donepezil Hcl), 1 TAB PO DAILY, (Reported) Lisinopril (Lisinopril), 1 TAB PO DAILY, (Reported) Memantine Hydrochloride (Memantine HCl), 1 TAB PO BID, (Reported) Pantoprazole Sodium Sesquihydr (Pantoprazole Sodium), 40 MG PO DAILY Sertraline Hcl (Sertraline Hcl), 100 MG PO DAILY, (Reported) Trazodone Hcl (Trazodone Hcl), 0.5 TAB PO HSPRN, (Reported) Miscellaneous Medications Aspirin (Aspirin 81 Low Dose), 162 MG PO, (Reported) Discharge Statement: "Patient was advised to return to the ER or call 911 if any headaches, dizziness, shortness of breath, chest pain, abdominal pain, bleeding, fevers, or worsening of medical condition. Patient was counseled about treatment plan, medications, possible side effects, patientverbalized understanding. All questions were answered to the best of my ability. This discharge took greater then 30 minutes in planning, reviewing documentation, counseling the patient, and discussing with other team members." ASSESSMENT ASSESSMENT Assessment # Acute intertrochanteric right femur fracture # Acute intertrochanteric left femur fracture #Dementia # Essential hypertension # CVA # Hyperlipidemia #Parkinson disease #GERD #Depression #Insomnia # Normocytic normochromic anemia #Hearing difficulty Date of Service: Apr 16, 2025 Billing Provider: JANEL BATRES MD Common Visit Codes: 97778-NLA/OBS DISCH DAY >30min BHARTI HERNANDEZ RESIDENT Apr 16, 2025 15:19 ALVAREZ BUCKLEY RESIDENT Apr 16, 2025 20:06 JANEL BATRES MD Apr 19, 2025 12:15
[2025-04-16] MEDS: ERGOCALCIFEROL 50,000 UNIT(1.25MG) CAP PO SCH (21:45)
[2025-04-17] VITALS (8 sets, daily range): BP systolic 116–146; BP diastolic 70–79; PULSE 74–99; RESP 18–20; TEMP 97.9–99; O2SAT 94–98
[2025-04-17 08:06] LABS: Anion Gap 10 (5-15); Carbon Dioxide 24 mmol/L (20-31); Sodium 141 mmol/L (136-145)
[2025-04-17 08:12] LABS: BUN/Creatinine Ratio 24.6 (10.0-20.0); Blood Urea Nitrogen 16 mg/dL (9-23); Glucose 101 mg/dL (74-106)
[2025-04-17 08:13] LABS: Calcium 8.2 mg/dL (8.7-10.4); Chloride 107 mmol/L (98-107); Potassium 3.4 mmol/L (3.5-5.1)
[2025-04-17 08:14] LABS: Hematocrit 23.2 % (41.0-53.0); Hemoglobin 7.8 g/dL (13.5-17.5); Mean Corpuscular Hemoglobin 30.0 pg (28.0-32.0); Mean Corpuscular Volume 89.0 fL (80.0-100.0); Nucleated Red Blood Cells % 0.1 %
--- NOTE | 2025-04-17 14:36 | DVHPNRES ---
Progress Note Date Seen: Apr 17, 2025 Resident Creating Document: BHARTI HERNANDEZ Medical Necessity Reason Pt with a Central, PICC or Fol: Yes The following are medically ne: Mcgrath Catheter Subjective Review of Systems This is a 79-year-old male with a history of Left femur fracture, Dementia, HTN, CVA, HLD, Parkinson disease GERD, depression, insomnia, hearing difficulty who was brought to the ED by EMS following an unwitnessed ground-level fall at his assisted living facility. Patient is extremely hard of hearing and a poor historian. The patient live in [facility] facility where he slipped and fall while attempting to use the bathroom. The patient was found on the floor and unable to ambulate, complaining of right-sided hip pain. He arrived wearing a hard cervical collar. No definitive signs of head trauma were noted. Due to cognitive impairment, history is limited; the patient is alert and oriented to person and place at best. Vital signs on arrival were stable. Pain is localized to the right hip, described as moderate, and the patient is unable to move the extremity or bear weight. CT pelvis: Acute intertrochanteric right femur fracture. Previously fixated intertrochanteric left femur fracture with early healing changes and no evidence of hardware complication. Rectal wall thickening, correlate for symptoms of proctitis. CT cervical spine: No acute finding of the cervical spine. Chest X-Ray: No acute cardiopulmonary abnormality. 04/13/2025: Patient seen at bedside. Patient shows have shortening and internal rotation of the right lower extremity prior to the procedure. Patient is s/p open reduction and internal fixation (ORIF) of a right hip fracture performed today morning. Patient denies any pain at rest and appears in no apparent distress. 04/13/2025: Patient seen and examined at bedside. Patient reports right leg pain. Patient denied any chest pain, shortness of breaths, fever, dysuria, diarrhea. 04/14/2025: Patient seen and examined at bedside. Patient complains mild right leg pain but pain is manageable. EKG shows Sinus rhythm, Right bundle branch block. Progressing with physical therapy 04/15/2025: Patient seen and examined at bedside. Patient complains with lip swelling with left eye swelling. Patient and patient family refuse to go to SNF due to previous bad experience. Patient's family didn't answer the phone. 04/17/2025: Patient seen and examined at bedside. Patient shows significant improvement in lip swelling and left eye swelling and hives in arms. Patient is planning to return to [facility] and is currently waiting for bed availability. Objective vital signs Vital Sign Date Time Temp Pulse Resp B/P (MAP) Pulse Ox O2 Delivery O2 Flow Rate FiO2 04/17/25 13:00 98.2 84 20 116/72 (87) 96 98.2 04/17/25 08:00 Room Air* 0 21 Total Intake and Output 04/16/25 04/16/25 04/17/25 14:59 22:59 06:59 Intake Total 75 ml 1225 ml 480 ml Output Total 500 ml 400 ml Balance 75 ml 725 ml 80 ml medications Current Medications Medications Dose Ordered Sig/Nilesh Route Start Time Stop Time Status Last Admin Dose Admin Sodium Chloride 1,000 ml @ 75 mls/hr [id number] IV 04/12/25 04:00 04/17/25 04:00 75 MLS/HR Nitroglycerin 0.4 mg Q5MINP PRN SL 04/12/25 04:00 Morphine Sulfate 1 mg Q4HP PRN IV 04/12/25 06:45 Hold 04/14/25 10:45 1 MG Enoxaparin Sodium 40 mg HS SC 04/13/25 22:00 04/16/25 21:28 40 MG Acetaminophen 650 mg Q6HP PRN PO 04/14/25 16:00 04/17/25 09:23 650 MG Diagnostic Test (Pha) 1 strip IQ4HR 04/15/25 20:00 04/17/25 12:00 1 STRIP Insulin Human Regular IQ4HR SC 04/15/25 20:00 04/17/25 09:29 2 UNITS Dextrose 50 ml UD PRN IV 04/15/25 18:00 Ergocalciferol 50,000 unit Q7D PO 04/16/25 20:00 04/16/25 21:45 50,000 UNIT Examination General Appearance: Alert, moderate distress HEENT: Atraumatic, PERRLA Respiratory: Clear to auscultation, Normal air movement Cardiovascular: Regular rate, Normal S1, Normal S2 Abdominal: Normal bowel sounds, Soft, No masses Extremities: No clubbing, No cyanosis, No edema, Other (Tender palpation on right hip and right leg) Skin: No rashes, No breakdown Neuro: Sensation intact, Other laboratory and microbiology Laboratory Tests 04/17/25 07:16 Test 04/17/25 07:16 Range/Units Serum Glucose 101 74-106 mg/dL Labs and/or images reviewed: Image(s) reviewed by me Problem List/Assessment/Plan Problem List/Assessment/Plan # Acute intertrochanteric right femur fracture -[facility] due to [facility] s/p right hip pain -Vital sign: Blood pressure 146/ 78 and repeat blood pressure 141/88 -In ER patient received [place] 10/325 mg -CT pelvis: Acute intertrochanteric right femur fracture. Previously fixated intertrochanteric left femur fracture with early healing changes and no evidence of hardware complication. Rectal wall thickening, correlate for symptoms of proctitis. -CT cervical spine: No acute finding of the cervical spine. -MORPHINE 1 MG IV Q.4H PRN FOR PAIN -Orthopedic consult -Right hip open reduction internal fixation (04/13/25) -SNF for physical therapy for 2 weeks -support services tech consult -EKG- Sinus rhythm, Right bundle branch block # Acute intertrochanteric left femur fracture -live in [facility] facility where he slipped and fall while attempting to use bathroom -CT pelvis: comminuted and mildly displaced Left intertrochanteric left femur fracture, coxa vera angulation of the proximal left femur, mild soft tissue swelling about the proximal left femur related to the fracture -Left intramedullary nail fixation for hip fracture (02/23/25) -Follow up with orthopedic surgeon #Dementia -Memantine 10 mg p.o. daily -Donepezil 10 mg p.o. daily # Essential hypertension -During admission,Vital sign: Blood pressure 146/ 78 and repeat blood pressure 141/88 -Amlodipine 5 mg p.o. daily -Lisinopril 10 mg p.o. daily -Monitor blood pressure # CVA -Aspirin 81 mg p.o. daily -Lipid profile # Hyperlipidemia -Atorvastatin 40 mg p.o. daily -Lipid profile #Parkinson disease -Levodopa/carbidopa 10-100 mg p.o. t.i.d. #GERD -Pantoprazole 40 mg p.o. daily #Depression -Sertraline 50 mg p.o. daily #Insomnia -Trazodone 25 mg p.o. q.h.s. p.r.n. # Normocytic normochromic anemia -Lab work on 02/24/2025: Hemoglobin 9.7, HCT 28.4, -MCV 88.2, MCH 30.0, RDW 14.5 -No signs symptoms of active bleeding -Ferritin, iron profile, occult blood test will follow #Hearing difficulty DIET: NPO, NSS 75 CC/HOURS RESUME ALL HOME MEDICATION PER AM TEAM. PUD prophylaxis: protonix 40mg DVT prophylaxis: Levonox 40mg Goals of care: Full code, discussed for >16 minutes on 04/17/25 Plan discussed with patient Plan discussed with Dr. Jefferson Plan discussed with: Patient, Other (RN) Date of Service: Apr 17, 2025 Billing Provider: JANEL JEFFERSON MD Common Visit Codes: [id number] INP/OBS CARE(MOD) SARAH HERNANDEZYESSI RESIDENT Apr 17, 2025 14:36 JANEL JEFFERSON MD Apr 19, 2025 12:15
[2025-04-18] VITALS (9 sets, daily range): BP systolic 135–162; BP diastolic 77–95; PULSE 81–108; RESP 15–18; TEMP 97.6–99.9; O2SAT 94–99
[2025-04-18 07:39] LABS: Anion Gap 9 (5-15); Carbon Dioxide 25 mmol/L (20-31); Chloride 106 mmol/L (98-107); Hematocrit 23.6 % (41.0-53.0); Hemoglobin 8.0 g/dL (13.5-17.5); Mean Corpuscular Hemoglobin 29.8 pg (28.0-32.0); Mean Corpuscular Volume 87.5 fL (80.0-100.0); Nucleated Red Blood Cells % 0.0 %; Potassium 3.6 mmol/L (3.5-5.1); Sodium 140 mmol/L (136-145)
[2025-04-18 07:41] LABS: Calcium 8.3 mg/dL (8.7-10.4)
[2025-04-18 07:45] LABS: BUN/Creatinine Ratio 17.5 (10.0-20.0); Blood Urea Nitrogen 11 mg/dL (9-23); Glucose 96 mg/dL (74-106)
[2025-04-18] MEDS: ACETAMINOPHEN 650 mg PER 20.3 mL UD PO PRN (13:35)
--- NOTE | 2025-04-18 17:56 | DVHPN2 ---
Subjective No change. [facility] Reviewed: Care Plan, H&P, Labs, Medications, Previous Orders, Radiology, Other (Consultants) Changes from previous H/P or p: No Changes ENT: Other (Hearing difficulty) Objective Vitals Vital Signs Date Time Temp Pulse Resp B/P (MAP) Pulse Ox O2 Delivery O2 Flow Rate FiO2 04/18/25 17:00 99.1 94 15 158/89 (112) 99 99.1 04/18/25 07:45 Room Air* 0 21 Intake/Output Intake and Output 04/18/25 07:00 Intake Total 2172.5 ml Output Total 1050 ml Balance 1122.5 ml Intake Oral 1310 ml IV Total 862.5 ml Output Urine Total 1050 ml General Appearance: Alert, Oriented X3, Cooperative, No acute distress HEENT: Atraumatic Lungs: Clear to auscultation Cardiovascular: Regular rate Abdomen: Normal bowel sounds, Soft, No tenderness Extremities: Other (Some mild edema bilateral lower extremities.) Neuro: Other (Generalized weakness) Medications Current Medications Medications Dose Ordered Sig/Nilesh Route Start Time Stop Time Status Last Admin Dose Admin Sodium Chloride 1,000 ml @ 75 mls/hr [id number] IV 04/12/25 04:00 04/18/25 04:51 75 MLS/HR Nitroglycerin 0.4 mg Q5MINP PRN SL 04/12/25 04:00 Morphine Sulfate 1 mg Q4HP PRN IV 04/12/25 06:45 Hold 04/14/25 10:45 1 MG Enoxaparin Sodium 40 mg HS SC 04/13/25 22:00 04/17/25 21:11 40 MG Diagnostic Test (Pha) 1 strip IQ4HR 04/15/25 20:00 04/18/25 16:06 1 STRIP Insulin Human Regular IQ4HR SC 04/15/25 20:00 04/18/25 16:21 2 UNITS Dextrose 50 ml UD PRN IV 04/15/25 18:00 Ergocalciferol 50,000 unit Q7D PO 04/16/25 20:00 04/16/25 21:45 50,000 UNIT Acetaminophen 650 mg Q6HP PRN PO 04/18/25 13:30 04/18/25 13:35 650 MG Laboratory Results Laboratory Tests 04/18/25 04:27 Chemistry Test 04/18/25 04:27 Calcium Level 8.3 mg/dL (8.7-10.4) L Urinalysis Test 04/14/25 07:30 Urine Color Yellow (Yellow) Urine Clarity Clear (Clear) Urine pH 5.0 (5.0-9.0) Urine Specific [place] 1.028 (1.001-1.035) Urine Protein Trace (Negative) H Urine Ketones Trace (Negative) Urine Blood 3+ /uL (Negative) H Urine Nitrite Negative (Negative) Urine Bilirubin Negative (Negative) Urine Urobilinogen Normal mg/dL (Negative) Urine Leukocyte Esterase Negative /uL (Negative) Urine RBC 30 /hpf (0 - 3) Urine Microscopic WBC 3 /HPF (0-3) Urine Squamous Epithelial Cells None seen /hpf (<5) Urine Bacteria None seen /hpf (None Seen) Urine Mucus Few (None Seen) Urine Glucose Normal mg/dL (Normal) Assessment/Plan Assessment/Plan Right hip fracture status post ORIF Dementia Parkinson Hypertension History of CVA GERD Depression Insomnia Hard of hearing Anemia of chronic disease Dyslipidemia Plan: Continue current plan of care. Awaiting bed availability for transfer to [facility] review or stenting and Plan discussed with: Other (Nursing) My Orders Orders - REY SANTOYO MD Procedure Category Date Status Time Acetaminophen PHA 04/18/25 In Process Solution Oral 13:30 Date of Service: Apr 18, 2025 Billing Provider: REY SANTOYO MD Common Visit Codes: [id number] INP/OBS CARE(HIGH) REY SANTOYO MD Apr 18, 2025 17:55
[2025-04-19] VITALS (8 sets, daily range): BP systolic 120–137; BP diastolic 70–81; PULSE 90–112; RESP 16–19; TEMP 98.4–99.8; O2SAT 93–96
--- NOTE | 2025-04-19 12:43 | DVHPNRES ---
Progress Note Date Seen: Apr 19, 2025 Resident Creating Document: BHARTI HERNANDEZ Medical Necessity Reason Pt with a Central, PICC or Fol: Yes The following are medically ne: Mcgrath Catheter Subjective Review of Systems This is a 79-year-old male with a history of Left femur fracture, Dementia, HTN, CVA, HLD, Parkinson disease GERD, depression, insomnia, hearing difficulty who was brought to the ED by EMS following an unwitnessed ground-level fall at his assisted living facility. Patient is extremely hard of hearing and a poor historian. The patient live in [facility] facility where he slipped and fall while attempting to use the bathroom. The patient was found on the floor and unable to ambulate, complaining of right-sided hip pain. He arrived wearing a hard cervical collar. No definitive signs of head trauma were noted. Due to cognitive impairment, history is limited; the patient is alert and oriented to person and place at best. Vital signs on arrival were stable. Pain is localized to the right hip, described as moderate, and the patient is unable to move the extremity or bear weight. CT pelvis: Acute intertrochanteric right femur fracture. Previously fixated intertrochanteric left femur fracture with early healing changes and no evidence of hardware complication. Rectal wall thickening, correlate for symptoms of proctitis. CT cervical spine: No acute finding of the cervical spine. Chest X-Ray: No acute cardiopulmonary abnormality. 04/13/2025: Patient seen at bedside. Patient shows have shortening and internal rotation of the right lower extremity prior to the procedure. Patient is s/p open reduction and internal fixation (ORIF) of a right hip fracture performed today morning. Patient denies any pain at rest and appears in no apparent distress. 04/13/2025: Patient seen and examined at bedside. Patient reports right leg pain. Patient denied any chest pain, shortness of breaths, fever, dysuria, diarrhea. 04/14/2025: Patient seen and examined at bedside. Patient complains mild right leg pain but pain is manageable. EKG shows Sinus rhythm, Right bundle branch block. Progressing with physical therapy 04/15/2025: Patient seen and examined at bedside. Patient complains with lip swelling with left eye swelling. Patient and patient family refuse to go to SNF due to previous bad experience. Patient's family didn't answer the phone. 04/17/2025: Patient seen and examined at bedside. Patient shows significant improvement in lip swelling and left eye swelling and hives in arms. Patient is planning to return to [facility] and is currently waiting for bed availability. 04/19/2025: Patient seen and examined at bedside. The patients vital signs have remained stable and are appropriate for discharge to a halfway facility for rehabilitation. We are currently awaiting bed availability for transfer to [facility]. Objective vital signs Vital Sign Date Time Temp Pulse Resp B/P (MAP) Pulse Ox O2 Delivery O2 Flow Rate FiO2 04/19/25 08:00 90 04/19/25 07:45 Room Air* 0 21 04/19/25 05:00 98.4 16 120/70 (87) 94 98.4 Total Intake and Output 04/18/25 04/18/25 04/19/25 15:00 23:00 07:00 Intake Total 300 ml 1060 ml Output Total 2000 ml 1100 ml Balance -1700 ml -40 ml medications Current Medications Medications Dose Ordered Sig/Nilesh Route Start Time Stop Time Status Last Admin Dose Admin Sodium Chloride 1,000 ml @ 75 mls/hr [id number] IV 04/12/25 04:00 04/18/25 20:00 75 MLS/HR Nitroglycerin 0.4 mg Q5MINP PRN SL 04/12/25 04:00 Morphine Sulfate 1 mg Q4HP PRN IV 04/12/25 06:45 Hold 04/14/25 10:45 1 MG Enoxaparin Sodium 40 mg HS SC 04/13/25 22:00 04/18/25 21:04 40 MG Diagnostic Test (Pha) 1 strip IQ4HR 04/15/25 20:00 04/19/25 04:00 1 STRIP Insulin Human Regular IQ4HR SC 04/15/25 20:00 04/19/25 04:00 2 UNITS Dextrose 50 ml UD PRN IV 04/15/25 18:00 Ergocalciferol 50,000 unit Q7D PO 04/16/25 20:00 04/16/25 21:45 50,000 UNIT Acetaminophen 650 mg Q6HP PRN PO 04/18/25 13:30 04/18/25 20:53 650 MG laboratory and microbiology Laboratory Tests 04/18/25 04:27 Test 04/18/25 04:27 Range/Units Serum Glucose 96 74-106 mg/dL Labs and/or images reviewed: Labs reviewed by me, Image(s) reviewed by me Problem List/Assessment/Plan Problem List/Assessment/Plan # Acute intertrochanteric right femur fracture -[facility] s/[facility] right [facility] pain -Vital sign: Blood pressure 146/ 78 and repeat blood pressure 141/88 -In ER patient received [place] 10/325 mg -CT pelvis: Acute intertrochanteric right femur fracture. Previously fixated intertrochanteric left femur fracture with early healing changes and no evidence of hardware complication. Rectal wall thickening, correlate for symptoms of proctitis. -CT cervical spine: No acute finding of the cervical spine. -MORPHINE 1 MG IV Q.4H PRN FOR PAIN -Orthopedic consult -Right hip open reduction internal fixation (04/13/25) -SNF for physical therapy for 2 weeks -environmental services technician consult -EKG- Sinus rhythm, Right bundle branch block # Acute intertrochanteric left femur fracture -live in [facility] facility where he slipped and fall while attempting to use bathroom -CT pelvis: comminuted and mildly displaced Left intertrochanteric left femur fracture, coxa vera angulation of the proximal left femur, mild soft tissue swelling about the proximal left femur related to the fracture -Left intramedullary nail fixation for hip fracture (02/23/25) -Follow up with orthopedic surgeon #Dementia -Memantine 10 mg p.o. daily -Donepezil 10 mg p.o. daily # Essential hypertension -During admission,Vital sign: Blood pressure 146/ 78 and repeat blood pressure 141/88 -Amlodipine 5 mg p.o. daily -Lisinopril 10 mg p.o. daily -Monitor blood pressure # CVA -Aspirin 81 mg p.o. daily -Lipid profile # Hyperlipidemia -Atorvastatin 40 mg p.o. daily -Lipid profile #Parkinson disease -Levodopa/carbidopa 10-100 mg p.o. t.i.d. #GERD -Pantoprazole 40 mg p.o. daily #Depression -Sertraline 50 mg p.o. daily #Insomnia -Trazodone 25 mg p.o. q.h.s. p.r.n. # Normocytic normochromic anemia -Lab work on 02/24/2025: Hemoglobin 9.7, HCT 28.4, -MCV 88.2, MCH 30.0, RDW 14.5 -No signs symptoms of active bleeding -Ferritin, iron profile, occult blood test will follow #Hearing difficulty DIET: NPO, NSS 75 CC/HOURS RESUME ALL HOME MEDICATION PER AM TEAM. PUD prophylaxis: protonix 40mg DVT prophylaxis: Levonox 40mg Goals of care: Full code, discussed for >16 minutes on 04/19/25 Plan discussed with patient Plan discussed with Dr. Santoyo Plan discussed with: Patient, Other (RN) Dietary Evaluation Review Comments: 1) Colin 1 pk BID 2) Monitor PO intake, lab values, I/O Expected Outcomes/Goals: To meet >75% estimated needs Fu 3-5 days Date of Service: Apr 19, 2025 Billing Provider: REY SANTOYO MD Common Visit Codes: [id number] INP/OBS CARE(HIGH) BHARTI HERNANDEZ RESIDENT Apr 19, 2025 12:43 REY SANTOYO MD Apr 19, 2025 18:10
--- NOTE | 2025-04-19 23:16 | ECG ---
[facility] Test Date: 2025-04-19 Test Time: 21:37:40 Pat Name: JUDE MACIEL Department: Room: [facility]4T B Gender: M Plant Facilities Technician: Jakob : 1945 Requested By: ABBEY RIVERA Order Number: [id number] Reading MD: Javier Otoole Measurements Intervals [place] Rate: 150 P: 0 GA: 90 QRS: 5 QRSD: 139 T: -20 QT: 315 QTc: 498 Interpretive Statements Wide-QRS tachycardia Right bundle branch block Electronically Signed On 04-20-2025 18:44:28 PDT by Javier Otoole Please click the below link to view image of tracing.
[2025-04-20] VITALS (8 sets, daily range): BP systolic 99–125; BP diastolic 62–78; PULSE 84–135; RESP 16–22; TEMP 98.1–98.8; O2SAT 92–98
[2025-04-20] MEDS: METOPROLOL TARTRATE 25 MG TAB PO ONE (00:52)
--- NOTE | 2025-04-20 01:38 | DVH ---
Bilateral lower extremity venous duplex Clinical History: R/O dvt Comparison: CT PELVIS WO CONTRAST on DOS: 04/12/25, US BILAT LOWER DVT on DOS: 12/27/24 Technique: Duplex Doppler evaluation of the deep venous systems of both lower extremities from the common femora l veins to the popliteal veins including color Doppler and spectral/pulsed waveform analysis was perf ormed. Findings: RIGHT SIDE: The common femoral vein demonstrates appropriate compressibility and waveform variability. There is compressibility/patency of the great saphenous vein at the proximal thigh. The femoral vein demonstrates appropriate compressibility and waveform variability. The deep femoral vein demonstrates appropriate compressibility and waveform variability. The popliteal vein demonstrates appropriate compressibility and waveform variability. There is normal compressibility at the tibioperoneal trunk although posterior tibial veins are not we ll visualized. LEFT SIDE: The common femoral vein demonstrates appropriate compressibility and waveform variability. There is compressibility/patency of the great saphenous vein at the proximal thigh. The femoral vein demonstrates appropriate compressibility and waveform variability. The deep femoral vein demonstrates appropriate compressibility and waveform variability. The popliteal vein demonstrates appropriate compressibility and waveform variability. There is normal compressibility at the tibioperoneal trunk although posterior tibial veins are not we ll visualized. Impression: 1. Bilateral posterior tibial veins are not well visualized. 2. Otherwise, no right or left femoropopliteal venous thrombosis.
[2025-04-20 08:07] LABS: Hematocrit 28.4 % (41.0-53.0); Hemoglobin 9.3 g/dL (13.5-17.5); Mean Corpuscular Hemoglobin 29.6 pg (28.0-32.0); Mean Corpuscular Volume 89.8 fL (80.0-100.0); Nucleated Red Blood Cells % 0.1 %
[2025-04-20 08:11] LABS: Potassium 3.7 mmol/L (3.5-5.1); Sodium 140 mmol/L (136-145)
[2025-04-20 08:12] LABS: Anion Gap 10 (5-15); Carbon Dioxide 22 mmol/L (20-31)
[2025-04-20 08:17] LABS: BUN/Creatinine Ratio 12.3 (10.0-20.0); Blood Urea Nitrogen 9 mg/dL (9-23)
[2025-04-20 08:21] LABS: Calcium 8.6 mg/dL (8.7-10.4); Chloride 108 mmol/L (98-107); Glucose 118 mg/dL (74-106)
--- NOTE | 2025-04-20 08:26 | ECG ---
[facility] Test Date: 2025-04-19 Test Time: 23:06:32 Pat Name: JUDE MACIEL Department: Respiratoy Room: [facility]4T B Gender: M Teacher Vocational Training: : 1945 Requested By: ABBEY RIVERA Order Number: [id number] Reading MD: Javier Otoole Measurements Intervals [place] Rate: 162 P: 0 AK: 0 QRS: 2 QRSD: 136 T: -26 QT: 320 QTc: 526 Interpretive Statements Wide-QRS tachycardia, consider junctional tachycardia Right bundle branch block Electronically Signed On 04-20-2025 18:47:07 PDT by Javier Otoole Please click the below link to view image of tracing.
[2025-04-20] MEDS: APIXABAN 5 MG TAB PO SCH ×2 (13:57→21:25)
[2025-04-20] MEDS: METOPROLOL SUCCINATE XL 50 MG TAB PO ONE (13:59)
[2025-04-20] MEDS ORDERED: DEXTROSE (50%) 50ML SYRG IV PRN (14:00)
--- NOTE | 2025-04-20 16:33 | DVHPNRES ---
Progress Note Date Seen: Apr 20, 2025 Resident Creating Document: BHARTI HERNANDEZ Medical Necessity Reason Pt with a Central, PICC or Fol: Yes The following are medically ne: Mcgrath Catheter Subjective Review of Systems This is a 79-year-old male with a history of Left femur fracture, Dementia, HTN, CVA, HLD, Parkinson disease GERD, depression, insomnia, hearing difficulty who was brought to the ED by EMS following an unwitnessed ground-level fall at his assisted living facility. Patient is extremely hard of hearing and a poor historian. The patient live in [facility] facility where he slipped and fall while attempting to use the bathroom. The patient was found on the floor and unable to ambulate, complaining of right-sided hip pain. He arrived wearing a hard cervical collar. No definitive signs of head trauma were noted. Due to cognitive impairment, history is limited; the patient is alert and oriented to person and place at best. Vital signs on arrival were stable. Pain is localized to the right hip, described as moderate, and the patient is unable to move the extremity or bear weight. CT pelvis: Acute intertrochanteric right femur fracture. Previously fixated intertrochanteric left femur fracture with early healing changes and no evidence of hardware complication. Rectal wall thickening, correlate for symptoms of proctitis. CT cervical spine: No acute finding of the cervical spine. Chest X-Ray: No acute cardiopulmonary abnormality. 04/13/2025: Patient seen at bedside. Patient shows have shortening and internal rotation of the right lower extremity prior to the procedure. Patient is s/p open reduction and internal fixation (ORIF) of a right hip fracture performed today morning. Patient denies any pain at rest and appears in no apparent distress. 04/13/2025: Patient seen and examined at bedside. Patient reports right leg pain. Patient denied any chest pain, shortness of breaths, fever, dysuria, diarrhea. 04/14/2025: Patient seen and examined at bedside. Patient complains mild right leg pain but pain is manageable. EKG shows Sinus rhythm, Right bundle branch block. Progressing with physical therapy 04/15/2025: Patient seen and examined at bedside. Patient complains with lip swelling with left eye swelling. Patient and patient family refuse to go to SNF due to previous bad experience. Patient's family didn't answer the phone. 04/17/2025: Patient seen and examined at bedside. Patient shows significant improvement in lip swelling and left eye swelling and hives in arms. Patient is planning to return to [facility] and is currently waiting for bed availability. 04/19/2025: Patient seen and examined at bedside. The patients vital signs have remained stable and are appropriate for discharge to a [facility] facility for rehabilitation. We are currently awaiting bed availability for transfer to [facility]. 04/20/2025: Patient seen and examined at bedside. On evaluation today, he states he is well, pain is manageable. His HR increased to 150s, Metoprolol 12.5 mg PO ordered. Enoxaparin 30 mg stopped, Eliquis 2.5 mg started. Objective vital signs Vital Sign Date Time Temp Pulse Resp B/P (MAP) Pulse Ox O2 Delivery O2 Flow Rate FiO2 04/20/25 13:59 88 101/62 04/20/25 13:06 98.1 18 92 98.1 04/20/25 08:00 Room Air* 0 21 Total Intake and Output 04/19/25 04/19/25 04/20/25 15:00 23:00 07:00 Intake Total 1375 ml 300 ml Output Total 626 ml 700 ml Balance 749 ml -400 ml medications Current Medications Medications Dose Ordered Sig/Nilesh Route Start Time Stop Time Status Last Admin Dose Admin Nitroglycerin 0.4 mg Q5MINP PRN SL 04/12/25 04:00 Morphine Sulfate 1 mg Q4HP PRN IV 04/12/25 06:45 Hold 04/14/25 10:45 1 MG Ergocalciferol 50,000 unit Q7D PO 04/16/25 20:00 04/16/25 21:45 50,000 UNIT Acetaminophen 650 mg Q6HP PRN PO 04/18/25 13:30 04/20/25 11:04 650 MG Metoprolol Succinate 25 mg DAILY PO 04/21/25 10:00 Diagnostic Test (Pha) 1 strip ACHS 04/20/25 17:00 Insulin Human Regular ACHS SC 04/20/25 17:00 Dextrose 50 ml UD PRN IV 04/20/25 14:00 Apixaban 2.5 mg BID PO 04/20/25 22:00 Examination General Appearance: Alert, moderate distress HEENT: Atraumatic, PERRLA Respiratory: Clear to auscultation, Normal air movement Cardiovascular: Regular rate, Normal S1, Normal S2 Abdominal: Normal bowel sounds, Soft, No masses Extremities: No clubbing, No cyanosis, No edema, Other (Tender palpation on right hip and right leg) Skin: No rashes, No breakdown Neuro: Sensation intact, Other laboratory and microbiology Laboratory Tests 04/20/25 07:06 Test 04/20/25 07:06 Range/Units Serum Glucose 118 H 74-106 mg/dL Labs and/or images reviewed: Labs reviewed by me, Image(s) reviewed by me (RN) Problem List/Assessment/Plan Problem List/Assessment/Plan # Acute intertrochanteric right femur fracture -Patient BIBEMS from [facility] due to fall s/p right hip pain -Vital sign: Blood pressure 146/ 78 and repeat blood pressure 141/88 -In ER patient received [place] 10/325 mg -CT pelvis: Acute intertrochanteric right femur fracture. Previously fixated intertrochanteric left femur fracture with early healing changes and no evidence of hardware complication. Rectal wall thickening, correlate for symptoms of proctitis. -CT cervical spine: No acute finding of the cervical spine. -MORPHINE 1 MG IV Q.4H PRN FOR PAIN -Orthopedic consult -Right hip open reduction internal fixation (04/13/25) -SNF for physical therapy for 2 weeks -medical services assistant consult -EKG- Sinus rhythm, Right bundle branch block # Acute intertrochanteric left femur fracture -live in [facility] facility where he slipped and fall while attempting to use bathroom -CT pelvis: comminuted and mildly displaced Left intertrochanteric left femur fracture, coxa vera angulation of the proximal left femur, mild soft tissue swelling about the proximal left femur related to the fracture -Left intramedullary nail fixation for hip fracture (02/23/25) -Follow up with orthopedic surgeon #Dementia -Memantine 10 mg p.o. daily -Donepezil 10 mg p.o. daily # Essential hypertension -During admission,Vital sign: Blood pressure 146/ 78 and repeat blood pressure 141/88 -Amlodipine 5 mg p.o. daily -Lisinopril 10 mg p.o. daily -Monitor blood pressure # CVA -Aspirin 81 mg p.o. daily -Lipid profile # Hyperlipidemia -Atorvastatin 40 mg p.o. daily -Lipid profile #Parkinson disease -Levodopa/carbidopa 10-100 mg p.o. t.i.d. #GERD -Pantoprazole 40 mg p.o. daily #Depression -Sertraline 50 mg p.o. daily #Insomnia -Trazodone 25 mg p.o. q.h.s. p.r.n. # Normocytic normochromic anemia -Lab work on 02/24/2025: Hemoglobin 9.7, HCT 28.4, -MCV 88.2, MCH 30.0, RDW 14.5 -No signs symptoms of active bleeding -Ferritin, iron profile, occult blood test will follow #Hearing difficulty DIET: NPO, NSS 75 CC/HOURS RESUME ALL HOME MEDICATION PER AM TEAM. PUD prophylaxis: protonix 40mg DVT prophylaxis: Eliquis 2.5 mg Goals of care: Full code, discussed for >16 minutes on 04/20/25 Plan discussed with patient Plan discussed with Dr. Fraire Plan discussed with: Patient, Other My Orders My Orders Orders - BHARTI HERNANDEZ Procedure Category Date Status Time Metoprolol Xl PHA 04/21/25 In Process Succinate (Toprol Xl) 10:00 Complete Blood Count LAB 04/21/25 Verified 04:00 Basic Metabolic Panel LAB 04/21/25 Verified 04:00 Dietary Evaluation Review Comments: 1) Colin 1 pk BID 2) Monitor PO intake, lab values, I/O Expected Outcomes/Goals: To meet >75% estimated needs Fu 3-5 days Date of Service: Apr 20, 2025 Billing Provider: JANEL BATRES MD Common Visit Codes: [id number] INP/OBS CARE(HIGH) BHARTI HERNANDEZ Apr 20, 2025 16:33 JANEL BATRES MD Apr 23, 2025 21:01
[2025-04-20] MEDS: InsuLIN REG 1unit/0.01ml Soln (100units/ml) SC SCH (17:00)
[2025-04-20] MEDS: ACCU-CHEK COMFORT CURVE STRIP VI SCH (17:14)
[2025-04-21] VITALS (7 sets, daily range): BP systolic 104–141; BP diastolic 63–84; PULSE 77–95; RESP 18; TEMP 98.7–98.8; O2SAT 95–97
[2025-04-21 07:25] LABS: Hematocrit 26.1 % (41.0-53.0); Hemoglobin 8.6 g/dL (13.5-17.5); Mean Corpuscular Hemoglobin 29.5 pg (28.0-32.0); Mean Corpuscular Volume 89.7 fL (80.0-100.0); Nucleated Red Blood Cells % 0.0 %
[2025-04-21 07:26] LABS: Anion Gap 9 (5-15); Carbon Dioxide 24 mmol/L (20-31); Potassium 3.6 mmol/L (3.5-5.1); Sodium 141 mmol/L (136-145)
[2025-04-21 07:32] LABS: BUN/Creatinine Ratio 17.9 (10.0-20.0); Blood Urea Nitrogen 12 mg/dL (9-23); Glucose 105 mg/dL (74-106)
[2025-04-21 07:33] LABS: Calcium 8.4 mg/dL (8.7-10.4); Chloride 108 mmol/L (98-107)
--- NOTE | 2025-04-21 07:47 | ECG ---
[facility] Test Date: 2025-04-20 Test Time: 11:56:33 Pat Name: JUDE MACIEL Department: Room: 0284 Gender: M Public Services Librarian: ANTONI : 1945 Requested By: MEDINA TOBIN Order Number: [id number] Reading MD: Javier Otoole Measurements Intervals [place] Rate: 87 P: 40 FL: 159 QRS: -17 QRSD: 149 T: -8 QT: 408 QTc: 491 Interpretive Statements Sinus rhythm Right bundle branch block Inferior infarct, old Baseline wander in lead(s) V3 Electronically Signed On 04-27-2025 22:10:34 PDT by Javier Otoole Please click the below link to view image of tracing.
[2025-04-21] MEDS: METOPROLOL SUCCINATE XL 50 MG TAB PO SCH (09:54)
--- NOTE | 2025-04-21 15:32 | DVHPNRES ---
Progress Note Date Seen: Apr 21, 2025 Resident Creating Document: BHARTI HERNANDEZ Medical Necessity Reason Pt with a Central, PICC or Fol: Yes The following are medically ne: Mcgrath Catheter Subjective Review of Systems This is a 79-year-old male with a history of Left femur fracture, Dementia, HTN, CVA, HLD, Parkinson disease GERD, depression, insomnia, hearing difficulty who was brought to the ED by EMS following an unwitnessed ground-level fall at his assisted living facility. Patient is extremely hard of hearing and a poor historian. The patient live in [facility] facility where he slipped and fall while attempting to use the bathroom. The patient was found on the floor and unable to ambulate, complaining of right-sided hip pain. He arrived wearing a hard cervical collar. No definitive signs of head trauma were noted. Due to cognitive impairment, history is limited; the patient is alert and oriented to person and place at best. Vital signs on arrival were stable. Pain is localized to the right hip, described as moderate, and the patient is unable to move the extremity or bear weight. CT pelvis: Acute intertrochanteric right femur fracture. Previously fixated intertrochanteric left femur fracture with early healing changes and no evidence of hardware complication. Rectal wall thickening, correlate for symptoms of proctitis. CT cervical spine: No acute finding of the cervical spine. Chest X-Ray: No acute cardiopulmonary abnormality. 04/13/2025: Patient seen at bedside. Patient shows have shortening and internal rotation of the right lower extremity prior to the procedure. Patient is s/p open reduction and internal fixation (ORIF) of a right hip fracture performed today morning. Patient denies any pain at rest and appears in no apparent distress. 04/13/2025: Patient seen and examined at bedside. Patient reports right leg pain. Patient denied any chest pain, shortness of breaths, fever, dysuria, diarrhea. 04/14/2025: Patient seen and examined at bedside. Patient complains mild right leg pain but pain is manageable. EKG shows Sinus rhythm, Right bundle branch block. Progressing with physical therapy 04/15/2025: Patient seen and examined at bedside. Patient complains with lip swelling with left eye swelling. Patient and patient family refuse to go to SNF due to previous bad experience. Patient's family didn't answer the phone. 04/17/2025: Patient seen and examined at bedside. Patient shows significant improvement in lip swelling and left eye swelling and hives in arms. Patient is planning to return to [facility] and is currently waiting for bed availability. 04/19/2025: Patient seen and examined at bedside. The patients vital signs have remained stable and are appropriate for discharge to a long-term facility for rehabilitation. We are currently awaiting bed availability for transfer to [facility]. 04/20/2025: Patient seen and examined at bedside. On evaluation today, he states he is well, pain is manageable. His HR increased to 150s, Metoprolol 12.5 mg PO ordered. Enoxaparin 30 mg stopped, Eliquis 2.5 mg started. 04/21/2025: Patient seen and examined at bedside. His vitals have remained stable for discharge SNF, follow up visit in discharge clinic for rehabilitation. Patient is still planning to return to [facility] and is currently waiting for bed availability. Objective vital signs Vital Sign Date Time Temp Pulse Resp B/P (MAP) Pulse Ox O2 Delivery O2 Flow Rate FiO2 04/21/25 13:08 84 18 141/84 (103) 97 04/21/25 08:00 Room Air* 0 21 04/21/25 04:47 98.7 98.7 Total Intake and Output 04/20/25 04/20/25 04/21/25 15:00 23:00 07:00 Intake Total 450 ml 200 ml Output Total 200 ml 700 ml Balance 250 ml -500 ml medications Current Medications Medications Dose Ordered Sig/Nilesh Route Start Time Stop Time Status Last Admin Dose Admin Nitroglycerin 0.4 mg Q5MINP PRN SL 04/12/25 04:00 Morphine Sulfate 1 mg Q4HP PRN IV 04/12/25 06:45 Hold 04/14/25 10:45 1 MG Ergocalciferol 50,000 unit Q7D PO 04/16/25 20:00 04/16/25 21:45 50,000 UNIT Acetaminophen 650 mg Q6HP PRN PO 04/18/25 13:30 04/21/25 10:47 650 MG Metoprolol Succinate 25 mg DAILY PO 04/21/25 10:00 Diagnostic Test (Pha) 1 strip ACHS 04/20/25 17:00 04/21/25 11:16 1 STRIP Insulin Human Regular ACHS SC 04/20/25 17:00 04/21/25 11:17 2 UNITS Dextrose 50 ml UD PRN IV 04/20/25 14:00 Apixaban 2.5 mg BID PO 04/20/25 22:00 04/21/25 09:55 2.5 MG Examination General Appearance: Alert, moderate distress HEENT: Atraumatic, PERRLA Respiratory: Clear to auscultation, Normal air movement Cardiovascular: Regular rate, Normal S1, Normal S2 Abdominal: Normal bowel sounds, Soft, No masses Extremities: No clubbing, No cyanosis, No edema, Other (Tender palpation on right hip and right leg) Skin: No rashes, No breakdown Neuro: Sensation intact, Other laboratory and microbiology Laboratory Tests 04/21/25 06:39 Test 04/21/25 06:39 Range/Units Serum Glucose 105 74-106 mg/dL Labs and/or images reviewed: Labs reviewed by me, Image(s) reviewed by me Problem List/Assessment/Plan Problem List/Assessment/Plan # Acute intertrochanteric right femur fracture -[facility] s/p right hip pain -Vital sign: Blood pressure 146/ 78 and repeat blood pressure 141/88 -In ER patient received [place] 10/325 mg -CT pelvis: Acute intertrochanteric right femur fracture. Previously fixated intertrochanteric left femur fracture with early healing changes and no evidence of hardware complication. Rectal wall thickening, correlate for symptoms of proctitis. -CT cervical spine: No acute finding of the cervical spine. -MORPHINE 1 MG IV Q.4H PRN FOR PAIN -Orthopedic consult -Right hip open reduction internal fixation (04/13/25) -SNF for physical therapy for 2 weeks -real estate services administrator consult -EKG- Sinus rhythm, Right bundle branch block # Acute intertrochanteric left femur fracture -live in [facility] facility where he slipped and fall while attempting to use bathroom -CT pelvis: comminuted and mildly displaced Left intertrochanteric left femur fracture, coxa vera angulation of the proximal left femur, mild soft tissue swelling about the proximal left femur related to the fracture -Left intramedullary nail fixation for hip fracture (02/23/25) -Follow up with orthopedic surgeon #Dementia -Memantine 10 mg p.o. daily -Donepezil 10 mg p.o. daily # Essential hypertension -During admission,Vital sign: Blood pressure 146/ 78 and repeat blood pressure 141/88 -Amlodipine 5 mg p.o. daily -Lisinopril 10 mg p.o. daily -Monitor blood pressure # CVA -Aspirin 81 mg p.o. daily -Lipid profile # Hyperlipidemia -Atorvastatin 40 mg p.o. daily -Lipid profile #Parkinson disease -Levodopa/carbidopa 10-100 mg p.o. t.i.d. #GERD -Pantoprazole 40 mg p.o. daily #Depression -Sertraline 50 mg p.o. daily #Insomnia -Trazodone 25 mg p.o. q.h.s. p.r.n. # Normocytic normochromic anemia -Lab work on 02/24/2025: Hemoglobin 9.7, HCT 28.4, -MCV 88.2, MCH 30.0, RDW 14.5 -No signs symptoms of active bleeding -Ferritin, iron profile, occult blood test will follow #Hearing difficulty DIET: NPO, NSS 75 CC/HOURS RESUME ALL HOME MEDICATION PER AM TEAM. PUD prophylaxis: protonix 40mg DVT prophylaxis: Eliquis 2.5 mg Goals of care: Full code, discussed for >16 minutes on 04/21/25 Plan discussed with patient Plan discussed with Dr. Fraire Plan discussed with: Patient, Other (RN) Dietary Evaluation Review Comments: 1) Colin 1 pk BID 2) Monitor PO intake, lab values, I/O Expected Outcomes/Goals: To meet >75% estimated needs Fu 3-5 days Date of Service: Apr 21, 2025 Billing Provider: JANEL BATRES MD Common Visit Codes: [id number] INP/OBS CARE(HIGH) BHARTI HERNANDEZ RESIDENT Apr 21, 2025 15:32 JANEL BATRES MD Apr 23, 2025 21:02
[2025-04-22] VITALS (7 sets, daily range): BP systolic 103–139; BP diastolic 77–90; PULSE 75–98; RESP 16–20; TEMP 98.2–98.7; O2SAT 94–98
[2025-04-22 07:21] LABS: Anion Gap 10 (5-15); Carbon Dioxide 22 mmol/L (20-31)
[2025-04-22 07:26] LABS: Glucose 102 mg/dL (74-106)
[2025-04-22 07:27] LABS: BUN/Creatinine Ratio 15.5 (10.0-20.0); Blood Urea Nitrogen 11 mg/dL (9-23)
[2025-04-22 07:28] LABS: Calcium 8.4 mg/dL (8.7-10.4); Chloride 107 mmol/L (98-107); Potassium 3.7 mmol/L (3.5-5.1)
[2025-04-22 07:29] LABS: Hematocrit 27.4 % (41.0-53.0); Hemoglobin 9.2 g/dL (13.5-17.5); Mean Corpuscular Hemoglobin 29.5 pg (28.0-32.0); Mean Corpuscular Volume 88.3 fL (80.0-100.0); Nucleated Red Blood Cells % 0.1 %; Sodium 139 mmol/L (136-145)
--- NOTE | 2025-04-22 15:49 | DVHPNRES ---
Progress Note Date Seen: Apr 22, 2025 Resident Creating Document: BHARTI HERNANDEZ Medical Necessity Reason Pt with a Central, PICC or Fol: Yes The following are medically ne: Mcgrath Catheter Subjective Review of Systems This is a 79-year-old male with a history of Left femur fracture, Dementia, HTN, CVA, HLD, Parkinson disease GERD, depression, insomnia, hearing difficulty who was brought to the ED by EMS following an unwitnessed ground-level fall at his assisted living facility. Patient is extremely hard of hearing and a poor historian. The patient live in [facility] facility where he slipped and fall while attempting to use the bathroom. The patient was found on the floor and unable to ambulate, complaining of right-sided hip pain. He arrived wearing a hard cervical collar. No definitive signs of head trauma were noted. Due to cognitive impairment, history is limited; the patient is alert and oriented to person and place at best. Vital signs on arrival were stable. Pain is localized to the right hip, described as moderate, and the patient is unable to move the extremity or bear weight. CT pelvis: Acute intertrochanteric right femur fracture. Previously fixated intertrochanteric left femur fracture with early healing changes and no evidence of hardware complication. Rectal wall thickening, correlate for symptoms of proctitis. CT cervical spine: No acute finding of the cervical spine. Chest X-Ray: No acute cardiopulmonary abnormality. 04/13/2025: Patient seen at bedside. Patient shows have shortening and internal rotation of the right lower extremity prior to the procedure. Patient is s/p open reduction and internal fixation (ORIF) of a right hip fracture performed today morning. Patient denies any pain at rest and appears in no apparent distress. 04/13/2025: Patient seen and examined at bedside. Patient reports right leg pain. Patient denied any chest pain, shortness of breaths, fever, dysuria, diarrhea. 04/14/2025: Patient seen and examined at bedside. Patient complains mild right leg pain but pain is manageable. EKG shows Sinus rhythm, Right bundle branch block. Progressing with physical therapy 04/15/2025: Patient seen and examined at bedside. Patient complains with lip swelling with left eye swelling. Patient and patient family refuse to go to SNF due to previous bad experience. Patient's family didn't answer the phone. 04/17/2025: Patient seen and examined at bedside. Patient shows significant improvement in lip swelling and left eye swelling and hives in arms. Patient is planning to return to [facility] and is currently waiting for bed availability. 04/19/2025: Patient seen and examined at bedside. The patients vital signs have remained stable and are appropriate for discharge to a long term facility for rehabilitation. We are currently awaiting bed availability for transfer to [facility]. 04/20/2025: Patient seen and examined at bedside. On evaluation today, he states he is well, pain is manageable. His HR increased to 150s, Metoprolol 12.5 mg PO ordered. Enoxaparin 30 mg stopped, Eliquis 2.5 mg started. 04/21/2025: Patient seen and examined at bedside. His vitals have remained stable for discharge SNF, follow up visit in discharge clinic for rehabilitation. Patient is still planning to return to [facility] and is currently waiting for bed availability. 04/22/2025: Patient's son at bedside was informed of pending SNF transfer authorization. Patient and son previously declined SNF due to past negative experiences but later agreed to transfer to [facility] pending bed availability. Objective vital signs Vital Sign Date Time Temp Pulse Resp B/P (MAP) Pulse Ox O2 Delivery O2 Flow Rate FiO2 04/22/25 09:37 98.4 04/22/25 09:33 98 129/84 04/22/25 05:00 16 98 04/21/25 19:31 Room Air* 0 21 Total Intake and Output 04/21/25 04/21/25 04/22/25 15:00 23:00 07:00 Intake Total 0 ml 240 ml 100 ml Output Total 426 ml 525 ml Balance 0 ml -186 ml -425 ml medications Current Medications Medications Dose Ordered Sig/Nilesh Route Start Time Stop Time Status Last Admin Dose Admin Nitroglycerin 0.4 mg Q5MINP PRN SL 04/12/25 04:00 Morphine Sulfate 1 mg Q4HP PRN IV 04/12/25 06:45 Hold 04/14/25 10:45 1 MG Ergocalciferol 50,000 unit Q7D PO 04/16/25 20:00 04/16/25 21:45 50,000 UNIT Acetaminophen 650 mg Q6HP PRN PO 04/18/25 13:30 04/22/25 09:37 650 MG Metoprolol Succinate 25 mg DAILY PO 04/21/25 10:00 04/22/25 09:33 25 MG Diagnostic Test (Pha) 1 strip ACHS 04/20/25 17:00 04/22/25 11:30 1 STRIP Insulin Human Regular ACHS SC 04/20/25 17:00 04/21/25 11:17 2 UNITS Dextrose 50 ml UD PRN IV 04/20/25 14:00 Apixaban 2.5 mg BID PO 04/20/25 22:00 04/22/25 09:31 2.5 MG Examination General Appearance: Alert, moderate distress HEENT: Atraumatic, PERRLA Respiratory: Clear to auscultation, Normal air movement Cardiovascular: Regular rate, Normal S1, Normal S2 Abdominal: Normal bowel sounds, Soft, No masses Extremities: No clubbing, No cyanosis, No edema, Other (Tender palpation on right hip and right leg) Skin: No rashes, No breakdown Neuro: Sensation intact, Other laboratory and microbiology Laboratory Tests 04/22/25 06:18 Test 04/22/25 06:18 Range/Units Serum Glucose 102 74-106 mg/dL Labs and/or images reviewed: Labs reviewed by me, Image(s) reviewed by me Problem List/Assessment/Plan Problem List/Assessment/Plan # Acute intertrochanteric right femur fracture -Patient BIBEMS from assisted due to fall s/p right hip pain -Vital sign: Blood pressure 146/ 78 and repeat blood pressure 141/88 -In ER patient received [place] 10/325 mg -CT pelvis: Acute intertrochanteric right femur fracture. Previously fixated intertrochanteric left femur fracture with early healing changes and no evidence of hardware complication. Rectal wall thickening, correlate for symptoms of proctitis. -CT cervical spine: No acute finding of the cervical spine. -MORPHINE 1 MG IV Q.4H PRN FOR PAIN -Orthopedic consult -Right hip open reduction internal fixation (04/13/25) -SNF for physical therapy for 2 weeks -library services dean consult -EKG- Sinus rhythm, Right bundle branch block # Acute intertrochanteric left femur fracture -live in [facility] facility where he slipped and fall while attempting to use bathroom -CT pelvis: comminuted and mildly displaced Left intertrochanteric left femur fracture, coxa vera angulation of the proximal left femur, mild soft tissue swelling about the proximal left femur related to the fracture -Left intramedullary nail fixation for hip fracture (02/23/25) -Follow up with orthopedic surgeon #Dementia -Memantine 10 mg p.o. daily -Donepezil 10 mg p.o. daily # Essential hypertension -During admission,Vital sign: Blood pressure 146/ 78 and repeat blood pressure 141/88 -Amlodipine 5 mg p.o. daily -Lisinopril 10 mg p.o. daily -Monitor blood pressure # CVA -Aspirin 81 mg p.o. daily -Lipid profile # Hyperlipidemia -Atorvastatin 40 mg p.o. daily -Lipid profile #Parkinson disease -Levodopa/carbidopa 10-100 mg p.o. t.i.d. #GERD -Pantoprazole 40 mg p.o. daily #Depression -Sertraline 50 mg p.o. daily #Insomnia -Trazodone 25 mg p.o. q.h.s. p.r.n. # Normocytic normochromic anemia -Lab work on 02/24/2025: Hemoglobin 9.7, HCT 28.4, -MCV 88.2, MCH 30.0, RDW 14.5 -No signs symptoms of active bleeding -Ferritin, iron profile, occult blood test will follow #Hearing difficulty DIET: NPO, NSS 75 CC/HOURS RESUME ALL HOME MEDICATION PER AM TEAM. PUD prophylaxis: protonix 40mg DVT prophylaxis: Eliquis 2.5 mg Goals of care: Full code, discussed for >16 minutes on 04/22/25 Plan discussed with patient Plan discussed with Dr. Fraire Plan discussed with: Patient, Other (RN) Dietary Evaluation Review Comments: 1) Colin 1 pk BID 2) Monitor PO intake, lab values, I/O Expected Outcomes/Goals: To meet >75% estimated needs Fu 3-5 days Date of Service: Apr 22, 2025 Billing Provider: JANEL BATRES MD Common Visit Codes: [id number] INP/OBS CARE(HIGH) MARYMULUGETAYESSI RESIDENT Apr 22, 2025 15:49 JANEL BATRES MD Apr 23, 2025 21:02
[2025-04-22] MEDS: KETOROLAC TROMETH 30 MG/ML 1ML VIAL IV ONE (18:50)
[2025-04-23 01:00] VITALS: BP 134/75; PULSE 77; RESP 18; TEMP 98.8; O2SAT 97
[2025-04-23 05:00] VITALS: BP 128/76; PULSE 75; RESP 19; TEMP 98.1; O2SAT 95
[2025-04-23 09:22] VITALS: BP 130/77; PULSE 78; RESP 18; TEMP 98.3; O2SAT 96
[2025-04-23 10:21] LABS: Hematocrit 30.5 % (41.0-53.0); Hemoglobin 10.2 g/dL (13.5-17.5); Mean Corpuscular Hemoglobin 29.5 pg (28.0-32.0); Mean Corpuscular Volume 87.8 fL (80.0-100.0); Nucleated Red Blood Cells % 0.0 %
[2025-04-23 10:28] LABS: Anion Gap 9 (5-15); Carbon Dioxide 24 mmol/L (20-31); Chloride 106 mmol/L (98-107); Potassium 4.1 mmol/L (3.5-5.1); Sodium 139 mmol/L (136-145)
[2025-04-23 10:29] LABS: Calcium 8.8 mg/dL (8.7-10.4)
[2025-04-23 10:34] LABS: BUN/Creatinine Ratio 16.3 (10.0-20.0); Blood Urea Nitrogen 13 mg/dL (9-23)
[2025-04-23 10:45] LABS: Glucose 111 mg/dL (74-106)
[2025-04-23] MEDS: HYDROcodone-ACET 5/325MG TAB PO PRN (12:37)
[2025-04-23 12:41] VITALS: BP 132/98; PULSE 77; RESP 18; TEMP 98.7; O2SAT 96
[2025-04-23 17:06] VITALS: BP 130/86; PULSE 71; RESP 17; TEMP 98.7; O2SAT 97
[2025-04-23 18:07] LABS: Urine Budding Yeast OCCASIONAL /hpf (None Seen); Urine Protein, UAD TRACE (Negative)
--- NOTE | 2025-04-23 18:37 | DVHPNRES ---
Progress Note Date Seen: Apr 23, 2025 Resident Creating Document: BHARTI HERNANDEZ Medical Necessity Reason Pt with a Central, PICC or Fol: Yes The following are medically ne: Mcgrath Catheter Subjective Review of Systems This is a 79-year-old male with a history of Left femur fracture, Dementia, HTN, CVA, HLD, Parkinson disease GERD, depression, insomnia, hearing difficulty who was brought to the ED by EMS following an unwitnessed ground-level fall at his assisted living facility. Patient is extremely hard of hearing and a poor historian. The patient live in [facility] facility where he slipped and fall while attempting to use the bathroom. The patient was found on the floor and unable to ambulate, complaining of right-sided hip pain. He arrived wearing a hard cervical collar. No definitive signs of head trauma were noted. Due to cognitive impairment, history is limited; the patient is alert and oriented to person and place at best. Vital signs on arrival were stable. Pain is localized to the right hip, described as moderate, and the patient is unable to move the extremity or bear weight. CT pelvis: Acute intertrochanteric right femur fracture. Previously fixated intertrochanteric left femur fracture with early healing changes and no evidence of hardware complication. Rectal wall thickening, correlate for symptoms of proctitis. CT cervical spine: No acute finding of the cervical spine. Chest X-Ray: No acute cardiopulmonary abnormality. 04/13/2025: Patient seen at bedside. Patient shows have shortening and internal rotation of the right lower extremity prior to the procedure. Patient is s/p open reduction and internal fixation (ORIF) of a right hip fracture performed today morning. Patient denies any pain at rest and appears in no apparent distress. 04/13/2025: Patient seen and examined at bedside. Patient reports right leg pain. Patient denied any chest pain, shortness of breaths, fever, dysuria, diarrhea. 04/14/2025: Patient seen and examined at bedside. Patient complains mild right leg pain but pain is manageable. EKG shows Sinus rhythm, Right bundle branch block. Progressing with physical therapy 04/15/2025: Patient seen and examined at bedside. Patient complains with lip swelling with left eye swelling. Patient and patient family refuse to go to SNF due to previous bad experience. Patient's family didn't answer the phone. 04/17/2025: Patient seen and examined at bedside. Patient shows significant improvement in lip swelling and left eye swelling and hives in arms. Patient is planning to return to [facility] and is currently waiting for bed availability. 04/19/2025: Patient seen and examined at bedside. The patients vital signs have remained stable and are appropriate for [facility] to a [facility] facility for [facility]. We are currently awaiting bed availability for transfer to [facility]. 04/20/2025: Patient seen and examined at bedside. On evaluation today, he states he is well, pain is manageable. His HR increased to 150s, Metoprolol 12.5 mg PO ordered. Enoxaparin 30 mg stopped, Eliquis 2.5 mg started. 04/21/2025: Patient seen and examined at bedside. His vitals have remained stable for discharge SNF, follow up visit in discharge clinic for rehabilitation. Patient is still planning to return to [facility] and is currently waiting for bed availability. 04/22/2025: Patient's son at bedside was informed of pending SNF transfer authorization. Patient and son previously declined SNF due to past negative experiences but later agreed to transfer to [facility] pending bed availability. 04/23/2025: Patient seen and examined at bedside. Patient is still undergoing a social service consult for SNF placement. Possible discharge tomorrow. Objective vital signs Vital Sign Date Time Temp Pulse Resp B/P (MAP) Pulse Ox O2 Delivery O2 Flow Rate FiO2 04/23/25 17:06 98.7 71 17 130/86 (101) 97 98.7 04/23/25 08:00 Room Air* 0 21 Total Intake and Output 04/22/25 04/22/25 04/23/25 15:00 23:00 07:00 Intake Total 800 ml 500 ml Output Total 600 ml 200 ml Balance 200 ml 300 ml medications Current Medications Medications Dose Ordered Sig/Nilesh Route Start Time Stop Time Status Last Admin Dose Admin Nitroglycerin 0.4 mg Q5MINP PRN SL 04/12/25 04:00 Ergocalciferol 50,000 unit Q7D PO 04/16/25 20:00 04/16/25 21:45 50,000 UNIT Acetaminophen 650 mg Q6HP PRN PO 04/18/25 13:30 04/22/25 17:26 650 MG Metoprolol Succinate 25 mg DAILY PO 04/21/25 10:00 04/23/25 10:13 25 MG Diagnostic Test (Pha) 1 strip ACHS 04/20/25 17:00 04/23/25 17:29 1 STRIP Insulin Human Regular ACHS SC 04/20/25 17:00 04/21/25 11:17 2 UNITS Dextrose 50 ml UD PRN IV 04/20/25 14:00 Apixaban 2.5 mg BID PO 04/20/25 22:00 Hold 04/22/25 21:22 2.5 MG Acetaminophen/ Hydrocodone Bitart 1 tab Q8HPRN PRN PO 04/23/25 12:00 04/23/25 12:37 1 TAB laboratory and microbiology Laboratory Tests 04/23/25 09:34 Test 04/23/25 09:34 Range/Units Serum Glucose 111 H 74-106 mg/dL Labs and/or images reviewed: Labs reviewed by me, Image(s) reviewed by me (RN) Problem List/Assessment/Plan Problem List/Assessment/Plan # Acute intertrochanteric right femur fracture -Patient BIBEMS from [facility] due to fall s/p right hip pain -Vital sign: Blood pressure 146/ 78 and repeat blood pressure 141/88 -In ER patient received [place] 10/325 mg -CT pelvis: Acute intertrochanteric right femur fracture. Previously fixated intertrochanteric left femur fracture with early healing changes and no evidence of hardware complication. Rectal wall thickening, correlate for symptoms of proctitis. -CT cervical spine: No acute finding of the cervical spine. -MORPHINE 1 MG IV Q.4H PRN FOR PAIN -Orthopedic consult -Right hip open reduction internal fixation (04/13/25) -SNF for physical therapy for 2 weeks -environmental services aide consult -EKG- Sinus rhythm, Right bundle branch block # Acute intertrochanteric left femur fracture -live in [facility] facility where he slipped and fall while attempting to use bathroom -CT pelvis: comminuted and mildly displaced Left intertrochanteric left femur fracture, coxa vera angulation of the proximal left femur, mild soft tissue swelling about the proximal left femur related to the fracture -Left intramedullary nail fixation for hip fracture (02/23/25) -Follow up with orthopedic surgeon #Dementia -Memantine 10 mg p.o. daily -Donepezil 10 mg p.o. daily # Essential hypertension -During admission,Vital sign: Blood pressure 146/ 78 and repeat blood pressure 141/88 -Amlodipine 5 mg p.o. daily -Lisinopril 10 mg p.o. daily -Monitor blood pressure # CVA -Aspirin 81 mg p.o. daily -Lipid profile # Hyperlipidemia -Atorvastatin 40 mg p.o. daily -Lipid profile #Parkinson disease -Levodopa/carbidopa 10-100 mg p.o. t.i.d. #GERD -Pantoprazole 40 mg p.o. daily #Depression -Sertraline 50 mg p.o. daily #Insomnia -Trazodone 25 mg p.o. q.h.s. p.r.n. # Normocytic normochromic anemia -Lab work on 02/24/2025: Hemoglobin 9.7, HCT 28.4, -MCV 88.2, MCH 30.0, RDW 14.5 -No signs symptoms of active bleeding -Ferritin, iron profile, occult blood test will follow #Hearing difficulty DIET: NPO, NSS 75 CC/HOURS RESUME ALL HOME MEDICATION PER AM TEAM. PUD prophylaxis: protonix 40mg DVT prophylaxis: Eliquis 2.5 mg Goals of care: Full code, discussed for >16 minutes on 04/22/25 Plan discussed with patient Plan discussed with Dr. Fraire Plan discussed with: Patient, Other Dietary Evaluation Review Comments: 1) Colin 1 pk BID 2) Monitor PO intake, lab values, I/O Expected Outcomes/Goals: To meet >75% estimated needs Fu 3-5 days Date of Service: Apr 23, 2025 Billing Provider: JANEL BATRES MD Common Visit Codes: [id number] INP/OBS CARE(MOD) BHARTI HERNANDEZ RESIDENT Apr 23, 2025 18:37 JANEL BATRES MD Apr 23, 2025 21:03
--- NOTE | 2025-04-23 18:58 | DVH ---
CLINICAL INDICATION: severe right hip pain TECHNIQUE: Or radiographic views of the right hip were obtained. Comparison: XY R HIP COMPLETE XRAY on DOS: 04/13/25, CT PELVIS WO CONTRAST on DOS: 04/12/25, XY L HIP COM PLETE XRAY on DOS: 02/23/25 FINDINGS/IMPRESSION: Bilateral internal fixation devices in the proximal femurs. Bilateral intertrochanteric fractures. Skin closure elías noted on the right. No fractures of the superior or inferior pubic rami bilaterally on CT done 04/12/2025. HS:Y
[2025-04-23 21:00] VITALS: BP 131/85; PULSE 72; RESP 18; O2SAT 95
[2025-04-24 05:00] VITALS: BP 151/99; PULSE 81; RESP 17; TEMP 97.8; O2SAT 96
[2025-04-24 07:40] LABS: Hematocrit 29.4 % (41.0-53.0); Hemoglobin 10.1 g/dL (13.5-17.5); Mean Corpuscular Hemoglobin 29.8 pg (28.0-32.0); Mean Corpuscular Volume 87.3 fL (80.0-100.0); Nucleated Red Blood Cells % 0.1 %
[2025-04-24 07:45] LABS: Anion Gap 10 (5-15); Carbon Dioxide 23 mmol/L (20-31); Chloride 105 mmol/L (98-107); Potassium 3.8 mmol/L (3.5-5.1); Sodium 138 mmol/L (136-145)
[2025-04-24 07:49] LABS: Calcium 8.6 mg/dL (8.7-10.4)
[2025-04-24 07:51] LABS: BUN/Creatinine Ratio 16.7 (10.0-20.0); Blood Urea Nitrogen 13 mg/dL (9-23); Glucose 96 mg/dL (74-106)
[2025-04-24 08:52] VITALS: BP 140/90; PULSE 84; RESP 18; TEMP 97.4; O2SAT 95
[2025-04-24] MEDS: KETOROLAC TROMETH 30 MG/ML 1ML VIAL IV ONE (11:45)
[2025-04-24 12:58] VITALS: BP 121/77; PULSE 79; RESP 18; TEMP 97.1; O2SAT 96
--- NOTE | 2025-04-24 16:56 | DVHPNRES ---
Progress Note Date Seen: Apr 24, 2025 Resident Creating Document: BHARTI HERNANDEZ Medical Necessity Reason Pt with a Central, PICC or Fol: Yes The following are medically ne: Mcgrath Catheter Subjective Review of Systems This is a 79-year-old male with a history of Left femur fracture, Dementia, HTN, CVA, HLD, Parkinson disease GERD, depression, insomnia, hearing difficulty who was brought to the ED by EMS following an unwitnessed ground-level fall at his assisted living facility. Patient is extremely hard of hearing and a poor historian. The patient live in [facility] facility where he slipped and fall while attempting to use the bathroom. The patient was found on the floor and unable to ambulate, complaining of right-sided hip pain. He arrived wearing a hard cervical collar. No definitive signs of head trauma were noted. Due to cognitive impairment, history is limited; the patient is alert and oriented to person and place at best. Vital signs on arrival were stable. Pain is localized to the right hip, described as moderate, and the patient is unable to move the extremity or bear weight. CT pelvis: Acute intertrochanteric right femur fracture. Previously fixated intertrochanteric left femur fracture with early healing changes and no evidence of hardware complication. Rectal wall thickening, correlate for symptoms of proctitis. CT cervical spine: No acute finding of the cervical spine. Chest X-Ray: No acute cardiopulmonary abnormality. 04/13/2025: Patient seen at bedside. Patient shows have shortening and internal rotation of the right lower extremity prior to the procedure. Patient is s/p open reduction and internal fixation (ORIF) of a right hip fracture performed today morning. Patient denies any pain at rest and appears in no apparent distress. 04/13/2025: Patient seen and examined at bedside. Patient reports right leg pain. Patient denied any chest pain, shortness of breaths, fever, dysuria, diarrhea. 04/14/2025: Patient seen and examined at bedside. Patient complains mild right leg pain but pain is manageable. EKG shows Sinus rhythm, Right bundle branch block. Progressing with physical therapy 04/15/2025: Patient seen and examined at bedside. Patient complains with lip swelling with left eye swelling. Patient and patient family refuse to go to SNF due to previous bad experience. Patient's family didn't answer the phone. 04/17/2025: Patient seen and examined at bedside. Patient shows significant improvement in lip swelling and left eye swelling and hives in arms. Patient is planning to return to [facility] and is currently waiting for bed availability. 04/19/2025: Patient seen and examined at bedside. The patients vital signs have remained stable and are appropriate for discharge to a group home facility for rehabilitation. We are currently awaiting bed availability for transfer to [facility]. 04/20/2025: Patient seen and examined at bedside. On evaluation today, he states he is well, pain is manageable. His HR increased to 150s, Metoprolol 12.5 mg PO ordered. Enoxaparin 30 mg stopped, Eliquis 2.5 mg started. 04/21/2025: Patient seen and examined at bedside. His vitals have remained stable for discharge SNF, follow up visit in discharge clinic for rehabilitation. Patient is still planning to return to [facility] and is currently waiting for bed availability. 04/22/2025: Patient's son at bedside was informed of pending SNF transfer authorization. Patient and son previously declined SNF due to past negative experiences but later agreed to transfer to [facility] pending bed availability. 04/23/2025: Patient seen and examined at bedside. Patient is still undergoing a social service consult for SNF placement. Possible discharge tomorrow. 04/24/2025: Patient seen and examined at bedside. Still confused; did not share any complaints. Patient has been accepted for SNF placement at [facility], Bed 111-1. Receiving physician will be Dr. Hou. Transportation arranged via [employer], scheduled for pickup at 10:00 AM on 04/25/25. Eliquis is held due to patient had hematuria. Objective vital signs Vital Sign Date Time Temp Pulse Resp B/P (MAP) Pulse Ox O2 Delivery O2 Flow Rate FiO2 04/24/25 12:58 97.1 79 18 121/77 (92) 96 97.1 04/24/25 08:00 Room Air* 0 21 Total Intake and Output 04/23/25 04/23/25 04/24/25 15:00 23:00 07:00 Intake Total 450 ml 240 ml Output Total 500 ml 325 ml Balance -50 ml -85 ml medications Current Medications Medications Dose Ordered Sig/Nilesh Route Start Time Stop Time Status Last Admin Dose Admin Nitroglycerin 0.4 mg Q5MINP PRN SL 04/12/25 04:00 Ergocalciferol 50,000 unit Q7D PO 04/16/25 20:00 04/23/25 19:34 50,000 UNIT Acetaminophen 650 mg Q6HP PRN PO 04/18/25 13:30 04/23/25 19:28 650 MG Metoprolol Succinate 25 mg DAILY PO 04/21/25 10:00 04/24/25 10:20 25 MG Apixaban 2.5 mg BID PO 04/20/25 22:00 Hold 04/22/25 21:22 2.5 MG Acetaminophen/ Hydrocodone Bitart 1 tab Q8HPRN PRN PO 04/23/25 12:00 04/24/25 00:28 1 TAB Examination General Appearance: AOx1; only self, hard of hearing HEENT: Atraumatic, PERRLA Respiratory: Clear to auscultation, Normal air movement Cardiovascular: Regular rate, Normal S1, Normal S2 Abdominal: Normal bowel sounds, Soft, No masses; Mcgrath's in place Extremities: No clubbing, No cyanosis, No edema, Other (clean surgical dressing with tender right hip/upper thigh; no signs of bleeding/infection) Skin: No rashes, No breakdown Neuro: Sensation intact, Other laboratory and microbiology Laboratory Tests 04/24/25 06:13 Test 04/24/25 06:13 Range/Units Serum Glucose 96 74-106 mg/dL Labs and/or images reviewed: Labs reviewed by me, Image(s) reviewed by me Problem List/Assessment/Plan Problem List/Assessment/Plan # Acute intertrochanteric right femur fracture -Patient BIBEMS from alf due to fall s/p right hip pain -Vital sign: Blood pressure 146/ 78 and repeat blood pressure 141/88 -In ER patient received [place] 10/325 mg -CT pelvis: Acute intertrochanteric right femur fracture. Previously fixated intertrochanteric left femur fracture with early healing changes and no evidence of hardware complication. Rectal wall thickening, correlate for symptoms of proctitis. -CT cervical spine: No acute finding of the cervical spine. -MORPHINE 1 MG IV Q.4H PRN FOR PAIN -Orthopedic consult -S/P Open reduction internal fixation of right hip intertrochanter fracture; intra-op fluoroscopy (04/13/25) -SNF for physical therapy for 2 weeks -guest services consult -EKG- Sinus rhythm, Right bundle branch block -holding prophylactic apixaban due to hematuria # hematuria -holding prophylactic apixaban as above; to monitor # Acute intertrochanteric left femur fracture -live in [facility] facility where he slipped and fall while attempting to use bathroom -CT pelvis: comminuted and mildly displaced Left intertrochanteric left femur fracture, coxa vera angulation of the proximal left femur, mild soft tissue swelling about the proximal left femur related to the fracture -Left intramedullary nail fixation for hip fracture (02/23/25) -Follow up with orthopedic surgeon #Dementia -Memantine 10 mg p.o. daily -Donepezil 10 mg p.o. daily # Essential hypertension -During admission,Vital sign: Blood pressure 146/ 78 and repeat blood pressure 141/88 -Amlodipine 5 mg p.o. daily -Lisinopril 10 mg p.o. daily -Monitor blood pressure # CVA -Lipid profile # Hyperlipidemia -Lipid profile #Parkinson disease -Levodopa/carbidopa 10-100 mg p.o. t.i.d. #GERD -Pantoprazole 40 mg p.o. daily #Depression -Sertraline 50 mg p.o. daily #Insomnia -Trazodone 25 mg p.o. q.h.s. p.r.n. # Normocytic normochromic anemia -Lab work on 02/24/2025: Hemoglobin 9.7, HCT 28.4, -MCV 88.2, MCH 30.0, RDW 14.5 # suspected aspiration -to keep NPO for now -to repeat swallow eval #Hearing difficulty DIET: NPO, NSS 75 CC/HOURS PUD prophylaxis: Protonix 40mg DVT prophylaxis: Holding apixaban due to hematuria Goals of care discussed with the patient's son for 20 minutes: Full code Plan discussed with: Son (RN), Other (RN) Dietary Evaluation Review Comments: 1) Colin 1 pk BID 2) Monitor PO intake, lab values, I/O Expected Outcomes/Goals: To meet >75% estimated needs Fu 3-5 days ADDENDUM ADDENDUM ADDENDUM I was physically present for the jaquez portions of the service provided to patient by THE RESIDENT. I have reviewed the documentation, discussed the case with resident and agree with the resident's documentation except as noted. Also the patient's clinical case was discussed with the patient's nurse. This medical document was created using an electronic medical record system with computerized dictation system. Although this document has been carefully reviewed, there might still be some phonetic and typographical errors. These areas are purely typographical due to imperfections of the software programs, and do not reflect any compromise in the patient's medical care. Late signature. Date of Service: Apr 24, 2025 Billing Provider: MAYO VAUGHN MD Common Visit Codes: 53359-[id number] INP/OBS CARE(HIGH) Secondary Visit Codes: 51716-QAJJUYIH CARE PLAN 30 MINUTES (20 minutes) BHARTI HERNANDEZ Apr 24, 2025 16:56 MAYO VAUGHN MD Apr 27, 2025 07:46
[2025-04-24 17:00] VITALS: BP 130/95; PULSE 80; RESP 18; TEMP 97.1; O2SAT 96
[2025-04-24 21:00] VITALS: BP 94/62; PULSE 88; RESP 19; TEMP 97.4; O2SAT 96
[2025-04-25 05:00] VITALS: BP 113/72; PULSE 92; RESP 19; TEMP 97.5; O2SAT 98
[2025-04-25 09:15] VITALS: BP 116/67; PULSE 84; RESP 16; TEMP 98.2; O2SAT 99
== END 2025-04-25 09:50 | DRG 481 ==
LOC: ER 22:42 → EDBD 22:42 → OVERFLOW 04-12 04:00 → CENTRAL 04-12 18:11 → TELE-CENTR 04-13 10:22 → TELE-EAST 04-14 18:45 → TELE-WESTW 04-15 23:39 → WEST WING 04-22 20:29
PROVIDERS: ADMIT Internal Medicine Geriatric Medicine; ATTEND Orthopaedic Surgery Adult Reconstructive Orthopaedic Surgery
PROC: 0QS604Z Reposition Right Upper Femur with Internal Fixation Device, Open Approach (ICD-10-PCS; principal; 2025-04-13 08:58)
DX: S72.141A Displaced intertrochanteric fracture of right femur, initial encounter for closed fracture (principal); F02.818 Dementia in other diseases classified elsewhere, unspecified severity, with other behavioral disturbance; F02.83 Dementia in other diseases classified elsewhere, unspecified severity, with mood disturbance; D63.8 Anemia in other chronic diseases classified elsewhere; G20.A1 Parkinson's disease without dyskinesia, without mention of fluctuations; I10 Essential (primary) hypertension; F32.A Depression, unspecified; I45.10 Unspecified right bundle-branch block; E78.5 Hyperlipidemia, unspecified; K21.9 Gastro-esophageal reflux disease without esophagitis; G47.00 Insomnia, unspecified; Z86.73 Personal history of transient ischemic attack (TIA), and cerebral infarction without residual deficits; Z83.3 Family history of diabetes mellitus; Z82.49 Family history of ischemic heart disease and other diseases of the circulatory system; Z79.899 Other long term (current) drug therapy; W18.39XA Other fall on same level, initial encounter; Y93.89 Activity, other specified; Y92.098 Other place in other non-institutional residence as the place of occurrence of the external cause; Y99.8 Other external cause status
CPT/HCPCS: 36415; 71045; 72125; 72192; 73502; 76000; 80048; 80053; 81001; 82306; 82607; 82728; 82962; 83540; 83550; 83735; 85025; 85610; 85730; 86850; 86900; 86901; 93005; 93970; 96374; 96375; 97110; 97116; 97163; G0378; J1100; J1815; J1885; J2250; J2470; J2704; J3490